=== PATIENT | male | born 1955 | race Caucasian/White ===

== ENCOUNTER 2016-05-27 03:12 | Inpatient (IN) | payer MEDICARE, MEDICAID ==
[~2016-05-27] VITALS: Ht 182.9 cm; Wt 88.3 kg
[2016-05-27] MEDS ORDERED: CEFEPIME 2GM/50 ML (PMX) 50 ML IVPB STA (03:15)
[2016-05-27] MEDS ORDERED: VANCOMYCIN 1 GM (PMX) 250 ML IVPB ONE (03:30)
--- NOTE | 2016-05-27 03:53 | RADRPT ---
PROCEDURE: Chest. CLINICAL INDICATION: Chest pain. TECHNIQUE: Single frontal view of the chest was obtained. COMPARISON: None. FINDINGS: The patient status post tracheostomy. The cardiac silhouette is magnified. The aortic arch is unre markable. There is increased paratracheal soft tissue which could be vascular. There is no focal con solidation, vascular congestion or pleural effusion. There is no pneumothorax. IMPRESSION: Increased paratracheal soft tissue could be vascular; however, follow-up is recommended. Otherwise no evidence for active cardiopulmonary disease. .Mina Wilson MD, MD Date Time Electronically viewed and signed by .Mina Wilson MD, on 05/27/2016 03:53 .T/
[2016-05-27] MEDS ORDERED: SOD CHLORIDE 0.9% IV ONE (04:00)
[2016-05-27 04:20] LABS: ALBUMIN 3.7 g/dl (3.3-4.9); CHLORIDE 100 mmol/L (97-110)
[2016-05-27 04:21] LABS: POTASSIUM 5.2 mmol/L (3.5-5.1); SODIUM 139 mmol/L (135-144)
[2016-05-27 04:23] LABS: ALANINE AMINOTRANSFERASE 27 IU/L (13-69); ALKALINE PHOSPHATASE 75 IU/L (42-121); ANION GAP 19 (8-16); ASPARTATE AMINO TRANSFERASE 33 IU/L (15-46); BILIRUBIN,INDIRECT 0.2 mg/dl (0-1.1); BILIRUBIN,TOTAL 0.2 mg/dl (0.2-1.3); BLOOD UREA NITROGEN 43 mg/dl (7-20); CARBON DIOXIDE 25 mmol/L (21-31); CREATININE 1.11 mg/dl (0.61-1.24); TOTAL PROTEIN 7.4 g/dl (6.1-8.1)
[2016-05-27 04:24] LABS: CALCIUM 8.7 mg/dl (8.4-10.2); GLUCOSE 113 mg/dl (70-220)
[2016-05-27 04:29] LABS: INR 1.17; PT RATIO 1.2
[2016-05-27 04:37] LABS: HEMATOCRIT 39.5 % (42.0-52.0); HEMOGLOBIN 12.5 g/dl (14.0-18.0); MEAN CORPUSCULAR HEMOGLOBIN 26.1 pg (29.0-33.0); MEAN CORPUSCULAR HGB CONC 31.6 g/dl (32.0-37.0); MEAN CORPUSCULAR VOLUME 82.5 fl (82.0-101.0); PLATELET COUNT 293 10^3/UL (140-440); RED BLOOD COUNT 4.79 10^6/ul (4.70-6.10); RED CELL DISTRIBUTION WIDTH 15.7 % (11.5-14.5); WHITE BLOOD COUNT 17.9 10^3/ul (4.8-10.8)
[2016-05-27 04:38] LABS: MEAN PLATELET VOLUME 10.8 fl (7.4-10.4)
[2016-05-27 04:39] LABS: BASOPHIL # 0.1 10^3/ul (0.0-0.1); BASOPHILS % 0.4 % (0.0-2.0); LYMPHOCYTES # 0.6 10^3/ul (0.8-2.9); LYMPHOCYTES % 3.4 % (15.0-51.0); MONOCYTE # 0.6 10^3/ul (0.3-0.9); MONOCYTES % 3.2 % (0.0-11.0); NEUTROPHIL # 16.6 10^3/ul (1.6-7.5); NEUTROPHILS % 92.6 % (39.0-77.0)
[2016-05-27 04:44] LABS: TROPONIN-I < 0.012 ng/ml (0.00-0.12)
--- NOTE | 2016-05-27 05:01 | ERA ---
ER Documentation Chief Complaint Date/Time DATE: 05/27/16 TIME: 04:59 Chief Complaint sent from [facility] for SOB secondary to aspiration HPI There is a 4-year-old male was on trach events. Since then for possible aspiration has became difficult to respirate. Patient is unable to provide any relevant history secondary to baseline medical status ROS All systems reviewed and are negative except as per history of present illness. Allergies Allergies: Coded Allergies: No Known Drug Allergies (Verified Allergy, Unknown, 05/27/16) PMhx/Soc Hx Neurological Disorder: Yes (CVA, seizure disorder) Hx Respiratory Disorders: Yes (respiratory failure) Hx Cardiac Disorders: Yes (htn, pvd, stent) Hx Miscellaneous Medical Probl: Yes (DM, hyperlipidemia, dysphagia, renal insuffic, ) Smoking Status: Never smoker Physical Exam Vitals Vital Signs Date Time Temp Pulse Resp B/P Pulse Ox O2 Delivery O2 Flow Rate FiO2 05/27/16 03:15 99.6 116 21 109/74 93 Physical Exam Const: [] Head: Atraumatic Eyes: Normal Conjunctiva ENT: Trach site is clean dry and intact Neck: Full range of motion..~ No meningismus. Resp: Clear to auscultation bilaterally Cardio: Regular rate and rhythm, no murmurs Abd: Soft, non tender, non distended. Normal bowel sounds Skin: No petechiae or rashes Back: No midline or flank tenderness Ext: No cyanosis, or edema Neur: Awake Psych: Deferred Result Diagram: 05/27/16 0315 05/27/16 0315 Results 24 hrs Laboratory Tests Test 05/27/16 03:15 Activated Partial Thromboplast Time 38.0Sec Alanine Aminotransferase (ALT/SGPT) 27IU/L Albumin 3.7g/dl Albumin/Globulin Ratio 1.00 Alkaline Phosphatase 75IU/L Anion Gap 19 Aspartate Amino Transf (AST/SGOT) 33IU/L Basophils # 0.110^3/ul Basophils % 0.4% Blood Urea Nitrogen 43mg/dl Calcium Level 8.7mg/dl Carbon Dioxide Level 25mmol/L Chloride Level 100mmol/L Creatinine 1.11mg/dl Direct Bilirubin 0.00mg/dl Eosinophils # 0.010^3/ul Eosinophils % 0.0% Globulin 3.70g/dl Glucose Level 113mg/dl Hematocrit 39.5% Hemoglobin 12.5g/dl INR International Normalized Ratio 1.17 Indirect Bilirubin 0.2mg/dl Lactic Acid Level 1.6mmol/L Lymphocytes # 0.610^3/ul Lymphocytes % 3.4% Mean Corpuscular Hemoglobin 26.1pg Mean Corpuscular Hemoglobin Concent 31.6g/dl Mean Corpuscular Volume 82.5fl Mean Platelet Volume 10.8fl Monocytes # 0.610^3/ul Monocytes % 3.2% Neutrophils # 16.610^3/ul Neutrophils % 92.6% Nucleated Red Blood Cells # 0.010^3/ul Nucleated Red Blood Cells % 0.0/100WBC Platelet Count 06032^3/UL Potassium Level 5.2mmol/L Prothrombin Time 15.0Sec Prothrombin Time Ratio 1.2 Red Blood Count 4.7910^6/ul Red Cell Distribution Width 15.7% Sodium Level 139mmol/L Total Bilirubin 0.2mg/dl Total Protein 7.4g/dl Troponin I < 0.012ng/ml White Blood Count 17.910^3/ul Current Medications Medications (Trade) Dose Ordered Sig/Alejandra Route PRN Reason Start Time Stop Time Status Last Admin Dose Admin Cefepime HCl 50 ml @ 100 mls/hr ONCE STAT IVPB 05/27/16 03:15 05/27/16 03:44 DC 05/27/16 03:55 Vancomycin HCl 250 ml @ 125 mls/hr ONCE ONCE IVPB 05/27/16 03:30 05/27/16 05:29 05/27/16 04:49 Sodium Chloride (NS) 2,600 ml @ 2,600 mls/hr BOLUS X1 ONCE IV 05/27/16 04:00 05/27/16 04:59 05/27/16 03:55 Procedures/MDM Chest X-ray 1V Interpreted by me: Soft Tissue: No acute abnormalities Bones: No acute abnormalities Mediastinum/Cardiac Silhouette/Lungs: [No acute abnormalities] EKG: Rate/Rhythm: [Normal Sinus Rhythm] QRS, ST, T-waves: [No changes consistent w/ acute ischemia] Impression: [No evidence of ischemia or arrhythmia] Medical decision-making: This gentleman comes in with exacerbation pneumonia. Lactic acid is negative. Blood cultures are pending. Started on broad- spectrum antibiotics. Given a fluid bolus for sepsis protocol. Patient will be admitted to hospitalist Departure Diagnosis: Primary Impression: Aspiration pneumonia Qualified Code: J69.0 - Aspiration pneumonia, unspecified aspiration pneumonia type, unspecified laterality, unspecified part of lung Condition: Serious FLORENCIO SALINAS May 27, 2016 05:01
[2016-05-27] MEDS ORDERED: ALBU2.5V3 NEB ×2 (06:50)
[2016-05-27] MEDS ORDERED: ASPI-664 GTB (06:52)
[2016-05-27] MEDS ORDERED: POLY15DR25 OP (06:52)
[2016-05-27] MEDS ORDERED: HYDR-842 GTB (06:53)
[2016-05-27] MEDS ORDERED: BEN25 GTB (06:54)
[2016-05-27] MEDS ORDERED: ATEN-51 GTB (06:54)
[2016-05-27] MEDS ORDERED: DOCU-144 GTB (06:55)
[2016-05-27] MEDS ORDERED: DULO30CA45 GTB (06:55)
[2016-05-27] MEDS ORDERED: BISA10SU55 RC (06:56)
[2016-05-27] MEDS ORDERED: NA P135E RC (06:57)
[2016-05-27] MEDS ORDERED: KEP100S GTB (06:58)
[2016-05-27] MEDS ORDERED: LEVO5TAB GTB (06:59)
[2016-05-27] MEDS ORDERED: MINE3.5O28 OP (07:00)
[2016-05-27] MEDS ORDERED: CRAN3875 GTB (07:01)
[2016-05-27] MEDS ORDERED: ACET1TAB40 GTB (07:02)
[2016-05-27] MEDS ORDERED: ACET-2047 PO (07:03)
[2016-05-27] MEDS ORDERED: ACET-2047 GTB (07:04)
[2016-05-27] MEDS ORDERED: MULTI GTB (07:04)
[2016-05-27] MEDS ORDERED: VANCOMYCIN IV PER PHARMACY XX SCH (08:00)
[2016-05-27] MEDS ORDERED: DOCUSATE SODIUM 10 MG/ML (10ML CUP) GTB PRN (08:00)
[2016-05-27] MEDS ORDERED: ACETAMINOPHEN 650MG/20.3ML CUP GTB PRN (08:00)
[2016-05-27] MEDS ORDERED: NACL 0.9% 3 ML SYG IV SCH (08:00)
[2016-05-27] MEDS ORDERED: BISACODYL 10 MG SUPP PR PRN (08:00)
[2016-05-27] MEDS: FAMOTIDINE 20 MG INJ IV SCH ×2 (09:00→21:46)
[2016-05-27] MEDS ORDERED: DULOXETINE 30 MG CAP DR GTB SCH (09:00)
[2016-05-27] MEDS: ASPIRIN 81 MG TAB GTB SCH (09:00)
[2016-05-27] MEDS: ACETAMINOPHEN/CODEINE #3 TAB GTB SCH ×2 (09:00→22:26)
[2016-05-27] MEDS: ACETAMINOPHEN 650MG/20.3ML CUP GTB PRN (09:01)
[2016-05-27] MEDS: HEPARIN 5,000 UNIT/0.5 ML SYG SC SCH ×2 (09:02→22:28)
--- NOTE | 2016-05-27 09:50 | RADRPT ---
PROCEDURE: CT Chest without contrast. CLINICAL INDICATION: Abnormal chest x-ray. Increased paratracheal soft tissue identified on 017 chest x-ray. TECHNIQUE: CT scan of the chest without contrast was performed on a multidetector high-resolution CT scanner. Coronal and sagittal reformatted images were obtained from the axial source images. The total exam CTDI equals 17.8 mGy and the total exam DLP equals 728.7 mGy-cm. One or more of the following dose reduction techniques were used: - Automated exposure control. - Adjustment of the mA and/or kV according to patient size. Use of iterative reconstruction technique. COMPARISON: Chest x-ray 05/27/2016. FINDINGS: There is extensive peribronchial cuffing in both lungs. There are faint infiltrates in the right an d left upper lobes. There is consolidative infiltrate with air bronchograms in the right lower lobe . There is a 4 mm pleural-based nodule where it pleural scarring in the posterior apical segment of the left upper lobe may be the result of a granuloma. No pleural effusion is identified. There ar e vascular calcifications at the root of the aorta and in the coronary arteries. There are vascular calcifications in the aortic arch and proximal portions of the subclavian arteries. The main pulmon lisa artery and pulmonary artery outflow tracts are normal. The heart is normal in size. No pericar dial effusion is identified. The thyroid gland is normal. There are small right paratracheal lymph nodes. There is a nonspecific 1.1 cm lymph node ventral to the right mainstem bronchus. There is a 1.2 cm enlarged left hilar lymph node. A tracheostomy tube is well-positioned there are T2-T3. The axillary regions, subpectoral regions, and supraclavicular regions are all unremarkable. The martinez rrounding chest wall is unremarkable. Imaging obtained through the upper abdomen reveals no acute a bnormality. 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 There is a 7 mm accessory splenule. The liver is enlarged measuring 17.4 cm AP. The pancreas is unremarkable. There is a gastrostomy t ube well positioned in the stomach without evidence of gastric wall thickening. The surrounding oss eous structures are remarkable for degenerative spondylosis of the spine. No osteolytic or osteobla stic lesion is detected. IMPRESSION: 1. There is a consolidated pneumonia with volume loss air bronchograms in the right lower lobe with extensive peribronchial cuffing and faint infiltrates in the right upper lobe and superior segments of the right and left lower lobes. Findings are suspicious for pneumonia. 4 mm pleural-based nodul e or pleural scarring in the posterior apical segment of the right upper lobe. Recommend TB skin te sting and follow-up in 12 months at the the patient is at risk for malignancy. 2. There present reactive enlarged lymph nodes adjacent the right mainstem bronchus in the left sukumar r area. 3. No abnormal right paratracheal mass is identified. 4. Vascular vascular disease. 5. Spondylosis of the thoracic spine. RPTAT:AAJJ Physician David Date Time Electronically viewed and signed by Michele Maria Physician on 05/27/2016 09:49 CAROL/
[2016-05-27] MEDS: hydrOXYzine HCL 25 MG TAB GTB SCH ×2 (09:56→13:00)
[2016-05-27] MEDS: LEVETIRACETAM (100 MG/ML PO SYG) GTB SCH (09:56)
[2016-05-27] MEDS: MULTIVITAMINS THERAPEUTIC TAB GTB SCH (09:56)
[2016-05-27] MEDS: ATENOLOL 25 MG TAB GTB SCH (09:57)
--- NOTE | 2016-05-27 10:57 | HP ---
DATE OF ADMISSION: 05/27/2016 CHIEF COMPLAINT: Shortness of breath and vomiting. HISTORY OF PRESENT ILLNESS: The patient is a 60-year-old female with a history of CVA, seizure, sean betes, dysphagia, status post G tube, with moderate chronic respiratory failure, status post tracheo stomy on the vent, peripheral vascular disease status post stent and hypertension who was sent from a [facility] [place] for hypoxia, respiratory distress and vomiting. At the [facility], she was noted to be hypoxic and they were not able to fully adequately oxygenate her here for evaluation. There are also reports of vomiting in the day. There was a concern for possible aspiration. The patient is trached to the vent and as such gathering information from him is difficult. When he presented to the ER, his temperature was 99.6 and a heart rate of 116, respiratory rate 21, blood pressure 109/74, oxygen saturation 93% on 50% FIO2. Chest x-ray shows increased peritracheal soft tissue which could be vascular. Otherwise, no evidence for active cardiopulmonary disease. LABORATORIES: Laboratory value shows a WBC of 18,000, hemoglobin 12.5, potassium 5.2, BUN 43, creat inine 1.1. Otherwise, the rest of the vitals are stable. The patient does get IV fluids and was started on vancomycin and cefepime. We are currently awaitin g admission REVIEW OF SYSTEMS: Unable to fully assess, but negative except as mentioned in HPI. PAST MEDICAL HISTORY: As per HPI. PAST SURGICAL HISTORY: As per HPI. SOCIAL HISTORY: No reported use of tobacco, alcohol or illicit drug use. ALLERGIES: NO KNOWN DRUG ALLERGIES. HOME MEDICATIONS: 1. Benadryl. 2. Levocetirizine. 3. Albuterol 4. Atenolol. 5. Tylenol with codeine. 6. Aspirin. 7. Cymbalta. 8. Atarax 9. Keppra. 10. Mineral oil. 11. Dulcolax. 12. Colace. 13. Multivitamin. PHYSICAL EXAMINATION: VITAL SIGNS: Blood pressure 103/70, heart rate 105, respiratory rate 17, temperature 99.7, oxygen s aturation 92% on 50% FIO2 on a mechanical vent through his trach. GENERAL: No acute distress. The patient is somewhat agitated. HEENT: No obvious head deformity. Pupils reactive to light. Extraocular muscles intact. CARDIOVAS CULAR: Bradycardic but regular rhythm. LUNGS: With decreased breath sounds anteriorly. ABDOMEN: Soft. There is a G-tube in place. There are scratch camargo on the left side of his body. EXTREMITIES: There is trace pitting edema. LABORATORY DATA: Pertinent positive results as mentioned in the HPI. IMAGING: Chest x-ray with results as mentioned in the HPI. IMPRESSION: 1. Sepsis, likely from developing pneumonia. 2. Probable aspiration pneumonia. 3. Chronic, trach ventilator-dependent respiratory failure. 4. History of cerebrovascular accident. 5. History of seizure. 6. History of diabetes. 7. History of dysphagia status post G-tube. 8. History of hypertension, blood pressure at goal. 9. Hyperkalemia. PLAN: He will be placed on broad spectrum antibiotic. We will follow up on the culture results. W e will order a urinalysis as well. Will continue trach vent support. Will place a pulmonary consul t. He will be continued on his home medication through his G tube with adjustments as needed. He w ill be on insulin for his diabetes. Will correct electrolytes as needed. On the chest x-ray, there was increased peritracheal soft tissue that was noted and for this reason, I will order CT of the c hest for further evaluation. Further workup and management per clinical course. Dictated By: FLORENCIO BAILEY/EVELINA Conf#: [id number] DID#: [id number]
[2016-05-27] MEDS: CEFEPIME 1GM/50 ML (PMX) 50 ML IVPB SCH ×2 (12:42→21:46)
--- NOTE | 2016-05-27 13:38 | QN ---
Documentation Comment The patient was seen and examined. Labs reviewed. ID consult called. Case discussed with Dr. Bustos. NILAY TURNER NP May 27, 2016 13:38
--- NOTE | 2016-05-27 13:40 | CONS ---
Date/Time of Note Date/Time of Note DATE: 05/27/16 TIME: 13:34 Assessment/Plan Assessment/Plan Additional Assessment/Plan Current ventilator settings; AC of 16, tidal volume 550, PEEP of 5, 50% FiO2. Chest x-ray was reviewed from today which is essentially unremarkable. CT scan of chest was reviewed without contrast which is showing right upper lobe consolidation. Assessment and recommendations; 1. Patient admitted with right lower lobe pneumonia with leukocytosis. 2. History of stable seizure disorder. 3. History of stable hypertension. Continue current treatment. Patient currently is on appropriate antibiotic regimen. Resume tube feeding. 5. History of CVA involving left upper extremity. 6. Chronic respiratory failure ventilator dependent. Consultation Date/Type/Reason Admit Date/Time Date of Consultation: May 27, 2016 Type of Consultation: Pulmonary/critical care Reason for Consultation 60-year-old male transferred to ER from care home with complaints of hypoxemia. Patient is unable to give any history by himself history was obtained from medical records. History of present illness; 60-year-old male transferred from care home with complaints of hypoxemia with O2 saturation of around 90-92% on supplemental oxygen via ventilator. On further evaluation a chest x-ray was done which was essentially unremarkable, however CT scan of chest was done which is showing extensive consolidation involving the right lower lobe. Patient is started on broad-spectrum antibiotic coverage. No history of any nausea or vomiting reported by the care home. N Past medical history; 1. CVA involving the left side. 2. Chronic respiratory failure, ventilator dependent. 3. Status post tracheostomy and G-tube placement. 4. History of seizures. 5. History of hypertension. Medications; were reviewed. Allergies; are none. Social history; no stony smoking alcohol or drug abuse. Family history; not available. Occupational history; not available. Review of systems; patient unable to give any meaningful review of systems. General examination; elderly male, on ventilator via tracheostomy awake and currently in no distress. Patient follows some commands. Social History Smoking Status: Never smoker Exam/Review of Systems Vital Signs Vitals Vital Signs Date Time Temp Pulse Resp B/P Pulse Ox O2 Delivery O2 Flow Rate FiO2 05/27/16 12:00 98.3 73 20 102/66 98 Room Air 05/27/16 11:00 10.0 05/27/16 05:00 50 Exam H EENT examination; supple neck. JVD difficult to see because of short neck. Tracheostomy in place with clean insertion site. Pupils are midsize bilaterally. Patient is not cooperative enough to let me examine his pharynx or any dental status. He will not open his mouth. No thyromegaly. No lymphadenopathy. Chest examination; diminished breath sounds right lower lobe otherwise clear. S1-S2 audible, no murmurs. Regular rhythm. Abdomen examination; soft, protuberant. Nontender. No organomegaly. G-tube in place. Extremity examination; no peripheral edema. Pulses 1+ bilaterally. QUARTZ CUTTER examination; patient unable to move left upper extremity but is able to move his lower as well as right upper extremities to some extent. Results Result Diagram: 05/27/1631405/27/16 031 Results 24 hrs Laboratory Tests Test 05/27/16 03:15 05/27/16 05:00 05/27/16 07:04 Activated Partial Thromboplast Time 38.0 H Alanine Aminotransferase (ALT/SGPT) 27 Albumin 3.7 Albumin/Globulin Ratio 1.00 Alkaline Phosphatase 75 Anion Gap 19 H Aspartate Amino Transf (AST/SGOT) 33 Basophils # 0.1 Basophils % 0.4 Blood Urea Nitrogen 43 H Calcium Level 8.7 Carbon Dioxide Level 25 Chloride Level 100 Creatinine 1.11 Direct Bilirubin 0.00 Eosinophils # 0.0 Eosinophils % 0.0 Globulin 3.70 H Glucose Level 113 Hematocrit 39.5 L Hemoglobin 12.5 L INR International Normalized Ratio 1.17 Indirect Bilirubin 0.2 Lactic Acid Level 1.6 1.1 1.1 Lymphocytes # 0.6 L Lymphocytes % 3.4 L Mean Corpuscular Hemoglobin 26.1 L Mean Corpuscular Hemoglobin Concent 31.6 L Mean Corpuscular Volume 82.5 Mean Platelet Volume 10.8 H Monocytes # 0.6 Monocytes % 3.2 Neutrophils # 16.6 H Neutrophils % 92.6 H Nucleated Red Blood Cells # 0.0 Nucleated Red Blood Cells % 0.0 Platelet Count 293 Potassium Level 5.2 H Prothrombin Time 15.0 H Prothrombin Time Ratio 1.2 Red Blood Count 4.79 Red Cell Distribution Width 15.7 H Sodium Level 139 Total Bilirubin 0.2 Total Protein 7.4 Troponin I < 0.012 White Blood Count 17.9 H Medications Medications Current Medications Morphine Sulfate (morphine) 2 mg Q4H PRN IV SEVERE PAIN LEVEL 7-10; Start 05/27 at 08:00 Famotidine (Pepcid Iv) 20 mg Q12 IV Last administered on 05/27/16 09:00; Admin Dose 20 MG; Start 05/27/16 at 09:00 Heparin Sodium (Porcine) (Heparin (5000 Units/0.5 ml)) 5,000 unit Q12 SC Last administered on 05/27/16 09:02; Admin Dose 5,000 UNIT; Start 05/27/16 at 09:00 Acetaminophen/ Codeine Phosphate (Tylenol No.3) 1 tab Q12 GTB ; Start 05/27/16 at 09:00 Acetaminophen (Tylenol Liquid) 650 mg Q4H PRN GTB PAIN AND OR ELEVATED TEMP Last administered on 05/27/16 09:01; Admin Dose 650 MG; Start 05/27/16 at 08:00 Albuterol (Proventil 0.083% (Neb)) 2.5 mg Q6 PRN NEB WHEEZING AND SOB; Start at 08:00 Aspirin (Aspirin) 81 mg DAILY GTB Last administered on 05/27/16 09:00; Admin Dose 81 MG; Start 05/27/16 at 09:00 Atenolol (Tenormin) 25 mg DAILY GTB Last administered on 05/27/16 09:57; Admin Dose 25 MG; Start 05/27/16 at 09:00 Bisacodyl (Dulcolax Supp) 10 mg Q24H PRN ID constipation; Start 05/27/16 at 08: 00 Diphenhydramine HCl (Benadryl) 25 mg Q6H PRN GTB ITCHING; Start 05/27/16 at 08: 00 Docusate Sodium (Colace Liquid Cup) 100 mg QHS PRN GTB CONSTIPATION; Start at 08:00 Hydroxyzine HCl (Atarax) 25 mg TID GTB Last administered on 05/27/16 09:56; Admin Dose 25 MG; Start 05/27/16 at 09:00 Levetiracetam (Keppra Liq (Ped)) 750 mg BID GTB Last administered on 05/27/16 09:56; Admin Dose 750 MG; Start 05/27/16 at 09:00 Multivitamins Therapeutic 1 tab 1 tab DAILY GTB Last administered on 05/27/16 09:56; Admin Dose 1 TAB; Start 05/27/16 at 09:00 Cefepime HCl 50 ml @ 100 mls/hr Q12 IVPB Last administered on 05/27/16 12:42 ; Admin Dose 100 MLS/HR; Start 05/27/16 at 13:00 Vancomycin HCl (Vancocin) 250 ml @ 125 mls/hr Q12H IVPB ; Start 05/27/16 at 13: 00 MAURISIO CHEUNG May 27, 2016 13:40
[2016-05-27] MEDS: VANCOMYCIN 1 GM in NS 250 ML IVPB SCH (14:47)
--- NOTE | 2016-05-27 16:12 | CONS ---
DATE OF ADMISSION: 05/27/2016 DATE OF CONSULTATION: 05/27/2016 TYPE OF CONSULTATION: Infectious Disease. REASON FOR CONSULTATION: Antibiotic management. HISTORY OF PRESENT ILLNESS: Aleksey Briseno is a 62-year-old male who comes in with shortness of breath and vomiting. His past problems include: 1. History of CVA. 2. Seizure disorder. 3. Diabetes mellitus. 4. Dysphagia. 5. Status post G-tube placement. 6. Chronic respiratory failure, status post tracheostomy, on a vent. 7. Peripheral vascular disease. 8. Status post stent placement. 9. Hypertension. Acutely, the patient was sent from a senior living facility with hypoxia, respiratory distress, na usea, and vomiting. They were unable to fully oxygenate him in the emergency room. He is trached a nd vented, and there was concern for possible aspiration. His O2 was 93, O2 sat on 50% FIO2. Chest x-ray showed increased peritracheal soft tissue, which could be vascular. Otherwise, no evidence f or acute or active cardiopulmonary disease. LABORATORY VALUES: Shows white count was 17.9, H and H of 12.5 and 39.5, platelet count 293,000 wit h 93% polys. A BUN and creatinine of 43/1.11, lactic acid was 1.6. A chest x-ray increased paratra cheal soft tissues. CT scan showed consolidated pneumonia with volume loss, air bronchograms in the right lower lobe with extensive peribronchial cuffing, and faint infiltrates in the right upper lob e and superior segment of the right lower lobe. Findings are suspicious for pneumonia. A 4-mm pleu ral based nodule, or pleural scarring, in the posterior apical segment of the right upper lobe. Rec ommend TB skin testing and follow up in 12 months if the patient is at risk for malignancy. He has reactive enlarged lymph nodes adjacent to the right main bronchus in the left hilar area, but his br onchograms are in the right lower lobe and extensive bronchial cuffing and faint infiltrates in the right upper lobe and superior segment of the right and left lower lobes. The patient clearly has pn eumonia. The patient was started on vancomycin and cefepime, and cultures were sent. PAST MEDICAL HISTORY: Operations as outlined. FAMILY HISTORY: Noncontributory. SOCIAL HISTORY: Does not smoke, drink, or abuse drugs. ALLERGIES: NONE TO PENICILLIN, SULFA, OR FOODS. MEDICATIONS: Per chart. REVIEW OF SYSTEMS: As per HPI. PHYSICAL EXAMINATION: GENERAL: The patient is a chronically ill-appearing male who is agitated, somewhat obtunded. VITAL SIGNS: As outlined and are stable. SKIN: Without generalized rash. HEENT: Within normal limits. NECK: Tracheostomy in place. Supple. LYMPH NODES: None palpable. CHEST: Decreased breath sounds at the bases. HEART: Without murmur or gallop. ABDOMEN: G-tube in place, no discharge. EXTREMITIES: Without cyanosis or clubbing. He has trace pitting edema. RECTAL AND GENITAL: Deferred. NEUROLOGIC: No focal neurological abnormalities. IMPRESSION AND PLAN: The patient has extensive pulmonary infiltrates, probably related to aspiratio n pneumonia. He is on vancomycin and cefepime. Will await the culture reports. Hopefully, respira tory cultures were ordered. I will dictate my findings to the hospitalist. Dictated By: RUTH WORLEY MD, JD/EVELINA Conf#: [id number] DID#: [id number]
[2016-05-28] MEDS: LEVETIRACETAM (100 MG/ML PO SYG) GTB SCH ×3 (00:18→21:56)
[2016-05-28] MEDS: hydrOXYzine HCL 25 MG TAB GTB SCH ×4 (00:18→21:56)
[2016-05-28] MEDS: VANCOMYCIN 1 GM in NS 250 ML IVPB SCH ×2 (01:10→13:34)
[2016-05-28] MEDS: ACETAMINOPHEN 650MG/20.3ML CUP GTB PRN (04:18)
[2016-05-28 09:03] LABS: HEMATOCRIT 36.5 % (42.0-52.0); LYMPHOCYTES # 0.7 10^3/ul (0.8-2.9); LYMPHOCYTES % 6.3 % (15.0-51.0); MEAN CORPUSCULAR HEMOGLOBIN 26.4 pg (29.0-33.0); MEAN CORPUSCULAR HGB CONC 32.8 g/dl (32.0-37.0); MEAN CORPUSCULAR VOLUME 80.5 fl (82.0-101.0); MONOCYTE # 0.6 10^3/ul (0.3-0.9); MONOCYTES % 5.4 % (0.0-11.0); NEUTROPHIL # 9.2 10^3/ul (1.6-7.5); NEUTROPHILS % 88.3 % (39.0-77.0); PLATELET COUNT 269 10^3/UL (140-440); RED BLOOD COUNT 4.53 10^6/ul (4.70-6.10); RED CELL DISTRIBUTION WIDTH 16.4 % (11.5-14.5); UNCORRECTED WBC 10.5 10^3/ul (4.8-10.8); WHITE BLOOD COUNT 10.5 10^3/ul (4.8-10.8)
[2016-05-28 09:11] LABS: ALBUMIN 3.5 g/dl (3.3-4.9)
[2016-05-28 09:12] LABS: POTASSIUM 5.5 mmol/L (3.5-5.1)
[2016-05-28 09:13] LABS: PHOSPHORUS 2.6 mg/dl (2.5-4.9)
[2016-05-28 09:14] LABS: ALBUMIN/GLOBULIN RATIO 0.87; BILIRUBIN,INDIRECT 0.2 mg/dl (0-1.1); BILIRUBIN,TOTAL 0.2 mg/dl (0.2-1.3); CONDITION 1; CREATININE 0.8 mg/dl (0.61-1.24); LH ANALYZER COMMENTS 1; MAGNESIUM 2.2 mg/dl (1.7-2.5); TOTAL PROTEIN 7.5 g/dl (6.1-8.1)
[2016-05-28 09:15] LABS: CALCIUM 8.6 mg/dl (8.4-10.2); CHOL/HDL RATIO 3.9 RATIO
[2016-05-28] MEDS: MULTIVITAMINS THERAPEUTIC TAB GTB SCH (09:56)
[2016-05-28] MEDS: ATENOLOL 25 MG TAB GTB SCH (09:56)
[2016-05-28] MEDS: ACETAMINOPHEN/CODEINE #3 TAB GTB SCH ×2 (09:57→21:56)
[2016-05-28] MEDS: CEFEPIME 1GM/50 ML (PMX) 50 ML IVPB SCH ×2 (09:57→21:55)
[2016-05-28] MEDS: FAMOTIDINE 20 MG INJ IV SCH ×2 (09:57→21:55)
[2016-05-28] MEDS: ASPIRIN 81 MG TAB GTB SCH (09:58)
[2016-05-28 11:21] LABS: THYROID STIMULATING HORMONE 1.37 MIU/L (0.465-4.680)
--- NOTE | 2016-05-28 12:37 | CONS ---
Date/Time of Note Date/Time of Note DATE: 05/28/16 TIME: 12:33 Assessment/Plan Assessment/Plan Additional Assessment/Plan Ventilator settings; assist control 16, tidal volume 550, PEEP of 5, 50% FiO2. Assessment recommendations; 1. Patient with chronic respiratory failure admitted with right lower lobe pneumonia. 2. History of CVA. 3. Improving leukocytosis. Continue current treatment. Patient awaiting transfer to ICU from ER. Consultation Date/Type/Reason Admit Date/Time Initial Consult Date 05/27/16 Type of Consultation: Pulmonary/critical care 24 HR Interval Summary Free Text/Dictation Patient's condition remains stable. Still in ER awaiting ICU bed. Patient is completely awake alert ,able to communicate well by lip movement and able to move right upper extremity. Has remained hemodynamically stable. General examination; elderly male, on ventilator via tracheostomy currently in no distress awake and alert. Exam/Review of Systems Vital Signs Vitals Vital Signs Date Time Temp Pulse Resp B/P Pulse Ox O2 Delivery O2 Flow Rate FiO2 05/28/16 10:00 83 18 127/75 100 Mechanical Ventilator 05/28/16 09:44 50 05/28/16 09:00 98.6 05/28/16 01:00 10.0 Exam H EENT examination; supple neck, no JVD. Midline trachea no thyromegaly. Tracheostomy in place with clean insertion site. Pupils are small bilaterally. No neck masses. No lymphadenopathy. No neck bruits. Chest examination; diminished breath sounds bilaterally without any added sounds. S1-S2 audible no murmurs. Regular rhythm. Abdomen examination; soft, nontender. Protuberant. No organomegaly. G-tube in place. Bowel sounds audible. Extremity examination; no peripheral edema. Pulses 1+ bilaterally. PRINTMAKER examination; patient is awake alert able to move right upper and both lower extremities. Has stable left upper extremity paralysis. Results Result Diagram: 05/28/16 0843 05/28/16 0843 Results 24 hrs Laboratory Tests Test 05/28/16 08:43 Alanine Aminotransferase (ALT/SGPT) 22 Albumin 3.5 Albumin/Globulin Ratio 0.87 Alkaline Phosphatase 70 Anion Gap 21 H Aspartate Amino Transf (AST/SGOT) 45 Basophils # 0.0 Basophils % 0.0 Blood Morphology Comment Blood Urea Nitrogen 30 #H Calcium Level 8.6 Carbon Dioxide Level 25 Chloride Level 105 Cholesterol Level 87 L Cholesterol/HDL Ratio 3.9 Creatinine 0.80 Direct Bilirubin 0.00 Eosinophils # 0.0 Eosinophils % 0.0 Globulin 4.00 H Glucose Level 96 HDL Cholesterol 22 L Hematocrit 36.5 L Hemoglobin 12.0 L Hemoglobin A1c 5.7 Indirect Bilirubin 0.2 LDL Cholesterol, Calculated 41 Lymphocytes # 0.7 L Lymphocytes % 6.3 L Magnesium Level 2.2 Mean Corpuscular Hemoglobin 26.4 L Mean Corpuscular Hemoglobin Concent 32.8 Mean Corpuscular Volume 80.5 L Mean Platelet Volume 9.0 Monocytes # 0.6 Monocytes % 5.4 Neutrophils # 9.2 H Neutrophils % 88.3 H Nucleated Red Blood Cells # 0.0 Nucleated Red Blood Cells % 0.0 Phosphorus Level 2.6 Platelet Count 269 Potassium Level 5.5 H Red Blood Count 4.53 L Red Cell Distribution Width 16.4 H Sodium Level 145 H Thyroid Stimulating Hormone (TSH) 1.370 Total Bilirubin 0.2 Total Protein 7.5 Triglycerides Level 122 White Blood Count 10.5 # Medications Medications Current Medications Morphine Sulfate (morphine) 2 mg Q4H PRN IV SEVERE PAIN LEVEL 7-10; Start 05/27 at 08:00 Famotidine (Pepcid Iv) 20 mg Q12 IV Last administered on 05/28/16 09:57; Admin Dose 20 MG; Start 05/27/16 at 09:00 Heparin Sodium (Porcine) (Heparin (5000 Units/0.5 ml)) 5,000 unit Q12 SC Last administered on 05/27/16 22:28; Admin Dose 5,000 UNIT; Start 05/27/16 at 09:00 Acetaminophen/ Codeine Phosphate (Tylenol No.3) 1 tab Q12 GTB Last administered on 05/28/16 09:57; Admin Dose 1 TAB; Start 05/27/16 at 09:00 Acetaminophen (Tylenol Liquid) 650 mg Q4H PRN GTB PAIN AND OR ELEVATED TEMP Last administered on 05/28/16 04:18; Admin Dose 650 MG; Start 05/27/16 at 08:00 Albuterol (Proventil 0.083% (Neb)) 2.5 mg Q6 PRN NEB WHEEZING AND SOB; Start at 08:00 Aspirin (Aspirin) 81 mg DAILY GTB Last administered on 05/28/16 09:58; Admin Dose 81 MG; Start 05/27/16 at 09:00 Atenolol (Tenormin) 25 mg DAILY GTB Last administered on 05/28/16 09:56; Admin Dose 25 MG; Start 05/27/16 at 09:00 Bisacodyl (Dulcolax Supp) 10 mg Q24H PRN [place] constipation; Start 05/27/16 at 08: 00 Diphenhydramine HCl (Benadryl) 25 mg Q6H PRN GTB ITCHING; Start 05/27/16 at 08: 00 Docusate Sodium (Colace Liquid Cup) 100 mg QHS PRN GTB CONSTIPATION; Start at 08:00 Hydroxyzine HCl (Atarax) 25 mg TID GTB Last administered on 05/28/16 09:55; Admin Dose 25 MG; Start 05/27/16 at 09:00 Levetiracetam (Keppra Liq (Ped)) 750 mg BID GTB Last administered on 05/28/16 09:55; Admin Dose 750 MG; Start 05/27/16 at 09:00 Multivitamins Therapeutic 1 tab 1 tab DAILY GTB Last administered on 05/28/16 09:56; Admin Dose 1 TAB; Start 05/27/16 at 09:00 Cefepime HCl 50 ml @ 100 mls/hr Q12 IVPB Last administered on 05/28/16 09:57 ; Admin Dose 100 MLS/HR; Start 05/27/16 at 13:00 Vancomycin HCl (Vancocin) 250 ml @ 125 mls/hr Q12H IVPB Last administered on 01:10; Admin Dose 125 MLS/HR; Start 05/27/16 at 13:00 MAURISIO CHEUNG May 28, 2016 12:37
[2016-05-28] MEDS: HEPARIN 5,000 UNIT/0.5 ML SYG SC SCH ×2 (13:04→21:57)
[2016-05-28] MEDS ORDERED: NA POLYST SULFON 15 GM/60 ML BTL GTB ONE (16:00)
[2016-05-28 16:09] VITALS: BP 105/81; PULSE 76; RESP 18
--- NOTE | 2016-05-28 19:22 | PN ---
DATE: 05/28/2016 SUBJECTIVE DATA: The patient is nonverbal. Vital signs have been stable. OBJECTIVE DATA: VITAL SIGNS: Temperature 98.9, pulse is 76, respiratory rate 18, blood pressure 105/81, oxygen saturation 99% on 50% oxygen via mechanical ventilator. GENERAL: This is an obese male patient, lying in bed, in no apparent distress. HEENT: Head normocephalic and atraumatic. Eyes: Anicteric sclerae. Conjunctivae clear. ENT: Nasal septum is midline. Oral mucosa is dry. NECK: Tracheostomy is in the midline. No JVD noticed. RESPIRATORY: Bilateral diminished breath sounds. A few fine rales heard. The patient has a tracheostomy connected to mechanical ventilator. On AC mode ventilation. CARDIAC: Regular rate and rhythm. S1, S2 heard. ABDOMEN: Soft, nontender. Left upper quadrant G-tube in place. Left lower quadrant colostomy. GENITOURINARY: Deferred. EXTREMITIES: No cyanosis, no clubbing, no edema. Peripheral pulses are diminished bilaterally. NEUROLOGIC: The patient is awake and alert. The patient is nonverbal. The patient nods had to yes/no questions. LABORATORY AND DIAGNOSTIC DATA: WBC 10.5, hemoglobin 12.0, hematocrit 36.5, platelet count 269. Sodium 145, potassium 5.5, chloride 105, carbon dioxide 23 , anion gap 21, BUN 30, creatinine 0.80, glucose 96, calcium 8.6, phosphorus 2.6 , magnesium 2.2. ASSESSMENT AND PLAN: 1. Sepsis secondary to underlying healthcare-associated pneumonia. No evidence of septic shock. Continue antibiotics as per Infectious Disease. 2. Acute on chronic respiratory failure. The patient is status post tracheostomy. The patient being followed by pulmonary. Continue ventilator management and inhaled bronchodilators as per pulmonary. 3. Seizure disorder. Continue anticonvulsants. 4. Chronic bedridden status. Continue supportive care. Continue turn schedule q.2 hours. 5. Hyperkalemia. Etiology unclear. Will provide the patient with a single dose of potassium exchange resin. 6. Microcytic, hypochromic anemia. Etiology unclear. Will monitor the H and H closely. Transfuse as needed. Will obtain an iron panel on this patient. 7. Essential hypertension. Continue antihypertensives. 8. Fluid, electrolytes, and nutrition. The patient will be continued on tube feedings. 9. DVT prophylaxis, subcutaneous heparin. 10. Gastrointestinal prophylaxis. Histamine 2 receptor blockers. PLAN: Continue antibiotics as per Infectious Disease. Await final cultures. Give a single dose of potassium exchange resin for underlying hyperkalemia. Case discussed with Dr. Romero. NILAY ROMERO MD, AM/EVELINA Conf#: [id number] DID#: [id number] MTDD
[2016-05-28 23:11] VITALS: TEMP 99.7
[2016-05-28 23:55] VITALS: BP 121/67; RESP 18
[2016-05-29] VITALS (23 sets, daily range): BP systolic 112–167; BP diastolic 56–75; PULSE 73–94; RESP 17–37; Ht 182.9 cm; Wt 88.3 kg
[2016-05-29] MEDS: VANCOMYCIN 1.25 GM in SOD CHLORIDE 0.9% 250 ML IVPB SCH ×2 (02:28→13:01)
[2016-05-29 07:20] LABS: PHOSPHORUS 1.6 mg/dl (2.5-4.9); POTASSIUM 3.4 mmol/L (3.5-5.1)
[2016-05-29 07:22] LABS: CREATININE 0.66 mg/dl (0.61-1.24)
[2016-05-29 07:23] LABS: CALCIUM 7.9 mg/dl (8.4-10.2)
[2016-05-29] MEDS: FAMOTIDINE 20 MG INJ IV SCH ×2 (08:00→21:41)
[2016-05-29] MEDS: ASPIRIN 81 MG TAB GTB SCH (08:00)
[2016-05-29] MEDS: ACETAMINOPHEN/CODEINE #3 TAB GTB SCH ×2 (08:00→21:41)
[2016-05-29] MEDS: MULTIVITAMINS THERAPEUTIC TAB GTB SCH (08:01)
[2016-05-29] MEDS: ATENOLOL 25 MG TAB GTB SCH (08:01)
[2016-05-29] MEDS: HEPARIN 5,000 UNIT/0.5 ML SYG SC SCH ×2 (08:07→21:44)
[2016-05-29] MEDS: hydrOXYzine HCL 25 MG TAB GTB SCH ×3 (08:12→21:40)
[2016-05-29 08:49] LABS: IRON 16 ug/dl (35-150)
[2016-05-29 08:58] LABS: TOTAL IRON BINDING CAPACITY 215 ug/dl (241-421)
[2016-05-29 09:40] LABS: BASOPHILS % 0.2 % (0.0-2.0); HEMATOCRIT 31.1 % (42.0-52.0); HEMOGLOBIN 10.3 g/dl (14.0-18.0); LYMPHOCYTES # 0.9 10^3/ul (0.8-2.9); LYMPHOCYTES % 15.3 % (15.0-51.0); MEAN CORPUSCULAR HEMOGLOBIN 26.9 pg (29.0-33.0); MEAN CORPUSCULAR HGB CONC 33.3 g/dl (32.0-37.0); MEAN CORPUSCULAR VOLUME 80.9 fl (82.0-101.0); MEAN PLATELET VOLUME 9.9 fl (7.4-10.4); MONOCYTE # 0.7 10^3/ul (0.3-0.9); MONOCYTES % 11.5 % (0.0-11.0); NEUTROPHIL # 4.5 10^3/ul (1.6-7.5); PLATELET COUNT 211 10^3/UL (140-440); RED BLOOD COUNT 3.84 10^6/ul (4.70-6.10); RED CELL DISTRIBUTION WIDTH 16.6 % (11.5-14.5); UNCORRECTED WBC 6.2 10^3/ul (4.8-10.8); WHITE BLOOD COUNT 6.2 10^3/ul (4.8-10.8)
[2016-05-29] MEDS: LEVETIRACETAM (100 MG/ML PO SYG) GTB SCH ×2 (09:40→22:51)
[2016-05-29 09:42] LABS: CONDITION 1
[2016-05-29 09:43] LABS: LH ANALYZER COMMENTS 1
[2016-05-29] MEDS: CEFEPIME 1GM/50 ML (PMX) 50 ML IVPB SCH ×2 (10:53→21:40)
--- NOTE | 2016-05-29 11:24 | PN ---
Date/Time of Note Date/Time of Note DATE: 05/29/16 TIME: 11:14 Assessment/Plan VTE Prophylaxis VTE Prophylaxis Intervention: heparin, SCD's Lines/Catheters [facility] [place] Assessment/Plan Assessment/Plan 1. Sepsis secondary to underlying healthcare-associated pneumonia. No evidence of septic shock. Continue antibiotics as per Infectious Disease. 2. Acute on chronic respiratory failure. The patient is status post tracheostomy. The patient being followed by pulmonary. Continue ventilator management and inhaled bronchodilators as per pulmonary. 3. Seizure disorder. Continue anticonvulsants. 4. Chronic bedridden status. Continue supportive care. Continue turn schedule q.2 hours. 5. Hyperkalemia. Etiology unclear. Will provide the patient with a single dose of potassium exchange resin. 6. Microcytic hypochromic anemia. Etiology unclear. Will monitor the H and H closely. Transfuse as needed. Will obtain an iron panel on this patient. 7. Fluid, electrolytes, and nutrition. The patient will be continued on tube feedings. 8. DVT prophylaxis, subcutaneous heparin. 9. Gastrointestinal prophylaxis. Histamine 2 receptor blockers. 10. Essential hypertension. Continue antihypertensives. PLAN: IV abx, PT evaluation and treament, Bp stable ID following, pulmonary following Heparin For DVT Prophylaxis on Tube feeding with Fibresource I called Sister - went into voicemail- I left a voicemail Exam/Review of Systems Vital Signs Vitals Vital Signs Date Time Temp Pulse Resp B/P Pulse Ox O2 Delivery O2 Flow Rate FiO2 05/29/16 11:14 98.1 78 18 112/56 98 05/29/16 09:51 40 05/28/16 23:55 Mechanical Ventilator 05/28/16 01:00 10.0 Intake and Output 05/28/16 05/28/16 05/29/16 15:00 23:00 07:00 Intake Total 691 ml 521 ml Balance 691 ml 521 ml Results Result Diagram: 05/29/16 0630 05/29/16 0630 Results 24 hrs Laboratory Tests Test 05/29/16 00:03 05/29/16 06:30 Vancomycin Level Trough 10.0 Anion Gap 13 # Basophils # 0.0 Basophils % 0.2 Blood Morphology Comment Blood Urea Nitrogen 23 H Calcium Level 7.9 L Carbon Dioxide Level 28 Chloride Level 107 Creatinine 0.66 Eosinophils # 0.0 Eosinophils % 0.0 Ferritin 88.9 Glucose Level 118 Hematocrit 31.1 L Hemoglobin 10.3 L Iron Level 16 L Lymphocytes # 0.9 Lymphocytes % 15.3 Magnesium Level 2.0 Mean Corpuscular Hemoglobin 26.9 L Mean Corpuscular Hemoglobin Concent 33.3 Mean Corpuscular Volume 80.9 L Mean Platelet Volume 9.9 Monocytes # 0.7 Monocytes % 11.5 H Neutrophils # 4.5 Neutrophils % 73.0 Nucleated Red Blood Cells # 0.0 Nucleated Red Blood Cells % 0.0 Percent Iron Saturation 7 L Phosphorus Level 1.6 #L Platelet Count 211 # Potassium Level 3.4 #L Red Blood Count 3.84 L Red Cell Distribution Width 16.6 H Sodium Level 145 H Total Iron Binding Capacity 215 L White Blood Count 6.2 # Medications Medications Current Medications Morphine Sulfate (morphine) 2 mg Q4H PRN IV SEVERE PAIN LEVEL 7-10; Start 05/27 at 08:00 Famotidine (Pepcid Iv) 20 mg Q12 IV Last administered on 05/29/16 08:00; Admin Dose 20 MG; Start 05/27/16 at 09:00 Heparin Sodium (Porcine) (Heparin (5000 Units/0.5 ml)) 5,000 unit Q12 SC Last administered on 05/29/16 08:07; Admin Dose 5,000 UNIT; Start 05/27/16 at 09:00 Acetaminophen/ Codeine Phosphate (Tylenol No.3) 1 tab Q12 GTB Last administered on 05/29/16 08:00; Admin Dose 1 TAB; Start 05/27/16 at 09:00 Acetaminophen (Tylenol Liquid) 650 mg Q4H PRN GTB PAIN AND OR ELEVATED TEMP Last administered on 05/28/16 04:18; Admin Dose 650 MG; Start 05/27/16 at 08:00 Albuterol (Proventil 0.083% (Neb)) 2.5 mg Q6 PRN NEB WHEEZING AND SOB; Start at 08:00 Aspirin (Aspirin) 81 mg DAILY GTB Last administered on 05/29/16 08:00; Admin Dose 81 MG; Start 05/27/16 at 09:00 Atenolol (Tenormin) 25 mg DAILY GTB Last administered on 2/22/17at 08:01; Admin Dose 25 MG; Start 05/27/16 at 09:00 Bisacodyl (Dulcolax Supp) 10 mg Q24H PRN [place] constipation; Start 05/27/16 at 08: 00 Diphenhydramine HCl (Benadryl) 25 mg Q6H PRN GTB ITCHING; Start 05/27/16 at 08: 00 Docusate Sodium (Colace Liquid Cup) 100 mg QHS PRN GTB CONSTIPATION; Start at 08:00 Hydroxyzine HCl (Atarax) 25 mg TID GTB Last administered on 05/29/16 08:12; Admin Dose 25 MG; Start 05/27/16 at 09:00 Levetiracetam (Keppra Liq (Ped)) 750 mg BID GTB Last administered on 05/29/16 09:40; Admin Dose 750 MG; Start 05/27/16 at 09:00 Multivitamins Therapeutic 1 tab 1 tab DAILY GTB Last administered on 05/29/16 08:01; Admin Dose 1 TAB; Start 05/27/16 at 09:00 Cefepime HCl 50 ml @ 100 mls/hr Q12 IVPB Last administered on 05/29/16 10:53 ; Admin Dose 100 MLS/HR; Start 05/27/16 at 13:00 Vancomycin HCl/ Sodium Chloride (Vancocin/NS) 250 ml @ 83.333 mls/ hr Q12H IVPB Last administered on 05/29/16 02:28; Admin Dose 83.333 MLS/HR; Start at 02:00 RALPH LEÓN MD May 29, 2016 11:24
--- NOTE | 2016-05-29 11:38 | CONS ---
Date/Time of Note Date/Time of Note DATE: 05/29/16 TIME: 11:36 Assessment/Plan Assessment/Plan Additional Assessment/Plan Ventilator settings; AC of 16, tidal volume of 550, PEEP of 5, 40% FiO2. Assessment and recommendations; 1. Patient with chronic respiratory failure due to CVA. 2. Admitted for right lower lobe pneumonia. 3. Stable seizure disorder. Continue current supportive care. Continue current ventilator settings, antibiotics. Consultation Date/Type/Reason Admit Date/Time May 27, 2016 at 04:18 Initial Consult Date 05/27/16 Type of Consultation: Pulmonary/critical care 24 HR Interval Summary Free Text/Dictation Patient condition is stable. Remains ventilator dependent. General examination elderly male, on ventilator via tracheostomy currently in no distress. Awake and alert. Exam/Review of Systems Vital Signs Vitals Vital Signs Date Time Temp Pulse Resp B/P Pulse Ox O2 Delivery O2 Flow Rate FiO2 05/29/16 11:26 78 19 93 40 05/29/16 11:14 98.1 112/56 05/28/16 23:55 Mechanical Ventilator 05/28/16 01:00 10.0 Intake and Output 05/28/16 05/28/16 05/29/16 15:00 23:00 07:00 Intake Total 691 ml 521 ml Balance 691 ml 521 ml Exam H EENT examination; supple neck, no JVD. No lymphadenopathy. Tracheostomy in place with clean insertion site. Pupils are midsize and reactive to light. Pharynx is clear. No neck masses. No thyromegaly. Chest examination; minimally decreased breath sounds lung bases bilaterally. Upper lobes are clear. S1-S2 audible, no murmurs. Regular rhythm. Abdomen examinations; soft, nondistended. Nontender. G-tube in place. Bowel sounds audible. No organomegaly. Extremity examination; no peripheral edema. Pulses 2+ bilaterally. CORE FITTER examination; patient has stable left upper extremity paralysis. Results Result Diagram: 05/29/16 0630 05/29/16 0630 Results 24 hrs Laboratory Tests Test 05/29/16 00:03 05/29/16 06:30 Vancomycin Level Trough 10.0 Anion Gap 13 # Basophils # 0.0 Basophils % 0.2 Blood Morphology Comment Blood Urea Nitrogen 23 H Calcium Level 7.9 L Carbon Dioxide Level 28 Chloride Level 107 Creatinine 0.66 Eosinophils # 0.0 Eosinophils % 0.0 Ferritin 88.9 Glucose Level 118 Hematocrit 31.1 L Hemoglobin 10.3 L Iron Level 16 L Lymphocytes # 0.9 Lymphocytes % 15.3 Magnesium Level 2.0 Mean Corpuscular Hemoglobin 26.9 L Mean Corpuscular Hemoglobin Concent 33.3 Mean Corpuscular Volume 80.9 L Mean Platelet Volume 9.9 Monocytes # 0.7 Monocytes % 11.5 H Neutrophils # 4.5 Neutrophils % 73.0 Nucleated Red Blood Cells # 0.0 Nucleated Red Blood Cells % 0.0 Percent Iron Saturation 7 L Phosphorus Level 1.6 #L Platelet Count 211 # Potassium Level 3.4 #L Red Blood Count 3.84 L Red Cell Distribution Width 16.6 H Sodium Level 145 H Total Iron Binding Capacity 215 L White Blood Count 6.2 # Medications Medications Current Medications Morphine Sulfate (morphine) 2 mg Q4H PRN IV SEVERE PAIN LEVEL 7-10; Start 05/27 at 08:00 Famotidine (Pepcid Iv) 20 mg Q12 IV Last administered on 05/29/16 08:00; Admin Dose 20 MG; Start 05/27/16 at 09:00 Heparin Sodium (Porcine) (Heparin (5000 Units/0.5 ml)) 5,000 unit Q12 SC Last administered on 05/29/16 08:07; Admin Dose 5,000 UNIT; Start 05/27/16 at 09:00 Acetaminophen/ Codeine Phosphate (Tylenol No.3) 1 tab Q12 GTB Last administered on 05/29/16 08:00; Admin Dose 1 TAB; Start 05/27/16 at 09:00 Acetaminophen (Tylenol Liquid) 650 mg Q4H PRN GTB PAIN AND OR ELEVATED TEMP Last administered on 05/28/16 04:18; Admin Dose 650 MG; Start 05/27/16 at 08:00 Albuterol (Proventil 0.083% (Neb)) 2.5 mg Q6 PRN NEB WHEEZING AND SOB; Start at 08:00 Aspirin (Aspirin) 81 mg DAILY GTB Last administered on 05/29/16 08:00; Admin Dose 81 MG; Start 05/27/16 at 09:00 Atenolol (Tenormin) 25 mg DAILY GTB Last administered on 05/29/16 08:01; Admin Dose 25 MG; Start 05/27/16 at 09:00 Bisacodyl (Dulcolax Supp) 10 mg Q24H PRN [place] constipation; Start 05/27/16 at 08: 00 Diphenhydramine HCl (Benadryl) 25 mg Q6H PRN GTB ITCHING; Start 05/27/16 at 08: 00 Docusate Sodium (Colace Liquid Cup) 100 mg QHS PRN GTB CONSTIPATION; Start at 08:00 Hydroxyzine HCl (Atarax) 25 mg TID GTB Last administered on 05/29/16 08:12; Admin Dose 25 MG; Start 05/27/16 at 09:00 Levetiracetam (Keppra Liq (Ped)) 750 mg BID GTB Last administered on 05/29/16 09:40; Admin Dose 750 MG; Start 05/27/16 at 09:00 Multivitamins Therapeutic 1 tab 1 tab DAILY GTB Last administered on 05/29/16 08:01; Admin Dose 1 TAB; Start 05/27/16 at 09:00 Cefepime HCl 50 ml @ 100 mls/hr Q12 IVPB Last administered on 05/29/16 10:53 ; Admin Dose 100 MLS/HR; Start 05/27/16 at 13:00 Vancomycin HCl/ Sodium Chloride (Vancocin/NS) 250 ml @ 83.333 mls/ hr Q12H IVPB Last administered on 05/29/16 02:28; Admin Dose 83.333 MLS/HR; Start at 02:00 MAURISIO CHEUNG May 29, 2016 11:38
--- NOTE | 2016-05-29 15:25 | PN ---
DATE: 05/29/2016 INFECTIOUS DISEASE PROGRESS NOTE SUBJECTIVE: Patient is lying comfortably in bed. He is awake, in no distress. No fevers. WBC 6.2 , no shift, no bands. BUN 23, creatinine 0.66. MICROBIOLOGY: Blood cultures negative. Preliminary urine culture pending. DIAGNOSTICS: CT of the chest revealed consolidated pneumonia with a 4 mm pleural based nodule in th e right upper lobe. INDWELLINGS: Trach, PEG. ANTIMICROBIALS: The patient is on: 1. IV vancomycin. 2. Cefepime. PHYSICAL EXAMINATION: GENERAL: Chronically ill-appearing, elderly man in no distress. HEENT: Head atraumatic, normocephalic. Sclerae anicteric. Buccal mucosa dry. NECK: Supple. Tracheostomy present. CHEST: Rise symmetrical. Breath sounds diminished to bases. HEART: S1, S2. ABDOMEN: Soft. Bowel tones present. ASSESSMENT: 1. Sepsis secondary to #2. 2. Healthcare-associated pneumonia. 3. Chronic respiratory failure. 4. Dysphagia. 5. Seizure disorder. 6. Diabetes. PLAN: The patient remains stable, improving on current antimicrobials. Awaiting sputum cultures. Vent support per pulmonary. Nephrology recommendations. Dictated By: STEPHEN CARRASQUILLO INTERNATIONAL REPRESENTATIVE for RUTH MCDERMOTT/EVELINA Conf#: [id number] DID#: [id number]
[2016-05-29] MEDS ORDERED: POTASSIUM CHLORIDE 20 MEQ in SOD CHLORIDE 0.9% 100 ML IVPB ONE (17:00)
[2016-05-29] MEDS ORDERED: LORAZEPAM 2 MG INJ IV ONE (22:00)
[2016-05-30] VITALS (34 sets, daily range): BP systolic 118–150; BP diastolic 58–78; PULSE 70–83; RESP 17–25
[2016-05-30] MEDS: VANCOMYCIN 1.25 GM in SOD CHLORIDE 0.9% 250 ML IVPB SCH ×2 (01:15→15:27)
[2016-05-30] MEDS: LEVETIRACETAM (100 MG/ML PO SYG) GTB SCH ×2 (09:46→21:16)
[2016-05-30] MEDS: FAMOTIDINE 20 MG INJ IV SCH ×2 (09:46→21:16)
[2016-05-30] MEDS: MULTIVITAMINS THERAPEUTIC TAB GTB SCH (09:46)
[2016-05-30] MEDS: hydrOXYzine HCL 25 MG TAB GTB SCH ×3 (09:47→21:00)
[2016-05-30] MEDS: ACETAMINOPHEN/CODEINE #3 TAB GTB SCH ×2 (09:47→21:16)
[2016-05-30] MEDS: ASPIRIN 81 MG TAB GTB SCH (09:47)
[2016-05-30] MEDS: ATENOLOL 25 MG TAB GTB SCH (09:47)
[2016-05-30] MEDS: HEPARIN 5,000 UNIT/0.5 ML SYG SC SCH ×2 (09:49→21:18)
[2016-05-30] MEDS: CEFEPIME 1GM/50 ML (PMX) 50 ML IVPB SCH ×2 (10:30→21:15)
--- NOTE | 2016-05-30 10:45 | PN ---
Date/Time of Note Date/Time of Note DATE: 05/30/16 TIME: 10:39 Assessment/Plan VTE Prophylaxis VTE Prophylaxis Intervention: heparin Lines/Catheters [facility] Peripheral IV Urinary Cath still in place: No Assessment/Plan Assessment/Plan 1. Sepsis secondary to underlying healthcare-associated pneumonia. No evidence of septic shock. Continue antibiotics as per Infectious Disease. 2. Acute on chronic respiratory failure. The patient is status post tracheostomy. The patient being followed by pulmonary. Continue ventilator management and inhaled bronchodilators as per pulmonary. 3. Seizure disorder. Continue anticonvulsants. 4. Chronic bedridden status. Continue supportive care. Continue turn schedule q.2 hours. 5. Hyperkalemia. Etiology unclear. Will provide the patient with a single dose of potassium exchange resin. 6. Microcytic hypochromic anemia. Etiology unclear. Will monitor the H and H closely. Transfuse as needed. Will obtain an iron panel on this patient. 7. Fluid, electrolytes, and nutrition. The patient will be continued on tube feedings. 8. DVT prophylaxis, subcutaneous heparin. 9. Gastrointestinal prophylaxis. Histamine 2 receptor blockers. 10. Essential hypertension. Continue antihypertensives. PLAN: IV abx, PT evaluation and treament, Bp stable ID following, pulmonary following,sputum Cx result pending Heparin For DVT Prophylaxis on Tube feeding with Fibresourjerri I talked with Sister Rajni today -updated her about plan and IV abx Subjective 24 Hr Interval Summary Free Text/Dictation no acute events, Exam/Review of Systems Vital Signs Vitals Vital Signs Date Time Temp Pulse Resp B/P Pulse Ox O2 Delivery O2 Flow Rate FiO2 05/30/16 10:00 98.2 72 18 133/67 98 Mechanical Ventilator 05/30/16 05:05 40 05/28/16 01:00 10.0 Intake and Output 05/29/16 05/29/16 05/30/16 15:00 23:00 07:00 Intake Total 900 ml 1121 ml Output Total 4 ml Balance 896 ml 1121 ml Exam GENERAL: no acute events,BP stable NECK: Tracheostomy is in the midline,site clear RESPIRATORY: Bilateral diminished breath sounds CARDIAC: Regular rate and rhythm. S1, S2 heard. ABDOMEN: Soft, nontender. Left upper quadrant G-tube in place. Left lower quadrant colostomy. EXTREMITIES: no clubbing/cyanosis Results Result Diagram: 2/22/17 0630 05/29/1630 Medications Medications Current Medications Morphine Sulfate (morphine) 2 mg Q4H PRN IV SEVERE PAIN LEVEL 7-10; Start 05/27 at 08:00 Famotidine (Pepcid Iv) 20 mg Q12 IV Last administered on 05/30/16 09:46; Admin Dose 20 MG; Start 05/27/16 at 09:00 Heparin Sodium (Porcine) (Heparin (5000 Units/0.5 ml)) 5,000 unit Q12 SC Last administered on 05/30/16 09:49; Admin Dose 5,000 UNIT; Start 05/27/16 at 09:00 Acetaminophen/ Codeine Phosphate (Tylenol No.3) 1 tab Q12 GTB Last administered on 05/30/16 09:47; Admin Dose 1 TAB; Start 05/27/16 at 09:00 Acetaminophen (Tylenol Liquid) 650 mg Q4H PRN GTB PAIN AND OR ELEVATED TEMP Last administered on 05/28/16 04:18; Admin Dose 650 MG; Start 05/27/16 at 08:00 Albuterol (Proventil 0.083% (Neb)) 2.5 mg Q6 PRN NEB WHEEZING AND SOB; Start at 08:00 Aspirin (Aspirin) 81 mg DAILY GTB Last administered on 05/30/16 09:47; Admin Dose 81 MG; Start 05/27/16 at 09:00 Atenolol (Tenormin) 25 mg DAILY GTB Last administered on 05/30/16 09:47; Admin Dose 25 MG; Start 05/27/16 at 09:00 Bisacodyl (Dulcolax Supp) 10 mg Q24H PRN [place] constipation; Start 05/27/16 at 08: 00 Diphenhydramine HCl (Benadryl) 25 mg Q6H PRN GTB ITCHING; Start 05/27/16 at 08: 00 Docusate Sodium (Colace Liquid Cup) 100 mg QHS PRN GTB CONSTIPATION; Start at 08:00 Hydroxyzine HCl (Atarax) 25 mg TID GTB Last administered on 05/30/16 09:47; Admin Dose 25 MG; Start 05/27/16 at 09:00 Levetiracetam (Keppra Liq (Ped)) 750 mg BID GTB Last administered on 05/30/16 09:46; Admin Dose 750 MG; Start 05/27/16 at 09:00 Multivitamins Therapeutic 1 tab 1 tab DAILY GTB Last administered on 05/30/16 09:46; Admin Dose 1 TAB; Start 05/27/16 at 09:00 Cefepime HCl 50 ml @ 100 mls/hr Q12 IVPB Last administered on 05/30/16 10:30 ; Admin Dose 100 MLS/HR; Start 05/27/16 at 13:00 Vancomycin HCl/ Sodium Chloride (Vancocin/NS) 250 ml @ 83.333 mls/ hr Q12H IVPB Last administered on 05/30/16 01:15; Admin Dose 83.333 MLS/HR; Start at 02:00 Miscellaneous Information (*Rx Drug Level Order Reminder*) VANCO TR LEVEL PRIOR ... ONCE ONCE XX ; Start 05/30/16 at 13:00; Stop 05/30/16 at 13:01 RALPH LEÓN MD May 30, 2016 10:45
--- NOTE | 2016-05-30 11:07 | CONS ---
Date/Time of Note Date/Time of Note DATE: 05/30/16 TIME: 11:05 Assessment/Plan Assessment/Plan Additional Assessment/Plan Ventilator settings; assist control of 16, tidal volume 550, PEEP of 5, 40% FiO2. Assessment and recommendations; 1. Patient admitted with right upper lobe pneumonia. 2. Chronic respiratory failure. Ventilator dependent. 3. History of CVA. Continue current treatment. Consultation Date/Type/Reason Admit Date/Time May 27, 2016 at 04:18 Initial Consult Date 05/27/16 Type of Consultation: Pulmonary/critical care 24 HR Interval Summary Free Text/Dictation Patient condition remains stable. Remains ventilator dependent. General examination; elderly male, on ventilator via tracheostomy. Awake and alert. Exam/Review of Systems Vital Signs Vitals Vital Signs Date Time Temp Pulse Resp B/P Pulse Ox O2 Delivery O2 Flow Rate FiO2 05/30/16 10:00 98.2 72 18 133/67 98 Mechanical Ventilator 05/30/16 05:05 40 05/28/16 01:00 10.0 Intake and Output 05/29/16 05/29/16 05/30/16 15:00 23:00 07:00 Intake Total 900 ml 1121 ml Output Total 4 ml Balance 896 ml 1121 ml Exam HEENT examination; supple neck, no JVD. No lymphadenopathy. Tracheostomy in place. Incision site is clean. Pupils are midsize and reactive to light. Chest examination; clear to auscultation. S1-S2 audible, no murmurs. Regular rhythm. Abdomen examination; soft, no organomegaly. G-tube in place. Bowel sounds audible. Nontender. Extremity examination; no peripheral edema. Pulses 2+ bilaterally. [employer] examination; patient is stable left upper extremity paralysis. Results Result Diagram: 05/29/1630 05/29/16 0630 Medications Medications Current Medications Morphine Sulfate (morphine) 2 mg Q4H PRN IV SEVERE PAIN LEVEL 7-10; Start 05/27 at 08:00 Famotidine (Pepcid Iv) 20 mg Q12 IV Last administered on 05/30/16 09:46; Admin Dose 20 MG; Start 05/27/16 at 09:00 Heparin Sodium (Porcine) (Heparin (5000 Units/0.5 ml)) 5,000 unit Q12 SC Last administered on 05/30/16 09:49; Admin Dose 5,000 UNIT; Start 05/27/16 at 09:00 Acetaminophen/ Codeine Phosphate (Tylenol No.3) 1 tab Q12 GTB Last administered on 05/30/16 09:47; Admin Dose 1 TAB; Start 05/27/16 at 09:00 Acetaminophen (Tylenol Liquid) 650 mg Q4H PRN GTB PAIN AND OR ELEVATED TEMP Last administered on 05/28/16 04:18; Admin Dose 650 MG; Start 05/27/16 at 08:00 Albuterol (Proventil 0.083% (Neb)) 2.5 mg Q6 PRN NEB WHEEZING AND SOB; Start at 08:00 Aspirin (Aspirin) 81 mg DAILY GTB Last administered on 05/30/16 09:47; Admin Dose 81 MG; Start 05/27/16 at 09:00 Atenolol (Tenormin) 25 mg DAILY GTB Last administered on 05/30/16 09:47; Admin Dose 25 MG; Start 05/27/16 at 09:00 Bisacodyl (Dulcolax Supp) 10 mg Q24H PRN [place] constipation; Start 05/27/16 at 08: 00 Diphenhydramine HCl (Benadryl) 25 mg Q6H PRN GTB ITCHING; Start 05/27/16 at 08: 00 Docusate Sodium (Colace Liquid Cup) 100 mg QHS PRN GTB CONSTIPATION; Start at 08:00 Hydroxyzine HCl (Atarax) 25 mg TID GTB Last administered on 05/30/16 09:47; Admin Dose 25 MG; Start 05/27/16 at 09:00 Levetiracetam (Keppra Liq (Ped)) 750 mg BID GTB Last administered on 05/30/16 09:46; Admin Dose 750 MG; Start 05/27/16 at 09:00 Multivitamins Therapeutic 1 tab 1 tab DAILY GTB Last administered on 05/30/16 09:46; Admin Dose 1 TAB; Start 05/27/16 at 09:00 Cefepime HCl 50 ml @ 100 mls/hr Q12 IVPB Last administered on 05/30/16 10:30 ; Admin Dose 100 MLS/HR; Start 05/27/16 at 13:00 Vancomycin HCl/ Sodium Chloride (Vancocin/NS) 250 ml @ 83.333 mls/ hr Q12H IVPB Last administered on 05/30/16t 01:15; Admin Dose 83.333 MLS/HR; Start at 02:00 Miscellaneous Information (*Rx Drug Level Order Reminder*) VANCO TR LEVEL PRIOR ... ONCE ONCE XX ; Start 05/30/16 at 13:00; Stop 05/30/16 at 13:01 MAURISIO CHEUNG May 30, 2016 11:07
--- NOTE | 2016-05-30 14:19 | PN ---
DATE: 05/30/2016 INFECTIOUS DISEASE PROGRESS NOTE SUBJECTIVE: No events overnight. No fevers. The patient is lying comfortably in bed. LABORATORY DATA: No labs today. MICROBIOLOGY: Sputum culture growing gram-negative rods. ANTIMICROBIALS: 1. Vancomycin. 2. Cefepime. INDWELLINGS: Trach, PEG. PHYSICAL EXAMINATION: GENERAL: Chronically ill-appearing, elderly man in no distress. HEENT: Head atraumatic, normocephalic. Sclerae anicteric. Buccal mucosa dry. NECK: Supple. Tracheostomy present. CHEST: Rise symmetrical. Breath sounds diminished to bases. HEART: S1, S2. ABDOMEN: Soft, bowel sounds present. EXTREMITIES: No cyanosis. ASSESSMENT: 1. Resolving sepsis. 2. Healthcare-associated pneumonia. 3. Diabetes. 4. Seizure disorder. 5. Dysphagia, status post percutaneous endoscopic gastrostomy. PLAN: The patient remains stable. Continue present care, antibiotics. Follow recommendations of [facility]. Dictated By: STEPHEN CARRASQUILLO MECHANICAL MAINTENANCE TECHNICIAN for RUTH MCDERMOTT/EVELINA Conf#: [id number] DID#: [id number]
[2016-05-30] MEDS: morphine 2 MG INJ IV PRN (15:07)
[2016-05-31] VITALS (30 sets, daily range): BP systolic 126–148; BP diastolic 58–93; PULSE 66–98; RESP 18–31
[2016-05-31] MEDS: VANCOMYCIN 1.25 GM in SOD CHLORIDE 0.9% 250 ML IVPB SCH ×2 (02:21→13:43)
[2016-05-31 06:57] LABS: CREATININE 0.65 mg/dl (0.61-1.24)
[2016-05-31] MEDS: FAMOTIDINE 20 MG INJ IV SCH (09:20)
[2016-05-31] MEDS: LEVETIRACETAM (100 MG/ML PO SYG) GTB SCH ×2 (09:20→20:45)
[2016-05-31] MEDS: ATENOLOL 25 MG TAB GTB SCH (09:21)
[2016-05-31] MEDS: hydrOXYzine HCL 25 MG TAB GTB SCH ×3 (09:21→20:46)
[2016-05-31] MEDS: MULTIVITAMINS THERAPEUTIC TAB GTB SCH (09:21)
[2016-05-31] MEDS: ASPIRIN 81 MG TAB GTB SCH (09:21)
[2016-05-31] MEDS: HEPARIN 5,000 UNIT/0.5 ML SYG SC SCH ×2 (09:22→20:47)
[2016-05-31] MEDS: morphine 2 MG INJ IV PRN (09:24)
[2016-05-31] MEDS: CEFEPIME 1GM/50 ML (PMX) 50 ML IVPB SCH ×2 (09:25→20:45)
[2016-05-31] MEDS: ACETAMINOPHEN/CODEINE #3 TAB GTB SCH ×2 (09:25→21:00)
--- NOTE | 2016-05-31 12:34 | PN ---
Date/Time of Note Date/Time of Note DATE: 05/31/16 TIME: 12:32 Assessment/Plan VTE Prophylaxis VTE Prophylaxis Intervention: heparin Lines/Catheters IV [facility]from [facility] Saline [facility] Urinary Cath still in place: No Assessment/Plan Assessment/Plan 1. Sepsis secondary to underlying healthcare-associated pneumonia. No evidence of septic shock. Continue antibiotics as per Infectious Disease. 2. Acute on chronic respiratory failure. The patient is status post tracheostomy. The patient being followed by pulmonary. Continue ventilator management and inhaled bronchodilators as per pulmonary. 3. Seizure disorder. Continue anticonvulsants. 4. Chronic bedridden status. Continue supportive care. Continue turn schedule q.2 hours. 5. Hyperkalemia. Etiology unclear. Will provide the patient with a single dose of potassium exchange resin. 6. Microcytic hypochromic anemia. Etiology unclear. Will monitor the H and H closely. Transfuse as needed. Will obtain an iron panel on this patient. 7. Fluid, electrolytes, and nutrition. The patient will be continued on tube feedings. 8. DVT prophylaxis, subcutaneous heparin. 9. Gastrointestinal prophylaxis. Histamine 2 receptor blockers. 10. Essential hypertension. Continue antihypertensives. PLAN: IV abx, PT evaluation and treament, Bp stable ID following, pulmonary following,sputum Cx result pending Heparin For DVT Prophylaxis on Tube feeding with [employer] IV iron for x 5 doses I talked with Sister Rajni today -updated her about plan and IV abx Subjective 24 Hr Interval Summary Free Text/Dictation no acute events, IV abx, iron saturation 7% Exam/Review of Systems Vital Signs Vitals Vital Signs Date Time Temp Pulse Resp B/P Pulse Ox O2 Delivery O2 Flow Rate FiO2 05/31/16 12:22 81 26 91 40 05/31/16 11:24 99.7 144/87 05/31/16 06:00 Mechanical Ventilator 05/28/16 01:00 10.0 Intake and Output 05/30/16 05/30/16 05/31/16 15:00 23:00 07:00 Intake Total 800 ml Balance 800 ml Exam GENERAL: no acute events,BP stable NECK: Tracheostomy is in the midline,site clear RESPIRATORY: Bilateral diminished breath sounds CARDIAC: Regular rate and rhythm. S1, S2 heard. ABDOMEN: Soft, nontender. Left upper quadrant G-tube in place. Left lower quadrant colostomy. EXTREMITIES: no clubbing/cyanosis Results Result Diagram: 05/29/16 0630 05/31/16 0600 Results 24 hrs Laboratory Tests Test 05/30/16 13:30 05/31/16 06:00 Vancomycin Level Trough 11.8 Blood Urea Nitrogen 19 Creatinine 0.65 Medications Medications Current Medications Morphine Sulfate (morphine) 2 mg Q4H PRN IV SEVERE PAIN LEVEL 7-10 Last administered on 05/31/16 09:24; Admin Dose 2 MG; Start 05/27/16 at 08:00 Famotidine (Pepcid Iv) 20 mg Q12 IV Last administered on 05/31/16 09:20; Admin Dose 20 MG; Start 05/27/16 at 09:00 Heparin Sodium (Porcine) (Heparin (5000 Units/0.5 ml)) 5,000 unit Q12 SC Last administered on 05/31/16 09:22; Admin Dose 5,000 UNIT; Start 05/27/16 at 09:00 Acetaminophen/ Codeine Phosphate (Tylenol No.3) 1 tab Q12 GTB Last administered on 05/31/16 09:25; Admin Dose 1 TAB; Start 05/27/16 at 09:00 Acetaminophen (Tylenol Liquid) 650 mg Q4H PRN GTB PAIN AND OR ELEVATED TEMP Last administered on 05/28/16 04:18; Admin Dose 650 MG; Start 05/27/16 at 08:00 Albuterol (Proventil 0.083% (Neb)) 2.5 mg Q6 PRN NEB WHEEZING AND SOB; Start at 08:00 Aspirin (Aspirin) 81 mg DAILY GTB Last administered on 05/31/16 09:21; Admin Dose 81 MG; Start 05/27/16 at 09:00 Atenolol (Tenormin) 25 mg DAILY GTB Last administered on 05/31/16 09:21; Admin Dose 25 MG; Start 05/27/16 at 09:00 Bisacodyl (Dulcolax Supp) 10 mg Q24H PRN [place] constipation; Start 05/27/16 at 08: 00 Diphenhydramine HCl (Benadryl) 25 mg Q6H PRN GTB ITCHING; Start 05/27/16 at 08: 00 Docusate Sodium (Colace Liquid Cup) 100 mg QHS PRN GTB CONSTIPATION; Start at 08:00 Hydroxyzine HCl (Atarax) 25 mg TID GTB Last administered on 05/31/16 09:21; Admin Dose 25 MG; Start 05/27/16 at 09:00 Levetiracetam (Keppra Liq (Ped)) 750 mg BID GTB Last administered on 05/31/16 09:20; Admin Dose 750 MG; Start 05/27/16 at 09:00 Multivitamins Therapeutic 1 tab 1 tab DAILY GTB Last administered on 05/31/16 09:21; Admin Dose 1 TAB; Start 05/27/16 at 09:00 Cefepime HCl 50 ml @ 100 mls/hr Q12 IVPB Last administered on 05/31/16 09:25 ; Admin Dose 100 MLS/HR; Start 05/27/16 at 13:00 Vancomycin HCl/ Sodium Chloride (Vancocin/NS) 250 ml @ 83.333 mls/ hr Q12H IVPB Last administered on 05/31/16 02:21; Admin Dose 83.333 MLS/HR; Start at 02:00 RALPH LEÓN MD May 31, 2016 12:34
--- NOTE | 2016-05-31 13:31 | PN ---
DATE: 05/31/2016 INFECTIOUS DISEASE PROGRESS NOTE SUBJECTIVE: No events overnight. The patient has low-grade fevers with a T-max of 100.4 this morni ng. He is lying comfortably in bed. No labs this morning. MICROBIOLOGY: Sputum culture grew multi-drug resistant Pseudomonas susceptible to Fortaz, cefepime, amikacin, resistant to Zosyn. ANTIMICROBIALS: The patient is on: 1. Vancomycin. 2. Cefepime. INDWELLINGS: Trach, PEG. PHYSICAL EXAMINATION: GENERAL: Fragile, elderly man in no distress. HEAD: Atraumatic, normocephalic. Sclera anicteric. Oral mucosa dry. NECK: Supple. Tracheostomy present. CHEST: Rise symmetrical. Breath sounds diminished. HEART: S1, S2. ABDOMEN: Soft, bowel tones present. EXTREMITIES: Without cyanosis. ASSESSMENT: 1. Sepsis with fevers and leukocytosis secondary to #2. 2. Healthcare-associated pneumonia. 3. Chronic respiratory failure. 4. Dysphagia. 5. History of seizure disorder. PLAN: The patient remains stable with low grade fevers. We are going to check his urine culture. Continue him on current antimicrobials. Continue vent management as per pulmonary recommendations. Dictated By: STEPHEN CARRASQUILLO MEDICAL LIBRARIAN for RUTH MCDERMOTT/EVELINA Conf#: [id number] DID#: [id number]
--- NOTE | 2016-05-31 13:59 | CONS ---
Date/Time of Note Date/Time of Note DATE: 05/31/16 TIME: 13:54 Assessment/Plan Assessment/Plan Additional Assessment/Plan Ventilator settings; assist control of 16, tidal volume 550, PEEP of 5, 45% FiO2. Assessment and recommendations; 1. Patient admitted with right lower lobe pneumonia with hypoxemia. 2. History of chronic respiratory failure, ventilator dependent. 3. History of CVA involving left upper extremity. Continue current treatment for now. Obtain a follow-up chest x-ray. Consultation Date/Type/Reason Admit Date/Time May 27, 2016 at 04:18 Initial Consult Date 05/27/16 Type of Consultation: Pulmonary/critical care 24 HR Interval Summary Free Text/Dictation Patient condition is stable. Remains awake alert. Remains ventilator dependent. Has remained hemodynamically stable. General examination; elderly male, on ventilator via tracheostomy currently in no distress. Exam/Review of Systems Vital Signs Vitals Vital Signs Date Time Temp Pulse Resp B/P Pulse Ox O2 Delivery O2 Flow Rate FiO2 05/31/16 12:22 81 26 91 40 05/31/16 11:24 99.7 144/87 05/31/16 06:00 Mechanical Ventilator 05/28/16 01:00 10.0 Intake and Output 05/30/16 05/30/16 05/31/16 15:00 23:00 07:00 Intake Total 800 ml Balance 800 ml Exam H EENT examination; supple neck, no JVD. No lymphadenopathy. Tracheostomy in place. Insertion site is clean. Pupils are midsize and reactive to light. Chest examination; minimally decreased breath sounds right lower lobe otherwise clear. S1-S2 audible, no murmurs. Regular rhythm. Abdomen examination; soft, G-tube in place. No organomegaly. Bowel sounds audible. Extremity examination; no peripheral edema. [employer] examination; patient is stable left upper extremity paralysis. Results Result Diagram: 05/29/16 0630 05/31/16 0600 Results 24 hrs Laboratory Tests Test 05/31/16 06:00 Blood Urea Nitrogen 19 Creatinine 0.65 Medications Medications Current Medications Morphine Sulfate (morphine) 2 mg Q4H PRN IV SEVERE PAIN LEVEL 7-10 Last administered on 05/31/16 09:24; Admin Dose 2 MG; Start 05/27/16 at 08:00 Famotidine (Pepcid Iv) 20 mg Q12 IV Last administered on 05/31/16 09:20; Admin Dose 20 MG; Start 05/27/16 at 09:00 Heparin Sodium (Porcine) (Heparin (5000 Units/0.5 ml)) 5,000 unit Q12 SC Last administered on 05/31/16 09:22; Admin Dose 5,000 UNIT; Start 05/27/16 at 09:00 Acetaminophen/ Codeine Phosphate (Tylenol No.3) 1 tab Q12 GTB Last administered on 05/31/16 09:25; Admin Dose 1 TAB; Start 05/27/16 at 09:00 Acetaminophen (Tylenol Liquid) 650 mg Q4H PRN GTB PAIN AND OR ELEVATED TEMP Last administered on 05/28/16 04:18; Admin Dose 650 MG; Start 05/27/16 at 08:00 Albuterol (Proventil 0.083% (Neb)) 2.5 mg Q6 PRN NEB WHEEZING AND SOB; Start at 08:00 Aspirin (Aspirin) 81 mg DAILY GTB Last administered on 05/31/16 09:21; Admin Dose 81 MG; Start 05/27/16 at 09:00 Atenolol (Tenormin) 25 mg DAILY GTB Last administered on 05/31/16 09:21; Admin Dose 25 MG; Start 05/27/16 at 09:00 Bisacodyl (Dulcolax Supp) 10 mg Q24H PRN [place] constipation; Start 05/27/16 at 08: 00 Diphenhydramine HCl (Benadryl) 25 mg Q6H PRN GTB ITCHING; Start 05/27/16 at 08: 00 Docusate Sodium (Colace Liquid Cup) 100 mg QHS PRN GTB CONSTIPATION; Start at 08:00 Hydroxyzine HCl (Atarax) 25 mg TID GTB Last administered on 05/31/16 13:43; Admin Dose 25 MG; Start 05/27/16 at 09:00 Levetiracetam (Keppra Liq (Ped)) 750 mg BID GTB Last administered on 05/31/16 09:20; Admin Dose 750 MG; Start 05/27/16 at 09:00 Multivitamins Therapeutic 1 tab 1 tab DAILY GTB Last administered on 05/31/16 09:21; Admin Dose 1 TAB; Start 05/27/16 at 09:00 Cefepime HCl 50 ml @ 100 mls/hr Q12 IVPB Last administered on 05/31/16 09:25 ; Admin Dose 100 MLS/HR; Start 05/27/16 at 13:00 Vancomycin HCl 1.25 gm/Sodium Chloride 250 ml @ 83.333 mls/ hr Q12H IVPB Last administered on 05/31/16 13:43; Admin Dose 83.333 MLS/HR; Start 05/29/16 at 02: 00 Ferric Sodium Gluconate Complex/ Sodium Chloride (Ferrlecit/NS) 110 ml @ 110 mls/hr Q24H IVPB ; Start 05/31/16 at 14:00; Stop 06/04/16 at 14:59 MAURISIO CHEUNG May 31, 2016 13:59
[2016-05-31] MEDS: ALBUTEROL 0.083% (NEB) 2.5 MG/3 ML AMP NEB PRN (14:04)
[2016-05-31] MEDS: SOD FERRIC GLUC COMPLX 125 MG in SOD CHLORIDE 0.9% 100 ML IVPB SCH (17:38)
[2016-05-31] MEDS: FAMOTIDINE 20 MG TAB GTB SCH (20:46)
[2016-06-01] VITALS (31 sets, daily range): BP systolic 129–190; BP diastolic 67–86; PULSE 72–92; RESP 16–34
[2016-06-01] MEDS: ACETAMINOPHEN 650MG/20.3ML CUP GTB PRN (01:16)
[2016-06-01] MEDS: VANCOMYCIN 1.25 GM in SOD CHLORIDE 0.9% 250 ML IVPB SCH ×2 (01:50→15:03)
--- NOTE | 2016-06-01 08:42 | CONS ---
Date/Time of Note Date/Time of Note DATE: 06/01/16 TIME: 08:42 Assessment/Plan Assessment/Plan Chief Complaint/Hosp Course ID PROGRESS NOTE CURRENT ABX=> Vanco IV #6 + Cefepime #6 24H INTERVAL SUMMARY * Afebrile, VSS, NAD * Noncommunicative on the Vent PHYSICAL EXAMINATION: GENERAL: VSS, NAD HEENT: Unremarkable NECK: Supple, trach-> Secure to Vent CHEST: Rise symmetrical, without dyspnea on observation HEART: Pulse RRR ABDOMEN: Soft, benign, peg EXTREMITIES: Warm ID ASSESSMENT 60 yo M w/ PMHx CVA, CAD-> Prior stent, vascular dementia, Trach, peg admit with : 1. Sepsis with fevers and leukocytosis secondary to #2 on admission => RESOLVING 2. Healthcare-associated pneumonia. * CT CHEST: Significant RLL PNA w/Right lymphadenopathy * RESPIRATORY CULTURE Final Organism 1 PSEUDOMONAS AERUGINOSA QUANTITY SCANT GROWTH 3. Chronic respiratory failure= VDRF 4. Dysphagia=> Peg 5. History of seizure disorder. (-)MRSA Nares INVASIVES: PIV, T,P,FC ABX ALLERGY: KNDA CURRENT ABX: =>Vanco IV #6 + Cefepime #6 s/p ID RECOMMENDATIONS 1. Continue current ABX = Clinical indicators have improved 2. Per Radiologist recommendations on CT THORAX=> Findings are suspicious for pneumonia. * "4 mm pleural-based nodule or pleural scarring in the posterior apical segment of the right upper lobe. Recommend TB skin testing and follow-up in 12 months at the the patient is at risk for malignancy." * PPD ordered for placement . . Problems: Consultation Date/Type/Reason Admit Date/Time May 27, 2016 at 04:18 Initial Consult Date 05/27/16 Type of Consultation: ID Exam/Review of Systems Vital Signs Vitals Vital Signs Date Time Temp Pulse Resp B/P Pulse Ox O2 Delivery O2 Flow Rate FiO2 06/01/16 07:39 45 06/01/16 07:25 84 26 96 06/01/16 06:00 99.0 140/68 Mechanical Ventilator Intake and Output 05/31/16 05/31/16 06/01/16 15:00 23:00 07:00 Intake Total 1200 ml 800 ml Balance 1200 ml 800 ml Results Result Diagram: 05/29/16 0630 05/31/16 0600 Medications Medications Current Medications Morphine Sulfate (morphine) 2 mg Q4H PRN IV SEVERE PAIN LEVEL 7-10 Last administered on 05/31/16 09:24; Admin Dose 2 MG; Start 05/27/16 at 08:00 Heparin Sodium (Porcine) (Heparin (5000 Units/0.5 ml)) 5,000 unit Q12 SC Last administered on 05/31/16 20:47; Admin Dose 5,000 UNIT; Start 05/27/16 at 09:00 Acetaminophen/ Codeine Phosphate (Tylenol No.3) 1 tab Q12 GTB Last administered on 05/31/16 09:25; Admin Dose 1 TAB; Start 05/27/16 at 09:00 Acetaminophen (Tylenol Liquid) 650 mg Q4H PRN GTB PAIN AND OR ELEVATED TEMP Last administered on 06/01/16 01:16; Admin Dose 650 MG; Start 05/27/16 at 08:00 Albuterol (Proventil 0.083% (Neb)) 2.5 mg Q6 PRN NEB WHEEZING AND SOB; Start at 08:00 Aspirin (Aspirin) 81 mg DAILY GTB Last administered on 05/31/16 09:21; Admin Dose 81 MG; Start 05/27/16 at 09:00 Atenolol (Tenormin) 25 mg DAILY GTB Last administered on 05/31/16 09:21; Admin Dose 25 MG; Start 05/27/16 at 09:00 Bisacodyl (Dulcolax Supp) 10 mg Q24H PRN [place] constipation; Start 05/27/16 at 08: 00 Diphenhydramine HCl (Benadryl) 25 mg Q6H PRN GTB ITCHING; Start 05/27/16 at 08: 00 Docusate Sodium (Colace Liquid Cup) 100 mg QHS PRN GTB CONSTIPATION; Start at 08:00 Hydroxyzine HCl (Atarax) 25 mg TID GTB Last administered on 05/31/16 20:46; Admin Dose 25 MG; Start 05/27/16 at 09:00 Levetiracetam (Keppra Liq (Ped)) 750 mg BID GTB Last administered on 05/31/16 20:45; Admin Dose 750 MG; Start 05/27/16 at 09:00 Multivitamins Therapeutic 1 tab 1 tab DAILY GTB Last administered on 05/31/16 09:21; Admin Dose 1 TAB; Start 05/27/16 at 09:00 Cefepime HCl 50 ml @ 100 mls/hr Q12 IVPB Last administered on 05/31/16 20:45 ; Admin Dose 100 MLS/HR; Start 05/27/16 at 13:00 Vancomycin HCl 1.25 gm/Sodium Chloride 250 ml @ 83.333 mls/ hr Q12H IVPB Last administered on 06/01/16 01:50; Admin Dose 83.333 MLS/HR; Start 05/29/16 at 02: 00 Ferric Sodium Gluconate Complex/ Sodium Chloride (Ferrlecit/NS) 110 ml @ 110 mls/hr Q24H IVPB Last administered on 05/31/16 17:38; Admin Dose 110 MLS/HR; Start 05/31/16 at 14:00; Stop 06/04/16 at 14:59 Famotidine (Pepcid) 20 mg BID GTB Last administered on 05/31/16 20:46; Admin Dose 20 MG; Start 05/31/16 at 21:00 RODRIGO BO NP Jun 01, 2016 08:42
--- NOTE | 2016-06-01 09:01 | RADRPT ---
PROCEDURE: XR Chest AP portable CLINICAL INDICATION: Pneumonia TECHNIQUE: An AP portable radiograph of the chest was submitted. COMPARISON: 05/27/2016 FINDINGS: Support Hardware: The tracheostomy tube is stable in positioning. Cardiovascular: The cardiovascular silhouette appears unremarkable. Lung Mera: There is again interstitial prominence within the lung mera greater on the right than the left with no alveolar infiltrate evident. Pleural Spaces: No pneumothorax or pleural effusion is identified. Osseous Structures: The osseous structures appear intact. Soft Tissues: The soft tissues appear unremarkable. IMPRESSION: 1. Mild interstitial prominence greater on the right than the left exaggerated by suboptimal inspir ation. Interstitial pneumonitis cannot be excluded. 2. The tracheostomy tube is stable in positioning. Physician Isabelle Date Time Electronically viewed and signed by Tish Casillas Physician on 06/01/2016 09:01 /
[2016-06-01] MEDS: ALBUTEROL 0.083% (NEB) 2.5 MG/3 ML AMP NEB PRN (09:13)
[2016-06-01] MEDS: hydrOXYzine HCL 25 MG TAB GTB SCH ×3 (09:35→20:37)
[2016-06-01] MEDS: ATENOLOL 25 MG TAB GTB SCH (09:35)
[2016-06-01] MEDS: ACETAMINOPHEN/CODEINE #3 TAB GTB SCH ×2 (09:35→20:40)
[2016-06-01] MEDS: MULTIVITAMINS THERAPEUTIC TAB GTB SCH (09:35)
[2016-06-01] MEDS: FAMOTIDINE 20 MG TAB GTB SCH ×2 (09:35→20:36)
[2016-06-01] MEDS: ASPIRIN 81 MG TAB GTB SCH (09:36)
[2016-06-01] MEDS: LEVETIRACETAM (100 MG/ML PO SYG) GTB SCH ×2 (09:36→20:36)
[2016-06-01] MEDS: CEFEPIME 1GM/50 ML (PMX) 50 ML IVPB SCH ×2 (09:36→20:36)
[2016-06-01] MEDS: HEPARIN 5,000 UNIT/0.5 ML SYG SC SCH ×2 (09:40→20:38)
[2016-06-01] MEDS: morphine 2 MG INJ IV PRN (09:41)
--- NOTE | 2016-06-01 12:10 | CONS ---
Date/Time of Note Date/Time of Note DATE: 06/01/16 TIME: 12:07 Assessment/Plan Assessment/Plan Additional Assessment/Plan Ventilator settings; assist control 16, tidal volume 550, PEEP of 5, 45% FiO2. Next Chest x-ray was reviewed from today which is essentially clear. Assessment recommendations; next 1. Patient admitted with right upper lobe pneumonia with marked radiological improvement. 2. History of chronic respiratory failure. 3. History of CVA. 4. History of hypertension. 5. History of seizures. Continue current treatment. Start weaning the patient from ventilator as tolerated. Also titrate down FiO2 to keep O2 sat around 92-94%. Continue current antibiotics for another 48 hours. Consultation Date/Type/Reason Admit Date/Time May 27, 2016 at 04:18 Initial Consult Date 05/27/16 Type of Consultation: Pulmonary 24 HR Interval Summary Free Text/Dictation Patient condition stable. Remains awake and alert. Has remained hemodynamically stable. General examination; elderly male, on ventilator via tracheostomy. Currently in no distress. Exam/Review of Systems Vital Signs Vitals Vital Signs Date Time Temp Pulse Resp B/P Pulse Ox O2 Delivery O2 Flow Rate FiO2 06/01/16 11:54 98.6 82 18 139/69 98 06/01/16 11:25 45 06/01/16 06:00 Mechanical Ventilator Intake and Output 05/31/16 05/31/16 06/01/16 15:00 23:00 07:00 Intake Total 1200 ml 800 ml Balance 1200 ml 800 ml Exam HEENT examination; supple neck, no JVD. No lymphadenopathy. Midline trachea. Tracheostomy in place. Incision site is clean. Pupils are midsize and reactive to light. Pharynx is clear. Chest examination; clear to auscultation bilaterally. S1-S2 audible, no murmurs. Regular rhythm. Abdomen examination; soft, nondistended. No organomegaly. G-tube in place. Bowel sounds audible. Extremity examination; no peripheral edema. Pulses 1+ bilaterally. 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 Results Result Diagram: 05/29/16 0630 05/31/16 0600 Medications Medications Current Medications Morphine Sulfate (morphine) 2 mg Q4H PRN IV SEVERE PAIN LEVEL 7-10 Last administered on 06/01/16t 09:41; Admin Dose 2 MG; Start 05/27/16 at 08:00 Heparin Sodium (Porcine) (Heparin (5000 Units/0.5 ml)) 5,000 unit Q12 SC Last administered on 06/01/16 09:40; Admin Dose 5,000 UNIT; Start 05/27/16 at 09:00 Acetaminophen/ Codeine Phosphate (Tylenol No.3) 1 tab Q12 GTB Last administered on 06/01/16 09:35; Admin Dose 1 TAB; Start 05/27/16 at 09:00 Acetaminophen (Tylenol Liquid) 650 mg Q4H PRN GTB PAIN AND OR ELEVATED TEMP Last administered on 06/01/16 01:16; Admin Dose 650 MG; Start 05/27/16 at 08:00 Albuterol (Proventil 0.083% (Neb)) 2.5 mg Q6 PRN NEB WHEEZING AND SOB; Start at 08:00 Aspirin (Aspirin) 81 mg DAILY GTB Last administered on 06/01/16 09:36; Admin Dose 81 MG; Start 05/27/16 at 09:00 Atenolol (Tenormin) 25 mg DAILY GTB Last administered on 06/01/16 09:35; Admin Dose 25 MG; Start 05/27/16 at 09:00 Bisacodyl (Dulcolax Supp) 10 mg Q24H PRN [place] constipation; Start 05/27/16 at 08: 00 Diphenhydramine HCl (Benadryl) 25 mg Q6H PRN GTB ITCHING; Start 05/27/16 at 08: 00 Docusate Sodium (Colace Liquid Cup) 100 mg QHS PRN GTB CONSTIPATION; Start at 08:00 Hydroxyzine HCl (Atarax) 25 mg TID GTB Last administered on 06/01/16 09:35; Admin Dose 25 MG; Start 05/27/16 at 09:00 Levetiracetam (Keppra Liq (Ped)) 750 mg BID GTB Last administered on 06/01/16 09:36; Admin Dose 750 MG; Start 05/27/16 at 09:00 Multivitamins Therapeutic 1 tab 1 tab DAILY GTB Last administered on 06/01/16 09:35; Admin Dose 1 TAB; Start 05/27/16 at 09:00 Cefepime HCl 50 ml @ 100 mls/hr Q12 IVPB Last administered on 06/01/16 09:36 ; Admin Dose 100 MLS/HR; Start 05/27/16 at 13:00 Vancomycin HCl 1.25 gm/Sodium Chloride 250 ml @ 83.333 mls/ hr Q12H IVPB Last administered on 06/01/16 01:50; Admin Dose 83.333 MLS/HR; Start 05/29/16 at 02: 00 Ferric Sodium Gluconate Complex/ Sodium Chloride (Ferrlecit/NS) 110 ml @ 110 mls/hr Q24H IVPB Last administered on 05/31/16 17:38; Admin Dose 110 MLS/HR; Start 05/31/16 at 14:00; Stop 06/04/16 at 14:59 Famotidine (Pepcid) 20 mg BID GTB Last administered on 06/01/16 09:35; Admin Dose 20 MG; Start 05/31/16 at 21:00 MAURISIO CHEUNG Jun 01, 2016 12:10
--- NOTE | 2016-06-01 12:17 | PN ---
Date/Time of Note Date/Time of Note DATE: 06/01/16 TIME: 12:15 Assessment/Plan VTE Prophylaxis VTE Prophylaxis Intervention: heparin Lines/Catheters IV [facility]ter [facility]from [facility] Saline Lock Urinary Cath still in place: No Assessment/Plan Assessment/Plan 1. Sepsis secondary to underlying healthcare-associated pneumonia. No evidence of septic shock. Continue antibiotics as per Infectious Disease. 2. Acute on chronic respiratory failure. The patient is status post tracheostomy. The patient being followed by pulmonary. Continue ventilator management and inhaled bronchodilators as per pulmonary. 3. Seizure disorder. Continue anticonvulsants. 4. Chronic bedridden status. Continue supportive care. Continue turn schedule q.2 hours. 5. Hyperkalemia. Etiology unclear. Will provide the patient with a single dose of potassium exchange resin. 6. Microcytic hypochromic anemia. Etiology unclear. Will monitor the H and H closely. Transfuse as needed. Will obtain an iron panel on this patient. 7. Fluid, electrolytes, and nutrition. The patient will be continued on tube feedings. 8. DVT prophylaxis, subcutaneous heparin. 9. Gastrointestinal prophylaxis. Histamine 2 receptor blockers. 10. Essential hypertension. Continue antihypertensives. 11. severe iron deficiency anemia PLAN: IV abx, PT evaluation and treament, Bp stable ID following, pulmonary following,sputum Cx result pending Heparin For DVT Prophylaxis on Tube feeding with Fibresource IV iron for x 5 doses I talked with Sister Rajni yesterday -updated her about plan and IV abx Subjective 24 Hr Interval Summary Free Text/Dictation pt on IV abx, BP table, stable vent setting, Exam/Review of Systems Vital Signs Vitals Vital Signs Date Time Temp Pulse Resp B/P Pulse Ox O2 Delivery O2 Flow Rate FiO2 06/01/16 11:54 98.6 82 18 139/69 98 06/01/16 11:25 45 06/01/16 06:00 Mechanical Ventilator Intake and Output 05/31/16 05/31/16 06/01/16 15:00 23:00 07:00 Intake Total 1200 ml 800 ml Balance 1200 ml 800 ml Exam GENERAL: no acute events,BP stable NECK: Tracheostomy is in the midline,site clear RESPIRATORY: Bilateral diminished breath sounds CARDIAC: Regular rate and rhythm. S1, S2 heard. ABDOMEN: Soft, nontender. Left upper quadrant G-tube in place. Left lower quadrant colostomy. EXTREMITIES: no clubbing/cyanosis Results Result Diagram: 05/29/16 0630 05/31/16 0600 Medications Medications Current Medications Morphine Sulfate (morphine) 2 mg Q4H PRN IV SEVERE PAIN LEVEL 7-10 Last administered on 06/01/16 09:41; Admin Dose 2 MG; Start 05/27/16 at 08:00 Heparin Sodium (Porcine) (Heparin (5000 Units/0.5 ml)) 5,000 unit Q12 SC Last administered on 06/01/16 09:40; Admin Dose 5,000 UNIT; Start 05/27/16 at 09:00 Acetaminophen/ Codeine Phosphate (Tylenol No.3) 1 tab Q12 GTB Last administered on 06/01/16 09:35; Admin Dose 1 TAB; Start 05/27/16 at 09:00 Acetaminophen (Tylenol Liquid) 650 mg Q4H PRN GTB PAIN AND OR ELEVATED TEMP Last administered on 06/01/16 01:16; Admin Dose 650 MG; Start 05/27/16 at 08:00 Albuterol (Proventil 0.083% (Neb)) 2.5 mg Q6 PRN NEB WHEEZING AND SOB; Start at 08:00 Aspirin (Aspirin) 81 mg DAILY GTB Last administered on 06/01/16 09:36; Admin Dose 81 MG; Start 05/27/16 at 09:00 Atenolol (Tenormin) 25 mg DAILY GTB Last administered on 06/01/16 09:35; Admin Dose 25 MG; Start 05/27/16 at 09:00 Bisacodyl (Dulcolax Supp) 10 mg Q24H PRN [place] constipation; Start 05/27/16 at 08: 00 Diphenhydramine HCl (Benadryl) 25 mg Q6H PRN GTB ITCHING; Start 05/27/16 at 08: 00 Docusate Sodium (Colace Liquid Cup) 100 mg QHS PRN GTB CONSTIPATION; Start at 08:00 Hydroxyzine HCl (Atarax) 25 mg TID GTB Last administered on 06/01/16 12:11; Admin Dose 25 MG; Start 05/27/16 at 09:00 Levetiracetam (Keppra Liq (Ped)) 750 mg BID GTB Last administered on 06/01/16 09:36; Admin Dose 750 MG; Start 05/27/16 at 09:00 Multivitamins Therapeutic 1 tab 1 tab DAILY GTB Last administered on 06/01/16 09:35; Admin Dose 1 TAB; Start 05/27/16 at 09:00 Cefepime HCl 50 ml @ 100 mls/hr Q12 IVPB Last administered on 06/01/16 09:36 ; Admin Dose 100 MLS/HR; Start 05/27/16 at 13:00 Vancomycin HCl 1.25 gm/Sodium Chloride 250 ml @ 83.333 mls/ hr Q12H IVPB Last administered on 06/01/16 01:50; Admin Dose 83.333 MLS/HR; Start 05/29/16 at 02: 00 Ferric Sodium Gluconate Complex/ Sodium Chloride (Ferrlecit/NS) 110 ml @ 110 mls/hr Q24H IVPB Last administered on 05/31/16 17:38; Admin Dose 110 MLS/HR; Start 05/31/16 at 14:00; Stop 06/04/16 at 14:59 Famotidine (Pepcid) 20 mg BID GTB Last administered on 06/01/16 09:35; Admin Dose 20 MG; Start 05/31/16 at 21:00 RALPH LEÓN MD Jun 01, 2016 12:17
[2016-06-01] MEDS: SOD FERRIC GLUC COMPLX 125 MG in SOD CHLORIDE 0.9% 100 ML IVPB SCH (17:30)
[2016-06-01 21:53] LABS: TIME 2145
[2016-06-02] VITALS (34 sets, daily range): BP systolic 100–142; BP diastolic 54–79; PULSE 62–90; RESP 17–40
[2016-06-02] MEDS: VANCOMYCIN 1.25 GM in SOD CHLORIDE 0.9% 250 ML IVPB SCH ×2 (03:19→13:42)
[2016-06-02] MEDS: ACETAMINOPHEN 650MG/20.3ML CUP GTB PRN (04:01)
[2016-06-02 08:01] LABS: CREATININE 0.69 mg/dl (0.61-1.24)
[2016-06-02] MEDS: FAMOTIDINE 20 MG TAB GTB SCH ×2 (09:07→20:57)
[2016-06-02] MEDS: ASPIRIN 81 MG TAB GTB SCH (09:07)
[2016-06-02] MEDS: LEVETIRACETAM (100 MG/ML PO SYG) GTB SCH ×2 (09:07→20:55)
[2016-06-02] MEDS: ACETAMINOPHEN/CODEINE #3 TAB GTB SCH ×2 (09:07→20:57)
[2016-06-02] MEDS: hydrOXYzine HCL 25 MG TAB GTB SCH ×3 (09:07→20:56)
[2016-06-02] MEDS: MULTIVITAMINS THERAPEUTIC TAB GTB SCH (09:07)
[2016-06-02] MEDS: HEPARIN 5,000 UNIT/0.5 ML SYG SC SCH ×2 (09:08→21:00)
[2016-06-02] MEDS: CEFEPIME 1GM/50 ML (PMX) 50 ML IVPB SCH ×2 (09:10→20:55)
[2016-06-02] MEDS: ATENOLOL 25 MG TAB GTB SCH (09:11)
[2016-06-02] MEDS: ALBUTEROL 0.083% (NEB) 2.5 MG/3 ML AMP NEB PRN ×2 (09:26→20:33)
--- NOTE | 2016-06-02 11:00 | PN ---
Date/Time of Note Date/Time of Note DATE: 06/02/16 TIME: 10:58 Assessment/Plan VTE Prophylaxis VTE Prophylaxis Intervention: heparin Lines/Catheters IV [facility] Saline Lock Urinary Cath still in place: No Assessment/Plan Assessment/Plan 1. Sepsis secondary to underlying healthcare-associated pneumonia. No evidence of septic shock. Continue antibiotics as per Infectious Disease. 2. Acute on chronic respiratory failure. The patient is status post tracheostomy. The patient being followed by pulmonary. Continue ventilator management and inhaled bronchodilators as per pulmonary. 3. Seizure disorder. Continue anticonvulsants. 4. Chronic bedridden status. Continue supportive care. Continue turn schedule q.2 hours. 5. Hyperkalemia. Etiology unclear. Will provide the patient with a single dose of potassium exchange resin. 6. Microcytic hypochromic anemia. Etiology unclear. Will monitor the H and H closely. Transfuse as needed. Will obtain an iron panel on this patient. 7. Fluid, electrolytes, and nutrition. The patient will be continued on tube feedings. 8. DVT prophylaxis, subcutaneous heparin. 9. Gastrointestinal prophylaxis. Histamine 2 receptor blockers. 10. Essential hypertension. Continue antihypertensives. 11. severe iron deficiency anemia PLAN: IV abx, PT evaluation and treament, Bp stable ID following, pulmonary following, had a tracheostomy leak yesterday night, pulmonary was consulted Heparin For DVT Prophylaxis on Tube feeding with Fibresource s/p IV iron 5 doses I talked with Sister Rajni -updated her about plan and IV abx Subjective 24 Hr Interval Summary Free Text/Dictation pt had a tracheostomy leak overnight , [place] catheter could not be placed,will wait Exam/Review of Systems Vital Signs Vitals Vital Signs Date Time Temp Pulse Resp B/P Pulse Ox O2 Delivery O2 Flow Rate FiO2 06/02/16 09:15 74 21 96 45 06/02/16 08:05 99.0 100/56 06/01/16 06:00 Mechanical Ventilator Intake and Output 06/01/16 06/01/16 06/02/16 15:00 23:00 07:00 Intake Total 1200 ml 850 ml Balance 1200 ml 850 ml Exam GENERAL: no acute events,BP stable NECK: Tracheostomy is in the midline,site clear RESPIRATORY: Bilateral diminished breath sounds CARDIAC: Regular rate and rhythm. S1, S2 heard. ABDOMEN: Soft, nontender. Left upper quadrant G-tube in place. Left lower quadrant colostomy. EXTREMITIES: no clubbing/cyanosis Results Result Diagram: 05/29/16 0630 06/02/16 0555 Results 24 hrs Laboratory Tests Test 06/01/16 21:45 06/02/16 05:55 TB Skin Test Administer Date 2240413 TB Skin Test Administer Time 2144 TB Skin Test Induration Pending TB Skin Test Injection Site Right Upper Forearm Blood Urea Nitrogen 17 Creatinine 0.69 Medications Medications Current Medications Morphine Sulfate (morphine) 2 mg Q4H PRN IV SEVERE PAIN LEVEL 7-10 Last administered on 06/01/16 09:41; Admin Dose 2 MG; Start 05/27/16 at 08:00 Heparin Sodium (Porcine) (Heparin (5000 Units/0.5 ml)) 5,000 unit Q12 SC Last administered on 06/02/16 09:08; Admin Dose 5,000 UNIT; Start 05/27/16 at 09:00 Acetaminophen/ Codeine Phosphate (Tylenol No.3) 1 tab Q12 GTB Last administered on 06/02/16 09:07; Admin Dose 1 TAB; Start 05/27/16 at 09:00 Acetaminophen (Tylenol Liquid) 650 mg Q4H PRN GTB PAIN AND OR ELEVATED TEMP Last administered on 06/02/16 04:01; Admin Dose 650 MG; Start 05/27/16 at 08:00 Albuterol (Proventil 0.083% (Neb)) 2.5 mg Q6 PRN NEB WHEEZING AND SOB; Start at 08:00 Aspirin (Aspirin) 81 mg DAILY GTB Last administered on 06/02/16 09:07; Admin Dose 81 MG; Start 05/27/16 at 09:00 Atenolol (Tenormin) 25 mg DAILY GTB Last administered on 06/02/16 09:11; Admin Dose 25 MG; Start 05/27/16 at 09:00 Bisacodyl (Dulcolax Supp) 10 mg Q24H PRN [place] constipation; Start 05/27/16 at 08: 00 Diphenhydramine HCl (Benadryl) 25 mg Q6H PRN GTB ITCHING; Start 05/27/16 at 08: 00 Docusate Sodium (Colace Liquid Cup) 100 mg QHS PRN GTB CONSTIPATION; Start at 08:00 Hydroxyzine HCl (Atarax) 25 mg TID GTB Last administered on 06/02/16 09:07; Admin Dose 25 MG; Start 05/27/16 at 09:00 Levetiracetam (Keppra Liq (Ped)) 750 mg BID GTB Last administered on 06/02/16 09:07; Admin Dose 750 MG; Start 05/27/16 at 09:00 Multivitamins Therapeutic 1 tab 1 tab DAILY GTB Last administered on 06/02/16 09:07; Admin Dose 1 TAB; Start 05/27/16 at 09:00 Cefepime HCl 50 ml @ 100 mls/hr Q12 IVPB Last administered on 06/02/16 09:10 ; Admin Dose 100 MLS/HR; Start 05/27/16 at 13:00 Vancomycin HCl 1.25 gm/Sodium Chloride 250 ml @ 83.333 mls/ hr Q12H IVPB Last administered on 06/02/16 03:19; Admin Dose 83.333 MLS/HR; Start 05/29/16 at 02: 00 Ferric Sodium Gluconate Complex/ Sodium Chloride (Ferrlecit/NS) 110 ml @ 110 mls/hr Q24H IVPB Last administered on 06/01/16 17:30; Admin Dose 110 MLS/HR; Start 05/31/16 at 14:00; Stop 06/04/16 at 14:59 Famotidine (Pepcid) 20 mg BID GTB Last administered on 06/02/16 09:07; Admin Dose 20 MG; Start 05/31/16 at 21:00 RALPH LÓEN MD Jun 02, 2016 11:00
[2016-06-02] MEDS: SOD FERRIC GLUC COMPLX 125 MG in SOD CHLORIDE 0.9% 100 ML IVPB SCH (13:42)
--- NOTE | 2016-06-02 14:51 | CONS ---
Date/Time of Note Date/Time of Note DATE: 06/02/16 TIME: 14:48 Assessment/Plan Assessment/Plan Additional Assessment/Plan Ventilator settings; AC of 16, tidal volume 550, PEEP of 5, 45% FiO2. Assessment and recommendations; 1. Patient with history of chronic respiratory failure ventilator dependent admitted with right upper lobe pneumonia with marked radiological improvement. 2. History of seizure disorder. 3. History of CVA. Next Continue current treatment. [facility] be [facility] With continuation of IV antibiotics for another 24 hours. Consultation Date/Type/Reason Admit Date/Time May 27, 2016 at 04:18 Initial Consult Date 05/27/16 Type of Consultation: Pulmonary 24 HR Interval Summary Free Text/Dictation Patient condition stable. Has remained hemodynamically stable. Remains awake and alert. Remains ventilator dependent. General examination; elderly male, on ventilator via tracheostomy currently in no distress. Exam/Review of Systems Vital Signs Vitals Vital Signs Date Time Temp Pulse Resp B/P Pulse Ox O2 Delivery O2 Flow Rate FiO2 06/02/16 14:21 66 18 121/62 96 06/02/16 13:05 45 06/02/16 12:08 98.8 06/01/16 06:00 Mechanical Ventilator Intake and Output 06/01/16 06/01/16 06/02/16 15:00 23:00 07:00 Intake Total 1200 ml 850 ml Balance 1200 ml 850 ml Exam HEENT examination; supple neck, no JVD. No lymphadenopathy. Midline trachea. No thyromegaly. No neck masses. Tracheostomy in place with clean insertion site. Chest examination; clear to auscultation bilaterally. S1-S2 audible, no murmurs. Regular rhythm. Abdomen examination; soft, nontender. No organomegaly. G-tube in place. Bowel sounds audible. Extremity examination; no peripheral edema. Pulses 2+ bilaterally. 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 Results Result Diagram: 05/29/16 0630 06/02/16 0555 Results 24 hrs Laboratory Tests Test 06/01/16 21:45 06/02/16 05:55 TB Skin Test Administer Date 2240413 TB Skin Test Administer Time 2144 TB Skin Test Induration Pending TB Skin Test Injection Site Right Upper Forearm Blood Urea Nitrogen 17 Creatinine 0.69 Medications Medications Current Medications Morphine Sulfate (morphine) 2 mg Q4H PRN IV SEVERE PAIN LEVEL 7-10 Last administered on 06/01/16 09:41; Admin Dose 2 MG; Start 05/27/16 at 08:00 Heparin Sodium (Porcine) (Heparin (5000 Units/0.5 ml)) 5,000 unit Q12 SC Last administered on 06/02/16 09:08; Admin Dose 5,000 UNIT; Start 05/27/16 at 09:00 Acetaminophen/ Codeine Phosphate (Tylenol No.3) 1 tab Q12 GTB Last administered on 06/02/16 09:07; Admin Dose 1 TAB; Start 05/27/16 at 09:00 Acetaminophen (Tylenol Liquid) 650 mg Q4H PRN GTB PAIN AND OR ELEVATED TEMP Last administered on 06/02/16 04:01; Admin Dose 650 MG; Start 05/27/16 at 08:00 Albuterol (Proventil 0.083% (Neb)) 2.5 mg Q6 PRN NEB WHEEZING AND SOB; Start at 08:00 Aspirin (Aspirin) 81 mg DAILY GTB Last administered on 06/02/16 09:07; Admin Dose 81 MG; Start 05/27/16 at 09:00 Atenolol (Tenormin) 25 mg DAILY GTB Last administered on 06/02/16 09:11; Admin Dose 25 MG; Start 05/27/16 at 09:00 Bisacodyl (Dulcolax Supp) 10 mg Q24H PRN [place] constipation; Start 05/27/16 at 08: 00 Diphenhydramine HCl (Benadryl) 25 mg Q6H PRN GTB ITCHING; Start 05/27/16 at 08: 00 Docusate Sodium (Colace Liquid Cup) 100 mg QHS PRN GTB CONSTIPATION; Start at 08:00 Hydroxyzine HCl (Atarax) 25 mg TID GTB Last administered on 06/02/16 13:42; Admin Dose 25 MG; Start 05/27/16 at 09:00 Levetiracetam (Keppra Liq (Ped)) 750 mg BID GTB Last administered on 06/02/16 09:07; Admin Dose 750 MG; Start 05/27/16 at 09:00 Multivitamins Therapeutic 1 tab 1 tab DAILY GTB Last administered on 06/02/16 09:07; Admin Dose 1 TAB; Start 05/27/16 at 09:00 Cefepime HCl 50 ml @ 100 mls/hr Q12 IVPB Last administered on 06/02/16 09:10 ; Admin Dose 100 MLS/HR; Start 05/27/16 at 13:00 Vancomycin HCl 1.25 gm/Sodium Chloride 250 ml @ 83.333 mls/ hr Q12H IVPB Last administered on 06/02/16 13:42; Admin Dose 83.333 MLS/HR; Start 05/29/16 at 02: 00 Ferric Sodium Gluconate Complex/ Sodium Chloride (Ferrlecit/NS) 110 ml @ 110 mls/hr Q24H IVPB Last administered on 06/02/16 13:42; Admin Dose 110 MLS/HR; Start 05/31/16 at 14:00; Stop 06/04/16 at 14:59 Famotidine (Pepcid) 20 mg BID GTB Last administered on 06/02/16 09:07; Admin Dose 20 MG; Start 05/31/16 at 21:00 MAURISIO CHEUNG Jun 02, 2016 14:51
--- NOTE | 2016-06-02 16:10 | CONS ---
Date/Time of Note Date/Time of Note DATE: 06/02/16 TIME: 16:05 Assessment/Plan Assessment/Plan Chief Complaint/Hosp Course ID PROGRESS NOTE CURRENT ABX=> Vanco IV #7 + Cefepime #7 24H INTERVAL SUMMARY * Clinically stable -- chronic encephalopathic Afebrile, VSS, NAD * Noncommunicative on the Vent * DC Planning back to SNF in process PHYSICAL EXAMINATION: GENERAL: VSS, NAD HEENT: Unremarkable NECK: Supple, trach-> Secure to Vent CHEST: Rise symmetrical, without dyspnea on observation HEART: Pulse RRR ABDOMEN: Soft, benign, peg EXTREMITIES: Warm ID ASSESSMENT 60 yo M w/ PMHx CVA w/resideual LUEXT hemiparesis/vascular dementia/dysphagia/ peg/Trach/CAD w/prior stent admit with: 1. S/P Sepsis with fevers and leukocytosis secondary to #2 on admission => RESOLVED 2. Healthcare-associated pneumonia. * CT CHEST: Significant RLL PNA w/Right lymphadenopathy * RESPIRATORY CULTURE Final Organism 1 PSEUDOMONAS AERUGINOSA QUANTITY SCANT GROWTH 3. Chronic respiratory failure= VDRF 4. Dysphagia=> Peg 5. History of seizure disorder. (-)MRSA Nares INVASIVES: PIV, T,P,FC ABX ALLERGY: KNDA CURRENT ABX: =>Vanco IV #7 + Cefepime #7 s/p ID RECOMMENDATIONS 1. Clinical indicators have improved w/radiographic improvement of HCAP = Continue current ABX x 24H 2. Concur with DC Back to SNF OFF ABX when cleared by primary . . . Problems: Consultation Date/Type/Reason Admit Date/Time May 27, 2016 at 04:18 Initial Consult Date 05/27/16 Type of Consultation: ID Exam/Review of Systems Vital Signs Vitals Vital Signs Date Time Temp Pulse Resp B/P Pulse Ox O2 Delivery O2 Flow Rate FiO2 06/02/16 15:35 72 22 100 45 06/02/16 15:28 98.0 122/60 06/01/16 06:00 Mechanical Ventilator Intake and Output 06/01/16 06/01/16 06/02/16 15:00 23:00 07:00 Intake Total 1200 ml 850 ml Balance 1200 ml 850 ml Results Result Diagram: 05/29/16 0630 06/02/16 0555 Results 24 hrs Laboratory Tests Test 06/01/16 21:45 06/02/16 05:55 TB Skin Test Administer Date 2240413 TB Skin Test Administer Time 2144 TB Skin Test Induration Pending TB Skin Test Injection Site Right Upper Forearm Blood Urea Nitrogen 17 Creatinine 0.69 Medications Medications Current Medications Morphine Sulfate (morphine) 2 mg Q4H PRN IV SEVERE PAIN LEVEL 7-10 Last administered on 06/01/16 09:41; Admin Dose 2 MG; Start 05/27/16 at 08:00 Heparin Sodium (Porcine) (Heparin (5000 Units/0.5 ml)) 5,000 unit Q12 SC Last administered on 06/02/16 09:08; Admin Dose 5,000 UNIT; Start 05/27/16 at 09:00 Acetaminophen/ Codeine Phosphate (Tylenol No.3) 1 tab Q12 GTB Last administered on 06/02/16 09:07; Admin Dose 1 TAB; Start 05/27/16 at 09:00 Acetaminophen (Tylenol Liquid) 650 mg Q4H PRN GTB PAIN AND OR ELEVATED TEMP Last administered on 06/02/16 04:01; Admin Dose 650 MG; Start 05/27/16 at 08:00 Albuterol (Proventil 0.083% (Neb)) 2.5 mg Q6 PRN NEB WHEEZING AND SOB; Start at 08:00 Aspirin (Aspirin) 81 mg DAILY GTB Last administered on 06/02/16 09:07; Admin Dose 81 MG; Start 05/27/16 at 09:00 Atenolol (Tenormin) 25 mg DAILY GTB Last administered on 06/02/16 09:11; Admin Dose 25 MG; Start 05/27/16 at 09:00 Bisacodyl (Dulcolax Supp) 10 mg Q24H PRN [place] constipation; Start 05/27/16 at 08: 00 Diphenhydramine HCl (Benadryl) 25 mg Q6H PRN GTB ITCHING; Start 05/27/16 at 08: 00 Docusate Sodium (Colace Liquid Cup) 100 mg QHS PRN GTB CONSTIPATION; Start at 08:00 Hydroxyzine HCl (Atarax) 25 mg TID GTB Last administered on 06/02/16 13:42; Admin Dose 25 MG; Start 05/27/16 at 09:00 Levetiracetam (Keppra Liq (Ped)) 750 mg BID GTB Last administered on 06/02/16 09:07; Admin Dose 750 MG; Start 05/27/16 at 09:00 Multivitamins Therapeutic 1 tab 1 tab DAILY GTB Last administered on 06/02/16 09:07; Admin Dose 1 TAB; Start 05/27/16 at 09:00 Cefepime HCl 50 ml @ 100 mls/hr Q12 IVPB Last administered on 06/02/16 09:10 ; Admin Dose 100 MLS/HR; Start 05/27/16 at 13:00 Vancomycin HCl 1.25 gm/Sodium Chloride 250 ml @ 83.333 mls/ hr Q12H IVPB Last administered on 06/02/16 13:42; Admin Dose 83.333 MLS/HR; Start 05/29/16 at 02: 00 Ferric Sodium Gluconate Complex/ Sodium Chloride (Ferrlecit/NS) 110 ml @ 110 mls/hr Q24H IVPB Last administered on 06/02/16 13:42; Admin Dose 110 MLS/HR; Start 05/31/16 at 14:00; Stop 06/04/16 at 14:59 Famotidine (Pepcid) 20 mg BID GTB Last administered on 06/02/16 09:07; Admin Dose 20 MG; Start 05/31/16 at 21:00 Miscellaneous Information (*Rx Drug Level Order Reminder*) VANCOMYCIN TROUGH AT 0100 ONCE ONCE XX ; Start 06/03/16 at 01:00; Stop 06/03/16 at 01:01 RODRIGO BO NP Jun 02, 2016 16:10
[2016-06-03] VITALS (31 sets, daily range): BP systolic 104–164; BP diastolic 54–84; PULSE 67–87; RESP 17–41
[2016-06-03] MEDS: ALBUTEROL 0.083% (NEB) 2.5 MG/3 ML AMP NEB PRN (01:43)
[2016-06-03 05:38] LABS: AADO2 Arterial 229.2 mmHg (7.0-24.0); Allen Test ACCEPTAB; Arterial Base Excess 0.8 mmol/L (-3.0-3); Arterial COHb 0.3 % (0.0-3.0); Arterial Fraction of Oxyhgb 86.7 % (93.0-99.0); Arterial HCO3 24.2 mmol/L (22.0-26.0); Arterial MetHb 0.3 % (0.0-1.5); Arterial Total Hemglobin 12.8 g/dl (12.0-18.0); MODE VENT - AC
[2016-06-03 05:59] LABS: ADD SCAN DIFF NO
[2016-06-03 06:12] LABS: BASOPHILS % 0.4 % (0.0-2.0); EOSINOPHILS # 0.3 10^3/ul (0.0-0.5); EOSINOPHILS % 4.1 % (0.0-7.0); HEMOGLOBIN 9.8 g/dl (14.0-18.0); LYMPHOCYTES % 13.6 % (15.0-51.0); MEAN CORPUSCULAR HEMOGLOBIN 25.5 pg (29.0-33.0); MEAN CORPUSCULAR HGB CONC 30.6 g/dl (32.0-37.0); MEAN CORPUSCULAR VOLUME 83.1 fl (82.0-101.0); MEAN PLATELET VOLUME 11.6 fl (7.4-10.4); MONOCYTE # 0.5 10^3/ul (0.3-0.9); MONOCYTES % 6.6 % (0.0-11.0); NEUTROPHIL # 5.7 10^3/ul (1.6-7.5); NEUTROPHILS % 74.8 % (39.0-77.0); PLATELET COUNT 322 10^3/UL (140-415); RED BLOOD COUNT 3.85 10^6/ul (4.70-6.10); RED CELL DISTRIBUTION WIDTH 15.7 % (11.5-14.5); WHITE BLOOD COUNT 7.6 10^3/ul (4.8-10.8)
[2016-06-03 06:15] LABS: INR 1.13; PROTIME 14.5 Sec (12.2-14.2); PT RATIO 1.1
[2016-06-03 06:16] LABS: PARTIAL THROMBOPLASTIN TIME 25.1 Sec (25.0-35.0)
[2016-06-03 06:23] LABS: POTASSIUM 4.1 mmol/L (3.5-5.1)
[2016-06-03 06:26] LABS: CREATININE 0.67 mg/dl (0.61-1.24)
[2016-06-03 06:27] LABS: CALCIUM 8.6 mg/dl (8.4-10.2)
[2016-06-03] MEDS: ACETAMINOPHEN 650MG/20.3ML CUP GTB PRN (08:04)
[2016-06-03] MEDS: hydrOXYzine HCL 25 MG TAB GTB SCH ×3 (08:04→21:35)
[2016-06-03] MEDS: ASPIRIN 81 MG TAB GTB SCH (08:04)
[2016-06-03] MEDS: ATENOLOL 25 MG TAB GTB SCH (08:06)
[2016-06-03] MEDS: FAMOTIDINE 20 MG TAB GTB SCH ×2 (08:06→21:36)
[2016-06-03] MEDS: CEFEPIME 1GM/50 ML (PMX) 50 ML IVPB SCH (08:19)
--- NOTE | 2016-06-03 08:47 | RADRPT ---
PROCEDURE: XR Chest. CLINICAL INDICATION: Pneumonia TECHNIQUE: Chest AP portable. COMPARISON: 06/01/2016 FINDINGS: Tracheostomy tube in place. The mediastinal structures are unremarkable. There is calcification of the thoracic aorta (consiste nt with atherosclerosis). The heart is normal in size and configuration. The pulmonary vascularity i s normal. There is right basilar subsegmental atelectasis / patchy consolidation. The pleural space s are unremarkable. There are senescent changes of the axial skeleton. IMPRESSION: Right basilar subsegmental atelectasis / patchy consolidation. RPTAT: HGDB .Bear Toth MD, Date Time Electronically viewed and signed by .Bear Toth MD, on 06/03/2016 08:46 .B/
[2016-06-03] MEDS ORDERED: VANCOMYCIN 850 MG in SOD CHLORIDE 0.9% 250 ML IVPB SCH (09:00)
[2016-06-03] MEDS: LEVETIRACETAM (100 MG/ML) 5ML CUP GTB SCH ×2 (09:02→21:35)
[2016-06-03] MEDS: MULTIVITAMINS THERAPEUTIC TAB GTB SCH (09:02)
[2016-06-03] MEDS: HEPARIN 5,000 UNIT/0.5 ML SYG SC SCH ×2 (09:06→21:38)
[2016-06-03] MEDS: ACETAMINOPHEN/CODEINE #3 TAB GTB SCH ×2 (10:31→21:39)
[2016-06-03] MEDS: SOD FERRIC GLUC COMPLX 125 MG in SOD CHLORIDE 0.9% 100 ML IVPB SCH (13:18)
--- NOTE | 2016-06-03 14:26 | CONS ---
Date/Time of Note Date/Time of Note DATE: 06/03/16 TIME: 14:24 Assessment/Plan Assessment/Plan Additional Assessment/Plan Ventilator settings; AC of 16, tidal volume 550, PEEP of 5, 55% FiO2. Assessment and recommendations; next 1. Patient admitted for right lower lobe pneumonia with significant clinical and radiological improvement. 2. History of respiratory failure, ventilator dependent. Next 3. History of CVA with left hemiplegia. 4. History of hypertension. 5. History of seizure disorder. Continue current ventilator settings. Discontinue antibiotics. Patient can be transferred to the retirement. Wean down FiO2 to keep O2 sat around 92-94%. Consultation Date/Type/Reason Admit Date/Time May 27, 2016 at 04:18 Initial Consult Date 05/27/16 Type of Consultation: Pulmonary 24 HR Interval Summary Free Text/Dictation Patient condition stable. Remains awake and alert. Has remained hemodynamically stable. General examination; elderly male, on ventilator via tracheostomy currently in no distress. Exam/Review of Systems Vital Signs Vitals Vital Signs Date Time Temp Pulse Resp B/P Pulse Ox O2 Delivery O2 Flow Rate FiO2 06/03/16 12:11 99.1 76 18 130/69 93 06/03/16 10:42 55 06/03/16 08:00 Mechanical Ventilator Intake and Output 06/02/16 06/02/16 06/03/16 15:00 23:00 07:00 Intake Total 1200 ml 900 ml Balance 1200 ml 900 ml Exam H EENT examination; supple neck, no JVD. No lymphadenopathy. Midline trachea. Pupils are midsize and reactive to light. Tracheostomy in place with clean insertion site. No thyromegaly. No lymphadenopathy. Chest examination; clear to auscultation bilaterally. S1-S2 audible, no murmurs. Regular rhythm. Abdomen examination; soft, G-tube in place. Bowel sounds audible. No organomegaly. Nontender. Extremity examination; no peripheral edema. BATCH WEIGHER examination; patient is stable left hemiplegia. Results Result Diagram: 06/03/16 0530 06/03/16 0530 Results 24 hrs Laboratory Tests Test 06/03/16 00:45 06/03/16 05:00 06/03/16 05:30 06/03/16 11:45 Vancomycin Level Trough 23.0 *H Arterial Blood HCO3 24.2 Arterial Blood Base Excess 0.8 Arterial Blood Oxygen Saturation 87.2 L Zack Test ACCEPTAB Arterial Blood Gas Puncture Site Right Radial Arterial Blood Carboxyhemoglobin 0.3 Arterial Blood Date Drawn 06/03/2016 5:20:23 AM Arterial Blood Methemoglobin 0.3 Arterial Blood pCO2 (Temp correct) 35.1 Arterial Blood pH (Temp corrected) 7.457 H Arterial Blood pO2 (Temp corrected) 51.7 *L Blood Gas A-a O2 Differential 229.2 H Blood Gas Actual Respiration Rate 25 Blood Gas Critical Value Read Back MIGUEL GASTELUM Blood Gas Low PEEP Setting 5.0 Blood Gas Modality VENT - AC Blood Gas Notified Time 06/03/2016 5:38:14 AM Blood Gas Notified Whom MA Blood Gas Respiration Rate 16.0 Blood Gas Specimen Source Blood arterial Blood Gas Temperature 37.0 Blood Gas Tidal Volume 550.0 FiO2 45.0 Oxyhemoglobin Percent 86.7 L Total Hemoglobin 12.8 Activated Partial Thromboplast Time 25.1 Anion Gap 17 H Basophils # 0.0 Basophils % 0.4 Blood Urea Nitrogen 18 Calcium Level 8.6 Carbon Dioxide Level 27 Chloride Level 105 Creatinine 0.67 Eosinophils # 0.3 Eosinophils % 4.1 Glucose Level 97 Hematocrit 32.0 L Hemoglobin 9.8 L INR International Normalized Ratio 1.13 Lymphocytes # 1.0 Lymphocytes % 13.6 L Mean Corpuscular Hemoglobin 25.5 L Mean Corpuscular Hemoglobin Concent 30.6 L Mean Corpuscular Volume 83.1 Mean Platelet Volume 11.6 H Monocytes # 0.5 Monocytes % 6.6 Neutrophils # 5.7 Neutrophils % 74.8 Nucleated Red Blood Cells # 0.0 Nucleated Red Blood Cells % 0.0 Platelet Count 322 Potassium Level 4.1 Prothrombin Time 14.5 H Prothrombin Time Ratio 1.1 Red Blood Count 3.85 L Red Cell Distribution Width 15.7 H Sodium Level 145 H White Blood Count 7.6 # Lactic Acid Level 1.1 Medications Medications Current Medications Morphine Sulfate (morphine) 2 mg Q4H PRN IV SEVERE PAIN LEVEL 7-10 Last administered on 06/01/16 09:41; Admin Dose 2 MG; Start 05/27/16 at 08:00 Heparin Sodium (Porcine) (Heparin (5000 Units/0.5 ml)) 5,000 unit Q12 SC Last administered on 06/03/16 09:06; Admin Dose 5,000 UNIT; Start 05/27/16 at 09:00 Acetaminophen/ Codeine Phosphate (Tylenol No.3) 1 tab Q12 GTB Last administered on 06/03/16 10:31; Admin Dose 1 TAB; Start 05/27/16 at 09:00 Acetaminophen (Tylenol Liquid) 650 mg Q4H PRN GTB PAIN AND OR ELEVATED TEMP Last administered on 06/03/16 08:04; Admin Dose 650 MG; Start 05/27/16 at 08:00 Albuterol (Proventil 0.083% (Neb)) 2.5 mg Q6 PRN NEB WHEEZING AND SOB Last administered on 06/03/16 01:43; Admin Dose 2.5 MG; Start 05/27/16 at 08:00 Aspirin (Aspirin) 81 mg DAILY GTB Last administered on 06/03/16 08:04; Admin Dose 81 MG; Start 05/27/16 at 09:00 Atenolol (Tenormin) 25 mg DAILY GTB Last administered on 06/03/16 08:06; Admin Dose 25 MG; Start 05/27/16 at 09:00 Bisacodyl (Dulcolax Supp) 10 mg Q24H PRN [place] constipation; Start 05/27/16 at 08: 00 Diphenhydramine HCl (Benadryl) 25 mg Q6H PRN GTB ITCHING; Start 05/27/16 at 08: 00 Docusate Sodium (Colace Liquid Cup) 100 mg QHS PRN GTB CONSTIPATION; Start at 08:00 Hydroxyzine HCl (Atarax) 25 mg TID GTB Last administered on 06/03/16 12:52; Admin Dose 25 MG; Start 05/27/16 at 09:00 Multivitamins Therapeutic 1 tab 1 tab DAILY GTB Last administered on 06/03/16 09:02; Admin Dose 1 TAB; Start 05/27/16 at 09:00 Cefepime HCl 50 ml @ 100 mls/hr Q12 IVPB Last administered on 06/03/16 08:19 ; Admin Dose 100 MLS/HR; Start 05/27/16 at 13:00 Ferric Sodium Gluconate Complex/ Sodium Chloride (Ferrlecit/NS) 110 ml @ 110 mls/hr Q24H IVPB Last administered on 06/03/16 13:18; Admin Dose 110 MLS/HR; Start 05/31/16 at 14:00; Stop 06/04/16 at 14:59 Famotidine 20 mg 20 mg BID GTB Last administered on 06/03/16 08:06; Admin Dose 20 MG; Start 05/31/16 at 21:00 Vancomycin HCl/ Sodium Chloride (Vancocin/NS) 250 ml @ 75 mls/hr Q12H IVPB Last administered on 06/03/16 10:31; Admin Dose 75 MLS/HR; Start 06/03/16 at 09 :00 Levetiracetam (Keppra Liquid) 750 mg BID GTB Last administered on 06/03/16 09: 02; Admin Dose 750 MG; Start 06/03/16 at 09:00 Metronidazole (Flagyl) 500 mg Q8 NGT ; Start 06/03/16 at 22:00; Status UNV Fluconazole (Diflucan) 100 mg DAILY PO ; Start 06/03/16 at 14:30; Status UNV MAURISIO CHEUNG Jun 03, 2016 14:26
[2016-06-03] MEDS: FLUCONAZOLE 100 MG TAB PO SCH (14:59)
--- NOTE | 2016-06-03 15:46 | PN ---
Date/Time of Note Date/Time of Note DATE: 06/03/16 TIME: 15:39 Assessment/Plan VTE Prophylaxis VTE Prophylaxis Intervention: heparin Lines/Catheters IV [facility]ter [facility] (from [facility] Urinary Cath still in place: No Assessment/Plan Chief Complaint/Hosp Course 1. Sepsis 2/ HCAP-stable - Continue antibiotics as per Infectious Disease. 2. Acute on chronic respiratory failure. The patient is status post tracheostomy and did have a leak which is now stable -Pulmonary on the case 3. Seizure disorder. Continue anticonvulsants. 4. Chronic bedridden status. Continue supportive care. Continue turn schedule q.2 hours. 5. Hyperkalemia. Etiology unclear. Will provide the patient with a single dose of potassium exchange resin. 6. Microcytic hypochromic anemia. Etiology unclear. Will monitor the H and H closely. Transfuse as needed. Will obtain an iron panel on this patient. 7. Fluid, electrolytes, and nutrition. The patient will be continued on tube feedings. 8. Anemia of chronic Dz 9. Essential hypertension. Continue antihypertensives. PPx- Heparin Problems: Subjective 24 Hr Interval Summary Subjective hx not possible: pt non-verbal Exam/Review of Systems Vital Signs Vitals Vital Signs Date Time Temp Pulse Resp B/P Pulse Ox O2 Delivery O2 Flow Rate FiO2 06/03/16 13:13 71 34 98 55 06/03/16 12:11 99.1 130/69 06/03/16 08:00 Mechanical Ventilator Intake and Output 06/02/16 06/02/16 06/03/16 15:00 23:00 07:00 Intake Total 1200 ml 900 ml Balance 1200 ml 900 ml Exam Constitutional: non-verbal Respiratory: clear to auscultation Cardiovascular: regular rate and rhythm Gastrointestinal: soft, No distended Musculoskeletal: nl extremities to inspection Results Result Diagram: 06/03/16 0530 06/03/16 0530 Results 24 hrs Laboratory Tests Test 06/03/16 00:45 06/03/16 05:00 06/03/16 05:30 06/03/16 11:45 Vancomycin Level Trough 23.0 *H Arterial Blood HCO3 24.2 Arterial Blood Base Excess 0.8 Arterial Blood Oxygen Saturation 87.2 L Zack Test ACCEPTAB Arterial Blood Gas Puncture Site Right Radial Arterial Blood Carboxyhemoglobin 0.3 Arterial Blood Date Drawn 06/03/2016 5:20:23 AM Arterial Blood Methemoglobin 0.3 Arterial Blood pCO2 (Temp correct) 35.1 Arterial Blood pH (Temp corrected) 7.457 H Arterial Blood pO2 (Temp corrected) 51.7 *L Blood Gas A-a O2 Differential 229.2 H Blood Gas Actual Respiration Rate 25 Blood Gas Critical Value Read Back MIGUEL GASTELUM Blood Gas Low PEEP Setting 5.0 Blood Gas Modality VENT - AC Blood Gas Notified Time 06/03/2016 5:38:14 AM Blood Gas Notified Whom KEYLA Blood Gas Respiration Rate 16.0 Blood Gas Specimen Source Blood arterial Blood Gas Temperature 37.0 Blood Gas Tidal Volume 550.0 FiO2 45.0 Oxyhemoglobin Percent 86.7 L Total Hemoglobin 12.8 Activated Partial Thromboplast Time 25.1 Anion Gap 17 H Basophils # 0.0 Basophils % 0.4 Blood Urea Nitrogen 18 Calcium Level 8.6 Carbon Dioxide Level 27 Chloride Level 105 Creatinine 0.67 Eosinophils # 0.3 Eosinophils % 4.1 Glucose Level 97 Hematocrit 32.0 L Hemoglobin 9.8 L INR International Normalized Ratio 1.13 Lymphocytes # 1.0 Lymphocytes % 13.6 L Mean Corpuscular Hemoglobin 25.5 L Mean Corpuscular Hemoglobin Concent 30.6 L Mean Corpuscular Volume 83.1 Mean Platelet Volume 11.6 H Monocytes # 0.5 Monocytes % 6.6 Neutrophils # 5.7 Neutrophils % 74.8 Nucleated Red Blood Cells # 0.0 Nucleated Red Blood Cells % 0.0 Platelet Count 322 Potassium Level 4.1 Prothrombin Time 14.5 H Prothrombin Time Ratio 1.1 Red Blood Count 3.85 L Red Cell Distribution Width 15.7 H Sodium Level 145 H White Blood Count 7.6 # Lactic Acid Level 1.1 Medications Medications Current Medications Morphine Sulfate (morphine) 2 mg Q4H PRN IV SEVERE PAIN LEVEL 7-10 Last administered on 06/01/16 09:41; Admin Dose 2 MG; Start 05/27/16 at 08:00 Heparin Sodium (Porcine) (Heparin (5000 Units/0.5 ml)) 5,000 unit Q12 SC Last administered on 06/03/16 09:06; Admin Dose 5,000 UNIT; Start 05/27/16 at 09:00 Acetaminophen/ Codeine Phosphate (Tylenol No.3) 1 tab Q12 GTB Last administered on 06/03/16 10:31; Admin Dose 1 TAB; Start 05/27/16 at 09:00 Acetaminophen (Tylenol Liquid) 650 mg Q4H PRN GTB PAIN AND OR ELEVATED TEMP Last administered on 06/03/16 08:04; Admin Dose 650 MG; Start 05/27/16 at 08:00 Albuterol (Proventil 0.083% (Neb)) 2.5 mg Q6 PRN NEB WHEEZING AND SOB Last administered on 06/03/16 01:43; Admin Dose 2.5 MG; Start 05/27/16 at 08:00 Aspirin (Aspirin) 81 mg DAILY GTB Last administered on 06/03/16 08:04; Admin Dose 81 MG; Start 05/27/16 at 09:00 Atenolol (Tenormin) 25 mg DAILY GTB Last administered on 06/03/16 08:06; Admin Dose 25 MG; Start 05/27/16 at 09:00 Bisacodyl (Dulcolax Supp) 10 mg Q24H PRN [place] constipation; Start 05/27/16 at 08: 00 Diphenhydramine HCl (Benadryl) 25 mg Q6H PRN GTB ITCHING; Start 05/27/16 at 08: 00 Docusate Sodium (Colace Liquid Cup) 100 mg QHS PRN GTB CONSTIPATION; Start at 08:00 Hydroxyzine HCl (Atarax) 25 mg TID GTB Last administered on 06/03/16 12:52; Admin Dose 25 MG; Start 05/27/16 at 09:00 Multivitamins Therapeutic 1 tab 1 tab DAILY GTB Last administered on 06/03/16 09:02; Admin Dose 1 TAB; Start 05/27/16 at 09:00 Ferric Sodium Gluconate Complex/ Sodium Chloride (Ferrlecit/NS) 110 ml @ 110 mls/hr Q24H IVPB Last administered on 06/03/16 13:18; Admin Dose 110 MLS/HR; Start 05/31/16 at 14:00; Stop 06/04/16 at 14:59 Famotidine (Pepcid) 20 mg BID GTB Last administered on 06/03/16 08:06; Admin Dose 20 MG; Start 05/31/16 at 21:00 Levetiracetam (Keppra Liquid) 750 mg BID GTB Last administered on 06/03/16 09: 02; Admin Dose 750 MG; Start 06/03/16 at 09:00 Metronidazole (Flagyl) 500 mg Q8 NGT ; Start 06/03/16 at 22:00 Fluconazole (Diflucan) 100 mg DAILY PO Last administered on 06/03/16 14:59; Admin Dose 100 MG; Start 06/03/16 at 14:30 EDUARDO MARTINEZ Jun 03, 2016 15:46
--- NOTE | 2016-06-03 16:57 | PN ---
DATE: 06/03/2016 SUBJECTIVE: This is an infectious disease progress note. The patient spiked a fever of 101.2. Cul tures were ordered. He is awake, lying comfortably in bed. LABORATORY DATA: WBC today 7.6, platelets 322, neutrophils 74.8, BUN 18, creatinine 0.67. MICROBIOLOGY: Blood cultures since admission have been negative. DIAGNOSTICS: Chest x-ray this morning revealed right bibasilar subsegmental atelectasis with patchy consolidation. ANTIMICROBIALS: The patient is on 1. IV vancomycin. 2. Cefepime day #7. INDWELLINGS: Trach, PEG. PHYSICAL EXAMINATION: GENERAL: This is a well-developed elderly man who is lying comfortably in bed. HEENT: Head atraumatic, normocephalic. Sclerae anicteric. Buccal mucosa dry. NECK: Supple. Tracheostomy present. CHEST: Rise symmetrical. Breath sounds diminished. HEART: S1, S2. ABDOMEN: Soft, bowel tones present. EXTREMITIES: Without cyanosis. ASSESSMENT: 1. Systemic inflammatory response syndrome with on and off fevers. 2. Healthcare-associated pneumonia. 3. Chronic respiratory failure. 4. History of cerebrovascular accident and seizure disorder. PLAN: We are going to await for repeat blood cultures. We will add empiric Flagyl as well for anae robic coverage. We will order urine culture, although said they were not able to insert [place] and p atient is incontinent. Add empiric antifungal coverage. Follow pulmonary recommendations. We will also check bladder scan to make sure she does not have residual. Dictated By: STEPHEN CARRASQUILLO BILL ADJUSTER for RUTH MCDERMOTT/EVELINA Conf#: [id number] DID#: [id number]
[2016-06-03] MEDS: metroNIDAZOLE 500 MG TAB NGT SCH (21:36)
[2016-06-04] VITALS (28 sets, daily range): BP systolic 113–187; BP diastolic 54–89; PULSE 75–101; RESP 26–44
[2016-06-04] MEDS: ACETAMINOPHEN 650MG/20.3ML CUP GTB PRN ×2 (04:34→13:58)
--- NOTE | 2016-06-04 06:56 | RADRPT ---
PROCEDURE: XR Chest. CLINICAL INDICATION: Tachypnea TECHNIQUE: A single AP view of the chest was obtained. COMPARISON: Chest x-ray dated 06/03/[address] chest dated 05/27/2016 FINDINGS: A tracheostomy tube is in place. There is right lung volume loss with consolidation of the right middle and lower lobes. No focal ai rspace opacification, pleural effusion or pneumothorax is seen. The cardiomediastinal silhouette is within normal limits for size. The osseous structures are unremarkable. IMPRESSION: 1. Right lung volume loss with right middle and lower lobe consolidation, mildly increased when com pared to the prior examination. 2. Tracheostomy tube in place. RPTAT: HH .Mel Finley MD, MD Date Time Electronically viewed and signed by .Mel Finley MD, on 06/04/2016 06:56 .G/
[2016-06-04] MEDS: metroNIDAZOLE 500 MG TAB NGT SCH ×3 (06:58→21:54)
[2016-06-04 07:00] LABS: ADD SCAN DIFF NO
[2016-06-04 07:11] LABS: BASOPHIL # 0.1 10^3/ul (0.0-0.1); BASOPHILS % 0.5 % (0.0-2.0); EOSINOPHILS # 0.4 10^3/ul (0.0-0.5); EOSINOPHILS % 3.5 % (0.0-7.0); HEMOGLOBIN 9.8 g/dl (14.0-18.0); LYMPHOCYTES # 0.9 10^3/ul (0.8-2.9); LYMPHOCYTES % 8.8 % (15.0-51.0); MEAN CORPUSCULAR HEMOGLOBIN 25.5 pg (29.0-33.0); MEAN CORPUSCULAR HGB CONC 29.7 g/dl (32.0-37.0); MEAN CORPUSCULAR VOLUME 85.7 fl (82.0-101.0); MONOCYTE # 0.4 10^3/ul (0.3-0.9); MONOCYTES % 4.1 % (0.0-11.0); NEUTROPHIL # 8.5 10^3/ul (1.6-7.5); NEUTROPHILS % 82.2 % (39.0-77.0); RED BLOOD COUNT 3.85 10^6/ul (4.70-6.10); RED CELL DISTRIBUTION WIDTH 15.8 % (11.5-14.5); WHITE BLOOD COUNT 10.4 10^3/ul (4.8-10.8)
[2016-06-04 07:13] LABS: PLATELET COUNT 188 10^3/UL (140-415)
[2016-06-04 07:15] LABS: POTASSIUM 4.4 mmol/L (3.5-5.1)
[2016-06-04 07:18] LABS: CREATININE 0.64 mg/dl (0.61-1.24)
[2016-06-04 07:19] LABS: CALCIUM 8.4 mg/dl (8.4-10.2)
[2016-06-04] MEDS: hydrOXYzine HCL 25 MG TAB GTB SCH ×3 (08:11→21:54)
[2016-06-04] MEDS: ASPIRIN 81 MG TAB GTB SCH (08:11)
[2016-06-04] MEDS: FLUCONAZOLE 100 MG TAB PO SCH (08:11)
[2016-06-04] MEDS: LEVETIRACETAM (100 MG/ML) 5ML CUP GTB SCH ×2 (08:11→21:55)
[2016-06-04] MEDS: MULTIVITAMINS THERAPEUTIC TAB GTB SCH (08:11)
[2016-06-04] MEDS: ACETAMINOPHEN/CODEINE #3 TAB GTB SCH ×2 (08:11→21:54)
[2016-06-04] MEDS: FAMOTIDINE 20 MG TAB GTB SCH ×2 (08:11→21:54)
[2016-06-04] MEDS: ATENOLOL 25 MG TAB GTB SCH (08:12)
[2016-06-04] MEDS: HEPARIN 5,000 UNIT/0.5 ML SYG SC SCH ×2 (08:14→21:53)
[2016-06-04] MEDS: LORAZEPAM 1 MG TAB PO PRN (10:02)
[2016-06-04] MEDS: morphine 2 MG INJ IV PRN ×2 (11:18→17:07)
--- NOTE | 2016-06-04 12:24 | CONS ---
Date/Time of Note Date/Time of Note DATE: 06/04/16 TIME: 12:21 Assessment/Plan Assessment/Plan Additional Assessment/Plan Chest x-ray was reviewed from today which is showing right lower lobe infiltrate /atelectasis. Ventilator settings; AC of 16, tidal volume of 550, FiO2 of 65%, PEEP of 5. Assessment recommendations; 1. Patient admitted with right upper lobe pneumonia with interval improvement but then again mild decompensation with increasing infiltrates in the right lower lobe which are most likely on the basis of some element of atelectasis likely from underlying mucous plugging. 2. History of CVA patient remains ventilator dependent. 3. History of seizure disorder without any recurrence. 4. History of hypertension. Add Mucomyst via nebulizer every 6 hours at least for 4 doses. Add Fortaz 1 g IV every 8 hours. Patient has Pseudomonas in sputum which is sensitive to Fortaz. Obtain follow-up chest x-ray in 48 hours. Consultation Date/Type/Reason Admit Date/Time May 27, 2016 at 04:18 Initial Consult Date 05/27/16 Type of Consultation: Pulmonary 24 HR Interval Summary Free Text/Dictation Patient's condition has deteriorated over the last 24 hours. Patient now requiring high FiO2 at 65% for O2 saturation maintenance. Is quite awake. And has remained hemodynamically stable. General examination; elderly male, awake, on ventilator via tracheostomy. Currently in no distress. Exam/Review of Systems Vital Signs Vitals Vital Signs Date Time Temp Pulse Resp B/P Pulse Ox O2 Delivery O2 Flow Rate FiO2 06/04/16 11:11 101.1 101 39 171/66 100 06/04/16 07:50 75 06/04/16 06:00 Mechanical Ventilator Intake and Output 06/03/16 06/03/16 06/04/16 15:00 23:00 07:00 Intake Total 410 ml 1115 ml Balance 410 ml 1115 ml Exam HEENT examination; supple neck, no JVD. No lymphadenopathy. Midline trachea. Tracheostomy in place. Insertion site is clean. Pupils are small bilaterally. Chest examination; diminished breath sounds bilaterally. S1-S2 audible no murmurs. Regular rhythm. Abdomen examination; soft, G-tube in place. Nontender. No organomegaly. Bowel sounds audible. Extremity examination; no peripheral edema. HARBOR TUG CAPTAIN examination; patient is stable left hemiplegia. Results Result Diagram: 06/04/16 0758 06/04/16 0758 Results 24 hrs Laboratory Tests Test 06/04/16 07:58 Anion Gap 15 Basophils # 0.1 Basophils % 0.5 Blood Urea Nitrogen 17 Calcium Level 8.4 Carbon Dioxide Level 24 Chloride Level 106 Creatinine 0.64 Eosinophils # 0.4 Eosinophils % 3.5 Glucose Level 124 Hematocrit 33.0 L Hemoglobin 9.8 L Lymphocytes # 0.9 Lymphocytes % 8.8 L Mean Corpuscular Hemoglobin 25.5 L Mean Corpuscular Hemoglobin Concent 29.7 L Mean Corpuscular Volume 85.7 Mean Platelet Volume 12.0 H Monocytes # 0.4 Monocytes % 4.1 Neutrophils # 8.5 H Neutrophils % 82.2 H Nucleated Red Blood Cells # 0.0 Nucleated Red Blood Cells % 0.0 Platelet Count 188 # Potassium Level 4.4 Red Blood Count 3.85 L Red Cell Distribution Width 15.8 H Sodium Level 141 White Blood Count 10.4 # Medications Medications Current Medications Morphine Sulfate (morphine) 2 mg Q4H PRN IV SEVERE PAIN LEVEL 7-10 Last administered on 06/04/16 11:18; Admin Dose 2 MG; Start 05/27/16 at 08:00 Heparin Sodium (Porcine) (Heparin (5000 Units/0.5 ml)) 5,000 unit Q12 SC Last administered on 06/04/16 08:14; Admin Dose 5,000 UNIT; Start 05/27/16 at 09:00 Acetaminophen/ Codeine Phosphate (Tylenol No.3) 1 tab Q12 GTB Last administered on 06/04/16 08:11; Admin Dose 1 TAB; Start 05/27/16 at 09:00 Acetaminophen (Tylenol Liquid) 650 mg Q4H PRN GTB PAIN AND OR ELEVATED TEMP Last administered on 06/04/16 04:34; Admin Dose 650 MG; Start 05/27/16 at 08:00 Albuterol (Proventil 0.083% (Neb)) 2.5 mg Q6 PRN NEB WHEEZING AND SOB Last administered on 06/03/16 01:43; Admin Dose 2.5 MG; Start 05/27/16 at 08:00 Aspirin (Aspirin) 81 mg DAILY GTB Last administered on 06/04/16 08:11; Admin Dose 81 MG; Start 05/27/16 at 09:00 Atenolol (Tenormin) 25 mg DAILY GTB Last administered on 06/04/16 08:12; Admin Dose 25 MG; Start 05/27/16 at 09:00 Bisacodyl (Dulcolax Supp) 10 mg Q24H PRN [place] constipation; Start 05/27/16 at 08: 00 Diphenhydramine HCl (Benadryl) 25 mg Q6H PRN GTB ITCHING; Start 05/27/16 at 08: 00 Docusate Sodium (Colace Liquid Cup) 100 mg QHS PRN GTB CONSTIPATION; Start at 08:00 Hydroxyzine HCl (Atarax) 25 mg TID GTB Last administered on 06/04/16 12:00; Admin Dose 25 MG; Start 05/27/16 at 09:00 Multivitamins Therapeutic 1 tab 1 tab DAILY GTB Last administered on 06/04/16 08:11; Admin Dose 1 TAB; Start 05/27/16 at 09:00 Ferric Sodium Gluconate Complex/ Sodium Chloride (Ferrlecit/NS) 110 ml @ 110 mls/hr Q24H IVPB Last administered on 06/03/16 13:18; Admin Dose 110 MLS/HR; Start 05/31/16 at 14:00; Stop 06/04/16 at 14:59 Famotidine (Pepcid) 20 mg BID GTB Last administered on 06/04/16 08:11; Admin Dose 20 MG; Start 05/31/16 at 21:00 Levetiracetam (Keppra Liquid) 750 mg BID GTB Last administered on 06/04/16 08: 11; Admin Dose 750 MG; Start 06/03/16 at 09:00 Metronidazole (Flagyl) 500 mg Q8 NGT Last administered on 06/04/16 06:58; Admin Dose 500 MG; Start 06/03/16 at 22:00 Fluconazole (Diflucan) 100 mg DAILY PO Last administered on 06/04/16 08:11; Admin Dose 100 MG; Start 06/03/16 at 14:30 Lorazepam (Ativan) 1 mg Q4 PRN PO ANXIETY Last administered on 06/04/16 10:02 ; Admin Dose 1 MG; Start 06/04/16 at 05:30 MAURISIO CHEUNG Jun 04, 2016 12:24
--- NOTE | 2016-06-04 13:45 | PN ---
DATE: 06/04/2016 INFECTIOUS DISEASE PROGRESS NOTE SUBJECTIVE: No events overnight. Patient continues to spike on and off fevers, currently afebrile. This morning T-max was 101.7. MICROBIOLOGY: Blood cultures from yesterday negative. Sputum culture on admission grew Pseudomonas . Urine culture not done and urinalysis is not available secondary to staph had a hard time to inse rt [place]. LABORATORY DATA: WBC today 10.4 with neutrophils 82.2, increased from yesterday, BUN 17, creatinine 0.64. ANTIMICROBIALS: The patient is on: 1. Fortaz. 2. Flagyl. 3. Fluconazole. Status post vancomycin and cefepime. INDWELLINGS: Trach, PEG, colostomy. PHYSICAL EXAMINATION: GENERAL: This is a fragile, elderly man who is lying comfortably in bed. HEENT: Head atraumatic, normocephalic. Sclerae anicteric. Buccal mucosa dry. NECK: Supple. Tracheostomy present. CHEST: Rise symmetrical. Breath sounds diminished to bases. HEART: S1, S2. ABDOMEN: Soft. Bowel tones hypoactive. EXTREMITIES: No cyanosis. ASSESSMENT: 1. Persistent fevers, possibly secondary to #2. 2. Healthcare-associated pneumonia. 3. Chronic respiratory failure. 4. History of colostomy, rule out C difficile with liquid stool. 5. Chronic encephalopathy. PLAN: The patient remains clinically unchanged. We will check his bladder scan to make sure he is not retaining urine. Await for stool for Clostridium difficile and try to obtain urine culture. If unable he may require urology evaluation. Dictated By: STEPHEN CARRASQUILLO BUTTON BREAKER for RUTH MCDERMOTT/EVELINA Conf#: [id number] DID#: [id number]
[2016-06-04] MEDS: SOD FERRIC GLUC COMPLX 125 MG in SOD CHLORIDE 0.9% 100 ML IVPB SCH (13:58)
[2016-06-04] MEDS ORDERED: PIPER-TAZO 3.375 GM IV (PMX) 100 ML IVPB SCH (14:00)
[2016-06-04] MEDS: ACETYLCYSTEINE 20% 4 ML VIAL NEB SCH ×2 (14:47→19:35)
[2016-06-04] MEDS: ALBUTEROL 0.083% (NEB) 2.5 MG/3 ML AMP NEB PRN ×2 (14:47→19:35)
--- NOTE | 2016-06-04 14:59 | PN ---
Date/Time of Note Date/Time of Note DATE: 06/04/16 TIME: 14:58 Assessment/Plan VTE Prophylaxis VTE Prophylaxis Intervention: heparin Lines/Catheters IV [facility] (from [facility]): Peripheral IV Urinary Cath still in place: No Assessment/Plan Chief Complaint/Hosp Course 1. Sepsis 2/2 HCAP-stable - Continue antibiotics as per Infectious Disease -pt tachypnic 2. Acute on chronic respiratory failure. The patient is status post tracheostomy and did have a leak which is now stable -Pulmonary on the case 3. Seizure disorder. Continue anticonvulsants. 4. Chronic bedridden status. Continue supportive care. Continue turn schedule q.2 hours. 5. Hyperkalemia. Etiology unclear. Will provide the patient with a single dose of potassium exchange resin. 6. Microcytic hypochromic anemia. Etiology unclear. Will monitor the H and H closely. Transfuse as needed. Will obtain an iron panel on this patient. 7. Fluid, electrolytes, and nutrition. The patient will be continued on tube feedings. 8. Anemia of chronic Dz 9. Essential hypertension. Continue antihypertensives. Dispo- possible DC in AM PPx- Heparin Problems: Subjective 24 Hr Interval Summary Subjective hx not possible: pt non-verbal Exam/Review of Systems Vital Signs Vitals Vital Signs Date Time Temp Pulse Resp B/P Pulse Ox O2 Delivery O2 Flow Rate FiO2 06/04/16 14:37 99.0 06/04/16 13:40 88 37 98 60 06/04/16 13:27 125/60 06/04/16 06:00 Mechanical Ventilator Intake and Output 06/03/16 06/03/16 06/04/16 15:00 23:00 07:00 Intake Total 410 ml 1115 ml Balance 410 ml 1115 ml Exam Constitutional: non-verbal Respiratory: clear to auscultation Cardiovascular: regular rate and rhythm Gastrointestinal: soft, No distended Musculoskeletal: nl extremities to inspection Results Result Diagram: 06/04/16 0758 06/04/16 0758 Results 24 hrs Laboratory Tests Test 06/04/16 07:58 Anion Gap 15 Basophils # 0.1 Basophils % 0.5 Blood Urea Nitrogen 17 Calcium Level 8.4 Carbon Dioxide Level 24 Chloride Level 106 Creatinine 0.64 Eosinophils # 0.4 Eosinophils % 3.5 Glucose Level 124 Hematocrit 33.0 L Hemoglobin 9.8 L Lymphocytes # 0.9 Lymphocytes % 8.8 L Mean Corpuscular Hemoglobin 25.5 L Mean Corpuscular Hemoglobin Concent 29.7 L Mean Corpuscular Volume 85.7 Mean Platelet Volume 12.0 H Monocytes # 0.4 Monocytes % 4.1 Neutrophils # 8.5 H Neutrophils % 82.2 H Nucleated Red Blood Cells # 0.0 Nucleated Red Blood Cells % 0.0 Platelet Count 188 # Potassium Level 4.4 Red Blood Count 3.85 L Red Cell Distribution Width 15.8 H Sodium Level 141 White Blood Count 10.4 # Medications Medications Current Medications Morphine Sulfate (morphine) 2 mg Q4H PRN IV SEVERE PAIN LEVEL 7-10 Last administered on 06/04/16 11:18; Admin Dose 2 MG; Start 05/27/16 at 08:00 Heparin Sodium (Porcine) (Heparin (5000 Units/0.5 ml)) 5,000 unit Q12 SC Last administered on 06/04/16 08:14; Admin Dose 5,000 UNIT; Start 05/27/16 at 09:00 Acetaminophen/ Codeine Phosphate (Tylenol No.3) 1 tab Q12 GTB Last administered on 06/04/16 08:11; Admin Dose 1 TAB; Start 05/27/16 at 09:00 Acetaminophen (Tylenol Liquid) 650 mg Q4H PRN GTB PAIN AND OR ELEVATED TEMP Last administered on 06/04/16 13:58; Admin Dose 650 MG; Start 05/27/16 at 08:00 Albuterol (Proventil 0.083% (Neb)) 2.5 mg Q6 PRN NEB WHEEZING AND SOB Last administered on 06/04/16 14:47; Admin Dose 2.5 MG; Start 05/27/16 at 08:00 Aspirin (Aspirin) 81 mg DAILY GTB Last administered on 06/04/16 08:11; Admin Dose 81 MG; Start 05/27/16 at 09:00 Atenolol (Tenormin) 25 mg DAILY GTB Last administered on 06/04/16 08:12; Admin Dose 25 MG; Start 05/27/16 at 09:00 Bisacodyl (Dulcolax Supp) 10 mg Q24H PRN [place] constipation; Start 05/27/16 at 08: 00 Diphenhydramine HCl (Benadryl) 25 mg Q6H PRN GTB ITCHING; Start 05/27/16 at 08: 00 Docusate Sodium (Colace Liquid Cup) 100 mg QHS PRN GTB CONSTIPATION; Start at 08:00 Hydroxyzine HCl (Atarax) 25 mg TID GTB Last administered on 06/04/16 12:00; Admin Dose 25 MG; Start 05/27/16 at 09:00 Multivitamins Therapeutic 1 tab 1 tab DAILY GTB Last administered on 06/04/16 08:11; Admin Dose 1 TAB; Start 05/27/16 at 09:00 Ferric Sodium Gluconate Complex/ Sodium Chloride (Ferrlecit/NS) 110 ml @ 110 mls/hr Q24H IVPB Last administered on 06/04/16 13:58; Admin Dose 110 MLS/HR; Start 05/31/16 at 14:00; Stop 06/04/16 at 14:59 Famotidine (Pepcid) 20 mg BID GTB Last administered on 06/04/16 08:11; Admin Dose 20 MG; Start 05/31/16 at 21:00 Levetiracetam (Keppra Liquid) 750 mg BID GTB Last administered on 06/04/16 08: 11; Admin Dose 750 MG; Start 06/03/16 at 09:00 Metronidazole (Flagyl) 500 mg Q8 NGT Last administered on 06/04/16 13:59; Admin Dose 500 MG; Start 06/03/16 at 22:00 Fluconazole (Diflucan) 100 mg DAILY PO Last administered on 06/04/16 08:11; Admin Dose 100 MG; Start 06/03/16 at 14:30 Lorazepam 1 mg 1 mg Q4 PRN PO ANXIETY Last administered on 06/04/16 10:02; Admin Dose 1 MG; Start 06/04/16 at 05:30 Ceftazidime (Fortaz 1gm/50 ml (Pmx)) 50 ml @ 100 mls/hr Q8 IVPB ; Start at 14:00 EDUARDO MARTINEZ Jun 04, 2016 14:59
[2016-06-04] MEDS: CEFTAZIDIME 1GM/50 ML (PMX) 50 ML IVPB SCH ×2 (15:28→21:54)
[2016-06-05] VITALS (31 sets, daily range): BP systolic 102–166; BP diastolic 56–80; PULSE 67–91; RESP 16–43
[2016-06-05] MEDS: ACETYLCYSTEINE 20% 4 ML VIAL NEB SCH ×4 (01:06→20:20)
[2016-06-05] MEDS: ALBUTEROL 0.083% (NEB) 2.5 MG/3 ML AMP NEB PRN ×4 (01:06→20:30)
[2016-06-05] MEDS: CEFTAZIDIME 1GM/50 ML (PMX) 50 ML IVPB SCH ×3 (06:19→21:12)
[2016-06-05] MEDS: metroNIDAZOLE 500 MG TAB NGT SCH ×3 (06:19→21:11)
[2016-06-05] MEDS: LEVETIRACETAM (100 MG/ML) 5ML CUP GTB SCH ×2 (08:57→21:11)
[2016-06-05] MEDS: ASPIRIN 81 MG TAB GTB SCH (08:58)
[2016-06-05] MEDS: hydrOXYzine HCL 25 MG TAB GTB SCH ×3 (08:58→21:11)
[2016-06-05] MEDS: FAMOTIDINE 20 MG TAB GTB SCH ×2 (08:58→21:11)
[2016-06-05] MEDS: MULTIVITAMINS THERAPEUTIC TAB GTB SCH (08:58)
[2016-06-05] MEDS: ATENOLOL 25 MG TAB GTB SCH (08:58)
[2016-06-05] MEDS: FLUCONAZOLE 100 MG TAB PO SCH (08:58)
[2016-06-05] MEDS: HEPARIN 5,000 UNIT/0.5 ML SYG SC SCH ×2 (09:04→21:19)
[2016-06-05] MEDS: ACETAMINOPHEN/CODEINE #3 TAB GTB SCH ×2 (09:09→21:10)
[2016-06-05 09:28] LABS: ADD SCAN DIFF NO
[2016-06-05 09:39] LABS: BASOPHILS % 0.2 % (0.0-2.0); EOSINOPHILS # 0.3 10^3/ul (0.0-0.5); EOSINOPHILS % 1.8 % (0.0-7.0); HEMOGLOBIN 10.1 g/dl (14.0-18.0); LYMPHOCYTES # 1.6 10^3/ul (0.8-2.9); LYMPHOCYTES % 9.7 % (15.0-51.0); MEAN CORPUSCULAR HEMOGLOBIN 25.2 pg (29.0-33.0); MEAN CORPUSCULAR HGB CONC 30.6 g/dl (32.0-37.0); MEAN CORPUSCULAR VOLUME 82.3 fl (82.0-101.0); MEAN PLATELET VOLUME 11.3 fl (7.4-10.4); MONOCYTE # 0.8 10^3/ul (0.3-0.9); MONOCYTES % 4.4 % (0.0-11.0); NEUTROPHILS % 83.1 % (39.0-77.0); PLATELET COUNT 420 10^3/UL (140-415); RED BLOOD COUNT 4.01 10^6/ul (4.70-6.10); RED CELL DISTRIBUTION WIDTH 16.1 % (11.5-14.5); WHITE BLOOD COUNT 16.9 10^3/ul (4.8-10.8)
[2016-06-05 09:40] LABS: POTASSIUM 4.4 mmol/L (3.5-5.1)
[2016-06-05 09:41] LABS: MAGNESIUM 1.9 mg/dl (1.7-2.5); PHOSPHORUS 2.7 mg/dl (2.5-4.9)
[2016-06-05 09:43] LABS: CREATININE 0.65 mg/dl (0.61-1.24)
[2016-06-05 09:44] LABS: CALCIUM 8.2 mg/dl (8.4-10.2)
--- NOTE | 2016-06-05 10:55 | PN ---
Date/Time of Note Date/Time of Note DATE: 06/05/16 TIME: 10:48 Assessment/Plan VTE Prophylaxis VTE Prophylaxis Intervention: heparin Lines/Catheters IV C[facility] Type [facility] [place] Lock Urinary Cath still in place: No Assessment/Plan Assessment/Plan 1. Sepsis 2/2 HCAP-stable - Continue antibiotics as per Infectious Disease. 2. Acute on chronic respiratory failure. The patient is status post tracheostomy and did have a leak which is now stable -Pulmonary on the case 3. Seizure disorder. Continue anticonvulsants. 4. Chronic bedridden status. Continue supportive care. Continue turn schedule q.2 hours. 5. Hyperkalemia. Etiology unclear. Will provide the patient with a single dose of potassium exchange resin. 6. Microcytic hypochromic anemia. Etiology unclear. Will monitor the H and H closely. Transfuse as needed. Will obtain an iron panel on this patient. 7. Fluid, electrolytes, and nutrition. The patient will be continued on tube feedings. 8. Anemia of chronic Dz 9. Essential hypertension. Continue antihypertensives. PPx- Heparin ENT consult placed with to evaluate for tacheostomy tube Subjective 24 Hr Interval Summary Free Text/Dictation unable to inerst pagan catheter, still having tracheostomy issues , Bp stable Exam/Review of Systems Vital Signs Vitals Vital Signs Date Time Temp Pulse Resp B/P Pulse Ox O2 Delivery O2 Flow Rate FiO2 06/05/16 10:19 55 06/05/16 09:43 99.7 81 30 115/57 94 06/05/16 08:47 Mechanical Ventilator Intake and Output 06/04/16 06/04/16 06/05/16 15:00 23:00 07:00 Intake Total 1180 ml 1140 ml Balance 1180 ml 1140 ml Exam Constitutional: non-verbal + tracheostomy on ventilator Respiratory: bilateral basilar crackles Cardiovascular: regular rate and rhythm Gastrointestinal: soft, No distended, gtube Musculoskeletal: nl extremities to inspection Results Result Diagram: 06/05/16 0903 06/05/16 0903 Results 24 hrs Laboratory Tests Test 06/05/16 09:03 Anion Gap 14 Basophils # 0.0 Basophils % 0.2 Blood Urea Nitrogen 16 Calcium Level 8.2 L Carbon Dioxide Level 26 Chloride Level 102 Creatinine 0.65 Eosinophils # 0.3 Eosinophils % 1.8 Glucose Level 126 Hematocrit 33.0 L Hemoglobin 10.1 L Lymphocytes # 1.6 Lymphocytes % 9.7 L Magnesium Level 1.9 Mean Corpuscular Hemoglobin 25.2 L Mean Corpuscular Hemoglobin Concent 30.6 L Mean Corpuscular Volume 82.3 Mean Platelet Volume 11.3 H Monocytes # 0.8 Monocytes % 4.4 Neutrophils # 14.0 H Neutrophils % 83.1 H Nucleated Red Blood Cells # 0.0 Nucleated Red Blood Cells % 0.0 Phosphorus Level 2.7 Platelet Count 420 #H Potassium Level 4.4 Red Blood Count 4.01 L Red Cell Distribution Width 16.1 H Sodium Level 138 White Blood Count 16.9 #H Medications Medications Current Medications Morphine Sulfate (morphine) 2 mg Q4H PRN IV SEVERE PAIN LEVEL 7-10 Last administered on 06/04/16 17:07; Admin Dose 2 MG; Start 05/27/16 at 08:00 Heparin Sodium (Porcine) (Heparin (5000 Units/0.5 ml)) 5,000 unit Q12 SC Last administered on 06/05/16 09:04; Admin Dose 5,000 UNIT; Start 05/27/16 at 09:00 Acetaminophen/ Codeine Phosphate (Tylenol No.3) 1 tab Q12 GTB Last administered on 06/05/16 09:09; Admin Dose 1 TAB; Start 05/27/16 at 09:00 Acetaminophen (Tylenol Liquid) 650 mg Q4H PRN GTB PAIN AND OR ELEVATED TEMP Last administered on 06/04/16 13:58; Admin Dose 650 MG; Start 05/27/16 at 08:00 Albuterol (Proventil 0.083% (Neb)) 2.5 mg Q6 PRN NEB WHEEZING AND SOB Last administered on 06/05/16 01:06; Admin Dose 2.5 MG; Start 05/27/16 at 08:00 Aspirin (Aspirin) 81 mg DAILY GTB Last administered on 06/05/16 08:58; Admin Dose 81 MG; Start 05/27/16 at 09:00 Atenolol (Tenormin) 25 mg DAILY GTB Last administered on 06/05/16 08:58; Admin Dose 25 MG; Start 05/27/16 at 09:00 Bisacodyl (Dulcolax Supp) 10 mg Q24H PRN [place] constipation; Start 05/27/16 at 08: 00 Diphenhydramine HCl (Benadryl) 25 mg Q6H PRN GTB ITCHING; Start 05/27/16 at 08: 00 Docusate Sodium (Colace Liquid Cup) 100 mg QHS PRN GTB CONSTIPATION; Start at 08:00 Hydroxyzine HCl (Atarax) 25 mg TID GTB Last administered on 06/05/16 08:58; Admin Dose 25 MG; Start 05/27/16 at 09:00 Multivitamins Therapeutic (Theragran) 1 tab DAILY GTB Last administered on 08:58; Admin Dose 1 TAB; Start 05/27/16 at 09:00 Famotidine (Pepcid) 20 mg BID GTB Last administered on 06/05/16 08:58; Admin Dose 20 MG; Start 05/31/16 at 21:00 Levetiracetam (Keppra Liquid) 750 mg BID GTB Last administered on 06/05/16 08: 57; Admin Dose 750 MG; Start 06/03/16 at 09:00 Metronidazole (Flagyl) 500 mg Q8 NGT Last administered on 06/05/16 06:19; Admin Dose 500 MG; Start 06/03/16 at 22:00 Fluconazole (Diflucan) 100 mg DAILY PO Last administered on 06/05/16 08:58; Admin Dose 100 MG; Start 06/03/16 at 14:30 Lorazepam 1 mg 1 mg Q4 PRN PO ANXIETY Last administered on 06/04/16 10:02; Admin Dose 1 MG; Start 06/04/16 at 05:30 Ceftazidime (Fortaz 1gm/50 ml (Pmx)) 50 ml @ 100 mls/hr Q8 IVPB Last administered on 06/05/16 06:19; Admin Dose 100 MLS/HR; Start 06/04/16 at 14:00 RALPH LEÓN MD Jun 05, 2016 10:55
--- NOTE | 2016-06-05 12:14 | CONS ---
Date/Time of Note Date/Time of Note DATE: 06/05/16 TIME: 12:12 Assessment/Plan Assessment/Plan Additional Assessment/Plan Ventilator settings; AC of 16, tidal volume 550, PEEP of 5, 55% FiO2. Assessment recommendations; 1. Patient admitted for right lower lobe pneumonia improved initially but then has developed increasing infiltrates again. Requiring initiation of Fortaz. 2. Pseudomonas aeruginosa pneumonia. 3. Chronic respiratory failure, ventilator dependent. 4. History of stable seizure disorder. 5. History of CVA. Continue current treatment for now obtain a follow-up chest x-ray tomorrow morning. Consultation Date/Type/Reason Admit Date/Time May 27, 2016 at 04:18 Initial Consult Date 05/27/16 Type of Consultation: Pulmonary 24 HR Interval Summary Free Text/Dictation Patient condition is stable. Awake and alert. FiO2 has been weaned down to 55% . General examination; elderly male, on ventilator via tracheostomy. Awake and alert. Currently in no distress. Exam/Review of Systems Vital Signs Vitals Vital Signs Date Time Temp Pulse Resp B/P Pulse Ox O2 Delivery O2 Flow Rate FiO2 06/05/16 11:04 99.1 74 36 106/61 95 06/05/16 10:19 55 06/05/16 08:47 Mechanical Ventilator Intake and Output 06/04/16 06/04/16 06/05/16 15:00 23:00 07:00 Intake Total 1180 ml 1140 ml Balance 1180 ml 1140 ml Exam H EENT examination; supple neck, no JVD. No lymphadenopathy. Tracheostomy in place with clean insertion site. Pupils are midsize and reactive to light. No neck masses. Chest examination; diminished breath sounds bilaterally. S1-S2 audible, no murmurs. Regular rhythm. Abdomen examination; soft, protuberant. Nontender. G-tube in place. Bowel sounds audible. Extremity examination; no peripheral edema. MATERIALS SCIENTIST examination; patient is stable left hemiplegia. Results Result Diagram: 06/05/16 0903 06/05/16 0903 Results 24 hrs Laboratory Tests Test 06/05/16 09:03 Anion Gap 14 Basophils # 0.0 Basophils % 0.2 Blood Urea Nitrogen 16 Calcium Level 8.2 L Carbon Dioxide Level 26 Chloride Level 102 Creatinine 0.65 Eosinophils # 0.3 Eosinophils % 1.8 Glucose Level 126 Hematocrit 33.0 L Hemoglobin 10.1 L Lymphocytes # 1.6 Lymphocytes % 9.7 L Magnesium Level 1.9 Mean Corpuscular Hemoglobin 25.2 L Mean Corpuscular Hemoglobin Concent 30.6 L Mean Corpuscular Volume 82.3 Mean Platelet Volume 11.3 H Monocytes # 0.8 Monocytes % 4.4 Neutrophils # 14.0 H Neutrophils % 83.1 H Nucleated Red Blood Cells # 0.0 Nucleated Red Blood Cells % 0.0 Phosphorus Level 2.7 Platelet Count 420 #H Potassium Level 4.4 Red Blood Count 4.01 L Red Cell Distribution Width 16.1 H Sodium Level 138 White Blood Count 16.9 #H Medications Medications Current Medications Morphine Sulfate (morphine) 2 mg Q4H PRN IV SEVERE PAIN LEVEL 7-10 Last administered on 06/04/16 17:07; Admin Dose 2 MG; Start 05/27/16 at 08:00 Heparin Sodium (Porcine) (Heparin (5000 Units/0.5 ml)) 5,000 unit Q12 SC Last administered on 06/05/16 09:04; Admin Dose 5,000 UNIT; Start 05/27/16 at 09:00 Acetaminophen/ Codeine Phosphate (Tylenol No.3) 1 tab Q12 GTB Last administered on 06/05/16 09:09; Admin Dose 1 TAB; Start 05/27/16 at 09:00 Acetaminophen (Tylenol Liquid) 650 mg Q4H PRN GTB PAIN AND OR ELEVATED TEMP Last administered on 06/04/16 13:58; Admin Dose 650 MG; Start 05/27/16 at 08:00 Albuterol (Proventil 0.083% (Neb)) 2.5 mg Q6 PRN NEB WHEEZING AND SOB Last administered on 06/05/16 01:06; Admin Dose 2.5 MG; Start 05/27/16 at 08:00 Aspirin (Aspirin) 81 mg DAILY GTB Last administered on 06/05/16 08:58; Admin Dose 81 MG; Start 05/27/16 at 09:00 Atenolol (Tenormin) 25 mg DAILY GTB Last administered on 06/05/16 08:58; Admin Dose 25 MG; Start 05/27/16 at 09:00 Bisacodyl (Dulcolax Supp) 10 mg Q24H PRN [place] constipation; Start 05/27/16 at 08: 00 Diphenhydramine HCl (Benadryl) 25 mg Q6H PRN GTB ITCHING; Start 05/27/16 at 08: 00 Docusate Sodium (Colace Liquid Cup) 100 mg QHS PRN GTB CONSTIPATION; Start at 08:00 Hydroxyzine HCl (Atarax) 25 mg TID GTB Last administered on 06/05/16 08:58; Admin Dose 25 MG; Start 05/27/16 at 09:00 Multivitamins Therapeutic (Theragran) 1 tab DAILY GTB Last administered on 08:58; Admin Dose 1 TAB; Start 05/27/16 at 09:00 Famotidine (Pepcid) 20 mg BID GTB Last administered on 06/05/16 08:58; Admin Dose 20 MG; Start 05/31/16 at 21:00 Levetiracetam (Keppra Liquid) 750 mg BID GTB Last administered on 06/05/16 08: 57; Admin Dose 750 MG; Start 06/03/16 at 09:00 Metronidazole (Flagyl) 500 mg Q8 NGT Last administered on 06/05/16 06:19; Admin Dose 500 MG; Start 06/03/16 at 22:00 Fluconazole (Diflucan) 100 mg DAILY PO Last administered on 06/05/16 08:58; Admin Dose 100 MG; Start 06/03/16 at 14:30 Lorazepam 1 mg 1 mg Q4 PRN PO ANXIETY Last administered on 06/04/16 10:02; Admin Dose 1 MG; Start 06/04/16 at 05:30 Ceftazidime (Fortaz 1gm/50 ml (Pmx)) 50 ml @ 100 mls/hr Q8 IVPB Last administered on 06/05/16 06:19; Admin Dose 100 MLS/HR; Start 06/04/16 at 14:00 MAURISIO CHEUNG Jun 05, 2016 12:14
--- NOTE | 2016-06-05 16:30 | CONS ---
Date/Time of Note Date/Time of Note DATE: 06/05/16 TIME: 16:27 Assessment/Plan Assessment/Plan Chief Complaint/Hosp Course SUBJECTIVE: No events overnight. Awake, continues to spike fevers, nad. ANTIMICROBIALS: The patient is on: 1. Fortaz. 2. Flagyl. 3. Fluconazole. Status post vancomycin and cefepime. INDWELLINGS: Trach, PEG, colostomy. PHYSICAL EXAMINATION: GENERAL: This is a fragile, elderly man who is lying comfortably in bed. HEENT: Head atraumatic, normocephalic. Sclerae anicteric. Buccal mucosa dry. NECK: Supple. Tracheostomy present. CHEST: Rise symmetrical. Breath sounds diminished to bases. HEART: S1, S2. ABDOMEN: Soft. Bowel tones hypoactive. EXTREMITIES: No cyanosis. ASSESSMENT: 1. Persistent fevers, possibly secondary to #2. 2. Healthcare-associated pneumonia. 3. Chronic respiratory failure. 4. History of colostomy, rule out C difficile with liquid stool. 5. Chronic encephalopathy. PLAN: The patient remains clinically unchanged. Still with fevers and leukocytosis, will order CT abd/chest/pelvis, continue abx, f/u pulmonary rec-s DW staff Problems: Consultation Date/Type/Reason Admit Date/Time May 27, 2016 at 04:18 Initial Consult Date 05/27/16 Type of Consultation: ID Exam/Review of Systems Vital Signs Vitals Vital Signs Date Time Temp Pulse Resp B/P Pulse Ox O2 Delivery O2 Flow Rate FiO2 06/05/16 15:15 98.5 73 38 107/72 94 06/05/16 10:19 55 06/05/16 08:47 Mechanical Ventilator Intake and Output 06/04/16 06/04/16 06/05/16 15:00 23:00 07:00 Intake Total 1180 ml 1140 ml Balance 1180 ml 1140 ml Results Result Diagram: 06/05/16 0903 06/05/16 0903 Results 24 hrs Laboratory Tests Test 06/05/16 09:03 Anion Gap 14 Basophils # 0.0 Basophils % 0.2 Blood Urea Nitrogen 16 Calcium Level 8.2 L Carbon Dioxide Level 26 Chloride Level 102 Creatinine 0.65 Eosinophils # 0.3 Eosinophils % 1.8 Glucose Level 126 Hematocrit 33.0 L Hemoglobin 10.1 L Lymphocytes # 1.6 Lymphocytes % 9.7 L Magnesium Level 1.9 Mean Corpuscular Hemoglobin 25.2 L Mean Corpuscular Hemoglobin Concent 30.6 L Mean Corpuscular Volume 82.3 Mean Platelet Volume 11.3 H Monocytes # 0.8 Monocytes % 4.4 Neutrophils # 14.0 H Neutrophils % 83.1 H Nucleated Red Blood Cells # 0.0 Nucleated Red Blood Cells % 0.0 Phosphorus Level 2.7 Platelet Count 420 #H Potassium Level 4.4 Red Blood Count 4.01 L Red Cell Distribution Width 16.1 H Sodium Level 138 White Blood Count 16.9 #H Medications Medications Current Medications Morphine Sulfate (morphine) 2 mg Q4H PRN IV SEVERE PAIN LEVEL 7-10 Last administered on 06/04/16 17:07; Admin Dose 2 MG; Start 05/27/16 at 08:00 Heparin Sodium (Porcine) (Heparin (5000 Units/0.5 ml)) 5,000 unit Q12 SC Last administered on 06/05/16 09:04; Admin Dose 5,000 UNIT; Start 05/27/16 at 09:00 Acetaminophen/ Codeine Phosphate (Tylenol No.3) 1 tab Q12 GTB Last administered on 06/05/16 09:09; Admin Dose 1 TAB; Start 05/27/16 at 09:00 Acetaminophen (Tylenol Liquid) 650 mg Q4H PRN GTB PAIN AND OR ELEVATED TEMP Last administered on 06/04/16 13:58; Admin Dose 650 MG; Start 05/27/16 at 08:00 Albuterol (Proventil 0.083% (Neb)) 2.5 mg Q6 PRN NEB WHEEZING AND SOB Last administered on 06/05/16 01:06; Admin Dose 2.5 MG; Start 05/27/16 at 08:00 Aspirin (Aspirin) 81 mg DAILY GTB Last administered on 06/05/16 08:58; Admin Dose 81 MG; Start 05/27/16 at 09:00 Atenolol (Tenormin) 25 mg DAILY GTB Last administered on 06/05/16 08:58; Admin Dose 25 MG; Start 05/27/16 at 09:00 Bisacodyl (Dulcolax Supp) 10 mg Q24H PRN [place] constipation; Start 05/27/16 at 08: 00 Diphenhydramine HCl (Benadryl) 25 mg Q6H PRN GTB ITCHING; Start 05/27/16 at 08: 00 Docusate Sodium (Colace Liquid Cup) 100 mg QHS PRN GTB CONSTIPATION; Start at 08:00 Hydroxyzine HCl (Atarax) 25 mg TID GTB Last administered on 06/05/16 13:06; Admin Dose 25 MG; Start 05/27/16 at 09:00 Multivitamins Therapeutic (Theragran) 1 tab DAILY GTB Last administered on 08:58; Admin Dose 1 TAB; Start 05/27/16 at 09:00 Famotidine (Pepcid) 20 mg BID GTB Last administered on 06/05/16 08:58; Admin Dose 20 MG; Start 05/31/16 at 21:00 Levetiracetam (Keppra Liquid) 750 mg BID GTB Last administered on 06/05/16 08: 57; Admin Dose 750 MG; Start 06/03/16 at 09:00 Metronidazole (Flagyl) 500 mg Q8 NGT Last administered on 06/05/16 13:06; Admin Dose 500 MG; Start 06/03/16 at 22:00 Fluconazole (Diflucan) 100 mg DAILY PO Last administered on 06/05/16 08:58; Admin Dose 100 MG; Start 06/03/16 at 14:30 Lorazepam 1 mg 1 mg Q4 PRN PO ANXIETY Last administered on 06/04/16 10:02; Admin Dose 1 MG; Start 06/04/16 at 05:30 Ceftazidime (Fortaz 1gm/50 ml (Pmx)) 50 ml @ 100 mls/hr Q8 IVPB Last administered on 06/05/16 13:06; Admin Dose 100 MLS/HR; Start 06/04/16 at 14:00 STEPHEN CARRASQUILLO NP Jun 05, 2016 16:30
[2016-06-06] VITALS (30 sets, daily range): BP systolic 104–189; BP diastolic 58–80; PULSE 73–94; RESP 15–45
[2016-06-06] MEDS: ACETYLCYSTEINE 20% 4 ML VIAL NEB SCH ×4 (01:48→19:20)
[2016-06-06] MEDS: CEFTAZIDIME 1GM/50 ML (PMX) 50 ML IVPB SCH ×3 (05:18→21:46)
[2016-06-06] MEDS: metroNIDAZOLE 500 MG TAB NGT SCH (05:18)
[2016-06-06 06:57] LABS: ADD SCAN DIFF NO
[2016-06-06 07:03] LABS: BASOPHILS % 0.3 % (0.0-2.0); EOSINOPHILS # 0.4 10^3/ul (0.0-0.5); EOSINOPHILS % 2.8 % (0.0-7.0); HEMATOCRIT 34.2 % (42.0-52.0); HEMOGLOBIN 10.7 g/dl (14.0-18.0); LYMPHOCYTES # 1.4 10^3/ul (0.8-2.9); LYMPHOCYTES % 8.9 % (15.0-51.0); MEAN CORPUSCULAR HGB CONC 31.3 g/dl (32.0-37.0); MONOCYTE # 0.7 10^3/ul (0.3-0.9); MONOCYTES % 4.6 % (0.0-11.0); NEUTROPHIL # 13.1 10^3/ul (1.6-7.5); NEUTROPHILS % 82.7 % (39.0-77.0); PLATELET COUNT 475 10^3/UL (140-415); RED BLOOD COUNT 4.12 10^6/ul (4.70-6.10); RED CELL DISTRIBUTION WIDTH 16.2 % (11.5-14.5); WHITE BLOOD COUNT 15.8 10^3/ul (4.8-10.8)
[2016-06-06 07:05] LABS: POTASSIUM 5.3 mmol/L (3.5-5.1)
[2016-06-06 07:08] LABS: CALCIUM 8.7 mg/dl (8.4-10.2); CREATININE 0.7 mg/dl (0.61-1.24)
[2016-06-06 07:12] LABS: INR 1.03; PROTIME 13.5 Sec (12.2-14.2); PT RATIO 1.1
[2016-06-06] MEDS: ACETAMINOPHEN/CODEINE #3 TAB GTB SCH ×2 (08:45→21:45)
[2016-06-06] MEDS: ATENOLOL 25 MG TAB GTB SCH (08:46)
[2016-06-06] MEDS: hydrOXYzine HCL 25 MG TAB GTB SCH ×3 (08:46→21:45)
[2016-06-06] MEDS: LEVETIRACETAM (100 MG/ML) 5ML CUP GTB SCH ×2 (08:46→21:45)
[2016-06-06] MEDS: FAMOTIDINE 20 MG TAB GTB SCH ×2 (08:46→21:45)
[2016-06-06] MEDS: ASPIRIN 81 MG TAB GTB SCH (08:46)
[2016-06-06] MEDS: MULTIVITAMINS THERAPEUTIC TAB GTB SCH (08:46)
[2016-06-06] MEDS: FLUCONAZOLE 100 MG TAB PO SCH (08:46)
[2016-06-06] MEDS: LORAZEPAM 1 MG TAB PO PRN (08:48)
[2016-06-06] MEDS: HEPARIN 5,000 UNIT/0.5 ML SYG SC SCH ×2 (08:48→21:46)
[2016-06-06] MEDS: ALBUTEROL 0.083% (NEB) 2.5 MG/3 ML AMP NEB PRN (09:45)
--- NOTE | 2016-06-06 10:13 | CONS ---
Date/Time of Note Date/Time of Note DATE: 06/06/16 TIME: 10:10 Assessment/Plan Assessment/Plan Additional Assessment/Plan Ventilator settings; AC of 16, tidal volume of 350, PEEP of 5, 55% FiO2. Assessment and recommendations; 1. Patient admitted for right lower lobe pneumonia initially improved and then had a recurrence of leukocytosis as well as increasing infiltrates in the right lower lobe now on Fortaz Flagyl and Diflucan. 2. History of respiratory failure due to CVA. 3. Stable seizure disorder. 4. Occasional fever spikes. Continue current treatment, ventilator settings, antibiotics. Patient awaiting CT abdomen and pelvis. Consultation Date/Type/Reason Admit Date/Time May 27, 2016 at 04:18 Initial Consult Date 05/27/16 Type of Consultation: Pulmonary 24 HR Interval Summary Free Text/Dictation Patient condition is stable. Remains awake and alert. Still requiring full ventilator support. Patient awaiting replacement of tracheostomy tube with an XLT tube because of significant air leak with the current tracheostomy tube. General examination; elderly male, on ventilator via tracheostomy currently in no distress. Awake. Exam/Review of Systems Vital Signs Vitals Vital Signs Date Time Temp Pulse Resp B/P Pulse Ox O2 Delivery O2 Flow Rate FiO2 06/06/16 10:02 99.7 94 28 134/75 94 Mechanical Ventilator 06/06/16 07:55 45 Intake and Output 06/05/16 06/05/16 06/06/16 15:00 23:00 07:00 Intake Total 1080 ml Balance 1080 ml Exam HEENT examination; supple neck, no JVD. No lymphadenopathy. Midline trachea. Tracheostomy in place. Insertion site is clean. Chest examination; diminished breath sounds bilaterally. No added sounds. S1- S2 audible, no murmurs. Regular rhythm. Abdomen examination; soft, nontender. No organomegaly. Bowel sounds audible. G-tube in place. Extremity examination; no peripheral edema. POLICY ISSUE CLERK examination; patient is stable left hemiparesis. Results Result Diagram: 06/06/1662406/06/16 06 Results 24 hrs Laboratory Tests Test 06/06/16 06:25 Activated Partial Thromboplast Time 37.0 H Anion Gap 17 H Basophils # 0.0 Basophils % 0.3 Blood Urea Nitrogen 19 Calcium Level 8.7 Carbon Dioxide Level 28 Chloride Level 102 Creatinine 0.70 Eosinophils # 0.4 Eosinophils % 2.8 Glucose Level 130 Hematocrit 34.2 L Hemoglobin 10.7 L INR International Normalized Ratio 1.03 Lymphocytes # 1.4 Lymphocytes % 8.9 L Mean Corpuscular Hemoglobin 26.0 L Mean Corpuscular Hemoglobin Concent 31.3 L Mean Corpuscular Volume 83.0 Mean Platelet Volume 11.0 H Monocytes # 0.7 Monocytes % 4.6 Neutrophils # 13.1 H Neutrophils % 82.7 H Nucleated Red Blood Cells # 0.0 Nucleated Red Blood Cells % 0.0 Platelet Count 475 H Potassium Level 5.3 H Prothrombin Time 13.5 Prothrombin Time Ratio 1.1 Red Blood Count 4.12 L Red Cell Distribution Width 16.2 H Sodium Level 142 White Blood Count 15.8 H Medications Medications Current Medications Morphine Sulfate (morphine) 2 mg Q4H PRN IV SEVERE PAIN LEVEL 7-10 Last administered on 06/04/16 17:07; Admin Dose 2 MG; Start 05/27/16 at 08:00 Heparin Sodium (Porcine) (Heparin (5000 Units/0.5 ml)) 5,000 unit Q12 SC Last administered on 06/06/16 08:48; Admin Dose 5,000 UNIT; Start 05/27/16 at 09:00 Acetaminophen/ Codeine Phosphate (Tylenol No.3) 1 tab Q12 GTB Last administered on 06/06/16 08:45; Admin Dose 1 TAB; Start 05/27/16 at 09:00 Acetaminophen (Tylenol Liquid) 650 mg Q4H PRN GTB PAIN AND OR ELEVATED TEMP Last administered on 06/04/16 13:58; Admin Dose 650 MG; Start 05/27/16 at 08:00 Albuterol (Proventil 0.083% (Neb)) 2.5 mg Q6 PRN NEB WHEEZING AND SOB Last administered on 06/05/16 16:50; Admin Dose 2.5 MG; Start 05/27/16 at 08:00 Aspirin (Aspirin) 81 mg DAILY GTB Last administered on 06/06/16 08:46; Admin Dose 81 MG; Start 05/27/16 at 09:00 Atenolol (Tenormin) 25 mg DAILY GTB Last administered on 06/06/16 08:46; Admin Dose 25 MG; Start 05/27/16 at 09:00 Bisacodyl (Dulcolax Supp) 10 mg Q24H PRN [place] constipation; Start 05/27/16 at 08: 00 Diphenhydramine HCl (Benadryl) 25 mg Q6H PRN GTB ITCHING; Start 05/27/16 at 08: 00 Docusate Sodium (Colace Liquid Cup) 100 mg QHS PRN GTB CONSTIPATION; Start at 08:00 Hydroxyzine HCl (Atarax) 25 mg TID GTB Last administered on 06/06/16 08:46; Admin Dose 25 MG; Start 05/27/16 at 09:00 Multivitamins Therapeutic (Theragran) 1 tab DAILY GTB Last administered on 08:46; Admin Dose 1 TAB; Start 05/27/16 at 09:00 Famotidine (Pepcid) 20 mg BID GTB Last administered on 06/06/16 08:46; Admin Dose 20 MG; Start 05/31/16 at 21:00 Levetiracetam (Keppra Liquid) 750 mg BID GTB Last administered on 06/06/16 08: 46; Admin Dose 750 MG; Start 06/03/16 at 09:00 Metronidazole (Flagyl) 500 mg Q8 NGT Last administered on 06/06/16 05:18; Admin Dose 500 MG; Start 06/03/16 at 22:00 Fluconazole (Diflucan) 100 mg DAILY PO Last administered on 06/06/16 08:46; Admin Dose 100 MG; Start 06/03/16 at 14:30 Lorazepam 1 mg 1 mg Q4 PRN PO ANXIETY Last administered on 06/06/16 08:48; Admin Dose 1 MG; Start 06/04/16 at 05:30 Ceftazidime (Fortaz 1gm/50 ml (Pmx)) 50 ml @ 100 mls/hr Q8 IVPB Last administered on 06/06/16 05:18; Admin Dose 100 MLS/HR; Start 06/04/16 at 14:00 MAURISIO CHEUNG Jun 06, 2016 10:13
[2016-06-06] MEDS ORDERED: NA POLYST SULFON 15 GM/60 ML BTL GTB ONE (10:30)
--- NOTE | 2016-06-06 10:49 | RADRPT ---
PROCEDURE: XR Chest. CLINICAL INDICATION: Shortness of breath. TECHNIQUE: Single frontal view. COMPARISON: 06/04/2016. FINDINGS: The tracheostomy tube remains in satisfactory position. There is right basilar atelectasis or pneum onia, slightly worse than seen previously. The lungs are otherwise clear. The heart size is normal. There is no pleural effusion. There is no pneumothorax. IMPRESSION: 1. Tracheostomy tube. 2. Worse appearance of the right lung base. 3. No other change from 06/04/2016. RPTAT: QQ .Samir Crockett MD, MD Date Time Electronically viewed and signed by .Samir Crockett MD, MD on 06/06/2016 10:48 .R/
--- NOTE | 2016-06-06 11:32 | PN ---
Date/Time of Note Date/Time of Note DATE: 06/06/16 TIME: 11:30 Assessment/Plan VTE Prophylaxis VTE Prophylaxis Intervention: SCD's Lines/Catheters IV Catheter Type (from [facility]): Saline Lock Urinary Cath still in place: No Assessment/Plan Chief Complaint/Hosp Course Chief Complaint/Hosp Course 1. Sepsis 2/2 HCAP-stable - Continue antibiotics as per Infectious Disease -pt tachypnic 2. Acute on chronic respiratory failure. The patient is status post tracheostomy and did have a leak which is now stable -Pulmonary on the case 3. Seizure disorder. Continue anticonvulsants. 4. Chronic bedridden status. Continue supportive care. Continue turn schedule q.2 hours. 5. Hyperkalemia. Etiology unclear. Will provide the patient with a single dose of potassium exchange resin. 6. Microcytic hypochromic anemia. Etiology unclear. Will monitor the H and H closely. Transfuse as needed. Will obtain an iron panel on this patient. 7. Fluid, electrolytes, and nutrition. The patient will be continued on tube feedings. 8. Anemia of chronic Dz 9. Essential hypertension. Continue antihypertensives. We will continue monitor patient closely for recommendation management treatment as clinical course Problems: Subjective 24 Hr Interval Summary Free Text/Dictation No acute changes Patient is stable on vent via trach Tolerating PEG tube feeding Exam/Review of Systems Vital Signs Vitals Vital Signs Date Time Temp Pulse Resp B/P Pulse Ox O2 Delivery O2 Flow Rate FiO2 06/06/16 10:18 100.0 90 19 134/75 98 06/06/16 10:02 Mechanical Ventilator 06/06/16 09:40 55 Intake and Output 06/05/16 06/05/16 06/06/16 15:00 23:00 07:00 Intake Total 1080 ml Balance 1080 ml Exam General: The patient is well-developed, Not in acute distress. HEENT: Atraumatic, normocephalic. The pupils are equal and round . Neck: Tracheostomy in place Chest: Normal expansion of the thorax during inspiration Lungs: Clear to auscultation bilaterally Heart: Normal S1-S2, Regular rhythm and rate. Abdomen: Soft , nontender, nondistended , bowel sounds are present. PEG tube in place, colostomy in place in the left lower quadrant Extremities: Deformity in bilateral feet likely secondary to severe osteoarthritis, no edema no cyanosis Neurologic: The patient is awake, alert Results Result Diagram: 06/06/16 0625 06/06/16 0625 Results 24 hrs Laboratory Tests Test 06/06/16 06:25 Activated Partial Thromboplast Time 37.0 H Anion Gap 17 H Basophils # 0.0 Basophils % 0.3 Blood Urea Nitrogen 19 Calcium Level 8.7 Carbon Dioxide Level 28 Chloride Level 102 Creatinine 0.70 Eosinophils # 0.4 Eosinophils % 2.8 Glucose Level 130 Hematocrit 34.2 L Hemoglobin 10.7 L INR International Normalized Ratio 1.03 Lymphocytes # 1.4 Lymphocytes % 8.9 L Mean Corpuscular Hemoglobin 26.0 L Mean Corpuscular Hemoglobin Concent 31.3 L Mean Corpuscular Volume 83.0 Mean Platelet Volume 11.0 H Monocytes # 0.7 Monocytes % 4.6 Neutrophils # 13.1 H Neutrophils % 82.7 H Nucleated Red Blood Cells # 0.0 Nucleated Red Blood Cells % 0.0 Platelet Count 475 H Potassium Level 5.3 H Prothrombin Time 13.5 Prothrombin Time Ratio 1.1 Red Blood Count 4.12 L Red Cell Distribution Width 16.2 H Sodium Level 142 White Blood Count 15.8 H Medications Medications Current Medications Morphine Sulfate (morphine) 2 mg Q4H PRN IV SEVERE PAIN LEVEL 7-10 Last administered on 06/04/16 17:07; Admin Dose 2 MG; Start 05/27/16 at 08:00 Heparin Sodium (Porcine) (Heparin (5000 Units/0.5 ml)) 5,000 unit Q12 SC Last administered on 06/06/16 08:48; Admin Dose 5,000 UNIT; Start 05/27/16 at 09:00 Acetaminophen/ Codeine Phosphate (Tylenol No.3) 1 tab Q12 GTB Last administered on 06/06/16 08:45; Admin Dose 1 TAB; Start 05/27/16 at 09:00 Acetaminophen (Tylenol Liquid) 650 mg Q4H PRN GTB PAIN AND OR ELEVATED TEMP Last administered on 06/04/16 13:58; Admin Dose 650 MG; Start 05/27/16 at 08:00 Albuterol (Proventil 0.083% (Neb)) 2.5 mg Q6 PRN NEB WHEEZING AND SOB Last administered on 06/05/16 16:50; Admin Dose 2.5 MG; Start 05/27/16 at 08:00 Aspirin (Aspirin) 81 mg DAILY GTB Last administered on 06/06/16 08:46; Admin Dose 81 MG; Start 05/27/16 at 09:00 Atenolol (Tenormin) 25 mg DAILY GTB Last administered on 06/06/16 08:46; Admin Dose 25 MG; Start 05/27/16 at 09:00 Bisacodyl (Dulcolax Supp) 10 mg Q24H PRN [place] constipation; Start 05/27/16 at 08: 00 Diphenhydramine HCl (Benadryl) 25 mg Q6H PRN GTB ITCHING; Start 05/27/16 at 08: 00 Docusate Sodium (Colace Liquid Cup) 100 mg QHS PRN GTB CONSTIPATION; Start at 08:00 Hydroxyzine HCl (Atarax) 25 mg TID GTB Last administered on 06/06/16 08:46; Admin Dose 25 MG; Start 05/27/16 at 09:00 Multivitamins Therapeutic (Theragran) 1 tab DAILY GTB Last administered on 08:46; Admin Dose 1 TAB; Start 05/27/16 at 09:00 Famotidine (Pepcid) 20 mg BID GTB Last administered on 06/06/16 08:46; Admin Dose 20 MG; Start 05/31/16 at 21:00 Levetiracetam (Keppra Liquid) 750 mg BID GTB Last administered on 06/06/16 08: 46; Admin Dose 750 MG; Start 06/03/16 at 09:00 Metronidazole (Flagyl) 500 mg Q8 NGT Last administered on 06/06/16 05:18; Admin Dose 500 MG; Start 06/03/16 at 22:00 Fluconazole (Diflucan) 100 mg DAILY PO Last administered on 06/06/16 08:46; Admin Dose 100 MG; Start 06/03/16 at 14:30 Lorazepam 1 mg 1 mg Q4 PRN PO ANXIETY Last administered on 06/06/16 08:48; Admin Dose 1 MG; Start 06/04/16 at 05:30 Ceftazidime (Fortaz 1gm/50 ml (Pmx)) 50 ml @ 100 mls/hr Q8 IVPB Last administered on 06/06/16 05:18; Admin Dose 100 MLS/HR; Start 06/04/16 at 14:00 JOSHUA LAIRD MD Jun 06, 2016 11:32
--- NOTE | 2016-06-06 12:28 | CONS ---
Date/Time of Note Date/Time of Note DATE: 06/06/16 TIME: 12:27 Assessment/Plan Assessment/Plan Chief Complaint/Hosp Course SUBJECTIVE: No events overnight. Awake, continues to spike fevers, nad. ANTIMICROBIALS: The patient is on: 1. Fortaz. 2. Flagyl. 3. Fluconazole. Status post vancomycin and cefepime. INDWELLINGS: Trach, PEG, colostomy. PHYSICAL EXAMINATION: GENERAL: This is a fragile, elderly man who is lying comfortably in bed. HEENT: Head atraumatic, normocephalic. Sclerae anicteric. Buccal mucosa dry. NECK: Supple. Tracheostomy present. CHEST: Rise symmetrical. Breath sounds diminished to bases. HEART: S1, S2. ABDOMEN: Soft. Bowel tones hypoactive. EXTREMITIES: No cyanosis. ASSESSMENT: 1. Persistent fevers, possibly secondary to #2. 2. Healthcare-associated pneumonia. 3. Chronic respiratory failure. 4. History of colostomy, rule out C difficile with liquid stool. 5. Chronic encephalopathy. PLAN: The patient remains clinically unchanged. Pending CT abd/chest/pelvis, continue abx, f/u pulmonary rec-s. Nghia SANCHEZ staff Problems: Consultation Date/Type/Reason Admit Date/Time May 27, 2016 at 04:18 Initial Consult Date 05/27/16 Type of Consultation: id Exam/Review of Systems Vital Signs Vitals Vital Signs Date Time Temp Pulse Resp B/P Pulse Ox O2 Delivery O2 Flow Rate FiO2 06/06/16 11:33 99.8 86 18 111/58 98 06/06/16 11:05 55 06/06/16 10:02 Mechanical Ventilator Intake and Output 06/05/16 06/05/16 06/06/16 15:00 23:00 07:00 Intake Total 1080 ml Balance 1080 ml Results Result Diagram: 06/06/16 0625 06/06/16 0625 Results 24 hrs Laboratory Tests Test 06/06/16 06:25 Activated Partial Thromboplast Time 37.0 H Anion Gap 17 H Basophils # 0.0 Basophils % 0.3 Blood Urea Nitrogen 19 Calcium Level 8.7 Carbon Dioxide Level 28 Chloride Level 102 Creatinine 0.70 Eosinophils # 0.4 Eosinophils % 2.8 Glucose Level 130 Hematocrit 34.2 L Hemoglobin 10.7 L INR International Normalized Ratio 1.03 Lymphocytes # 1.4 Lymphocytes % 8.9 L Mean Corpuscular Hemoglobin 26.0 L Mean Corpuscular Hemoglobin Concent 31.3 L Mean Corpuscular Volume 83.0 Mean Platelet Volume 11.0 H Monocytes # 0.7 Monocytes % 4.6 Neutrophils # 13.1 H Neutrophils % 82.7 H Nucleated Red Blood Cells # 0.0 Nucleated Red Blood Cells % 0.0 Platelet Count 475 H Potassium Level 5.3 H Prothrombin Time 13.5 Prothrombin Time Ratio 1.1 Red Blood Count 4.12 L Red Cell Distribution Width 16.2 H Sodium Level 142 White Blood Count 15.8 H Medications Medications Current Medications Morphine Sulfate (morphine) 2 mg Q4H PRN IV SEVERE PAIN LEVEL 7-10 Last administered on 06/04/16 17:07; Admin Dose 2 MG; Start 05/27/16 at 08:00 Heparin Sodium (Porcine) (Heparin (5000 Units/0.5 ml)) 5,000 unit Q12 SC Last administered on 06/06/16 08:48; Admin Dose 5,000 UNIT; Start 05/27/16 at 09:00 Acetaminophen/ Codeine Phosphate (Tylenol No.3) 1 tab Q12 GTB Last administered on 06/06/16 08:45; Admin Dose 1 TAB; Start 05/27/16 at 09:00 Acetaminophen (Tylenol Liquid) 650 mg Q4H PRN GTB PAIN AND OR ELEVATED TEMP Last administered on 06/04/16 13:58; Admin Dose 650 MG; Start 05/27/16 at 08:00 Albuterol (Proventil 0.083% (Neb)) 2.5 mg Q6 PRN NEB WHEEZING AND SOB Last administered on 06/05/16 16:50; Admin Dose 2.5 MG; Start 05/27/16 at 08:00 Aspirin (Aspirin) 81 mg DAILY GTB Last administered on 06/06/16 08:46; Admin Dose 81 MG; Start 05/27/16 at 09:00 Atenolol (Tenormin) 25 mg DAILY GTB Last administered on 06/06/16 08:46; Admin Dose 25 MG; Start 05/27/16 at 09:00 Bisacodyl (Dulcolax Supp) 10 mg Q24H PRN [place] constipation; Start 05/27/16 at 08: 00 Diphenhydramine HCl (Benadryl) 25 mg Q6H PRN GTB ITCHING; Start 05/27/16 at 08: 00 Docusate Sodium (Colace Liquid Cup) 100 mg QHS PRN GTB CONSTIPATION; Start at 08:00 Hydroxyzine HCl (Atarax) 25 mg TID GTB Last administered on 06/06/16 08:46; Admin Dose 25 MG; Start 05/27/16 at 09:00 Multivitamins Therapeutic (Theragran) 1 tab DAILY GTB Last administered on 08:46; Admin Dose 1 TAB; Start 05/27/16 at 09:00 Famotidine (Pepcid) 20 mg BID GTB Last administered on 06/06/16 08:46; Admin Dose 20 MG; Start 05/31/16 at 21:00 Levetiracetam (Keppra Liquid) 750 mg BID GTB Last administered on 06/06/16 08: 46; Admin Dose 750 MG; Start 06/03/16 at 09:00 Metronidazole (Flagyl) 500 mg Q8 NGT Last administered on 06/06/16 05:18; Admin Dose 500 MG; Start 06/03/16 at 22:00 Fluconazole (Diflucan) 100 mg DAILY PO Last administered on 06/06/16 08:46; Admin Dose 100 MG; Start 06/03/16 at 14:30 Lorazepam 1 mg 1 mg Q4 PRN PO ANXIETY Last administered on 06/06/16 08:48; Admin Dose 1 MG; Start 06/04/16 at 05:30 Ceftazidime (Fortaz 1gm/50 ml (Pmx)) 50 ml @ 100 mls/hr Q8 IVPB Last administered on 06/06/16 05:18; Admin Dose 100 MLS/HR; Start 06/04/16 at 14:00 STEPHEN CARRASQUILLO NP Jun 06, 2016 12:27
[2016-06-06] MEDS: morphine 2 MG INJ IV PRN (13:36)
[2016-06-06] MEDS ORDERED: IODIXANOL LOCM 100 ML BTL ONE (14:48)
[2016-06-06] MEDS ORDERED: SOD CHLORIDE 0.9% 100 ML ONE (14:48)
--- NOTE | 2016-06-06 17:15 | RADRPT ---
PROCEDURE: CT Chest, Abdomen and Pelvis. CLINICAL INDICATION: Shortness of breath and abdominal pain. TECHNIQUE: CT scan of the chest, abdomen, and pelvis with contrast was performed on the [id number] [address] scanner. The patient was scanned following the uncomplicated intravenous administra tion of 100 cc of Visipaque 320 intravenous contrast. Coronal and sagittal reformatted images were obtained from the axial source images. The images were reviewed on a high-resolution PACS workstatio n. The CTDI vol is 12.82 mGy and the DLP is 1082.87 mGy-cm. COMPARISON: CT chest from 05/27/2016 FINDINGS: CT chest: A tracheostomy tube is seen once again. Dense consolidation in the right lower lobe is once again s een with air bronchograms which has increased compared to the prior examination. Diffuse endobronch ial disease is once again seen, right greater than left which has not changed significantly. The pre viously noted suspected nodule in the right upper lobe is no longer seen and may represented consoli dation or atelectasis. No pleural effusion is seen. The mediastinum is unremarkable without evidence for mass or lymphadenopathy. Aortic and coronary va scular calcifications are seen. The vascular structures of the mediastinum are otherwise unremarkabl e in course and caliber. No abnormally enlarged lymph nodes in the mediastinum or hilum is seen. T he heart size is normal without evidence for pericardial thickening or effusion. The axillary region s, subpectoral regions, and supraclavicular regions are all unremarkable. Degenerative spondylosis of the thoracic spine is seen. CT abdomen: The liver is normal in size and density without focal mass or intrahepatic biliary dilatation. The spleen is normal in size and homogeneous in density. A gastrostomy tube is seen once again. The stom ach is otherwise grossly unremarkable. The pancreas as visualized is normal. The gallbladder and b iliary tree are unremarkable and there is no evidence for common bile duct dilatation. The adrenal glands are symmetric and normal. The kidneys are symmetrically unremarkable as well. No renal calc ulus or obstructive uropathy or mass lesion is seen. The aorta is of normal caliber. There is no ret roperitoneal lymphadenopathy. The venus hepatis region is clear. A left lower quadrant stoma contai mio descending colon is seen. A parastomal hernia containing a a segment of the sigmoid colon is s een. No evidence of obstruction is seen. The large bowel is stool-filled from the descending colon to the rectosigmoid region. The distal sigmoid colon and rectum are significantly stool-filled. The small and remainder of the large bowel and mesentery, as visualized, are otherwise unremarkable. No inflammatory changes in the periappendiceal region is seen. CT pelvis: The pelvic organs are normal. The pelvic sidewalls and inguinal regions are clear. The urinary ruddy dder is unremarkable. No mass, lymphadenopathy, or free fluid is seen. No acute inflammation is se en. Degenerative spondylosis of the lumbar spine is seen. No osteolytic or osteoblastic lesion is de tected. Fat-containing bilateral inguinal hernias is seen. IMPRESSION: 1. Increase right lower lobe consolidation. 2. Diffuse endobronchial disease again seen which has not changed significantly. 3. Left lower quadrant stoma with a peristomal hernia containing a segment of sigmoid colon without evidence of obstruction. 4. Stool filled large bowel which is most prominent in the distal sigmoid colon and rectum. RPTAT: HPNM Physician Toni Date Time Electronically viewed and signed by Physician Toni on 06/06/2016 17:15 /
[2016-06-07] VITALS (31 sets, daily range): BP systolic 101–126; BP diastolic 51–73; PULSE 70–88; RESP 14–37
[2016-06-07] MEDS: ACETYLCYSTEINE 20% 4 ML VIAL NEB SCH ×4 (01:16→20:27)
[2016-06-07] MEDS: CEFTAZIDIME 1GM/50 ML (PMX) 50 ML IVPB SCH ×3 (05:53→21:37)
[2016-06-07 08:11] LABS: ADD SCAN DIFF NO
[2016-06-07 08:20] LABS: BASOPHIL # 0.1 10^3/ul (0.0-0.1); BASOPHILS % 0.4 % (0.0-2.0); EOSINOPHILS # 0.4 10^3/ul (0.0-0.5); EOSINOPHILS % 3.8 % (0.0-7.0); HEMATOCRIT 29.6 % (42.0-52.0); HEMOGLOBIN 9.2 g/dl (14.0-18.0); LYMPHOCYTES # 1.6 10^3/ul (0.8-2.9); LYMPHOCYTES % 14.5 % (15.0-51.0); MEAN CORPUSCULAR HEMOGLOBIN 26.2 pg (29.0-33.0); MEAN CORPUSCULAR HGB CONC 31.1 g/dl (32.0-37.0); MEAN CORPUSCULAR VOLUME 84.3 fl (82.0-101.0); MEAN PLATELET VOLUME 11.2 fl (7.4-10.4); MONOCYTE # 0.9 10^3/ul (0.3-0.9); MONOCYTES % 7.9 % (0.0-11.0); NEUTROPHIL # 8.1 10^3/ul (1.6-7.5); NEUTROPHILS % 72.8 % (39.0-77.0); PLATELET COUNT 465 10^3/UL (140-415); RED BLOOD COUNT 3.51 10^6/ul (4.70-6.10); RED CELL DISTRIBUTION WIDTH 16.5 % (11.5-14.5); WHITE BLOOD COUNT 11.2 10^3/ul (4.8-10.8)
[2016-06-07] MEDS: FAMOTIDINE 20 MG TAB GTB SCH ×2 (08:22→21:34)
[2016-06-07] MEDS: LEVETIRACETAM (100 MG/ML) 5ML CUP GTB SCH ×2 (08:22→21:34)
[2016-06-07] MEDS: ASPIRIN 81 MG TAB GTB SCH (08:22)
[2016-06-07] MEDS: hydrOXYzine HCL 25 MG TAB GTB SCH ×3 (08:23→21:34)
[2016-06-07] MEDS: MULTIVITAMINS THERAPEUTIC TAB GTB SCH (08:23)
[2016-06-07] MEDS: ATENOLOL 25 MG TAB GTB SCH (08:23)
[2016-06-07] MEDS: FLUCONAZOLE 100 MG TAB PO SCH (08:23)
[2016-06-07] MEDS: ACETAMINOPHEN/CODEINE #3 TAB GTB SCH ×2 (08:23→21:35)
[2016-06-07 08:31] LABS: POTASSIUM 4.3 mmol/L (3.5-5.1)
[2016-06-07 08:33] LABS: CREATININE 0.68 mg/dl (0.61-1.24)
[2016-06-07 08:34] LABS: CALCIUM 8.3 mg/dl (8.4-10.2); MAGNESIUM 2.3 mg/dl (1.7-2.5)
[2016-06-07] MEDS: HEPARIN 5,000 UNIT/0.5 ML SYG SC SCH ×2 (08:51→21:36)
--- NOTE | 2016-06-07 11:03 | CONS ---
Date/Time of Note Date/Time of Note DATE: 06/07/16 TIME: 11:01 Assessment/Plan Assessment/Plan Additional Assessment/Plan Ventilator settings; AC of 16, tidal volume 550, PEEP of 5, 55% FiO2. CT abdomen pelvis was reviewed from yesterday which is essentially unremarkable except for dense right lower lobe consolidation. Assessment and recommendations; 1. Patient admitted for right lower lobe pneumonia currently on appropriate antibiotic regimen. 2. History of respiratory failure, ventilator dependent. 3. Stable seizure disorder. 4. Stable hypertension. Continue current supportive care. 4. Consultation Date/Type/Reason Admit Date/Time May 27, 2016 at 04:18 Initial Consult Date 05/27/16 Type of Consultation: Pulmonary 24 HR Interval Summary Free Text/Dictation Patient condition stable. Remains ventilator dependent. Awake and alert currently in no distress. Exam/Review of Systems Vital Signs Vitals Vital Signs Date Time Temp Pulse Resp B/P Pulse Ox O2 Delivery O2 Flow Rate FiO2 06/07/16 09:58 72 21 99 55 06/07/16 06:51 99.1 120/60 06/07/16 05:43 Mechanical Ventilator Trach Collar Intake and Output 06/06/16 06/06/16 06/07/16 15:00 23:00 07:00 Intake Total 655 ml 200 ml Balance 655 ml 200 ml Exam H EENT examination; supple neck, no JVD. No lymphadenopathy. Midline trachea. Tracheostomy in place. Insertion site is clean. Pupils are midsize and reactive to light. Chest examination; minimally decreased breath sounds right lower lobe otherwise clear S1-S2 audible no murmurs regular rhythm. Abdomen examination; soft, G-tube in place. Bowel sounds audible. No organomegaly. Extremity examination; no peripheral edema. [employer] examination; stable left hemiplegia. Results Result Diagram: 06/07/16 0655 06/07/16 0655 Results 24 hrs Laboratory Tests Test 06/07/16 06:55 Anion Gap 16 Basophils # 0.1 Basophils % 0.4 Blood Urea Nitrogen 21 H Calcium Level 8.3 L Carbon Dioxide Level 28 Chloride Level 101 Creatinine 0.68 Eosinophils # 0.4 Eosinophils % 3.8 Glucose Level 129 Hematocrit 29.6 L Hemoglobin 9.2 L Lymphocytes # 1.6 Lymphocytes % 14.5 L Magnesium Level 2.3 Mean Corpuscular Hemoglobin 26.2 L Mean Corpuscular Hemoglobin Concent 31.1 L Mean Corpuscular Volume 84.3 Mean Platelet Volume 11.2 H Monocytes # 0.9 Monocytes % 7.9 Neutrophils # 8.1 H Neutrophils % 72.8 Nucleated Red Blood Cells # 0.0 Nucleated Red Blood Cells % 0.0 Platelet Count 465 H Potassium Level 4.3 Red Blood Count 3.51 L Red Cell Distribution Width 16.5 H Sodium Level 141 White Blood Count 11.2 #H Medications Medications Current Medications Morphine Sulfate (morphine) 2 mg Q4H PRN IV SEVERE PAIN LEVEL 7-10 Last administered on 06/06/16 13:36; Admin Dose 2 MG; Start 05/27/16 at 08:00 Heparin Sodium (Porcine) (Heparin (5000 Units/0.5 ml)) 5,000 unit Q12 SC Last administered on 06/07/16 08:51; Admin Dose 5,000 UNIT; Start 05/27/16 at 09:00 Acetaminophen/ Codeine Phosphate (Tylenol No.3) 1 tab Q12 GTB Last administered on 06/07/16 08:23; Admin Dose 1 TAB; Start 05/27/16 at 09:00 Acetaminophen (Tylenol Liquid) 650 mg Q4H PRN GTB PAIN AND OR ELEVATED TEMP Last administered on 06/04/16 13:58; Admin Dose 650 MG; Start 05/27/16 at 08:00 Albuterol (Proventil 0.083% (Neb)) 2.5 mg Q6 PRN NEB WHEEZING AND SOB Last administered on 06/05/16 16:50; Admin Dose 2.5 MG; Start 05/27/16 at 08:00 Aspirin (Aspirin) 81 mg DAILY GTB Last administered on 06/07/16 08:22; Admin Dose 81 MG; Start 05/27/16 at 09:00 Atenolol (Tenormin) 25 mg DAILY GTB Last administered on 06/07/16 08:23; Admin Dose 25 MG; Start 05/27/16 at 09:00 Bisacodyl (Dulcolax Supp) 10 mg Q24H PRN [place] constipation; Start 05/27/16 at 08: 00 Diphenhydramine HCl (Benadryl) 25 mg Q6H PRN GTB ITCHING; Start 05/27/16 at 08: 00 Docusate Sodium (Colace Liquid Cup) 100 mg QHS PRN GTB CONSTIPATION; Start at 08:00 Hydroxyzine HCl (Atarax) 25 mg TID GTB Last administered on 06/07/16 08:23; Admin Dose 25 MG; Start 05/27/16 at 09:00 Multivitamins Therapeutic (Theragran) 1 tab DAILY GTB Last administered on 08:23; Admin Dose 1 TAB; Start 05/27/16 at 09:00 Famotidine (Pepcid) 20 mg BID GTB Last administered on 06/07/16 08:22; Admin Dose 20 MG; Start 05/31/16 at 21:00 Levetiracetam (Keppra Liquid) 750 mg BID GTB Last administered on 06/07/16 08: 22; Admin Dose 750 MG; Start 06/03/16 at 09:00 Fluconazole (Diflucan) 100 mg DAILY PO Last administered on 06/07/16 08:23; Admin Dose 100 MG; Start 06/03/16 at 14:30 Lorazepam 1 mg 1 mg Q4 PRN PO ANXIETY Last administered on 06/06/16 08:48; Admin Dose 1 MG; Start 06/04/16 at 05:30 Ceftazidime (Fortaz 1gm/50 ml (Pmx)) 50 ml @ 100 mls/hr Q8 IVPB Last administered on 06/07/16 05:53; Admin Dose 100 MLS/HR; Start 06/04/16 at 14:00 MAURISIO CHEUNG 3, 2017 11:03
--- NOTE | 2016-06-07 11:26 | CONS ---
Date/Time of Note Date/Time of Note DATE: 06/07/16 TIME: 11:25 Assessment/Plan Assessment/Plan Chief Complaint/Hosp Course SUBJECTIVE: No events overnight. Looks comfortable. ANTIMICROBIALS: The patient is on: 1. Fortaz. 2. Fluconazole. Status post vancomycin and cefepime. INDWELLINGS: Trach, PEG, colostomy. PHYSICAL EXAMINATION: GENERAL: This is a fragile, elderly man who is lying comfortably in bed. HEENT: Head atraumatic, normocephalic. Sclerae anicteric. Buccal mucosa dry. NECK: Supple. Tracheostomy present. CHEST: Rise symmetrical. Breath sounds diminished to bases. HEART: S1, S2. ABDOMEN: Soft. Bowel tones hypoactive. EXTREMITIES: No cyanosis. ASSESSMENT: 1. Persistent fevers secondary to #2. 2. Healthcare-associated pneumonia. 3. Chronic respiratory failure. 4. History of colostomy, rule out C difficile with liquid stool. 5. Chronic encephalopathy. PLAN: Clinically unchanged. CT abd/chest results noted, continue abx, pulmonary toilet, f/u pulmonary rec-s. DW staff Problems: Consultation Date/Type/Reason Admit Date/Time May 27, 2016 at 04:18 Initial Consult Date 05/27/16 Type of Consultation: id Exam/Review of Systems Vital Signs Vitals Vital Signs Date Time Temp Pulse Resp B/P Pulse Ox O2 Delivery O2 Flow Rate FiO2 06/07/16 11:12 98.5 75 28 111/56 100 06/07/16 09:58 55 06/07/16 05:43 Mechanical Ventilator Trach Collar Intake and Output 06/06/16 06/06/16 06/07/16 15:00 23:00 07:00 Intake Total 655 ml 200 ml Balance 655 ml 200 ml Results Result Diagram: 06/07/16 0655 06/07/16 0655 Results 24 hrs Laboratory Tests Test 06/07/16 06:55 Anion Gap 16 Basophils # 0.1 Basophils % 0.4 Blood Urea Nitrogen 21 H Calcium Level 8.3 L Carbon Dioxide Level 28 Chloride Level 101 Creatinine 0.68 Eosinophils # 0.4 Eosinophils % 3.8 Glucose Level 129 Hematocrit 29.6 L Hemoglobin 9.2 L Lymphocytes # 1.6 Lymphocytes % 14.5 L Magnesium Level 2.3 Mean Corpuscular Hemoglobin 26.2 L Mean Corpuscular Hemoglobin Concent 31.1 L Mean Corpuscular Volume 84.3 Mean Platelet Volume 11.2 H Monocytes # 0.9 Monocytes % 7.9 Neutrophils # 8.1 H Neutrophils % 72.8 Nucleated Red Blood Cells # 0.0 Nucleated Red Blood Cells % 0.0 Platelet Count 465 H Potassium Level 4.3 Red Blood Count 3.51 L Red Cell Distribution Width 16.5 H Sodium Level 141 White Blood Count 11.2 #H Medications Medications Current Medications Morphine Sulfate (morphine) 2 mg Q4H PRN IV SEVERE PAIN LEVEL 7-10 Last administered on 06/06/16 13:36; Admin Dose 2 MG; Start 05/27/16 at 08:00 Heparin Sodium (Porcine) (Heparin (5000 Units/0.5 ml)) 5,000 unit Q12 SC Last administered on 06/07/16 08:51; Admin Dose 5,000 UNIT; Start 05/27/16 at 09:00 Acetaminophen/ Codeine Phosphate (Tylenol No.3) 1 tab Q12 GTB Last administered on 06/07/16 08:23; Admin Dose 1 TAB; Start 05/27/16 at 09:00 Acetaminophen (Tylenol Liquid) 650 mg Q4H PRN GTB PAIN AND OR ELEVATED TEMP Last administered on 06/04/16 13:58; Admin Dose 650 MG; Start 05/27/16 at 08:00 Albuterol (Proventil 0.083% (Neb)) 2.5 mg Q6 PRN NEB WHEEZING AND SOB Last administered on 06/05/16 16:50; Admin Dose 2.5 MG; Start 05/27/16 at 08:00 Aspirin (Aspirin) 81 mg DAILY GTB Last administered on 06/07/16 08:22; Admin Dose 81 MG; Start 05/27/16 at 09:00 Atenolol (Tenormin) 25 mg DAILY GTB Last administered on 06/07/16 08:23; Admin Dose 25 MG; Start 05/27/16 at 09:00 Bisacodyl (Dulcolax Supp) 10 mg Q24H PRN [place] constipation; Start 05/27/16 at 08: 00 Diphenhydramine HCl (Benadryl) 25 mg Q6H PRN GTB ITCHING; Start 05/27/16 at 08: 00 Docusate Sodium (Colace Liquid Cup) 100 mg QHS PRN GTB CONSTIPATION; Start at 08:00 Hydroxyzine HCl (Atarax) 25 mg TID GTB Last administered on 06/07/16 08:23; Admin Dose 25 MG; Start 05/27/16 at 09:00 Multivitamins Therapeutic (Theragran) 1 tab DAILY GTB Last administered on 08:23; Admin Dose 1 TAB; Start 05/27/16 at 09:00 Famotidine (Pepcid) 20 mg BID GTB Last administered on 06/07/16 08:22; Admin Dose 20 MG; Start 05/31/16 at 21:00 Levetiracetam (Keppra Liquid) 750 mg BID GTB Last administered on 06/07/16 08: 22; Admin Dose 750 MG; Start 06/03/16 at 09:00 Fluconazole (Diflucan) 100 mg DAILY PO Last administered on 06/07/16 08:23; Admin Dose 100 MG; Start 06/03/16 at 14:30 Lorazepam 1 mg 1 mg Q4 PRN PO ANXIETY Last administered on 06/06/16 08:48; Admin Dose 1 MG; Start 06/04/16 at 05:30 Ceftazidime (Fortaz 1gm/50 ml (Pmx)) 50 ml @ 100 mls/hr Q8 IVPB Last administered on 06/07/16 05:53; Admin Dose 100 MLS/HR; Start 06/04/16 at 14:00 STEPHEN CARRASQUILLO NP Jun 07, 2016 11:26
--- NOTE | 2016-06-07 16:01 | PN ---
Date/Time of Note Date/Time of Note DATE: 06/07/16 TIME: 15:59 Assessment/Plan VTE Prophylaxis VTE Prophylaxis Intervention: heparin Lines/Catheters IV [facility] Type [facility]from [facility] [place] [facility] Urinary Cath still in place: No Assessment/Plan Assessment/Plan 1. Sepsis 2/2 HCAP-stable - Continue antibiotics as per Infectious Disease. 2. Acute on chronic respiratory failure. The patient is status post tracheostomy and did have a leak which is now stable -Pulmonary on the case 3. Seizure disorder. Continue anticonvulsants. 4. Chronic bedridden status. Continue supportive care. Continue turn schedule q.2 hours. 5. Hyperkalemia. 6. Microcytic hypochromic anemia. 7. Fluid, electrolytes, and nutrition. 8. Anemia of chronic Dz 9. Essential hypertension. Continue antihypertensives. PPx- Heparin ENT consult placed with to evaluate for tacheostomy tube Subjective 24 Hr Interval Summary Free Text/Dictation labs stable, pt required restraints Exam/Review of Systems Vital Signs Vitals Vital Signs Date Time Temp Pulse Resp B/P Pulse Ox O2 Delivery O2 Flow Rate FiO2 06/07/16 15:55 99.5 78 27 118/60 100 06/07/16 14:22 55 06/07/16 05:43 Mechanical Ventilator Trach Collar Intake and Output 06/06/16 06/06/16 06/07/16 15:00 23:00 07:00 Intake Total 655 ml 200 ml Balance 655 ml 200 ml Exam Constitutional: non-verbal + tracheostomy on ventilator Respiratory: bilateral basilar crackles Cardiovascular: regular rate and rhythm Gastrointestinal: soft, No distended, gtube Musculoskeletal: nl extremities to inspection Results Result Diagram: 06/07/16 0655 06/07/16 0655 Results 24 hrs Laboratory Tests Test 06/07/16 06:55 Anion Gap 16 Basophils # 0.1 Basophils % 0.4 Blood Urea Nitrogen 21 H Calcium Level 8.3 L Carbon Dioxide Level 28 Chloride Level 101 Creatinine 0.68 Eosinophils # 0.4 Eosinophils % 3.8 Glucose Level 129 Hematocrit 29.6 L Hemoglobin 9.2 L Lymphocytes # 1.6 Lymphocytes % 14.5 L Magnesium Level 2.3 Mean Corpuscular Hemoglobin 26.2 L Mean Corpuscular Hemoglobin Concent 31.1 L Mean Corpuscular Volume 84.3 Mean Platelet Volume 11.2 H Monocytes # 0.9 Monocytes % 7.9 Neutrophils # 8.1 H Neutrophils % 72.8 Nucleated Red Blood Cells # 0.0 Nucleated Red Blood Cells % 0.0 Platelet Count 465 H Potassium Level 4.3 Red Blood Count 3.51 L Red Cell Distribution Width 16.5 H Sodium Level 141 White Blood Count 11.2 #H Medications Medications Current Medications Morphine Sulfate (morphine) 2 mg Q4H PRN IV SEVERE PAIN LEVEL 7-10 Last administered on 06/06/16 13:36; Admin Dose 2 MG; Start 05/27/16 at 08:00 Heparin Sodium (Porcine) (Heparin (5000 Units/0.5 ml)) 5,000 unit Q12 SC Last administered on 06/07/16 08:51; Admin Dose 5,000 UNIT; Start 05/27/16 at 09:00 Acetaminophen/ Codeine Phosphate (Tylenol No.3) 1 tab Q12 GTB Last administered on 06/07/16 08:23; Admin Dose 1 TAB; Start 05/27/16 at 09:00 Acetaminophen (Tylenol Liquid) 650 mg Q4H PRN GTB PAIN AND OR ELEVATED TEMP Last administered on 06/04/16 13:58; Admin Dose 650 MG; Start 05/27/16 at 08:00 Albuterol (Proventil 0.083% (Neb)) 2.5 mg Q6 PRN NEB WHEEZING AND SOB Last administered on 06/05/16 16:50; Admin Dose 2.5 MG; Start 05/27/16 at 08:00 Aspirin (Aspirin) 81 mg DAILY GTB Last administered on 06/07/16 08:22; Admin Dose 81 MG; Start 05/27/16 at 09:00 Atenolol (Tenormin) 25 mg DAILY GTB Last administered on 06/07/16 08:23; Admin Dose 25 MG; Start 05/27/16 at 09:00 Bisacodyl (Dulcolax Supp) 10 mg Q24H PRN [place] constipation; Start 05/27/16 at 08: 00 Diphenhydramine HCl (Benadryl) 25 mg Q6H PRN GTB ITCHING; Start 05/27/16 at 08: 00 Docusate Sodium (Colace Liquid Cup) 100 mg QHS PRN GTB CONSTIPATION; Start at 08:00 Hydroxyzine HCl (Atarax) 25 mg TID GTB Last administered on 06/07/16 13:00; Admin Dose 25 MG; Start 05/27/16 at 09:00 Multivitamins Therapeutic (Theragran) 1 tab DAILY GTB Last administered on 08:23; Admin Dose 1 TAB; Start 05/27/16 at 09:00 Famotidine (Pepcid) 20 mg BID GTB Last administered on 06/07/16 08:22; Admin Dose 20 MG; Start 05/31/16 at 21:00 Levetiracetam (Keppra Liquid) 750 mg BID GTB Last administered on 06/07/16 08: 22; Admin Dose 750 MG; Start 06/03/16 at 09:00 Fluconazole (Diflucan) 100 mg DAILY PO Last administered on 06/07/16 08:23; Admin Dose 100 MG; Start 06/03/16 at 14:30 Lorazepam 1 mg 1 mg Q4 PRN PO ANXIETY Last administered on 06/06/16 08:48; Admin Dose 1 MG; Start 06/04/16 at 05:30 Ceftazidime (Fortaz 1gm/50 ml (Pmx)) 50 ml @ 100 mls/hr Q8 IVPB Last administered on 06/07/16 14:30; Admin Dose 100 MLS/HR; Start 06/04/16 at 14:00 RALPH LEÓN MD Jun 07, 2016 16:01
[2016-06-07] MEDS: ALBUTEROL 0.083% (NEB) 2.5 MG/3 ML AMP NEB PRN (20:27)
[2016-06-08] VITALS (36 sets, daily range): BP systolic 97–120; BP diastolic 52–65; PULSE 67–84; RESP 2–29
[2016-06-08] MEDS: ACETYLCYSTEINE 20% 4 ML VIAL NEB SCH ×4 (01:48→19:37)
[2016-06-08] MEDS: morphine 2 MG INJ IV PRN ×2 (03:51→20:04)
[2016-06-08] MEDS: LORAZEPAM 1 MG TAB PO PRN (04:27)
[2016-06-08] MEDS: CEFTAZIDIME 1GM/50 ML (PMX) 50 ML IVPB SCH ×3 (05:33→22:56)
[2016-06-08] MEDS: ALBUTEROL 0.083% (NEB) 2.5 MG/3 ML AMP NEB PRN ×3 (08:26→19:37)
[2016-06-08] MEDS: hydrOXYzine HCL 25 MG TAB GTB SCH ×3 (08:54→20:04)
[2016-06-08] MEDS: LEVETIRACETAM (100 MG/ML) 5ML CUP GTB SCH ×2 (08:54→20:03)
[2016-06-08] MEDS: MULTIVITAMINS THERAPEUTIC TAB GTB SCH (08:54)
[2016-06-08] MEDS: ASPIRIN 81 MG TAB GTB SCH (08:54)
[2016-06-08] MEDS: FLUCONAZOLE 100 MG TAB PO SCH (08:54)
[2016-06-08] MEDS: FAMOTIDINE 20 MG TAB GTB SCH ×2 (08:54→20:04)
[2016-06-08] MEDS: ATENOLOL 25 MG TAB GTB SCH (08:55)
[2016-06-08] MEDS: HEPARIN 5,000 UNIT/0.5 ML SYG SC SCH ×2 (08:56→20:05)
[2016-06-08] MEDS: ACETAMINOPHEN/CODEINE #3 TAB GTB SCH ×2 (08:58→20:04)
[2016-06-08 09:42] LABS: POTASSIUM 4.7 mmol/L (3.5-5.1)
[2016-06-08 09:44] LABS: CREATININE 0.66 mg/dl (0.61-1.24)
[2016-06-08 09:45] LABS: CALCIUM 8.8 mg/dl (8.4-10.2)
--- NOTE | 2016-06-08 14:06 | CONS ---
Date/Time of Note Date/Time of Note DATE: 06/08/16 TIME: 14:04 Assessment/Plan Assessment/Plan Chief Complaint/Hosp Course SUBJECTIVE: No events overnight. Looks comfortable. No fevers ANTIMICROBIALS: The patient is on: 1. Fortaz. 2. Fluconazole. Status post vancomycin and cefepime. INDWELLINGS: Trach, PEG, colostomy. PHYSICAL EXAMINATION: GENERAL: This is a fragile, elderly man who is lying comfortably in bed. HEENT: Head atraumatic, normocephalic. Sclerae anicteric. Buccal mucosa dry. NECK: Supple. Tracheostomy present. CHEST: Rise symmetrical. Breath sounds diminished to bases. HEART: S1, S2. ABDOMEN: Soft. Bowel tones hypoactive. EXTREMITIES: No cyanosis. ASSESSMENT: 1. Sepsis== resolving. 2. Healthcare-associated pneumonia. 3. Chronic respiratory failure. 4. History of colostomy, rule out C difficile with liquid stool. 5. Chronic encephalopathy. PLAN: Clinically unchanged. No fevers. Continue abx, pulmonary toilet, vent per pulmonary DW staff Problems: Consultation Date/Type/Reason Admit Date/Time May 27, 2016 at 04:18 Initial Consult Date 05/27/16 Type of Consultation: id Exam/Review of Systems Vital Signs Vitals Vital Signs Date Time Temp Pulse Resp B/P Pulse Ox O2 Delivery O2 Flow Rate FiO2 06/08/16 13:19 70 24 99 55 06/08/16 11:20 98.5 112/59 06/08/16 06:00 Mechanical Ventilator Intake and Output 06/07/16 06/07/16 06/08/16 15:00 23:00 07:00 Intake Total 1170 ml 1050 ml Balance 1170 ml 1050 ml Results Result Diagram: 06/07/16 0655 06/08/16 0921 Results 24 hrs Laboratory Tests Test 06/08/16 09:21 Anion Gap 16 Blood Urea Nitrogen 23 H Calcium Level 8.8 Carbon Dioxide Level 28 Chloride Level 102 Creatinine 0.66 Glucose Level 121 Potassium Level 4.7 Sodium Level 141 Medications Medications Current Medications Morphine Sulfate (morphine) 2 mg Q4H PRN IV SEVERE PAIN LEVEL 7-10 Last administered on 06/08/16t 03:51; Admin Dose 2 MG; Start 05/27/16 at 08:00 Heparin Sodium (Porcine) (Heparin (5000 Units/0.5 ml)) 5,000 unit Q12 SC Last administered on 06/08/16 08:56; Admin Dose 5,000 UNIT; Start 05/27/16 at 09:00 Acetaminophen/ Codeine Phosphate (Tylenol No.3) 1 tab Q12 GTB Last administered on 06/08/16 08:58; Admin Dose 1 TAB; Start 05/27/16 at 09:00 Acetaminophen (Tylenol Liquid) 650 mg Q4H PRN GTB PAIN AND OR ELEVATED TEMP Last administered on 06/04/16 13:58; Admin Dose 650 MG; Start 05/27/16 at 08:00 Albuterol (Proventil 0.083% (Neb)) 2.5 mg Q6 PRN NEB WHEEZING AND SOB Last administered on 06/08/16 13:22; Admin Dose 2.5 MG; Start 05/27/16 at 08:00 Aspirin (Aspirin) 81 mg DAILY GTB Last administered on 06/08/16 08:54; Admin Dose 81 MG; Start 05/27/16 at 09:00 Atenolol (Tenormin) 25 mg DAILY GTB Last administered on 06/08/16 08:55; Admin Dose 25 MG; Start 05/27/16 at 09:00 Bisacodyl (Dulcolax Supp) 10 mg Q24H PRN [place] constipation; Start 05/27/16 at 08: 00 Diphenhydramine HCl (Benadryl) 25 mg Q6H PRN GTB ITCHING; Start 05/27/16 at 08: 00 Docusate Sodium (Colace Liquid Cup) 100 mg QHS PRN GTB CONSTIPATION; Start at 08:00 Hydroxyzine HCl (Atarax) 25 mg TID GTB Last administered on 06/08/16 12:45; Admin Dose 25 MG; Start 05/27/16 at 09:00 Multivitamins Therapeutic (Theragran) 1 tab DAILY GTB Last administered on 08:54; Admin Dose 1 TAB; Start 05/27/16 at 09:00 Famotidine (Pepcid) 20 mg BID GTB Last administered on 06/08/16 08:54; Admin Dose 20 MG; Start 05/31/16 at 21:00 Levetiracetam (Keppra Liquid) 750 mg BID GTB Last administered on 06/08/16 08: 54; Admin Dose 750 MG; Start 06/03/16 at 09:00 Fluconazole (Diflucan) 100 mg DAILY PO Last administered on 06/08/16 08:54; Admin Dose 100 MG; Start 06/03/16 at 14:30 Lorazepam 1 mg 1 mg Q4 PRN PO ANXIETY Last administered on 06/08/16 04:27; Admin Dose 1 MG; Start 06/04/16 at 05:30 Ceftazidime (Fortaz 1gm/50 ml (Pmx)) 50 ml @ 100 mls/hr Q8 IVPB Last administered on 06/08/16 05:33; Admin Dose 100 MLS/HR; Start 06/04/16 at 14:00 STEPHEN CARRASQUILLO NP Jun 08, 2016 14:06
--- NOTE | 2016-06-08 15:02 | CONS ---
Date/Time of Note Date/Time of Note DATE: 06/08/16 TIME: 15:01 Consult Date/Type/Reason Admit Date/Time May 27, 2016 at 04:18 Initial Consult Date 05/27/16 Type of Consultation: Pulm [facility] Objective Vital Signs Date Time Temp Pulse Resp B/P Pulse Ox O2 Delivery O2 Flow Rate FiO2 06/08/16 13:19 70 24 99 55 06/08/16 11:20 98.5 112/59 06/08/16 06:00 Mechanical Ventilator Intake and Output 06/07/16 06/07/16 06/08/16 15:00 23:00 07:00 Intake Total 1170 ml 1050 ml Balance 1170 ml 1050 ml HEENT: Neck supple; no JVD; no LAD CVS: RRR, S1 and S2 CHEST: Clear ABD: Soft, NT, + BS EXT: No c/c/ + edema Results/Medications Result Diagram: 06/07/16 0655 06/08/16 0921 Results 24 hrs Laboratory Tests Test 06/08/16 09:21 Anion Gap 16 Blood Urea Nitrogen 23 H Calcium Level 8.8 Carbon Dioxide Level 28 Chloride Level 102 Creatinine 0.66 Glucose Level 121 Potassium Level 4.7 Sodium Level 141 Medications Current Medications Morphine Sulfate (morphine) 2 mg Q4H PRN IV SEVERE PAIN LEVEL 7-10 Last administered on 06/08/16 03:51; Admin Dose 2 MG; Start 05/27/16 at 08:00 Heparin Sodium (Porcine) (Heparin (5000 Units/0.5 ml)) 5,000 unit Q12 SC Last administered on 06/08/16 08:56; Admin Dose 5,000 UNIT; Start 05/27/16 at 09:00 Acetaminophen/ Codeine Phosphate (Tylenol No.3) 1 tab Q12 GTB Last administered on 06/08/16 08:58; Admin Dose 1 TAB; Start 05/27/16 at 09:00 Acetaminophen (Tylenol Liquid) 650 mg Q4H PRN GTB PAIN AND OR ELEVATED TEMP Last administered on 06/04/16 13:58; Admin Dose 650 MG; Start 05/27/16 at 08:00 Albuterol (Proventil 0.083% (Neb)) 2.5 mg Q6 PRN NEB WHEEZING AND SOB Last administered on 06/08/16 13:22; Admin Dose 2.5 MG; Start 05/27/16 at 08:00 Aspirin (Aspirin) 81 mg DAILY GTB Last administered on 06/08/16 08:54; Admin Dose 81 MG; Start 05/27/16 at 09:00 Atenolol (Tenormin) 25 mg DAILY GTB Last administered on 06/08/16 08:55; Admin Dose 25 MG; Start 05/27/16 at 09:00 Bisacodyl (Dulcolax Supp) 10 mg Q24H PRN [place] constipation; Start 05/27/16 at 08: 00 Diphenhydramine HCl (Benadryl) 25 mg Q6H PRN GTB ITCHING; Start 05/27/16 at 08: 00 Docusate Sodium (Colace Liquid Cup) 100 mg QHS PRN GTB CONSTIPATION; Start at 08:00 Hydroxyzine HCl (Atarax) 25 mg TID GTB Last administered on 06/08/16 12:45; Admin Dose 25 MG; Start 05/27/16 at 09:00 Multivitamins Therapeutic (Theragran) 1 tab DAILY GTB Last administered on 08:54; Admin Dose 1 TAB; Start 05/27/16 at 09:00 Famotidine (Pepcid) 20 mg BID GTB Last administered on 06/08/16 08:54; Admin Dose 20 MG; Start 05/31/16 at 21:00 Levetiracetam (Keppra Liquid) 750 mg BID GTB Last administered on 06/08/16 08: 54; Admin Dose 750 MG; Start 06/03/16 at 09:00 Fluconazole (Diflucan) 100 mg DAILY PO Last administered on 06/08/16 08:54; Admin Dose 100 MG; Start 06/03/16 at 14:30 Lorazepam 1 mg 1 mg Q4 PRN PO ANXIETY Last administered on 06/08/16 04:27; Admin Dose 1 MG; Start 06/04/16 at 05:30 Ceftazidime (Fortaz 1gm/50 ml (Pmx)) 50 ml @ 100 mls/hr Q8 IVPB Last administered on 06/08/16 14:21; Admin Dose 100 MLS/HR; Start 06/04/16 at 14:00 Assessment/Plan Additional Assessment/Plan IMP 1. RLL pneumonia/ATX 2. History of respiratory failure, ventilator dependent. 3. Stable seizure disorder. 4. Stable hypertension. RECS: 1. Decrease FiO2 2. CPT/suctioning 3. SHIMA Murrieta MD Jun 08, 2016 15:02
--- NOTE | 2016-06-08 16:45 | PN ---
Date/Time of Note Date/Time of Note DATE: 06/08/16 TIME: 16:44 Assessment/Plan VTE Prophylaxis VTE Prophylaxis Intervention: heparin Lines/Catheters IV C[facility]ter Type (from [facility] Saline Lock Urinary Cath still in place: No Assessment/Plan Chief Complaint/Hosp Course 1. Sepsis 2/2 HCAP-stable - Continue antibiotics as per Infectious Disease. 2. Acute on chronic respiratory failure. The patient is status post tracheostomy and did have a leak which is now stable -Pulmonary on the case 3. Seizure disorder. Continue anticonvulsants. 4. Chronic bedridden status. Continue supportive care. Continue turn schedule q.2 hours. 5. Hyperkalemia. 6. Microcytic hypochromic anemia. 7. Fluid, electrolytes, and nutrition. 8. Anemia of chronic Dz 9. Essential hypertension. Continue antihypertensives. PPx- Heparin ENT consult placed with to evaluate for tacheostomy tube Problems: Subjective 24 Hr Interval Summary Subjective hx not possible: pt non-verbal Exam/Review of Systems Vital Signs Vitals Vital Signs Date Time Temp Pulse Resp B/P Pulse Ox O2 Delivery O2 Flow Rate FiO2 06/08/16 16:17 69 06/08/16 15:52 99.0 24 114/61 100 06/08/16 13:19 55 06/08/16 12:00 Mechanical Ventilator Intake and Output 06/07/16 06/07/16 06/08/16 15:00 23:00 07:00 Intake Total 1170 ml 1050 ml Balance 1170 ml 1050 ml Exam Constitutional: non-verbal Respiratory: clear to auscultation Cardiovascular: regular rate and rhythm Gastrointestinal: soft, No distended Musculoskeletal: nl extremities to inspection Results Result Diagram: 06/07/16 0655 06/08/16 0921 Results 24 hrs Laboratory Tests Test 06/08/16 09:21 Anion Gap 16 Blood Urea Nitrogen 23 H Calcium Level 8.8 Carbon Dioxide Level 28 Chloride Level 102 Creatinine 0.66 Glucose Level 121 Potassium Level 4.7 Sodium Level 141 Medications Medications Current Medications Morphine Sulfate (morphine) 2 mg Q4H PRN IV SEVERE PAIN LEVEL 7-10 Last administered on 06/08/16t 03:51; Admin Dose 2 MG; Start 05/27/16 at 08:00 Heparin Sodium (Porcine) (Heparin (5000 Units/0.5 ml)) 5,000 unit Q12 SC Last administered on 06/08/16 08:56; Admin Dose 5,000 UNIT; Start 05/27/16 at 09:00 Acetaminophen/ Codeine Phosphate (Tylenol No.3) 1 tab Q12 GTB Last administered on 06/08/16 08:58; Admin Dose 1 TAB; Start 05/27/16 at 09:00 Acetaminophen (Tylenol Liquid) 650 mg Q4H PRN GTB PAIN AND OR ELEVATED TEMP Last administered on 06/04/16 13:58; Admin Dose 650 MG; Start 05/27/16 at 08:00 Albuterol (Proventil 0.083% (Neb)) 2.5 mg Q6 PRN NEB WHEEZING AND SOB Last administered on 06/08/16 13:22; Admin Dose 2.5 MG; Start 05/27/16 at 08:00 Aspirin (Aspirin) 81 mg DAILY GTB Last administered on 06/08/16 08:54; Admin Dose 81 MG; Start 05/27/16 at 09:00 Atenolol (Tenormin) 25 mg DAILY GTB Last administered on 06/08/16 08:55; Admin Dose 25 MG; Start 05/27/16 at 09:00 Bisacodyl (Dulcolax Supp) 10 mg Q24H PRN [place] constipation; Start 05/27/16 at 08: 00 Diphenhydramine HCl (Benadryl) 25 mg Q6H PRN GTB ITCHING; Start 05/27/16 at 08: 00 Docusate Sodium (Colace Liquid Cup) 100 mg QHS PRN GTB CONSTIPATION; Start at 08:00 Hydroxyzine HCl (Atarax) 25 mg TID GTB Last administered on 06/08/16 12:45; Admin Dose 25 MG; Start 05/27/16 at 09:00 Multivitamins Therapeutic (Theragran) 1 tab DAILY GTB Last administered on 08:54; Admin Dose 1 TAB; Start 05/27/16 at 09:00 Famotidine (Pepcid) 20 mg BID GTB Last administered on 06/08/16 08:54; Admin Dose 20 MG; Start 05/31/16 at 21:00 Levetiracetam (Keppra Liquid) 750 mg BID GTB Last administered on 06/08/16 08: 54; Admin Dose 750 MG; Start 06/03/16 at 09:00 Fluconazole (Diflucan) 100 mg DAILY PO Last administered on 06/08/16 08:54; Admin Dose 100 MG; Start 06/03/16 at 14:30 Lorazepam 1 mg 1 mg Q4 PRN PO ANXIETY Last administered on 06/08/16 04:27; Admin Dose 1 MG; Start 06/04/16 at 05:30 Ceftazidime (Fortaz 1gm/50 ml (Pmx)) 50 ml @ 100 mls/hr Q8 IVPB Last administered on 06/08/16 14:21; Admin Dose 100 MLS/HR; Start 06/04/16 at 14:00 EDUARDO MARTINEZ Jun 08, 2016 16:45
[2016-06-09] VITALS (29 sets, daily range): BP systolic 102–125; BP diastolic 56–68; PULSE 68–82; RESP 17–28
[2016-06-09] MEDS: morphine 2 MG INJ IV PRN ×2 (00:25→19:34)
[2016-06-09] MEDS: ACETYLCYSTEINE 20% 4 ML VIAL NEB SCH ×3 (01:28→13:35)
[2016-06-09] MEDS: ALBUTEROL 0.083% (NEB) 2.5 MG/3 ML AMP NEB PRN ×3 (01:28→13:35)
[2016-06-09 06:02] LABS: ADD SCAN DIFF NO
[2016-06-09] MEDS: CEFTAZIDIME 1GM/50 ML (PMX) 50 ML IVPB SCH ×3 (06:12→21:46)
[2016-06-09 06:18] LABS: BASOPHILS % 0.7 % (0.0-2.0); EOSINOPHILS % 5.1 % (0.0-7.0); HEMATOCRIT 32.7 % (42.0-52.0); LYMPHOCYTES # 1.5 10^3/ul (0.8-2.9); LYMPHOCYTES % 20.8 % (15.0-51.0); MEAN CORPUSCULAR HEMOGLOBIN 26.1 pg (29.0-33.0); MEAN CORPUSCULAR HGB CONC 30.6 g/dl (32.0-37.0); MEAN CORPUSCULAR VOLUME 85.4 fl (82.0-101.0); MONOCYTE # 0.5 10^3/ul (0.3-0.9); MONOCYTES % 7.2 % (0.0-11.0); NEUTROPHIL # 4.8 10^3/ul (1.6-7.5); NEUTROPHILS % 65.4 % (39.0-77.0); PLATELET COUNT 480 10^3/UL (140-415); RED BLOOD COUNT 3.83 10^6/ul (4.70-6.10); RED CELL DISTRIBUTION WIDTH 16.7 % (11.5-14.5); WHITE BLOOD COUNT 7.3 10^3/ul (4.8-10.8)
[2016-06-09 06:19] LABS: BASOPHIL # 0.1 10^3/ul (0.0-0.1); EOSINOPHILS # 0.4 10^3/ul (0.0-0.5)
[2016-06-09 06:59] LABS: POTASSIUM 4.9 mmol/L (3.5-5.1)
[2016-06-09 07:01] LABS: CREATININE 0.65 mg/dl (0.61-1.24)
[2016-06-09 07:03] LABS: CALCIUM 8.3 mg/dl (8.4-10.2)
[2016-06-09] MEDS: FAMOTIDINE 20 MG TAB GTB SCH ×2 (08:26→20:11)
[2016-06-09] MEDS: ASPIRIN 81 MG TAB GTB SCH (08:26)
[2016-06-09] MEDS: hydrOXYzine HCL 25 MG TAB GTB SCH ×3 (08:26→20:11)
[2016-06-09] MEDS: MULTIVITAMINS THERAPEUTIC TAB GTB SCH (08:26)
[2016-06-09] MEDS: FLUCONAZOLE 100 MG TAB PO SCH (08:26)
[2016-06-09] MEDS: ACETAMINOPHEN/CODEINE #3 TAB GTB SCH ×2 (08:26→20:12)
[2016-06-09] MEDS: LEVETIRACETAM (100 MG/ML) 5ML CUP GTB SCH ×2 (08:27→20:11)
[2016-06-09] MEDS: ATENOLOL 25 MG TAB GTB SCH (08:27)
[2016-06-09] MEDS: HEPARIN 5,000 UNIT/0.5 ML SYG SC SCH ×2 (08:31→20:11)
--- NOTE | 2016-06-09 13:33 | PN ---
Date/Time of Note Date/Time of Note DATE: 06/09/16 TIME: 13:30 Assessment/Plan VTE Prophylaxis VTE Prophylaxis Intervention: heparin Lines/Catheters IV [facility]from [facility] Saline Lock Urinary Cath still in place: No Assessment/Plan Chief Complaint/Hosp Course 1. Sepsis 2/2 HCAP-stable - Continue antibiotics as per Infectious Disease. 2. Acute on chronic respiratory failure. The patient is status post tracheostomy and did have a leak which is now stable -Pulmonary on the case -pt is still requiring High FiO2, RT to wean down as tolerated, heavy secretions reported 3. Seizure disorder. Continue anticonvulsants. 4. Chronic bedridden status. Continue supportive care. Continue turn schedule q.2 hours. 5. Hyperkalemia. 6. Microcytic hypochromic anemia. 7. Fluid, electrolytes, and nutrition. 8. Anemia of chronic Dz 9. Essential hypertension. Continue antihypertensives Dispo- pt still requiring high FiO2, wean down as tolerated, sepsis appears to now be resolving PPx- Heparin Problems: Subjective 24 Hr Interval Summary Subjective hx not possible: pt non-verbal Exam/Review of Systems Vital Signs Vitals Vital Signs Date Time Temp Pulse Resp B/P Pulse Ox O2 Delivery O2 Flow Rate FiO2 06/09/16 12:32 69 06/09/16 11:39 97.8 18 104/56 95 06/09/16 11:15 45 06/09/16 09:48 Mechanical Ventilator Intake and Output 06/08/16 06/08/16 06/09/16 15:00 23:00 07:00 Intake Total 250 ml 700 ml 715 ml Balance 250 ml 700 ml 715 ml Exam Constitutional: non-verbal ENMT: other (trached) Respiratory: clear to auscultation Cardiovascular: regular rate and rhythm Gastrointestinal: soft, No distended Musculoskeletal: nl extremities to inspection Results Result Diagram: 06/09/16 0520 06/09/16 0520 Results 24 hrs Laboratory Tests Test 06/09/16 05:20 Anion Gap 15 Basophils # 0.1 Basophils % 0.7 Blood Urea Nitrogen 19 Calcium Level 8.3 L Carbon Dioxide Level 28 Chloride Level 102 Creatinine 0.65 Eosinophils # 0.4 Eosinophils % 5.1 Glucose Level 122 Hematocrit 32.7 L Hemoglobin 10.0 L Lymphocytes # 1.5 Lymphocytes % 20.8 Mean Corpuscular Hemoglobin 26.1 L Mean Corpuscular Hemoglobin Concent 30.6 L Mean Corpuscular Volume 85.4 Mean Platelet Volume 11.0 H Monocytes # 0.5 Monocytes % 7.2 Neutrophils # 4.8 Neutrophils % 65.4 Nucleated Red Blood Cells # 0.0 Nucleated Red Blood Cells % 0.0 Platelet Count 480 H Potassium Level 4.9 Red Blood Count 3.83 L Red Cell Distribution Width 16.7 H Sodium Level 140 White Blood Count 7.3 # Medications Medications Current Medications Morphine Sulfate (morphine) 2 mg Q4H PRN IV SEVERE PAIN LEVEL 7-10 Last administered on 06/09/16 00:25; Admin Dose 2 MG; Start 05/27/16 at 08:00 Heparin Sodium (Porcine) (Heparin (5000 Units/0.5 ml)) 5,000 unit Q12 SC Last administered on 06/09/16 08:31; Admin Dose 5,000 UNIT; Start 05/27/16 at 09:00 Acetaminophen/ Codeine Phosphate (Tylenol No.3) 1 tab Q12 GTB Last administered on 06/09/16 08:26; Admin Dose 1 TAB; Start 05/27/16 at 09:00 Acetaminophen (Tylenol Liquid) 650 mg Q4H PRN GTB PAIN AND OR ELEVATED TEMP Last administered on 06/04/16 13:58; Admin Dose 650 MG; Start 05/27/16 at 08:00 Albuterol (Proventil 0.083% (Neb)) 2.5 mg Q6 PRN NEB WHEEZING AND SOB Last administered on 06/09/16 07:48; Admin Dose 2.5 MG; Start 05/27/16 at 08:00 Aspirin (Aspirin) 81 mg DAILY GTB Last administered on 06/09/16 08:26; Admin Dose 81 MG; Start 05/27/16 at 09:00 Atenolol (Tenormin) 25 mg DAILY GTB Last administered on 06/09/16 08:27; Admin Dose 25 MG; Start 05/27/16 at 09:00 Bisacodyl (Dulcolax Supp) 10 mg Q24H PRN [place] constipation; Start 05/27/16 at 08: 00 Diphenhydramine HCl (Benadryl) 25 mg Q6H PRN GTB ITCHING; Start 05/27/16 at 08: 00 Docusate Sodium (Colace Liquid Cup) 100 mg QHS PRN GTB CONSTIPATION; Start at 08:00 Hydroxyzine HCl (Atarax) 25 mg TID GTB Last administered on 06/09/16 13:07; Admin Dose 25 MG; Start 05/27/16 at 09:00 Multivitamins Therapeutic (Theragran) 1 tab DAILY GTB Last administered on 08:26; Admin Dose 1 TAB; Start 05/27/16 at 09:00 Famotidine (Pepcid) 20 mg BID GTB Last administered on 06/09/16 08:26; Admin Dose 20 MG; Start 05/31/16 at 21:00 Levetiracetam (Keppra Liquid) 750 mg BID GTB Last administered on 06/09/16 08: 27; Admin Dose 750 MG; Start 06/03/16 at 09:00 Fluconazole (Diflucan) 100 mg DAILY PO Last administered on 06/09/16 08:26; Admin Dose 100 MG; Start 06/03/16 at 14:30 Lorazepam 1 mg 1 mg Q4 PRN PO ANXIETY Last administered on 06/08/16 04:27; Admin Dose 1 MG; Start 06/04/16 at 05:30 Ceftazidime (Fortaz 1gm/50 ml (Pmx)) 50 ml @ 100 mls/hr Q8 IVPB Last administered on 06/09/16 13:07; Admin Dose 100 MLS/HR; Start 06/04/16 at 14:00 EDUARDO MARTINEZ 5, 2017 13:33
--- NOTE | 2016-06-09 15:10 | CONS ---
Date/Time of Note Date/Time of Note DATE: 06/09/16 TIME: 15:09 Assessment/Plan Assessment/Plan Chief Complaint/Hosp Course SUBJECTIVE: No events overnight. Awake, looks comfortable. No fevers ANTIMICROBIALS: The patient is on: 1. Fortaz. 2. Fluconazole. Status post vancomycin and cefepime. INDWELLINGS: Trach, PEG, colostomy. PHYSICAL EXAMINATION: GENERAL: This is a fragile, elderly man who is lying comfortably in bed. HEENT: Head atraumatic, normocephalic. Sclerae anicteric. Buccal mucosa dry. NECK: Supple. Tracheostomy present. CHEST: Rise symmetrical. Breath sounds diminished to bases. HEART: S1, S2. ABDOMEN: Soft. Bowel tones hypoactive. EXTREMITIES: No cyanosis. ASSESSMENT: 1. Sepsis== resolving. 2. Healthcare-associated pneumonia. 3. Chronic respiratory failure. 4. History of colostomy, rule out C difficile with liquid stool. 5. Chronic encephalopathy. PLAN: Clinically improved, more awake and interactive. No fevers. Continue luz elena Sexton vent per pulmonary DW staff Problems: Consultation Date/Type/Reason Admit Date/Time May 27, 2016 at 04:18 Initial Consult Date 05/27/16 Type of Consultation: id Exam/Review of Systems Vital Signs Vitals Vital Signs Date Time Temp Pulse Resp B/P Pulse Ox O2 Delivery O2 Flow Rate FiO2 06/09/16 14:04 98.8 75 23 102/57 96 Mechanical Ventilator Nasal Cannula 06/09/16 13:27 45 Intake and Output 06/08/16 06/08/16 06/09/16 15:00 23:00 07:00 Intake Total 250 ml 700 ml 715 ml Balance 250 ml 700 ml 715 ml Results Result Diagram: 06/09/16 0520 06/09/16 0520 Results 24 hrs Laboratory Tests Test 06/09/16 05:20 Anion Gap 15 Basophils # 0.1 Basophils % 0.7 Blood Urea Nitrogen 19 Calcium Level 8.3 L Carbon Dioxide Level 28 Chloride Level 102 Creatinine 0.65 Eosinophils # 0.4 Eosinophils % 5.1 Glucose Level 122 Hematocrit 32.7 L Hemoglobin 10.0 L Lymphocytes # 1.5 Lymphocytes % 20.8 Mean Corpuscular Hemoglobin 26.1 L Mean Corpuscular Hemoglobin Concent 30.6 L Mean Corpuscular Volume 85.4 Mean Platelet Volume 11.0 H Monocytes # 0.5 Monocytes % 7.2 Neutrophils # 4.8 Neutrophils % 65.4 Nucleated Red Blood Cells # 0.0 Nucleated Red Blood Cells % 0.0 Platelet Count 480 H Potassium Level 4.9 Red Blood Count 3.83 L Red Cell Distribution Width 16.7 H Sodium Level 140 White Blood Count 7.3 # Medications Medications Current Medications Morphine Sulfate (morphine) 2 mg Q4H PRN IV SEVERE PAIN LEVEL 7-10 Last administered on 06/09/16 00:25; Admin Dose 2 MG; Start 05/27/16 at 08:00 Heparin Sodium (Porcine) (Heparin (5000 Units/0.5 ml)) 5,000 unit Q12 SC Last administered on 06/09/16 08:31; Admin Dose 5,000 UNIT; Start 05/27/16 at 09:00 Acetaminophen/ Codeine Phosphate (Tylenol No.3) 1 tab Q12 GTB Last administered on 06/09/16 08:26; Admin Dose 1 TAB; Start 05/27/16 at 09:00 Acetaminophen (Tylenol Liquid) 650 mg Q4H PRN GTB PAIN AND OR ELEVATED TEMP Last administered on 06/04/16 13:58; Admin Dose 650 MG; Start 05/27/16 at 08:00 Albuterol (Proventil 0.083% (Neb)) 2.5 mg Q6 PRN NEB WHEEZING AND SOB Last administered on 06/09/16 13:35; Admin Dose 2.5 MG; Start 05/27/16 at 08:00 Aspirin (Aspirin) 81 mg DAILY GTB Last administered on 06/09/16 08:26; Admin Dose 81 MG; Start 05/27/16 at 09:00 Atenolol (Tenormin) 25 mg DAILY GTB Last administered on 06/09/16 08:27; Admin Dose 25 MG; Start 05/27/16 at 09:00 Bisacodyl (Dulcolax Supp) 10 mg Q24H PRN [place] constipation; Start 05/27/16 at 08: 00 Diphenhydramine HCl (Benadryl) 25 mg Q6H PRN GTB ITCHING; Start 05/27/16 at 08: 00 Docusate Sodium (Colace Liquid Cup) 100 mg QHS PRN GTB CONSTIPATION; Start at 08:00 Hydroxyzine HCl (Atarax) 25 mg TID GTB Last administered on 06/09/16 13:07; Admin Dose 25 MG; Start 05/27/16 at 09:00 Multivitamins Therapeutic (Theragran) 1 tab DAILY GTB Last administered on 08:26; Admin Dose 1 TAB; Start 05/27/16 at 09:00 Famotidine (Pepcid) 20 mg BID GTB Last administered on 06/09/16 08:26; Admin Dose 20 MG; Start 05/31/16 at 21:00 Levetiracetam (Keppra Liquid) 750 mg BID GTB Last administered on 06/09/16 08: 27; Admin Dose 750 MG; Start 06/03/16 at 09:00 Fluconazole (Diflucan) 100 mg DAILY PO Last administered on 06/09/16 08:26; Admin Dose 100 MG; Start 06/03/16 at 14:30 Lorazepam 1 mg 1 mg Q4 PRN PO ANXIETY Last administered on 06/08/16 04:27; Admin Dose 1 MG; Start 06/04/16 at 05:30 Ceftazidime (Fortaz 1gm/50 ml (Pmx)) 50 ml @ 100 mls/hr Q8 IVPB Last administered on 06/09/16 13:07; Admin Dose 100 MLS/HR; Start 06/04/16 at 14:00 STEPHEN CARRASQUILLO NP Jun 09, 2016 15:10
--- NOTE | 2016-06-09 16:05 | CONS ---
Date/Time of Note Date/Time of Note DATE: 06/09/16 TIME: 16:03 Consult Date/Type/Reason Admit Date/Time May 27, 2016 at 04:18 Initial Consult Date 05/27/16 Type of Consultation: Pulm Subjective No events. Comfortable on vent. Objective Vital Signs Date Time Temp Pulse Resp B/P Pulse Ox O2 Delivery O2 Flow Rate FiO2 06/09/16 15:25 97.9 78 18 123/66 96 06/09/16 14:04 Mechanical Ventilator Nasal Cannula 06/09/16 13:27 45 Intake and Output 06/08/16 06/08/16 06/09/16 15:00 23:00 07:00 Intake Total 250 ml 700 ml 715 ml Balance 250 ml 700 ml 715 ml HEENT: Neck supple; no JVD; no LAD CVS: RRR, S1 and S2 CHEST: Coarse BS ABD: Soft, NT, + BS EXT: No c/c/ + edema Results/Medications Result Diagram: 06/09/16 0520 06/09/16 0520 Results 24 hrs Laboratory Tests Test 06/09/16 05:20 Anion Gap 15 Basophils # 0.1 Basophils % 0.7 Blood Urea Nitrogen 19 Calcium Level 8.3 L Carbon Dioxide Level 28 Chloride Level 102 Creatinine 0.65 Eosinophils # 0.4 Eosinophils % 5.1 Glucose Level 122 Hematocrit 32.7 L Hemoglobin 10.0 L Lymphocytes # 1.5 Lymphocytes % 20.8 Mean Corpuscular Hemoglobin 26.1 L Mean Corpuscular Hemoglobin Concent 30.6 L Mean Corpuscular Volume 85.4 Mean Platelet Volume 11.0 H Monocytes # 0.5 Monocytes % 7.2 Neutrophils # 4.8 Neutrophils % 65.4 Nucleated Red Blood Cells # 0.0 Nucleated Red Blood Cells % 0.0 Platelet Count 480 H Potassium Level 4.9 Red Blood Count 3.83 L Red Cell Distribution Width 16.7 H Sodium Level 140 White Blood Count 7.3 # Medications Current Medications Morphine Sulfate (morphine) 2 mg Q4H PRN IV SEVERE PAIN LEVEL 7-10 Last administered on 06/09/16 00:25; Admin Dose 2 MG; Start 05/27/16 at 08:00 Heparin Sodium (Porcine) (Heparin (5000 Units/0.5 ml)) 5,000 unit Q12 SC Last administered on 06/09/16 08:31; Admin Dose 5,000 UNIT; Start 05/27/16 at 09:00 Acetaminophen/ Codeine Phosphate (Tylenol No.3) 1 tab Q12 GTB Last administered on 06/09/16 08:26; Admin Dose 1 TAB; Start 05/27/16 at 09:00 Acetaminophen (Tylenol Liquid) 650 mg Q4H PRN GTB PAIN AND OR ELEVATED TEMP Last administered on 06/04/16 13:58; Admin Dose 650 MG; Start 05/27/16 at 08:00 Albuterol (Proventil 0.083% (Neb)) 2.5 mg Q6 PRN NEB WHEEZING AND SOB Last administered on 06/09/16 13:35; Admin Dose 2.5 MG; Start 05/27/16 at 08:00 Aspirin (Aspirin) 81 mg DAILY GTB Last administered on 06/09/16 08:26; Admin Dose 81 MG; Start 05/27/16 at 09:00 Atenolol (Tenormin) 25 mg DAILY GTB Last administered on 06/09/16 08:27; Admin Dose 25 MG; Start 05/27/16 at 09:00 Bisacodyl (Dulcolax Supp) 10 mg Q24H PRN [place] constipation; Start 05/27/16 at 08: 00 Diphenhydramine HCl (Benadryl) 25 mg Q6H PRN GTB ITCHING; Start 05/27/16 at 08: 00 Docusate Sodium (Colace Liquid Cup) 100 mg QHS PRN GTB CONSTIPATION; Start at 08:00 Hydroxyzine HCl (Atarax) 25 mg TID GTB Last administered on 06/09/16 13:07; Admin Dose 25 MG; Start 05/27/16 at 09:00 Multivitamins Therapeutic (Theragran) 1 tab DAILY GTB Last administered on 08:26; Admin Dose 1 TAB; Start 05/27/16 at 09:00 Famotidine (Pepcid) 20 mg BID GTB Last administered on 06/09/16 08:26; Admin Dose 20 MG; Start 05/31/16 at 21:00 Levetiracetam (Keppra Liquid) 750 mg BID GTB Last administered on 06/09/16 08: 27; Admin Dose 750 MG; Start 06/03/16 at 09:00 Lorazepam 1 mg 1 mg Q4 PRN PO ANXIETY Last administered on 06/08/16 04:27; Admin Dose 1 MG; Start 06/04/16 at 05:30 Ceftazidime (Fortaz 1gm/50 ml (Pmx)) 50 ml @ 100 mls/hr Q8 IVPB Last administered on 06/09/16 13:07; Admin Dose 100 MLS/HR; Start 06/04/16 at 14:00 Assessment/Plan Additional Assessment/Plan IMP 1. RLL pneumonia/ATX 2. VDRF 3. Stable seizure disorder. 4. Stable hypertension. RECS: 1. Decrease FiO2 as tolerated 2. CPT/suctioning 3. Abx 4. August d/c mucomyst SHIMA KRUSE MD Jun 09, 2016 16:05
[2016-06-09] MEDS: DIPHENHYDRAMINE 25 MG CAP GTB PRN (20:11)
[2016-06-10] VITALS (30 sets, daily range): BP systolic 107–123; BP diastolic 57–76; PULSE 74–89; RESP 14–29
[2016-06-10] MEDS: morphine 2 MG INJ IV PRN ×2 (02:27→05:51)
[2016-06-10] MEDS: CEFTAZIDIME 1GM/50 ML (PMX) 50 ML IVPB SCH ×3 (05:39→22:08)
[2016-06-10 06:01] LABS: ADD SCAN DIFF NO
[2016-06-10 06:12] LABS: BASOPHIL # 0.1 10^3/ul (0.0-0.1); BASOPHILS % 0.6 % (0.0-2.0); EOSINOPHILS # 0.4 10^3/ul (0.0-0.5); EOSINOPHILS % 3.4 % (0.0-7.0); HEMATOCRIT 34.1 % (42.0-52.0); HEMOGLOBIN 10.5 g/dl (14.0-18.0); LYMPHOCYTES # 1.4 10^3/ul (0.8-2.9); LYMPHOCYTES % 12.4 % (15.0-51.0); MEAN CORPUSCULAR HEMOGLOBIN 26.1 pg (29.0-33.0); MEAN CORPUSCULAR HGB CONC 30.8 g/dl (32.0-37.0); MEAN CORPUSCULAR VOLUME 84.8 fl (82.0-101.0); MONOCYTE # 0.6 10^3/ul (0.3-0.9); NEUTROPHIL # 9.1 10^3/ul (1.6-7.5); NEUTROPHILS % 77.8 % (39.0-77.0); PLATELET COUNT 546 10^3/UL (140-415); RED BLOOD COUNT 4.02 10^6/ul (4.70-6.10); RED CELL DISTRIBUTION WIDTH 16.9 % (11.5-14.5); WHITE BLOOD COUNT 11.6 10^3/ul (4.8-10.8)
[2016-06-10 06:25] LABS: POTASSIUM 4.8 mmol/L (3.5-5.1)
[2016-06-10 06:27] LABS: CREATININE 0.66 mg/dl (0.61-1.24)
[2016-06-10 06:28] LABS: CALCIUM 8.6 mg/dl (8.4-10.2)
--- NOTE | 2016-06-10 09:04 | RADRPT ---
PROCEDURE: XR Chest. CLINICAL INDICATION: 60-year-old male ventilator. TECHNIQUE: Single frontal view of the chest was obtained COMPARISON: Chest x-ray 06/07/1999 17:10 of 07:00 a.m. FINDINGS: The soft tissues are normal. There are degenerative osteophytes in the thoracic spine. A tracheost ivelisse tube is well-positioned at T2-T3. The heart, cardiomediastinal silhouette, pulmonary vasculatur e and hilar structures are normal. There is right peribronchial cuffing. There is elevation right di aphragm with improving right lower lobe infiltrates. The costophrenic angles are normal. IMPRESSION: 1. Improving right lower lobe pneumonia with associated consolidative infiltrate in the right lower lobe. Elevated right diaphragm. 2. Satisfactory position of the tracheostomy tube at T2-3. RPTAT:AAJJ Physician David Date Time Electronically viewed and signed by Michele Maria Physician on 06/10/2016 09:04 CAROL/
[2016-06-10] MEDS: hydrOXYzine HCL 25 MG TAB GTB SCH ×3 (09:25→22:03)
[2016-06-10] MEDS: MULTIVITAMINS THERAPEUTIC TAB GTB SCH (09:25)
[2016-06-10] MEDS: ATENOLOL 25 MG TAB GTB SCH (09:25)
[2016-06-10] MEDS: ASPIRIN 81 MG TAB GTB SCH (09:25)
[2016-06-10] MEDS: LEVETIRACETAM (100 MG/ML) 5ML CUP GTB SCH ×2 (09:25→22:02)
[2016-06-10] MEDS: FAMOTIDINE 20 MG TAB GTB SCH ×2 (09:25→22:03)
[2016-06-10] MEDS: ACETAMINOPHEN/CODEINE #3 TAB GTB SCH ×2 (09:26→22:03)
[2016-06-10] MEDS: HEPARIN 5,000 UNIT/0.5 ML SYG SC SCH ×2 (09:27→22:05)
--- NOTE | 2016-06-10 11:03 | CONS ---
Date/Time of Note Date/Time of Note DATE: 06/10/16 TIME: 11:01 Assessment/Plan Assessment/Plan Additional Assessment/Plan Ventilator settings; history of 16, tidal volume 550, PEEP of 5, 45% FiO2. Chest x-ray was reviewed from today which is showing marked improvement in right lower lobe pneumonia. Assessment and recommendations; 1. Patient admitted for right lower lobe pneumonia with significant clinical and radiological improvement. 2. History of respiratory failure, patient remains ventilator dependent. 3. Stable seizure disorder. 4. Stable hypertension. Next 5. Stable dense left hemiplegia. Continue current treatment. Continue current ventilator settings, wean down FiO2 to keep O2 sat around 94%. Continue current antibiotics. Consultation Date/Type/Reason Admit Date/Time May 27, 2016 at 04:18 Initial Consult Date 05/27/16 Type of Consultation: Pulm 24 HR Interval Summary Free Text/Dictation Patient condition remains stable. Has remained hemodynamically stable. General examination; elderly male, on ventilator via tracheostomy currently in no distress, awake and alert. Exam/Review of Systems Vital Signs Vitals Vital Signs Date Time Temp Pulse Resp B/P Pulse Ox O2 Delivery O2 Flow Rate FiO2 06/10/16 09:34 79 25 97 45 06/10/16 07:42 98.2 107/69 06/10/16 04:00 Mechanical Ventilator Intake and Output 06/09/16 06/09/16 06/10/16 15:00 23:00 07:00 Intake Total 1030 ml Balance 1030 ml Exam HEENT exam; supple neck, no JVD. No lymphadenopathy. Tracheostomy in place with clean insertion site. Pupils are midsize and reactive to light. No thyromegaly. Chest examination; diminished but clear breath sounds bilaterally. S1-S2 audible, no murmurs. Regular rhythm. Abdomen examination; soft, G-tube in place. No organomegaly. Bowel sounds audible. Extremity examination; no peripheral edema. ON CALL examination; patient has stable left hemiplegia. Results Result Diagram: 06/10/16 0530 06/10/16 0530 Results 24 hrs Laboratory Tests Test 06/10/16 05:30 Anion Gap 16 Basophils # 0.1 Basophils % 0.6 Blood Urea Nitrogen 18 Calcium Level 8.6 Carbon Dioxide Level 28 Chloride Level 101 Creatinine 0.66 Eosinophils # 0.4 Eosinophils % 3.4 Glucose Level 128 Hematocrit 34.1 L Hemoglobin 10.5 L Lymphocytes # 1.4 Lymphocytes % 12.4 L Mean Corpuscular Hemoglobin 26.1 L Mean Corpuscular Hemoglobin Concent 30.8 L Mean Corpuscular Volume 84.8 Mean Platelet Volume 11.0 H Monocytes # 0.6 Monocytes % 5.0 Neutrophils # 9.1 H Neutrophils % 77.8 H Nucleated Red Blood Cells # 0.0 Nucleated Red Blood Cells % 0.0 Platelet Count 546 H Potassium Level 4.8 Red Blood Count 4.02 L Red Cell Distribution Width 16.9 H Sodium Level 140 White Blood Count 11.6 #H Medications Medications Current Medications Morphine Sulfate (morphine) 2 mg Q4H PRN IV SEVERE PAIN LEVEL 7-10 Last administered on 06/10/16 05:51; Admin Dose 2 MG; Start 05/27/16 at 08:00 Heparin Sodium (Porcine) (Heparin (5000 Units/0.5 ml)) 5,000 unit Q12 SC Last administered on 06/10/16 09:27; Admin Dose 5,000 UNIT; Start 05/27/16 at 09:00 Acetaminophen/ Codeine Phosphate (Tylenol No.3) 1 tab Q12 GTB Last administered on 06/10/16 09:26; Admin Dose 1 TAB; Start 05/27/16 at 09:00 Acetaminophen (Tylenol Liquid) 650 mg Q4H PRN GTB PAIN AND OR ELEVATED TEMP Last administered on 06/04/16 13:58; Admin Dose 650 MG; Start 05/27/16 at 08:00 Albuterol (Proventil 0.083% (Neb)) 2.5 mg Q6 PRN NEB WHEEZING AND SOB Last administered on 06/09/16 13:35; Admin Dose 2.5 MG; Start 05/27/16 at 08:00 Aspirin (Aspirin) 81 mg DAILY GTB Last administered on 06/10/16 09:25; Admin Dose 81 MG; Start 05/27/16 at 09:00 Atenolol (Tenormin) 25 mg DAILY GTB Last administered on 06/10/16 09:25; Admin Dose 25 MG; Start 05/27/16 at 09:00 Bisacodyl (Dulcolax Supp) [address] constipation; Start 05/27/16 at 08: 00 Diphenhydramine HCl (Benadryl) 25 mg Q6H PRN GTB ITCHING Last administered on 20:11; Admin Dose 25 MG; Start 05/27/16 at 08:00 Docusate Sodium (Colace Liquid Cup) 100 mg QHS PRN GTB CONSTIPATION; Start at 08:00 Hydroxyzine HCl (Atarax) 25 mg TID GTB Last administered on 06/10/16 09:25; Admin Dose 25 MG; Start 05/27/16 at 09:00 Multivitamins Therapeutic (Theragran) 1 tab DAILY GTB Last administered on 09:25; Admin Dose 1 TAB; Start 05/27/16 at 09:00 Famotidine (Pepcid) 20 mg BID GTB Last administered on 06/10/16 09:25; Admin Dose 20 MG; Start 05/31/16 at 21:00 Levetiracetam (Keppra Liquid) 750 mg BID GTB Last administered on 06/10/16 09: 25; Admin Dose 750 MG; Start 06/03/16 at 09:00 Lorazepam 1 mg 1 mg Q4 PRN PO ANXIETY Last administered on 06/08/16 04:27; Admin Dose 1 MG; Start 06/04/16 at 05:30 Ceftazidime (Fortaz 1gm/50 ml (Pmx)) 50 ml @ 100 mls/hr Q8 IVPB Last administered on 06/10/16 05:39; Admin Dose 100 MLS/HR; Start 06/04/16 at 14:00 MAURISIO CHEUNG Jun 10, 2016 11:03
--- NOTE | 2016-06-10 11:22 | PN ---
Date/Time of Note Date/Time of Note DATE: 06/10/16 TIME: 11:21 Assessment/Plan VTE Prophylaxis VTE Prophylaxis Intervention: heparin Lines/Catheters IV [facility]from [facility] Saline Lock Urinary Cath still in place: No Assessment/Plan Assessment/Plan 1. Sepsis 2/2 HCAP-stable - Continue antibiotics as per Infectious Disease. 2. Acute on chronic respiratory failure. The patient is status post tracheostomy and did have a leak which is now stable -Pulmonary on the case -pt is still requiring High FiO2, RT to wean down as tolerated, heavy secretions reported 3. Seizure disorder. Continue anticonvulsants. 4. Chronic bedridden status. Continue supportive care. Continue turn schedule q.2 hours. 5. Hyperkalemia. 6. Microcytic hypochromic anemia. 7. Fluid, electrolytes, and nutrition. 8. Anemia of chronic Dz 9. Essential hypertension. Continue antihypertensives Dispo- pt still requiring high FiO2, wean down as tolerated, sepsis appears to now be resolving PPx- Heparin Subjective 24 Hr Interval Summary Free Text/Dictation no acute events, Afebrile, On IV fortaz, clinically improving Exam/Review of Systems Vital Signs Vitals Vital Signs Date Time Temp Pulse Resp B/P Pulse Ox O2 Delivery O2 Flow Rate FiO2 06/10/16 09:34 79 25 97 45 06/10/16 07:42 98.2 107/69 06/10/16 04:00 Mechanical Ventilator Intake and Output 06/09/16 06/09/16 06/10/16 15:00 23:00 07:00 Intake Total 1030 ml Balance 1030 ml Exam GENERAL: This is a fragile, elderly man who is lying comfortably in bed. HEENT: Head atraumatic, normocephalic. Sclerae anicteric. Buccal mucosa dry. NECK: Supple. Tracheostomy present. CHEST: Rise symmetrical. Breath sounds diminished to bases. HEART: S1, S2. ABDOMEN: Soft. Bowel tones hypoactive. EXTREMITIES: No cyanosis. Results Result Diagram: 06/10/16 0530 06/10/16 0530 Results 24 hrs Laboratory Tests Test 06/10/16 05:30 Anion Gap 16 Basophils # 0.1 Basophils % 0.6 Blood Urea Nitrogen 18 Calcium Level 8.6 Carbon Dioxide Level 28 Chloride Level 101 Creatinine 0.66 Eosinophils # 0.4 Eosinophils % 3.4 Glucose Level 128 Hematocrit 34.1 L Hemoglobin 10.5 L Lymphocytes # 1.4 Lymphocytes % 12.4 L Mean Corpuscular Hemoglobin 26.1 L Mean Corpuscular Hemoglobin Concent 30.8 L Mean Corpuscular Volume 84.8 Mean Platelet Volume 11.0 H Monocytes # 0.6 Monocytes % 5.0 Neutrophils # 9.1 H Neutrophils % 77.8 H Nucleated Red Blood Cells # 0.0 Nucleated Red Blood Cells % 0.0 Platelet Count 546 H Potassium Level 4.8 Red Blood Count 4.02 L Red Cell Distribution Width 16.9 H Sodium Level 140 White Blood Count 11.6 #H Medications Medications Current Medications Morphine Sulfate (morphine) 2 mg Q4H PRN IV SEVERE PAIN LEVEL 7-10 Last administered on 06/10/16 05:51; Admin Dose 2 MG; Start 05/27/16 at 08:00 Heparin Sodium (Porcine) (Heparin (5000 Units/0.5 ml)) 5,000 unit Q12 SC Last administered on 06/10/16 09:27; Admin Dose 5,000 UNIT; Start 05/27/16 at 09:00 Acetaminophen/ Codeine Phosphate (Tylenol No.3) 1 tab Q12 GTB Last administered on 06/10/16 09:26; Admin Dose 1 TAB; Start 05/27/16 at 09:00 Acetaminophen (Tylenol Liquid) 650 mg Q4H PRN GTB PAIN AND OR ELEVATED TEMP Last administered on 06/04/16 13:58; Admin Dose 650 MG; Start 05/27/16 at 08:00 Albuterol (Proventil 0.083% (Neb)) 2.5 mg Q6 PRN NEB WHEEZING AND SOB Last administered on 06/09/16 13:35; Admin Dose 2.5 MG; Start 05/27/16 at 08:00 Aspirin (Aspirin) 81 mg DAILY GTB Last administered on 06/10/16 09:25; Admin Dose 81 MG; Start 05/27/16 at 09:00 Atenolol (Tenormin) 25 mg DAILY GTB Last administered on 06/10/16 09:25; Admin Dose 25 MG; Start 05/27/16 at 09:00 Bisacodyl (Dulcolax Supp) 10 mg Q24H PRN [place] constipation; Start 05/27/16 at 08: 00 Diphenhydramine HCl (Benadryl) 25 mg Q6H PRN GTB ITCHING Last administered on 20:11; Admin Dose 25 MG; Start 05/27/16 at 08:00 Docusate Sodium (Colace Liquid Cup) 100 mg QHS PRN GTB CONSTIPATION; Start at 08:00 Hydroxyzine HCl (Atarax) 25 mg TID GTB Last administered on 06/10/16 09:25; Admin Dose 25 MG; Start 05/27/16 at 09:00 Multivitamins Therapeutic (Theragran) 1 tab DAILY GTB Last administered on 09:25; Admin Dose 1 TAB; Start 05/27/16 at 09:00 Famotidine (Pepcid) 20 mg BID GTB Last administered on 06/10/16 09:25; Admin Dose 20 MG; Start 05/31/16 at 21:00 Levetiracetam (Keppra Liquid) 750 mg BID GTB Last administered on 06/10/16 09: 25; Admin Dose 750 MG; Start 06/03/16 at 09:00 Lorazepam 1 mg 1 mg Q4 PRN PO ANXIETY Last administered on 06/08/16 04:27; Admin Dose 1 MG; Start 06/04/16 at 05:30 Ceftazidime (Fortaz 1gm/50 ml (Pmx)) 50 ml @ 100 mls/hr Q8 IVPB Last administered on 06/10/16 05:39; Admin Dose 100 MLS/HR; Start 06/04/16 at 14:00 RALPH LEÓN MD Jun 10, 2016 11:22
--- NOTE | 2016-06-10 12:00 | CONS ---
Date/Time of Note Date/Time of Note DATE: 06/10/16 TIME: 11:59 Assessment/Plan Assessment/Plan Chief Complaint/Hosp Course SUBJECTIVE: No events overnight. No fevers ANTIMICROBIALS: Fortaz. INDWELLINGS: Trach, PEG, colostomy. PHYSICAL EXAMINATION: GENERAL: This is a fragile, elderly man who is lying comfortably in bed. HEENT: Head atraumatic, normocephalic. Sclerae anicteric. Buccal mucosa dry. NECK: Supple. Tracheostomy present. CHEST: Rise symmetrical. Breath sounds diminished to bases. HEART: S1, S2. ABDOMEN: Soft. Bowel tones hypoactive. EXTREMITIES: No cyanosis. ASSESSMENT: 1. Sepsis== resolving. 2. Healthcare-associated pneumonia. 3. Chronic respiratory failure. 4. History of colostomy, rule out C difficile with liquid stool. 5. Chronic encephalopathy. PLAN: Improving. Continue Fortaz, vent per pulmonary DW staff Problems: Consultation Date/Type/Reason Admit Date/Time May 27, 2016 at 04:18 Initial Consult Date 05/27/16 Type of Consultation: ID Exam/Review of Systems Vital Signs Vitals Vital Signs Date Time Temp Pulse Resp B/P Pulse Ox O2 Delivery O2 Flow Rate FiO2 06/10/16 09:34 79 25 97 45 06/10/16 07:42 98.2 107/69 06/10/16 04:00 Mechanical Ventilator Intake and Output 06/09/16 06/09/16 06/10/16 15:00 23:00 07:00 Intake Total 1030 ml Balance 1030 ml Results Result Diagram: 06/10/16 0530 06/10/16 0530 Results 24 hrs Laboratory Tests Test 06/10/16 05:30 Anion Gap 16 Basophils # 0.1 Basophils % 0.6 Blood Urea Nitrogen 18 Calcium Level 8.6 Carbon Dioxide Level 28 Chloride Level 101 Creatinine 0.66 Eosinophils # 0.4 Eosinophils % 3.4 Glucose Level 128 Hematocrit 34.1 L Hemoglobin 10.5 L Lymphocytes # 1.4 Lymphocytes % 12.4 L Mean Corpuscular Hemoglobin 26.1 L Mean Corpuscular Hemoglobin Concent 30.8 L Mean Corpuscular Volume 84.8 Mean Platelet Volume 11.0 H Monocytes # 0.6 Monocytes % 5.0 Neutrophils # 9.1 H Neutrophils % 77.8 H Nucleated Red Blood Cells # 0.0 Nucleated Red Blood Cells % 0.0 Platelet Count 546 H Potassium Level 4.8 Red Blood Count 4.02 L Red Cell Distribution Width 16.9 H Sodium Level 140 White Blood Count 11.6 #H Medications Medications Current Medications Morphine Sulfate (morphine) 2 mg Q4H PRN IV SEVERE PAIN LEVEL 7-10 Last administered on 06/10/16 05:51; Admin Dose 2 MG; Start 05/27/16 at 08:00 Heparin Sodium (Porcine) (Heparin (5000 Units/0.5 ml)) 5,000 unit Q12 SC Last administered on 06/10/16 09:27; Admin Dose 5,000 UNIT; Start 05/27/16 at 09:00 Acetaminophen/ Codeine Phosphate (Tylenol No.3) 1 tab Q12 GTB Last administered on 06/10/16 09:26; Admin Dose 1 TAB; Start 05/27/16 at 09:00 Acetaminophen (Tylenol Liquid) 650 mg Q4H PRN GTB PAIN AND OR ELEVATED TEMP Last administered on 06/04/16 13:58; Admin Dose 650 MG; Start 05/27/16 at 08:00 Albuterol (Proventil 0.083% (Neb)) 2.5 mg Q6 PRN NEB WHEEZING AND SOB Last administered on 06/09/16 13:35; Admin Dose 2.5 MG; Start 05/27/16 at 08:00 Aspirin (Aspirin) 81 mg DAILY GTB Last administered on 06/10/16 09:25; Admin Dose 81 MG; Start 05/27/16 at 09:00 Atenolol (Tenormin) 25 mg DAILY GTB Last administered on 06/10/16 09:25; Admin Dose 25 MG; Start 05/27/16 at 09:00 Bisacodyl (Dulcolax Supp) 10 mg Q24H PRN [place] constipation; Start 05/27/16 at 08: 00 Diphenhydramine HCl (Benadryl) 25 mg Q6H PRN GTB ITCHING Last administered on 20:11; Admin Dose 25 MG; Start 05/27/16 at 08:00 Docusate Sodium (Colace Liquid Cup) 100 mg QHS PRN GTB CONSTIPATION; Start at 08:00 Hydroxyzine HCl (Atarax) 25 mg TID GTB Last administered on 06/10/16 09:25; Admin Dose 25 MG; Start 05/27/16 at 09:00 Multivitamins Therapeutic (Theragran) 1 tab DAILY GTB Last administered on 09:25; Admin Dose 1 TAB; Start 05/27/16 at 09:00 Famotidine (Pepcid) 20 mg BID GTB Last administered on 06/10/16 09:25; Admin Dose 20 MG; Start 05/31/16 at 21:00 Levetiracetam (Keppra Liquid) 750 mg BID GTB Last administered on 06/10/16 09: 25; Admin Dose 750 MG; Start 06/03/16 at 09:00 Lorazepam 1 mg 1 mg Q4 PRN PO ANXIETY Last administered on 06/08/16 04:27; Admin Dose 1 MG; Start 06/04/16 at 05:30 Ceftazidime (Fortaz 1gm/50 ml (Pmx)) 50 ml @ 100 mls/hr Q8 IVPB Last administered on 06/10/16 05:39; Admin Dose 100 MLS/HR; Start 06/04/16 at 14:00 STEPHEN CARRASQUILLO NP Jun 10, 2016 12:00
[2016-06-11] VITALS (24 sets, daily range): BP systolic 111–148; BP diastolic 62–82; PULSE 70–81; RESP 15–36
[2016-06-11 06:23] LABS: ADD SCAN DIFF NO
[2016-06-11 06:26] LABS: AADO2 Arterial 205.7 mmHg (7.0-24.0); Allen Test ACCEPTAB; Arterial Base Excess 2.2 mmol/L (-3.0-3); Arterial COHb 0.3 % (0.0-3.0); Arterial HCO3 26.4 mmol/L (22.0-26.0); Arterial MetHb 0.3 % (0.0-1.5); Arterial Total Hemglobin 12.6 g/dl (12.0-18.0); MODE VENT - AC
[2016-06-11] MEDS: CEFTAZIDIME 1GM/50 ML (PMX) 50 ML IVPB SCH ×3 (06:31→21:06)
[2016-06-11 06:33] LABS: BASOPHIL # 0.1 10^3/ul (0.0-0.1); BASOPHILS % 0.9 % (0.0-2.0); EOSINOPHILS # 0.4 10^3/ul (0.0-0.5); EOSINOPHILS % 4.3 % (0.0-7.0); HEMATOCRIT 37.9 % (42.0-52.0); HEMOGLOBIN 11.7 g/dl (14.0-18.0); LYMPHOCYTES # 2.1 10^3/ul (0.8-2.9); LYMPHOCYTES % 24.3 % (15.0-51.0); MEAN CORPUSCULAR HEMOGLOBIN 26.2 pg (29.0-33.0); MEAN CORPUSCULAR HGB CONC 30.9 g/dl (32.0-37.0); MEAN PLATELET VOLUME 10.9 fl (7.4-10.4); MONOCYTE # 0.6 10^3/ul (0.3-0.9); MONOCYTES % 7.6 % (0.0-11.0); NEUTROPHIL # 5.3 10^3/ul (1.6-7.5); NEUTROPHILS % 62.3 % (39.0-77.0); PLATELET COUNT 597 10^3/UL (140-415); RED BLOOD COUNT 4.46 10^6/ul (4.70-6.10); RED CELL DISTRIBUTION WIDTH 17.5 % (11.5-14.5); WHITE BLOOD COUNT 8.5 10^3/ul (4.8-10.8)
[2016-06-11 06:41] LABS: INR 0.98
[2016-06-11 06:42] LABS: PARTIAL THROMBOPLASTIN TIME 21.4 Sec (25.0-35.0)
[2016-06-11 06:54] LABS: POTASSIUM 5.1 mmol/L (3.5-5.1)
[2016-06-11 06:57] LABS: CREATININE 0.72 mg/dl (0.61-1.24)
[2016-06-11 06:58] LABS: CALCIUM 9.4 mg/dl (8.4-10.2)
[2016-06-11] MEDS: ALBUTEROL 0.083% (NEB) 2.5 MG/3 ML AMP NEB PRN (08:26)
[2016-06-11] MEDS: LEVETIRACETAM (100 MG/ML) 5ML CUP GTB SCH ×2 (08:35→21:04)
[2016-06-11] MEDS: FAMOTIDINE 20 MG TAB GTB SCH ×2 (08:35→21:04)
[2016-06-11] MEDS: ATENOLOL 25 MG TAB GTB SCH (08:35)
[2016-06-11] MEDS: ASPIRIN 81 MG TAB GTB SCH (08:35)
[2016-06-11] MEDS: hydrOXYzine HCL 25 MG TAB GTB SCH ×3 (08:35→21:04)
[2016-06-11] MEDS: MULTIVITAMINS THERAPEUTIC TAB GTB SCH (08:35)
[2016-06-11] MEDS: HEPARIN 5,000 UNIT/0.5 ML SYG SC SCH ×2 (08:45→21:05)
[2016-06-11] MEDS: ACETAMINOPHEN/CODEINE #3 TAB GTB SCH ×2 (08:57→21:19)
--- NOTE | 2016-06-11 10:43 | CONS ---
Date/Time of Note Date/Time of Note DATE: 06/11/16 TIME: 10:40 Assessment/Plan Assessment/Plan Additional Assessment/Plan Ventilator settings; AC of 16, tidal volume 550, PEEP of 5, 45% FiO2. Assessment and recommendations; 1. Patient admitted with right lower lobe pneumonia with significant radiological improvement. 2. Chronic respiratory failure, patient remains ventilator dependent. 3. History of left CVA. 4. History of stable seizure disorder. Continue current treatment. Wean down FiO2 to keep O2 sat around 92-94%. Consultation Date/Type/Reason Admit Date/Time May 27, 2016 at 04:18 Initial Consult Date 05/27/16 Type of Consultation: Pulmonary 24 HR Interval Summary Free Text/Dictation Patient condition remains stable. Remains awake and alert. Remains ventilator dependent. Has remained hemodynamically stable. Next General exam; elderly male, on ventilator via tracheostomy, awake and alert. In no distress. Exam/Review of Systems Vital Signs Vitals Vital Signs Date Time Temp Pulse Resp B/P Pulse Ox O2 Delivery O2 Flow Rate FiO2 06/11/16 09:15 72 27 95 45 06/11/16 07:41 98.1 137/76 06/10/16 18:00 Mechanical Ventilator Trach Collar Intake and Output 06/10/16 06/10/16 06/11/16 15:00 23:00 07:00 Intake Total 50 ml 1180 ml 1180 ml Balance 50 ml 1180 ml 1180 ml Exam HEENT examination; supple neck, no JVD. No lymphadenopathy. Midline trachea. No thyromegaly. Tracheostomy in place with clean insertion site. Pupils are midsize and reactive to light. Chest examination; diminished but clear breath sounds bilaterally. S1-S2 audible, no murmurs. Regular rhythm. Abdomen examination; soft, G-tube in place. No organomegaly. Bowel sounds audible. Extremity examination; no peripheral edema. STAFF RESPIRATORY THERAPIST examination; patient is stable dense left hemiplegia. Results Result Diagram: 06/11/16 0550 06/11/16 0550 Results 24 hrs Laboratory Tests Test 06/11/16 05:00 06/11/16 05:50 Arterial Blood HCO3 26.4 H Arterial Blood Base Excess 2.2 Arterial Blood Oxygen Saturation 93.6 L Zack Test ACCEPTAB Arterial Blood Gas Puncture Site Left Radial Arterial Blood Carboxyhemoglobin 0.3 Arterial Blood Date Drawn 06/11/2016 6:10:00 AM Arterial Blood Methemoglobin 0.3 Arterial Blood pCO2 (Temp correct) 39.7 Arterial Blood pH (Temp corrected) 7.441 Arterial Blood pO2 (Temp corrected) 70.0 L Blood Gas A-a O2 Differential 205.7 H Blood Gas Actual Respiration Rate 16 Blood Gas Inspiratory Pressure 27.0 Blood Gas Low PEEP Setting 5.0 Blood Gas Modality VENT - AC Blood Gas Notified Time 06/11/2016 6:25:00 AM Blood Gas Notified Whom RTR Blood Gas Respiration Rate 16.0 Blood Gas Specimen Source Blood arterial Blood Gas Temperature 37.0 Blood Gas Tidal Volume 550.0 FiO2 45.0 Oxyhemoglobin Percent 93.0 Total Hemoglobin 12.6 Activated Partial Thromboplast Time 21.4 L Anion Gap 19 H Basophils # 0.1 Basophils % 0.9 Blood Urea Nitrogen 22 H Calcium Level 9.4 Carbon Dioxide Level 26 Chloride Level 102 Creatinine 0.72 Eosinophils # 0.4 Eosinophils % 4.3 Glucose Level 103 Hematocrit 37.9 L Hemoglobin 11.7 L INR International Normalized Ratio 0.98 Lymphocytes # 2.1 Lymphocytes % 24.3 Mean Corpuscular Hemoglobin 26.2 L Mean Corpuscular Hemoglobin Concent 30.9 L Mean Corpuscular Volume 85.0 Mean Platelet Volume 10.9 H Monocytes # 0.6 Monocytes % 7.6 Neutrophils # 5.3 Neutrophils % 62.3 Nucleated Red Blood Cells # 0.0 Nucleated Red Blood Cells % 0.0 Platelet Count 597 H Potassium Level 5.1 Prothrombin Time 13.0 Prothrombin Time Ratio 1.0 Red Blood Count 4.46 L Red Cell Distribution Width 17.5 H Sodium Level 142 White Blood Count 8.5 # Medications Medications Current Medications Morphine Sulfate (morphine) 2 mg Q4H PRN IV SEVERE PAIN LEVEL 7-10 Last administered on 06/10/16 05:51; Admin Dose 2 MG; Start 05/27/16 at 08:00 Heparin Sodium (Porcine) (Heparin (5000 Units/0.5 ml)) 5,000 unit Q12 SC Last administered on 06/11/16 08:45; Admin Dose 5,000 UNIT; Start 05/27/16 at 09:00 Acetaminophen/ Codeine Phosphate (Tylenol No.3) 1 tab Q12 GTB Last administered on 06/11/16 08:57; Admin Dose 1 TAB; Start 05/27/16 at 09:00 Acetaminophen (Tylenol Liquid) 650 mg Q4H PRN GTB PAIN AND OR ELEVATED TEMP Last administered on 06/04/16 13:58; Admin Dose 650 MG; Start 05/27/16 at 08:00 Albuterol (Proventil 0.083% (Neb)) 2.5 mg Q6 PRN NEB WHEEZING AND SOB Last administered on 06/09/16 13:35; Admin Dose 2.5 MG; Start 05/27/16 at 08:00 Aspirin (Aspirin) 81 mg DAILY GTB Last administered on 06/11/16 08:35; Admin Dose 81 MG; Start 05/27/16 at 09:00 Atenolol (Tenormin) 25 mg DAILY GTB Last administered on 06/11/16 08:35; Admin Dose 25 MG; Start 05/27/16 at 09:00 Bisacodyl (Dulcolax Supp) 10 mg Q24H PRN [place] constipation; Start 05/27/16 at 08: 00 Diphenhydramine HCl (Benadryl) 25 mg Q6H PRN GTB ITCHING Last administered on 20:11; Admin Dose 25 MG; Start 05/27/16 at 08:00 Docusate Sodium (Colace Liquid Cup) 100 mg QHS PRN GTB CONSTIPATION; Start at 08:00 Hydroxyzine HCl (Atarax) 25 mg TID GTB Last administered on 06/11/16 08:35; Admin Dose 25 MG; Start 05/27/16 at 09:00 Multivitamins Therapeutic (Theragran) 1 tab DAILY GTB Last administered on 08:35; Admin Dose 1 TAB; Start 05/27/16 at 09:00 Famotidine (Pepcid) 20 mg BID GTB Last administered on 06/11/16 08:35; Admin Dose 20 MG; Start 05/31/16 at 21:00 Levetiracetam (Keppra Liquid) 750 mg BID GTB Last administered on 06/11/16 08: 35; Admin Dose 750 MG; Start 06/03/16 at 09:00 Lorazepam 1 mg 1 mg Q4 PRN PO ANXIETY Last administered on 06/08/16 04:27; Admin Dose 1 MG; Start 06/04/16 at 05:30 Ceftazidime (Fortaz 1gm/50 ml (Pmx)) 50 ml @ 100 mls/hr Q8 IVPB Last administered on 06/11/16 06:31; Admin Dose 100 MLS/HR; Start 06/04/16 at 14:00 MAURISIO CHEUNG 7, 2017 10:42
--- NOTE | 2016-06-11 11:00 | PN ---
Date/Time of Note Date/Time of Note DATE: 06/11/16 TIME: 10:57 Assessment/Plan VTE Prophylaxis VTE Prophylaxis Intervention: heparin Lines/Catheters IV [facility]from [facility] Saline Lock Urinary Cath still in place: No Assessment/Plan Assessment/Plan 1. Sepsis 2/2 HCAP-stable - Continue antibiotics as per Infectious Disease. 2. Acute on chronic respiratory failure. The patient is status post tracheostomy and did have a leak which is now stable -Pulmonary on the case -pt is still requiring High FiO2, RT to wean down as tolerated, heavy secretions reported 3. Seizure disorder. Continue anticonvulsants. 4. Chronic bedridden status. Continue supportive care. Continue turn schedule q.2 hours. 5. Hyperkalemia. 6. Microcytic hypochromic anemia. 7. Fluid, electrolytes, and nutrition. 8. Anemia of chronic Dz 9. Essential hypertension. Continue antihypertensives Dispo- restraints renewed, sepsis appears to now be resolving , on restraints, will have to give some medication to calm his down PPx- Heparin Subjective 24 Hr Interval Summary Free Text/Dictation pt required restraints, Bp stable, Exam/Review of Systems Vital Signs Vitals Vital Signs Date Time Temp Pulse Resp B/P Pulse Ox O2 Delivery O2 Flow Rate FiO2 06/11/16 09:15 72 27 95 45 06/11/16 07:41 98.1 137/76 06/10/16 18:00 Mechanical Ventilator Trach Collar Intake and Output 06/10/16 06/10/16 06/11/16 15:00 23:00 07:00 Intake Total 50 ml 1180 ml 1180 ml Balance 50 ml 1180 ml 1180 ml Exam GENERAL: This is a fragile, elderly man who is lying comfortably in bed. HEENT: Head atraumatic, normocephalic. Sclerae anicteric. Buccal mucosa dry. NECK: Supple. Tracheostomy present. CHEST: Rise symmetrical. Breath sounds diminished to bases. HEART: S1, S2. ABDOMEN: Soft. Bowel tones hypoactive. EXTREMITIES: No cyanosis. Results Result Diagram: 06/11/16 0550 06/11/16 0550 Results 24 hrs Laboratory Tests Test 06/11/16 05:00 06/11/16 05:50 Arterial Blood HCO3 26.4 H Arterial Blood Base Excess 2.2 Arterial Blood Oxygen Saturation 93.6 L Zack Test ACCEPTAB Arterial Blood Gas Puncture Site Left Radial Arterial Blood Carboxyhemoglobin 0.3 Arterial Blood Date Drawn 06/11/2016 6:10:00 AM Arterial Blood Methemoglobin 0.3 Arterial Blood pCO2 (Temp correct) 39.7 Arterial Blood pH (Temp corrected) 7.441 Arterial Blood pO2 (Temp corrected) 70.0 L Blood Gas A-a O2 Differential 205.7 H Blood Gas Actual Respiration Rate 16 Blood Gas Inspiratory Pressure 27.0 Blood Gas Low PEEP Setting 5.0 Blood Gas Modality VENT - AC Blood Gas Notified Time 06/11/2016 6:25:00 AM Blood Gas Notified Whom RTR Blood Gas Respiration Rate 16.0 Blood Gas Specimen Source Blood arterial Blood Gas Temperature 37.0 Blood Gas Tidal Volume 550.0 FiO2 45.0 Oxyhemoglobin Percent 93.0 Total Hemoglobin 12.6 Activated Partial Thromboplast Time 21.4 L Anion Gap 19 H Basophils # 0.1 Basophils % 0.9 Blood Urea Nitrogen 22 H Calcium Level 9.4 Carbon Dioxide Level 26 Chloride Level 102 Creatinine 0.72 Eosinophils # 0.4 Eosinophils % 4.3 Glucose Level 103 Hematocrit 37.9 L Hemoglobin 11.7 L INR International Normalized Ratio 0.98 Lymphocytes # 2.1 Lymphocytes % 24.3 Mean Corpuscular Hemoglobin 26.2 L Mean Corpuscular Hemoglobin Concent 30.9 L Mean Corpuscular Volume 85.0 Mean Platelet Volume 10.9 H Monocytes # 0.6 Monocytes % 7.6 Neutrophils # 5.3 Neutrophils % 62.3 Nucleated Red Blood Cells # 0.0 Nucleated Red Blood Cells % 0.0 Platelet Count 597 H Potassium Level 5.1 Prothrombin Time 13.0 Prothrombin Time Ratio 1.0 Red Blood Count 4.46 L Red Cell Distribution Width 17.5 H Sodium Level 142 White Blood Count 8.5 # Medications Medications Current Medications Morphine Sulfate (morphine) 2 mg Q4H PRN IV SEVERE PAIN LEVEL 7-10 Last administered on 06/10/16 05:51; Admin Dose 2 MG; Start 05/27/16 at 08:00 Heparin Sodium (Porcine) (Heparin (5000 Units/0.5 ml)) 5,000 unit Q12 SC Last administered on 06/11/16 08:45; Admin Dose 5,000 UNIT; Start 05/27/16 at 09:00 Acetaminophen/ Codeine Phosphate (Tylenol No.3) 1 tab Q12 GTB Last administered on 06/11/16 08:57; Admin Dose 1 TAB; Start 05/27/16 at 09:00 Acetaminophen (Tylenol Liquid) 650 mg Q4H PRN GTB PAIN AND OR ELEVATED TEMP Last administered on 06/04/16 13:58; Admin Dose 650 MG; Start 05/27/16 at 08:00 Albuterol (Proventil 0.083% (Neb)) 2.5 mg Q6 PRN NEB WHEEZING AND SOB Last administered on 06/09/16 13:35; Admin Dose 2.5 MG; Start 05/27/16 at 08:00 Aspirin (Aspirin) 81 mg DAILY GTB Last administered on 06/11/16 08:35; Admin Dose 81 MG; Start 05/27/16 at 09:00 Atenolol (Tenormin) 25 mg DAILY GTB Last administered on 06/11/16 08:35; Admin Dose 25 MG; Start 05/27/16 at 09:00 Bisacodyl (Dulcolax Supp) 10 mg Q24H PRN [place] constipation; Start 05/27/16 at 08: 00 Diphenhydramine HCl (Benadryl) 25 mg Q6H PRN GTB ITCHING Last administered on 20:11; Admin Dose 25 MG; Start 05/27/16 at 08:00 Docusate Sodium (Colace Liquid Cup) 100 mg QHS PRN GTB CONSTIPATION; Start at 08:00 Hydroxyzine HCl (Atarax) 25 mg TID GTB Last administered on 06/11/16 08:35; Admin Dose 25 MG; Start 05/27/16 at 09:00 Multivitamins Therapeutic (Theragran) 1 tab DAILY GTB Last administered on 08:35; Admin Dose 1 TAB; Start 05/27/16 at 09:00 Famotidine (Pepcid) 20 mg BID GTB Last administered on 06/11/16 08:35; Admin Dose 20 MG; Start 05/31/16 at 21:00 Levetiracetam (Keppra Liquid) 750 mg BID GTB Last administered on 06/11/16 08: 35; Admin Dose 750 MG; Start 06/03/16 at 09:00 Lorazepam 1 mg 1 mg Q4 PRN PO ANXIETY Last administered on 06/08/16 04:27; Admin Dose 1 MG; Start 06/04/16 at 05:30 Ceftazidime (Fortaz 1gm/50 ml (Pmx)) 50 ml @ 100 mls/hr Q8 IVPB Last administered on 06/11/16 06:31; Admin Dose 100 MLS/HR; Start 06/04/16 at 14:00 RALPH LEÓN MD Jun 11, 2016 11:00
--- NOTE | 2016-06-11 12:52 | CONS ---
Date/Time of Note Date/Time of Note DATE: 06/11/16 TIME: 12:51 Assessment/Plan Assessment/Plan Chief Complaint/Hosp Course SUBJECTIVE: No events overnight. No fevers, looks comfortable ANTIMICROBIALS: Fortaz. INDWELLINGS: Trach, PEG, colostomy. PHYSICAL EXAMINATION: GENERAL: This is a fragile, elderly man who is lying comfortably in bed. HEENT: Head atraumatic, normocephalic. Sclerae anicteric. Buccal mucosa dry. NECK: Supple. Tracheostomy present. CHEST: Rise symmetrical. Breath sounds diminished to bases. HEART: S1, S2. ABDOMEN: Soft. Bowel tones hypoactive. EXTREMITIES: No cyanosis. ASSESSMENT: 1. Sepsis== resolving. 2. Healthcare-associated pneumonia. 3. Chronic respiratory failure. 4. History of colostomy, rule out C difficile with liquid stool. 5. Chronic encephalopathy. PLAN: Stable. Continue abx, vent per pulmonary DW staff Problems: Consultation Date/Type/Reason Admit Date/Time May 27, 2016 at 04:18 Initial Consult Date 05/27/16 Type of Consultation: ID Exam/Review of Systems Vital Signs Vitals Vital Signs Date Time Temp Pulse Resp B/P Pulse Ox O2 Delivery O2 Flow Rate FiO2 06/11/16 12:25 70 06/11/16 11:24 98.0 29 148/78 98 06/11/16 11:15 45 06/10/16 18:00 Mechanical Ventilator Trach Collar Intake and Output 06/10/16 06/10/16 06/11/16 14:59 22:59 06:59 Intake Total 50 ml 1180 ml 1180 ml Balance 50 ml 1180 ml 1180 ml Results Result Diagram: 06/11/16 0550 06/11/16 0550 Results 24 hrs Laboratory Tests Test 06/11/16 05:00 06/11/16 05:50 Arterial Blood HCO3 26.4 H Arterial Blood Base Excess 2.2 Arterial Blood Oxygen Saturation 93.6 L Zack Test ACCEPTAB Arterial Blood Gas Puncture Site Left Radial Arterial Blood Carboxyhemoglobin 0.3 Arterial Blood Date Drawn 06/11/2016 6:10:00 AM Arterial Blood Methemoglobin 0.3 Arterial Blood pCO2 (Temp correct) 39.7 Arterial Blood pH (Temp corrected) 7.441 Arterial Blood pO2 (Temp corrected) 70.0 L Blood Gas A-a O2 Differential 205.7 H Blood Gas Actual Respiration Rate 16 Blood Gas Inspiratory Pressure 27.0 Blood Gas Low PEEP Setting 5.0 Blood Gas Modality VENT - AC Blood Gas Notified Time 06/11/2016 6:25:00 AM Blood Gas Notified Whom RTR Blood Gas Respiration Rate 16.0 Blood Gas Specimen Source Blood arterial Blood Gas Temperature 37.0 Blood Gas Tidal Volume 550.0 FiO2 45.0 Oxyhemoglobin Percent 93.0 Total Hemoglobin 12.6 Activated Partial Thromboplast Time 21.4 L Anion Gap 19 H Basophils # 0.1 Basophils % 0.9 Blood Urea Nitrogen 22 H Calcium Level 9.4 Carbon Dioxide Level 26 Chloride Level 102 Creatinine 0.72 Eosinophils # 0.4 Eosinophils % 4.3 Glucose Level 103 Hematocrit 37.9 L Hemoglobin 11.7 L INR International Normalized Ratio 0.98 Lymphocytes # 2.1 Lymphocytes % 24.3 Mean Corpuscular Hemoglobin 26.2 L Mean Corpuscular Hemoglobin Concent 30.9 L Mean Corpuscular Volume 85.0 Mean Platelet Volume 10.9 H Monocytes # 0.6 Monocytes % 7.6 Neutrophils # 5.3 Neutrophils % 62.3 Nucleated Red Blood Cells # 0.0 Nucleated Red Blood Cells % 0.0 Platelet Count 597 H Potassium Level 5.1 Prothrombin Time 13.0 Prothrombin Time Ratio 1.0 Red Blood Count 4.46 L Red Cell Distribution Width 17.5 H Sodium Level 142 White Blood Count 8.5 # Medications Medications Current Medications Morphine Sulfate (morphine) 2 mg Q4H PRN IV SEVERE PAIN LEVEL 7-10 Last administered on 06/10/16 05:51; Admin Dose 2 MG; Start 05/27/16 at 08:00 Heparin Sodium (Porcine) (Heparin (5000 Units/0.5 ml)) 5,000 unit Q12 SC Last administered on 06/11/16 08:45; Admin Dose 5,000 UNIT; Start 05/27/16 at 09:00 Acetaminophen/ Codeine Phosphate (Tylenol No.3) 1 tab Q12 GTB Last administered on 06/11/16 08:57; Admin Dose 1 TAB; Start 05/27/16 at 09:00 Acetaminophen (Tylenol Liquid) 650 mg Q4H PRN GTB PAIN AND OR ELEVATED TEMP Last administered on 06/04/16 13:58; Admin Dose 650 MG; Start 05/27/16 at 08:00 Albuterol (Proventil 0.083% (Neb)) 2.5 mg Q6 PRN NEB WHEEZING AND SOB Last administered on 06/09/16 13:35; Admin Dose 2.5 MG; Start 05/27/16 at 08:00 Aspirin (Aspirin) 81 mg DAILY GTB Last administered on 06/11/16 08:35; Admin Dose 81 MG; Start 05/27/16 at 09:00 Atenolol (Tenormin) 25 mg DAILY GTB Last administered on 06/11/16 08:35; Admin Dose 25 MG; Start 05/27/16 at 09:00 Bisacodyl (Dulcolax Supp) 10 mg Q24H PRN [place] constipation; Start 05/27/16 at 08: 00 Diphenhydramine HCl (Benadryl) 25 mg Q6H PRN GTB ITCHING Last administered on 20:11; Admin Dose 25 MG; Start 05/27/16 at 08:00 Docusate Sodium (Colace Liquid Cup) 100 mg QHS PRN GTB CONSTIPATION; Start at 08:00 Hydroxyzine HCl (Atarax) 25 mg TID GTB Last administered on 06/11/16 08:35; Admin Dose 25 MG; Start 05/27/16 at 09:00 Multivitamins Therapeutic (Theragran) 1 tab DAILY GTB Last administered on 08:35; Admin Dose 1 TAB; Start 05/27/16 at 09:00 Famotidine (Pepcid) 20 mg BID GTB Last administered on 06/11/16 08:35; Admin Dose 20 MG; Start 05/31/16 at 21:00 Levetiracetam (Keppra Liquid) 750 mg BID GTB Last administered on 06/11/16 08: 35; Admin Dose 750 MG; Start 06/03/16 at 09:00 Lorazepam 1 mg 1 mg Q4 PRN PO ANXIETY Last administered on 06/08/16 04:27; Admin Dose 1 MG; Start 06/04/16 at 05:30 Ceftazidime (Fortaz 1gm/50 ml (Pmx)) 50 ml @ 100 mls/hr Q8 IVPB Last administered on 06/11/16 06:31; Admin Dose 100 MLS/HR; Start 06/04/16 at 14:00 STEPHEN CARRASQUILLO NP Jun 11, 2016 12:52
[2016-06-12] VITALS (28 sets, daily range): BP systolic 115–140; BP diastolic 58–87; PULSE 66–81; RESP 15–31
[2016-06-12] MEDS: CEFTAZIDIME 1GM/50 ML (PMX) 50 ML IVPB SCH ×3 (05:34→21:07)
[2016-06-12] MEDS: FAMOTIDINE 20 MG TAB GTB SCH ×2 (09:06→21:07)
[2016-06-12] MEDS: ATENOLOL 25 MG TAB GTB SCH (09:06)
[2016-06-12] MEDS: ASPIRIN 81 MG TAB GTB SCH (09:06)
[2016-06-12] MEDS: LEVETIRACETAM (100 MG/ML) 5ML CUP GTB SCH ×2 (09:07→21:06)
[2016-06-12] MEDS: hydrOXYzine HCL 25 MG TAB GTB SCH ×3 (09:07→21:06)
[2016-06-12] MEDS: ACETAMINOPHEN/CODEINE #3 TAB GTB SCH ×2 (09:07→21:07)
[2016-06-12] MEDS: MULTIVITAMINS THERAPEUTIC TAB GTB SCH (09:07)
[2016-06-12] MEDS: HEPARIN 5,000 UNIT/0.5 ML SYG SC SCH ×2 (09:14→21:08)
--- NOTE | 2016-06-12 10:10 | PN ---
Date/Time of Note Date/Time of Note DATE: 06/12/16 TIME: 10:07 Assessment/Plan VTE Prophylaxis VTE Prophylaxis Intervention: heparin Lines/Catheters IV Catheter Type (from Nrs): Saline Lock Urinary Cath still in place: No Assessment/Plan Assessment/Plan 1. Sepsis 2/2 HCAP-stable - Continue antibiotics as per Infectious Disease. 2. Acute on chronic respiratory failure. The patient is status post tracheostomy and did have a leak which is now stable -Pulmonary on the case -pt is still requiring High FiO2, RT to wean down as tolerated, heavy secretions reported 3. Seizure disorder. Continue anticonvulsants. 4. Chronic bedridden status. Continue supportive care. Continue turn schedule q.2 hours. 5. Hyperkalemia. 6. Microcytic hypochromic anemia. 7. Fluid, electrolytes, and nutrition. 8. Anemia of chronic Dz 9. Essential hypertension. Continue antihypertensives Dispo- restraints renewed, sepsis appears to now be resolving , on restraints, will have to give some medication to calm his down PPx- Heparin will add seroquel 12.5 mg QHS for agitation and release restraints as needed Subjective 24 Hr Interval Summary Free Text/Dictation pt still requiring restraints, he has been pulling out his lines and tubes Exam/Review of Systems Vital Signs Vitals Vital Signs Date Time Temp Pulse Resp B/P Pulse Ox O2 Delivery O2 Flow Rate FiO2 06/12/16 08:50 74 06/12/16 08:13 98.7 18 127/68 72 06/12/16 05:12 45 06/12/16 04:00 Mechanical Ventilator Intake and Output 06/11/16 06/11/16 06/12/16 15:00 23:00 07:00 Intake Total 1180 ml 1180 ml Balance 1180 ml 1180 ml Results Result Diagram: 06/11/16 0550 06/11/16 0550 Medications Medications Current Medications Morphine Sulfate (morphine) 2 mg Q4H PRN IV SEVERE PAIN LEVEL 7-10 Last administered on 06/10/16 05:51; Admin Dose 2 MG; Start 05/27/16 at 08:00 Heparin Sodium (Porcine) (Heparin (5000 Units/0.5 ml)) 5,000 unit Q12 SC Last administered on 06/12/16 09:14; Admin Dose 5,000 UNIT; Start 05/27/16 at 09:00 Acetaminophen/ Codeine Phosphate (Tylenol No.3) 1 tab Q12 GTB Last administered on 06/12/16 09:07; Admin Dose 1 TAB; Start 05/27/16 at 09:00 Acetaminophen (Tylenol Liquid) 650 mg Q4H PRN GTB PAIN AND OR ELEVATED TEMP Last administered on 06/04/16 13:58; Admin Dose 650 MG; Start 05/27/16 at 08:00 Albuterol (Proventil 0.083% (Neb)) 2.5 mg Q6 PRN NEB WHEEZING AND SOB Last administered on 06/09/16 13:35; Admin Dose 2.5 MG; Start 05/27/16 at 08:00 Aspirin (Aspirin) 81 mg DAILY GTB Last administered on 06/12/16 09:06; Admin Dose 81 MG; Start 05/27/16 at 09:00 Atenolol (Tenormin) 25 mg DAILY GTB Last administered on 06/12/16 09:06; Admin Dose 25 MG; Start 05/27/16 at 09:00 Bisacodyl (Dulcolax Supp) 10 mg Q24H PRN [place] constipation; Start 05/27/16 at 08: 00 Diphenhydramine HCl (Benadryl) 25 mg Q6H PRN GTB ITCHING Last administered on 20:11; Admin Dose 25 MG; Start 05/27/16 at 08:00 Docusate Sodium (Colace Liquid Cup) 100 mg QHS PRN GTB CONSTIPATION; Start at 08:00 Hydroxyzine HCl (Atarax) 25 mg TID GTB Last administered on 06/12/16 09:07; Admin Dose 25 MG; Start 05/27/16 at 09:00 Multivitamins Therapeutic (Theragran) 1 tab DAILY GTB Last administered on 09:07; Admin Dose 1 TAB; Start 05/27/16 at 09:00 Famotidine (Pepcid) 20 mg BID GTB Last administered on 06/12/16 09:06; Admin Dose 20 MG; Start 05/31/16 at 21:00 Levetiracetam (Keppra Liquid) 750 mg BID GTB Last administered on 06/12/16 09: 07; Admin Dose 750 MG; Start 06/03/16 at 09:00 Lorazepam 1 mg 1 mg Q4 PRN PO ANXIETY Last administered on 06/08/16 04:27; Admin Dose 1 MG; Start 06/04/16 at 05:30 Ceftazidime (Fortaz 1gm/50 ml (Pmx)) 50 ml @ 100 mls/hr Q8 IVPB Last administered on 06/12/16 05:34; Admin Dose 100 MLS/HR; Start 06/04/16 at 14:00 RALPH LEÓN MD Jun 12, 2016 10:10
--- NOTE | 2016-06-12 12:16 | CONS ---
Date/Time of Note Date/Time of Note DATE: 06/12/16 TIME: 12:15 Assessment/Plan Assessment/Plan Chief Complaint/Hosp Course SUBJECTIVE: No events overnight. No fevers, looks comfortable ANTIMICROBIALS: Fortaz. INDWELLINGS: Trach, PEG, colostomy. PHYSICAL EXAMINATION: GENERAL: This is a fragile, elderly man who is lying comfortably in bed. HEENT: Head atraumatic, normocephalic. Sclerae anicteric. Buccal mucosa dry. NECK: Supple. Tracheostomy present. CHEST: Rise symmetrical. Breath sounds diminished to bases. HEART: S1, S2. ABDOMEN: Soft. Bowel tones hypoactive. EXTREMITIES: No cyanosis. ASSESSMENT: 1. Sepsis== resolving. 2. Healthcare-associated pneumonia. 3. Chronic respiratory failure. 4. History of colostomy, rule out C difficile with liquid stool. 5. Chronic encephalopathy. PLAN: Remains stable. Completing abx DW staff Problems: Consultation Date/Type/Reason Admit Date/Time May 27, 2016 at 04:18 Initial Consult Date 05/27/16 Type of Consultation: ID Exam/Review of Systems Vital Signs Vitals Vital Signs Date Time Temp Pulse Resp B/P Pulse Ox O2 Delivery O2 Flow Rate FiO2 06/12/16 11:46 98.2 66 18 137/65 98 06/12/16 10:47 45 06/12/16 04:00 Mechanical Ventilator Intake and Output 06/11/16 06/11/16 06/12/16 15:00 23:00 07:00 Intake Total 1180 ml 1180 ml Balance 1180 ml 1180 ml Results Result Diagram: 06/11/16 0550 06/11/16 0550 Medications Medications Current Medications Morphine Sulfate (morphine) 2 mg Q4H PRN IV SEVERE PAIN LEVEL 7-10 Last administered on 06/10/16 05:51; Admin Dose 2 MG; Start 05/27/16 at 08:00 Heparin Sodium (Porcine) (Heparin (5000 Units/0.5 ml)) 5,000 unit Q12 SC Last administered on 06/12/16 09:14; Admin Dose 5,000 UNIT; Start 05/27/16 at 09:00 Acetaminophen/ Codeine Phosphate (Tylenol No.3) 1 tab Q12 GTB Last administered on 06/12/16 09:07; Admin Dose 1 TAB; Start 05/27/16 at 09:00 Acetaminophen (Tylenol Liquid) 650 mg Q4H PRN GTB PAIN AND OR ELEVATED TEMP Last administered on 06/04/16 13:58; Admin Dose 650 MG; Start 05/27/16 at 08:00 Albuterol (Proventil 0.083% (Neb)) 2.5 mg Q6 PRN NEB WHEEZING AND SOB Last administered on 06/09/16 13:35; Admin Dose 2.5 MG; Start 05/27/16 at 08:00 Aspirin (Aspirin) 81 mg DAILY GTB Last administered on 06/12/16 09:06; Admin Dose 81 MG; Start 05/27/16 at 09:00 Atenolol (Tenormin) 25 mg DAILY GTB Last administered on 06/12/16 09:06; Admin Dose 25 MG; Start 05/27/16 at 09:00 Bisacodyl (Dulcolax Supp) 10 mg Q24H PRN [place] constipation; Start 05/27/16 at 08: 00 Diphenhydramine HCl (Benadryl) 25 mg Q6H PRN GTB ITCHING Last administered on 20:11; Admin Dose 25 MG; Start 05/27/16 at 08:00 Docusate Sodium (Colace Liquid Cup) 100 mg QHS PRN GTB CONSTIPATION; Start at 08:00 Hydroxyzine HCl (Atarax) 25 mg TID GTB Last administered on 06/12/16 09:07; Admin Dose 25 MG; Start 05/27/16 at 09:00 Multivitamins Therapeutic (Theragran) 1 tab DAILY GTB Last administered on 09:07; Admin Dose 1 TAB; Start 05/27/16 at 09:00 Famotidine (Pepcid) 20 mg BID GTB Last administered on 06/12/16 09:06; Admin Dose 20 MG; Start 05/31/16 at 21:00 Levetiracetam (Keppra Liquid) 750 mg BID GTB Last administered on 06/12/16 09: 07; Admin Dose 750 MG; Start 06/03/16 at 09:00 Lorazepam 1 mg 1 mg Q4 PRN PO ANXIETY Last administered on 06/08/16 04:27; Admin Dose 1 MG; Start 06/04/16 at 05:30 Ceftazidime (Fortaz 1gm/50 ml (Pmx)) 50 ml @ 100 mls/hr Q8 IVPB Last administered on 06/12/16t 05:34; Admin Dose 100 MLS/HR; Start 06/04/16 at 14:00 Quetiapine Fumarate (Seroquel) 12.5 mg QHS PO ; Start 06/12/16 at 21:00 STEPHEN CARRASQUILLO NP Jun 12, 2016 12:16
--- NOTE | 2016-06-12 13:39 | CONS ---
Date/Time of Note Date/Time of Note DATE: 06/12/16 TIME: 13:35 Assessment/Plan Assessment/Plan Additional Assessment/Plan Ventilator settings; AC of 16, tidal volume 550, PEEP of 5, 45% FiO2. Assessment recommendations; 1. Patient admitted with right lower lobe pneumonia due to pseudomonas aeruginosa, currently on appropriate antibiotic regimen. 2. History of left-sided CVA patient remains ventilator dependent. 3. Stable seizure disorder. Continue current supportive care. Consultation Date/Type/Reason Admit Date/Time May 27, 2016 at 04:18 Initial Consult Date 05/27/16 Type of Consultation: Pulmonary 24 HR Interval Summary Free Text/Dictation Patient condition is stable. Remains awake and alert. Remained hemodynamically stable. General exam; elderly male, currently in no distress. Awake and alert. Exam/Review of Systems Vital Signs Vitals Vital Signs Date Time Temp Pulse Resp B/P Pulse Ox O2 Delivery O2 Flow Rate FiO2 06/12/16 12:37 66 06/12/16 11:46 98.2 18 137/65 98 06/12/16 10:47 45 06/12/16 04:00 Mechanical Ventilator Intake and Output 06/11/16 06/11/16 06/12/16 15:00 23:00 07:00 Intake Total 1180 ml 1180 ml Balance 1180 ml 1180 ml Exam H EENT examination; supple neck, no JVD. No lymphadenopathy. Midline trachea. No thyromegaly. Tracheostomy in place. Chest examination; diminished but clear breath sounds bilaterally. S1-S2 audible, no murmurs. Regular rhythm. Abdomen examination; soft, G-tube in place. Bowel sounds audible. Nontender. No organomegaly. Extremity examination; no peripheral edema. CASH REGISTER REPAIRER examination; patient is stable left hemiplegia. Results Result Diagram: 06/11/16 0550 06/11/16 0550 Medications Medications Current Medications Morphine Sulfate (morphine) 2 mg Q4H PRN IV SEVERE PAIN LEVEL 7-10 Last administered on 06/10/16 05:51; Admin Dose 2 MG; Start 05/27/16 at 08:00 Heparin Sodium (Porcine) (Heparin (5000 Units/0.5 ml)) 5,000 unit Q12 SC Last administered on 06/12/16 09:14; Admin Dose 5,000 UNIT; Start 05/27/16 at 09:00 Acetaminophen/ Codeine Phosphate (Tylenol No.3) 1 tab Q12 GTB Last administered on 06/12/16 09:07; Admin Dose 1 TAB; Start 05/27/16 at 09:00 Acetaminophen (Tylenol Liquid) 650 mg Q4H PRN GTB PAIN AND OR ELEVATED TEMP Last administered on 06/04/16 13:58; Admin Dose 650 MG; Start 05/27/16 at 08:00 Albuterol (Proventil 0.083% (Neb)) 2.5 mg Q6 PRN NEB WHEEZING AND SOB Last administered on 06/09/16 13:35; Admin Dose 2.5 MG; Start 05/27/16 at 08:00 Aspirin (Aspirin) 81 mg DAILY GTB Last administered on 06/12/16 09:06; Admin Dose 81 MG; Start 05/27/16 at 09:00 Atenolol (Tenormin) 25 mg DAILY GTB Last administered on 06/12/16 09:06; Admin Dose 25 MG; Start 05/27/16 at 09:00 Bisacodyl (Dulcolax Supp) 10 mg Q24H PRN [place] constipation; Start 05/27/16 at 08: 00 Diphenhydramine HCl (Benadryl) 25 mg Q6H PRN GTB ITCHING Last administered on 20:11; Admin Dose 25 MG; Start 05/27/16 at 08:00 Docusate Sodium (Colace Liquid Cup) 100 mg QHS PRN GTB CONSTIPATION; Start at 08:00 Hydroxyzine HCl (Atarax) 25 mg TID GTB Last administered on 06/12/16 13:22; Admin Dose 25 MG; Start 05/27/16 at 09:00 Multivitamins Therapeutic (Theragran) 1 tab DAILY GTB Last administered on 09:07; Admin Dose 1 TAB; Start 05/27/16 at 09:00 Famotidine (Pepcid) 20 mg BID GTB Last administered on 06/12/16 09:06; Admin Dose 20 MG; Start 05/31/16 at 21:00 Levetiracetam (Keppra Liquid) 750 mg BID GTB Last administered on 06/12/16 09: 07; Admin Dose 750 MG; Start 06/03/16 at 09:00 Lorazepam 1 mg 1 mg Q4 PRN PO ANXIETY Last administered on 06/08/16 04:27; Admin Dose 1 MG; Start 06/04/16 at 05:30 Ceftazidime (Fortaz 1gm/50 ml (Pmx)) 50 ml @ 100 mls/hr Q8 IVPB Last administered on 06/12/16 13:22; Admin Dose 100 MLS/HR; Start 06/04/16 at 14:00 Quetiapine Fumarate (Seroquel) 12.5 mg QHS PO ; Start 06/12/16 at 21:00 MAURISIO CHEUNG Jun 12, 2016 13:39
[2016-06-12] MEDS ORDERED: QUETIAPINE 25 MG TAB PO SCH (21:00)
[2016-06-13] VITALS (27 sets, daily range): BP systolic 113–134; BP diastolic 54–72; PULSE 67–82; RESP 16–21
[2016-06-13] MEDS: CEFTAZIDIME 1GM/50 ML (PMX) 50 ML IVPB SCH ×3 (06:17→21:55)
[2016-06-13] MEDS: ASPIRIN 81 MG TAB GTB SCH (09:08)
[2016-06-13] MEDS: MULTIVITAMINS THERAPEUTIC TAB GTB SCH (09:08)
[2016-06-13] MEDS: hydrOXYzine HCL 25 MG TAB GTB SCH ×3 (09:09→21:51)
[2016-06-13] MEDS: ACETAMINOPHEN/CODEINE #3 TAB GTB SCH ×2 (09:09→21:56)
[2016-06-13] MEDS: FAMOTIDINE 20 MG TAB GTB SCH ×2 (09:09→21:51)
[2016-06-13] MEDS: LEVETIRACETAM (100 MG/ML) 5ML CUP GTB SCH ×2 (09:09→21:51)
[2016-06-13] MEDS: ATENOLOL 25 MG TAB GTB SCH (09:10)
[2016-06-13] MEDS: HEPARIN 5,000 UNIT/0.5 ML SYG SC SCH ×2 (09:31→21:53)
--- NOTE | 2016-06-13 12:03 | CONS ---
Date/Time of Note Date/Time of Note DATE: 06/13/16 TIME: 11:58 Assessment/Plan Assessment/Plan Additional Assessment/Plan Ventilator settings history of 16, tidal volume 550, PEEP of 5, 45% FiO2. Assessment recommendations; 1. Patient admitted for right lower lobe pneumonia. patient initially improved clinically but then had superinfection. Currently on appropriate antibiotic regimen. 2. Chronic respiratory failure, ventilator dependent. 3. Stable seizure disorder. 4. History of CVA with dense left hemiplegia. Continue current supportive care. Continue current antibiotics, ventilator settings. Consultation Date/Type/Reason Admit Date/Time May 27, 2016 at 04:18 Initial Consult Date 05/27/16 Type of Consultation: Pulmonary 24 HR Interval Summary Free Text/Dictation Patient's condition remains stable. Has remained hemodynamically stable. General exam; elderly male, on ventilator via tracheostomy awake and alert. Exam/Review of Systems Vital Signs Vitals Vital Signs Date Time Temp Pulse Resp B/P Pulse Ox O2 Delivery O2 Flow Rate FiO2 06/13/16 11:23 68 18 97 45 06/13/16 10:50 97.8 121/63 06/13/16 06:00 Mechanical Ventilator Intake and Output 06/12/16 06/12/16 06/13/16 15:00 23:00 07:00 Intake Total 1180 ml 1180 ml Balance 1180 ml 1180 ml Exam HEENT examination; supple neck, no JVD. No lymphadenopathy. Tracheostomy in place. Insertion site is clean. Patient has fair dentition. Chest examination; diminished but clear breath sounds. S1-S2 audible, no murmurs. Regular rhythm. Abdomen examination; soft, G-tube in place. Bowel sounds audible. Nondistended abdomen. Extremity examination; no peripheral edema. SHANK RANDER examination; patient is stable left hemiplegia. Results Result Diagram: 06/11/16 0550 06/11/16 0550 Medications Medications Current Medications Morphine Sulfate (morphine) 2 mg Q4H PRN IV SEVERE PAIN LEVEL 7-10 Last administered on 06/10/16 05:51; Admin Dose 2 MG; Start 05/27/16 at 08:00 Heparin Sodium (Porcine) (Heparin (5000 Units/0.5 ml)) 5,000 unit Q12 SC Last administered on 06/13/16 09:31; Admin Dose 5,000 UNIT; Start 05/27/16 at 09:00 Acetaminophen/ Codeine Phosphate (Tylenol No.3) 1 tab Q12 GTB Last administered on 06/13/16 09:09; Admin Dose 1 TAB; Start 05/27/16 at 09:00 Acetaminophen (Tylenol Liquid) 650 mg Q4H PRN GTB PAIN AND OR ELEVATED TEMP Last administered on 06/04/16 13:58; Admin Dose 650 MG; Start 05/27/16 at 08:00 Albuterol (Proventil 0.083% (Neb)) 2.5 mg Q6 PRN NEB WHEEZING AND SOB Last administered on 06/09/16 13:35; Admin Dose 2.5 MG; Start 05/27/16 at 08:00 Aspirin (Aspirin) 81 mg DAILY GTB Last administered on 06/13/16 09:08; Admin Dose 81 MG; Start 05/27/16 at 09:00 Atenolol (Tenormin) 25 mg DAILY GTB Last administered on 06/13/16 09:10; Admin Dose 25 MG; Start 05/27/16 at 09:00 Bisacodyl (Dulcolax Supp) 10 mg Q24H PRN [place] constipation; Start 05/27/16 at 08: 00 Diphenhydramine HCl (Benadryl) 25 mg Q6H PRN GTB ITCHING Last administered on 20:11; Admin Dose 25 MG; Start 05/27/16 at 08:00 Docusate Sodium (Colace Liquid Cup) 100 mg QHS PRN GTB CONSTIPATION; Start at 08:00 Hydroxyzine HCl (Atarax) 25 mg TID GTB Last administered on 06/13/16 09:09; Admin Dose 25 MG; Start 05/27/16 at 09:00 Multivitamins Therapeutic (Theragran) 1 tab DAILY GTB Last administered on 09:08; Admin Dose 1 TAB; Start 05/27/16 at 09:00 Famotidine (Pepcid) 20 mg BID GTB Last administered on 06/13/16 09:09; Admin Dose 20 MG; Start 05/31/16 at 21:00 Levetiracetam (Keppra Liquid) 750 mg BID GTB Last administered on 06/13/16 09: 09; Admin Dose 750 MG; Start 06/03/16 at 09:00 Lorazepam 1 mg 1 mg Q4 PRN PO ANXIETY Last administered on 06/08/16 04:27; Admin Dose 1 MG; Start 06/04/16 at 05:30 Ceftazidime (Fortaz 1gm/50 ml (Pmx)) 50 ml @ 100 mls/hr Q8 IVPB Last administered on 06/13/16 06:17; Admin Dose 100 MLS/HR; Start 06/04/16 at 14:00 Quetiapine Fumarate (Seroquel) 12.5 mg QHS PO Last administered on 06/12/16 21: 06; Admin Dose 12.5 MG; Start 06/12/16 at 21:00 MAURISIO CHEUNG Jun 13, 2016 12:03
--- NOTE | 2016-06-13 13:42 | CONS ---
Date/Time of Note Date/Time of Note DATE: 06/13/16 TIME: 13:41 Assessment/Plan Assessment/Plan Chief Complaint/Hosp Course SUBJECTIVE: No events overnight. No fevers, looks comfortable ANTIMICROBIALS: Fortaz. INDWELLINGS: Trach, PEG, colostomy. PHYSICAL EXAMINATION: GENERAL: This is a fragile, elderly man who is lying comfortably in bed. HEENT: Head atraumatic, normocephalic. Sclerae anicteric. Buccal mucosa dry. NECK: Supple. Tracheostomy present. CHEST: Rise symmetrical. Breath sounds diminished to bases. HEART: S1, S2. ABDOMEN: Soft. Bowel tones hypoactive. EXTREMITIES: No cyanosis. ASSESSMENT: 1. Sepsis== resolving. 2. Healthcare-associated pneumonia. 3. Chronic respiratory failure. 4. History of colostomy, rule out C difficile with liquid stool. 5. Chronic encephalopathy. PLAN: Remains stable. Completing abx DW staff Problems: Consultation Date/Type/Reason Admit Date/Time May 27, 2016 at 04:18 Initial Consult Date 05/27/16 Type of Consultation: ID Exam/Review of Systems Vital Signs Vitals Vital Signs Date Time Temp Pulse Resp B/P Pulse Ox O2 Delivery O2 Flow Rate FiO2 06/13/16 13:21 67 21 99 45 06/13/16 12:15 97.9 117/68 06/13/16 06:00 Mechanical Ventilator Intake and Output 06/12/16 06/12/16 06/13/16 15:00 23:00 07:00 Intake Total 1180 ml 1180 ml Balance 1180 ml 1180 ml Results Result Diagram: 06/11/16 0550 06/11/16 0550 Medications Medications Current Medications Morphine Sulfate (morphine) 2 mg Q4H PRN IV SEVERE PAIN LEVEL 7-10 Last administered on 06/10/16 05:51; Admin Dose 2 MG; Start 05/27/16 at 08:00 Heparin Sodium (Porcine) (Heparin (5000 Units/0.5 ml)) 5,000 unit Q12 SC Last administered on 06/13/16 09:31; Admin Dose 5,000 UNIT; Start 05/27/16 at 09:00 Acetaminophen/ Codeine Phosphate (Tylenol No.3) 1 tab Q12 GTB Last administered on 06/13/16 09:09; Admin Dose 1 TAB; Start 05/27/16 at 09:00 Acetaminophen (Tylenol Liquid) 650 mg Q4H PRN GTB PAIN AND OR ELEVATED TEMP Last administered on 06/04/16 13:58; Admin Dose 650 MG; Start 05/27/16 at 08:00 Albuterol (Proventil 0.083% (Neb)) 2.5 mg Q6 PRN NEB WHEEZING AND SOB Last administered on 06/09/16 13:35; Admin Dose 2.5 MG; Start 05/27/16 at 08:00 Aspirin (Aspirin) 81 mg DAILY GTB Last administered on 06/13/16 09:08; Admin Dose 81 MG; Start 05/27/16 at 09:00 Atenolol (Tenormin) 25 mg DAILY GTB Last administered on 06/13/16 09:10; Admin Dose 25 MG; Start 05/27/16 at 09:00 Bisacodyl (Dulcolax Supp) 10 mg Q24H PRN [place] constipation; Start 05/27/16 at 08: 00 Diphenhydramine HCl (Benadryl) 25 mg Q6H PRN GTB ITCHING Last administered on 20:11; Admin Dose 25 MG; Start 05/27/16 at 08:00 Docusate Sodium (Colace Liquid Cup) 100 mg QHS PRN GTB CONSTIPATION; Start at 08:00 Hydroxyzine HCl (Atarax) 25 mg TID GTB Last administered on 06/13/16 09:09; Admin Dose 25 MG; Start 05/27/16 at 09:00 Multivitamins Therapeutic (Theragran) 1 tab DAILY GTB Last administered on 09:08; Admin Dose 1 TAB; Start 05/27/16 at 09:00 Famotidine (Pepcid) 20 mg BID GTB Last administered on 06/13/16 09:09; Admin Dose 20 MG; Start 05/31/16 at 21:00 Levetiracetam (Keppra Liquid) 750 mg BID GTB Last administered on 06/13/16 09: 09; Admin Dose 750 MG; Start 06/03/16 at 09:00 Lorazepam 1 mg 1 mg Q4 PRN PO ANXIETY Last administered on 06/08/16 04:27; Admin Dose 1 MG; Start 06/04/16 at 05:30 Ceftazidime (Fortaz 1gm/50 ml (Pmx)) 50 ml @ 100 mls/hr Q8 IVPB Last administered on 06/13/16t 06:17; Admin Dose 100 MLS/HR; Start 06/04/16 at 14:00 Quetiapine Fumarate (Seroquel) 12.5 mg BID PO ; Start 06/13/16 at 12:30 STEPHEN CARRASQUILLO NP Jun 13, 2016 13:42
[2016-06-13] MEDS: QUETIAPINE 25 MG TAB PO SCH ×2 (14:30→21:51)
--- NOTE | 2016-06-13 21:49 | PN ---
Date/Time of Note Date/Time of Note DATE: 06/13/16 TIME: 21:47 Assessment/Plan VTE Prophylaxis VTE Prophylaxis Intervention: heparin Lines/Catheters IV Catheter Type (from Nrs): Saline Lock Urinary Cath still in place: No Assessment/Plan Assessment/Plan 1. Sepsis 2/2 HCAP-stable 2. Acute on chronic respiratory failure. The patient is status post tracheostomy and did have a leak which is now stable- pulmonary has been following 3. Seizure disorder. Continue anticonvulsants. 4. Chronic bedridden status. Continue supportive care. Continue turn schedule q.2 hours. 5. Hyperkalemia. 6. Microcytic hypochromic anemia. 7. Fluid, electrolytes, and nutrition. 8. Anemia of chronic Dz 9. Essential hypertension. Continue antihypertensives Dispo- restraints renewed, sepsis appears to now be resolving , on restraints, will have to give some medication to calm his down PPx- Heparin increase seroquel to 12,5 mg PO BID for agitation and release restraints as needed Subjective 24 Hr Interval Summary Free Text/Dictation pt still requires restraints, difficult placement, on seroquel Exam/Review of Systems Vital Signs Vitals Vital Signs Date Time Temp Pulse Resp B/P Pulse Ox O2 Delivery O2 Flow Rate FiO2 06/13/16 20:41 73 06/13/16 19:49 98.9 21 114/61 98 06/13/16 17:20 45 06/13/16 06:00 Mechanical Ventilator Intake and Output 06/12/16 06/12/16 06/13/16 15:00 23:00 07:00 Intake Total 1180 ml 1180 ml Balance 1180 ml 1180 ml Results Result Diagram: 06/11/16 0550 06/11/16 0550 Medications Medications Current Medications Morphine Sulfate (morphine) 2 mg Q4H PRN IV SEVERE PAIN LEVEL 7-10 Last administered on 06/10/16 05:51; Admin Dose 2 MG; Start 05/27/16 at 08:00 Heparin Sodium (Porcine) (Heparin (5000 Units/0.5 ml)) 5,000 unit Q12 SC Last administered on 06/13/16 09:31; Admin Dose 5,000 UNIT; Start 05/27/16 at 09:00 Acetaminophen/ Codeine Phosphate (Tylenol No.3) 1 tab Q12 GTB Last administered on 06/13/16 09:09; Admin Dose 1 TAB; Start 05/27/16 at 09:00 Acetaminophen (Tylenol Liquid) 650 mg Q4H PRN GTB PAIN AND OR ELEVATED TEMP Last administered on 06/04/16 13:58; Admin Dose 650 MG; Start 05/27/16 at 08:00 Albuterol (Proventil 0.083% (Neb)) 2.5 mg Q6 PRN NEB WHEEZING AND SOB Last administered on 06/09/16 13:35; Admin Dose 2.5 MG; Start 05/27/16 at 08:00 Aspirin (Aspirin) 81 mg DAILY GTB Last administered on 06/13/16 09:08; Admin Dose 81 MG; Start 05/27/16 at 09:00 Atenolol (Tenormin) 25 mg DAILY GTB Last administered on 06/13/16 09:10; Admin Dose 25 MG; Start 05/27/16 at 09:00 Bisacodyl (Dulcolax Supp) 10 mg Q24H PRN [place] constipation; Start 05/27/16 at 08: 00 Diphenhydramine HCl (Benadryl) 25 mg Q6H PRN GTB ITCHING Last administered on 20:11; Admin Dose 25 MG; Start 05/27/16 at 08:00 Docusate Sodium (Colace Liquid Cup) 100 mg QHS PRN GTB CONSTIPATION; Start at 08:00 Hydroxyzine HCl (Atarax) 25 mg TID GTB Last administered on 06/13/16 14:30; Admin Dose 25 MG; Start 05/27/16 at 09:00 Multivitamins Therapeutic (Theragran) 1 tab DAILY GTB Last administered on 09:08; Admin Dose 1 TAB; Start 05/27/16 at 09:00 Famotidine (Pepcid) 20 mg BID GTB Last administered on 06/13/16 09:09; Admin Dose 20 MG; Start 05/31/16 at 21:00 Levetiracetam (Keppra Liquid) 750 mg BID GTB Last administered on 06/13/16 09: 09; Admin Dose 750 MG; Start 06/03/16 at 09:00 Lorazepam 1 mg 1 mg Q4 PRN PO ANXIETY Last administered on 06/08/16 04:27; Admin Dose 1 MG; Start 06/04/16 at 05:30 Ceftazidime (Fortaz 1gm/50 ml (Pmx)) 50 ml @ 100 mls/hr Q8 IVPB Last administered on 06/13/16 14:00; Admin Dose 100 MLS/HR; Start 06/04/16 at 14:00 Quetiapine Fumarate (Seroquel) 12.5 mg BID PO Last administered on 06/13/16 14: 30; Admin Dose 12.5 MG; Start 06/13/16 at 12:30 RALPH LEÓN MD Jun 13, 2016 21:49
[2016-06-14] VITALS (30 sets, daily range): BP systolic 106–138; BP diastolic 51–72; PULSE 70–108; RESP 14–26
[2016-06-14] MEDS: CEFTAZIDIME 1GM/50 ML (PMX) 50 ML IVPB SCH ×3 (05:14→21:10)
[2016-06-14] MEDS: MULTIVITAMINS THERAPEUTIC TAB GTB SCH (09:21)
[2016-06-14] MEDS: LEVETIRACETAM (100 MG/ML) 5ML CUP GTB SCH ×2 (09:21→20:36)
[2016-06-14] MEDS: ACETAMINOPHEN/CODEINE #3 TAB GTB SCH ×2 (09:21→20:37)
[2016-06-14] MEDS: ATENOLOL 25 MG TAB GTB SCH (09:21)
[2016-06-14] MEDS: FAMOTIDINE 20 MG TAB GTB SCH ×2 (09:21→20:37)
[2016-06-14] MEDS: QUETIAPINE 25 MG TAB PO SCH ×2 (09:22→20:36)
[2016-06-14] MEDS: hydrOXYzine HCL 25 MG TAB GTB SCH ×3 (09:22→20:37)
[2016-06-14] MEDS: ASPIRIN 81 MG TAB GTB SCH (09:22)
[2016-06-14] MEDS: HEPARIN 5,000 UNIT/0.5 ML SYG SC SCH ×2 (09:23→20:40)
--- NOTE | 2016-06-14 12:16 | PN ---
Date/Time of Note Date/Time of Note DATE: 06/14/16 TIME: 12:15 Assessment/Plan VTE Prophylaxis VTE Prophylaxis Intervention: heparin Lines/Catheters IV Catheter Type (from Nrs): Saline Lock Urinary Cath still in place: No Assessment/Plan Assessment/Plan 1. Sepsis 2/2 HCAP-stable 2. Acute on chronic respiratory failure. The patient is status post tracheostomy and did have a leak which is now stable- pulmonary has been following 3. Seizure disorder. Continue anticonvulsants. 4. Chronic bedridden status. Continue supportive care. Continue turn schedule q.2 hours. 5. Hyperkalemia. 6. Microcytic hypochromic anemia. 7. Fluid, electrolytes, and nutrition. 8. Anemia of chronic Dz 9. Essential hypertension. Continue antihypertensives Dispo- restraints renewed, sepsis appears to now be resolving , on restraints, will have to give some medication to calm his down PPx- Heparin increase seroquel to 12,5 mg PO BID for agitation and release restraints as needed Subjective 24 Hr Interval Summary Free Text/Dictation pt still requiring restraints Exam/Review of Systems Vital Signs Vitals Vital Signs Date Time Temp Pulse Resp B/P Pulse Ox O2 Delivery O2 Flow Rate FiO2 06/14/16 11:26 98.9 85 18 106/51 86 06/14/16 09:17 45 06/14/16 06:00 Mechanical Ventilator Intake and Output 06/13/16 06/13/16 06/14/16 15:00 23:00 07:00 Intake Total 825 ml 1030 ml Balance 825 ml 1030 ml Exam GENERAL: This is a fragile, elderly man who is lying comfortably in bed. HEENT: Head atraumatic, normocephalic. Sclerae anicteric. Buccal mucosa dry. NECK: Supple. Tracheostomy present. CHEST: Rise symmetrical. Breath sounds diminished to bases. HEART: S1, S2. ABDOMEN: Soft. Bowel tones hypoactive. EXTREMITIES: No cyanosis. Results Result Diagram: 06/11/16 0550 06/11/16 0550 Medications Medications Current Medications Morphine Sulfate (morphine) 2 mg Q4H PRN IV SEVERE PAIN LEVEL 7-10 Last administered on 06/10/16t 05:51; Admin Dose 2 MG; Start 05/27/16 at 08:00 Heparin Sodium (Porcine) (Heparin (5000 Units/0.5 ml)) 5,000 unit Q12 SC Last administered on 06/14/16 09:23; Admin Dose 5,000 UNIT; Start 05/27/16 at 09:00 Acetaminophen/ Codeine Phosphate (Tylenol No.3) 1 tab Q12 GTB Last administered on 06/14/16 09:21; Admin Dose 1 TAB; Start 05/27/16 at 09:00 Acetaminophen (Tylenol Liquid) 650 mg Q4H PRN GTB PAIN AND OR ELEVATED TEMP Last administered on 06/04/16 13:58; Admin Dose 650 MG; Start 05/27/16 at 08:00 Albuterol (Proventil 0.083% (Neb)) 2.5 mg Q6 PRN NEB WHEEZING AND SOB Last administered on 06/09/16 13:35; Admin Dose 2.5 MG; Start 05/27/16 at 08:00 Aspirin (Aspirin) 81 mg DAILY GTB Last administered on 06/14/16 09:22; Admin Dose 81 MG; Start 05/27/16 at 09:00 Atenolol (Tenormin) 25 mg DAILY GTB Last administered on 06/14/16 09:21; Admin Dose 25 MG; Start 05/27/16 at 09:00 Bisacodyl (Dulcolax Supp) 10 mg Q24H PRN [place] constipation; Start 05/27/16 at 08: 00 Diphenhydramine HCl (Benadryl) 25 mg Q6H PRN GTB ITCHING Last administered on 20:11; Admin Dose 25 MG; Start 05/27/16 at 08:00 Docusate Sodium (Colace Liquid Cup) 100 mg QHS PRN GTB CONSTIPATION; Start at 08:00 Hydroxyzine HCl (Atarax) 25 mg TID GTB Last administered on 06/14/16 09:22; Admin Dose 25 MG; Start 05/27/16 at 09:00 Multivitamins Therapeutic (Theragran) 1 tab DAILY GTB Last administered on 06/14 09:21; Admin Dose 1 TAB; Start 05/27/16 at 09:00 Famotidine (Pepcid) 20 mg BID GTB Last administered on 06/14/16 09:21; Admin Dose 20 MG; Start 05/31/16 at 21:00 Levetiracetam (Keppra Liquid) 750 mg BID GTB Last administered on 06/14/16 09: 21; Admin Dose 750 MG; Start 06/03/16 at 09:00 Lorazepam 1 mg 1 mg Q4 PRN PO ANXIETY Last administered on 06/08/16 04:27; Admin Dose 1 MG; Start 06/04/16 at 05:30 Ceftazidime (Fortaz 1gm/50 ml (Pmx)) 50 ml @ 100 mls/hr Q8 IVPB Last administered on 06/14/16 05:14; Admin Dose 100 MLS/HR; Start 06/04/16 at 14:00 Quetiapine Fumarate (Seroquel) 12.5 mg BID PO Last administered on 06/14/16 09 :22; Admin Dose 12.5 MG; Start 06/13/16 at 12:30 RALPH LEÓN MD Jun 14, 2016 12:16
--- NOTE | 2016-06-14 12:46 | CONS ---
Date/Time of Note Date/Time of Note DATE: 06/14/16 TIME: 12:45 Assessment/Plan Assessment/Plan Chief Complaint/Hosp Course SUBJECTIVE: No events overnight. No fevers, looks comfortable ANTIMICROBIALS: Fortaz #11. INDWELLINGS: Trach, PEG, colostomy. PHYSICAL EXAMINATION: GENERAL: This is a fragile, elderly man who is lying comfortably in bed. HEENT: Head atraumatic, normocephalic. Sclerae anicteric. Buccal mucosa dry. NECK: Supple. Tracheostomy present. CHEST: Rise symmetrical. Breath sounds diminished to bases. HEART: S1, S2. ABDOMEN: Soft. Bowel tones hypoactive. EXTREMITIES: No cyanosis. ASSESSMENT: 1. S/p sepsis 2. Healthcare-associated pneumonia. 3. Chronic respiratory failure. 4. History of colostomy, rule out C difficile with liquid stool. 5. Chronic encephalopathy. PLAN: Remains stable. Complete abx for 2 more days, pulmonary rec-s DW staff Problems: Consultation Date/Type/Reason Admit Date/Time May 27, 2016 at 04:18 Initial Consult Date 05/27/16 Type of Consultation: ID Exam/Review of Systems Vital Signs Vitals Vital Signs Date Time Temp Pulse Resp B/P Pulse Ox O2 Delivery O2 Flow Rate FiO2 06/14/16 11:35 76 26 96 45 06/14/16 11:26 98.9 106/51 06/14/16 06:00 Mechanical Ventilator Intake and Output 06/13/16 06/13/16 06/14/16 15:00 23:00 07:00 Intake Total 825 ml 1030 ml Balance 825 ml 1030 ml Results Result Diagram: 06/11/16 0550 06/11/16 0550 Medications Medications Current Medications Morphine Sulfate (morphine) 2 mg Q4H PRN IV SEVERE PAIN LEVEL 7-10 Last administered on 06/10/16 05:51; Admin Dose 2 MG; Start 05/27/16 at 08:00 Heparin Sodium (Porcine) (Heparin (5000 Units/0.5 ml)) 5,000 unit Q12 SC Last administered on 06/14/16 09:23; Admin Dose 5,000 UNIT; Start 05/27/16 at 09:00 Acetaminophen/ Codeine Phosphate (Tylenol No.3) 1 tab Q12 GTB Last administered on 06/14/16 09:21; Admin Dose 1 TAB; Start 05/27/16 at 09:00 Acetaminophen (Tylenol Liquid) 650 mg Q4H PRN GTB PAIN AND OR ELEVATED TEMP Last administered on 06/04/16 13:58; Admin Dose 650 MG; Start 05/27/16 at 08:00 Albuterol (Proventil 0.083% (Neb)) 2.5 mg Q6 PRN NEB WHEEZING AND SOB Last administered on 06/09/16 13:35; Admin Dose 2.5 MG; Start 05/27/16 at 08:00 Aspirin (Aspirin) 81 mg DAILY GTB Last administered on 06/14/16 09:22; Admin Dose 81 MG; Start 05/27/16 at 09:00 Atenolol (Tenormin) 25 mg DAILY GTB Last administered on 06/14/16 09:21; Admin Dose 25 MG; Start 05/27/16 at 09:00 Bisacodyl (Dulcolax Supp) 10 mg Q24H PRN [place] constipation; Start 05/27/16 at 08: 00 Diphenhydramine HCl (Benadryl) 25 mg Q6H PRN GTB ITCHING Last administered on 20:11; Admin Dose 25 MG; Start 05/27/16 at 08:00 Docusate Sodium (Colace Liquid Cup) 100 mg QHS PRN GTB CONSTIPATION; Start at 08:00 Hydroxyzine HCl (Atarax) 25 mg TID GTB Last administered on 06/14/16 09:22; Admin Dose 25 MG; Start 05/27/16 at 09:00 Multivitamins Therapeutic (Theragran) 1 tab DAILY GTB Last administered on 06/14 09:21; Admin Dose 1 TAB; Start 05/27/16 at 09:00 Famotidine (Pepcid) 20 mg BID GTB Last administered on 06/14/16 09:21; Admin Dose 20 MG; Start 05/31/16 at 21:00 Levetiracetam (Keppra Liquid) 750 mg BID GTB Last administered on 06/14/16 09: 21; Admin Dose 750 MG; Start 06/03/16 at 09:00 Lorazepam 1 mg 1 mg Q4 PRN PO ANXIETY Last administered on 06/08/16 04:27; Admin Dose 1 MG; Start 06/04/16 at 05:30 Ceftazidime (Fortaz 1gm/50 ml (Pmx)) 50 ml @ 100 mls/hr Q8 IVPB Last administered on 06/14/16 05:14; Admin Dose 100 MLS/HR; Start 06/04/16 at 14:00 Quetiapine Fumarate (Seroquel) 12.5 mg BID PO Last administered on 06/14/16 09 :22; Admin Dose 12.5 MG; Start 06/13/16 at 12:30 STEPHEN CARRASQUILLO NP Jun 14, 2016 12:45
--- NOTE | 2016-06-14 14:25 | CONS ---
Date/Time of Note Date/Time of Note DATE: 06/14/16 TIME: 14:23 Assessment/Plan Assessment/Plan Additional Assessment/Plan Ventilator settings; AC of 16, tidal volume 550, PEEP of 5, 45% FiO2. Assessment recommendations; 1. Patient admitted with severe right-sided pneumonia and had improved initially but then developed superinfection. Pseudomonas aeruginosa isolated from sputum. 2. 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 3. History of hypertension. 4. History of stable seizure disorder. Continue current treatment. Obtain a follow-up chest x-ray tomorrow morning. Consultation Date/Type/Reason Admit Date/Time May 27, 2016 at 04:18 Initial Consult Date 05/27/16 Type of Consultation: Pulmonary 24 HR Interval Summary Free Text/Dictation Patient condition remains stable. Has remained hemodynamically stable. General exam; elderly male, on ventilator via tracheostomy currently in no distress, awake and alert. Exam/Review of Systems Vital Signs Vitals Vital Signs Date Time Temp Pulse Resp B/P Pulse Ox O2 Delivery O2 Flow Rate FiO2 06/14/16 14:00 98.1 89 18 116/62 88 06/14/16 11:35 45 06/14/16 06:00 Mechanical Ventilator Intake and Output 06/13/16 06/13/16 06/14/16 15:00 23:00 07:00 Intake Total 825 ml 1030 ml Balance 825 ml 1030 ml Exam H EENT examination; supple neck, no JVD. No lymphadenopathy. Midline trachea. No thyromegaly. Tracheostomy in place with clean insertion site. Chest examination; diminished breath on lung bases bilaterally upper lobes are clear. S1-S2 audible, no murmurs. Regular rhythm. Abdomen examination; soft, not distended. Nontender. No organomegaly. G-tube in place. Extremity exam is; no peripheral edema. 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 Results Result Diagram: 06/11/16 0550 06/11/16 0550 Medications Medications Current Medications Morphine Sulfate (morphine) 2 mg Q4H PRN IV SEVERE PAIN LEVEL 7-10 Last administered on 06/10/16t 05:51; Admin Dose 2 MG; Start 05/27/16 at 08:00 Heparin Sodium (Porcine) (Heparin (5000 Units/0.5 ml)) 5,000 unit Q12 SC Last administered on 06/14/16 09:23; Admin Dose 5,000 UNIT; Start 05/27/16 at 09:00 Acetaminophen/ Codeine Phosphate (Tylenol No.3) 1 tab Q12 GTB Last administered on 06/14/16 09:21; Admin Dose 1 TAB; Start 05/27/16 at 09:00 Acetaminophen (Tylenol Liquid) 650 mg Q4H PRN GTB PAIN AND OR ELEVATED TEMP Last administered on 06/04/16 13:58; Admin Dose 650 MG; Start 05/27/16 at 08:00 Albuterol (Proventil 0.083% (Neb)) 2.5 mg Q6 PRN NEB WHEEZING AND SOB Last administered on 06/09/16 13:35; Admin Dose 2.5 MG; Start 05/27/16 at 08:00 Aspirin (Aspirin) 81 mg DAILY GTB Last administered on 06/14/16 09:22; Admin Dose 81 MG; Start 05/27/16 at 09:00 Atenolol (Tenormin) 25 mg DAILY GTB Last administered on 06/14/16 09:21; Admin Dose 25 MG; Start 05/27/16 at 09:00 Bisacodyl (Dulcolax Supp) 10 mg Q24H PRN [place] constipation; Start 05/27/16 at 08: 00 Diphenhydramine HCl (Benadryl) 25 mg Q6H PRN GTB ITCHING Last administered on 20:11; Admin Dose 25 MG; Start 05/27/16 at 08:00 Docusate Sodium (Colace Liquid Cup) 100 mg QHS PRN GTB CONSTIPATION; Start at 08:00 Hydroxyzine HCl (Atarax) 25 mg TID GTB Last administered on 06/14/16 12:48; Admin Dose 25 MG; Start 05/27/16 at 09:00 Multivitamins Therapeutic (Theragran) 1 tab DAILY GTB Last administered on 06/14 09:21; Admin Dose 1 TAB; Start 05/27/16 at 09:00 Famotidine (Pepcid) 20 mg BID GTB Last administered on 06/14/16 09:21; Admin Dose 20 MG; Start 05/31/16 at 21:00 Levetiracetam (Keppra Liquid) 750 mg BID GTB Last administered on 06/14/16 09: 21; Admin Dose 750 MG; Start 06/03/16 at 09:00 Lorazepam 1 mg 1 mg Q4 PRN PO ANXIETY Last administered on 06/08/16 04:27; Admin Dose 1 MG; Start 06/04/16 at 05:30 Ceftazidime (Fortaz 1gm/50 ml (Pmx)) 50 ml @ 100 mls/hr Q8 IVPB Last administered on 06/14/16 12:48; Admin Dose 100 MLS/HR; Start 06/04/16 at 14:00 Quetiapine Fumarate (Seroquel) 12.5 mg BID PO Last administered on 06/14/16 09 :22; Admin Dose 12.5 MG; Start 06/13/16 at 12:30 MAURISIO CHEUNG Jun 14, 2016 14:25
[2016-06-15] VITALS (26 sets, daily range): BP systolic 103–130; BP diastolic 62–74; PULSE 71–101; RESP 12–25
[2016-06-15] MEDS: ACETAMINOPHEN 650MG/20.3ML CUP GTB PRN (00:05)
[2016-06-15] MEDS: CEFTAZIDIME 1GM/50 ML (PMX) 50 ML IVPB SCH ×2 (05:08→15:29)
--- NOTE | 2016-06-15 09:04 | RADRPT ---
PROCEDURE: XR Chest. CLINICAL INDICATION: Shortness of breath. TECHNIQUE: Single frontal view. COMPARISON: 06/10/2016. FINDINGS: The tracheostomy tube is in satisfactory position. There is right basilar air space disease consist ent with pneumonia, worse than seen previously. The heart size is normal. There is no pleural effusion. There is no pneumothorax. IMPRESSION: 1. Worse right lower lobe pneumonia. RPTAT: QQ .Samir Crockett MD, MD Date Time Electronically viewed and signed by .Samir Crockett MD, MD on 06/15/2016 09:04 .R/
[2016-06-15] MEDS: MULTIVITAMINS THERAPEUTIC TAB GTB SCH (09:20)
[2016-06-15] MEDS: ACETAMINOPHEN/CODEINE #3 TAB GTB SCH ×2 (09:20→21:29)
[2016-06-15] MEDS: ASPIRIN 81 MG TAB GTB SCH (09:20)
[2016-06-15] MEDS: FAMOTIDINE 20 MG TAB GTB SCH ×2 (09:21→21:30)
[2016-06-15] MEDS: hydrOXYzine HCL 25 MG TAB GTB SCH ×3 (09:21→21:30)
[2016-06-15] MEDS: ATENOLOL 25 MG TAB GTB SCH (09:21)
[2016-06-15] MEDS: QUETIAPINE 25 MG TAB PO SCH (09:21)
[2016-06-15] MEDS: LEVETIRACETAM (100 MG/ML) 5ML CUP GTB SCH ×2 (09:22→21:29)
[2016-06-15] MEDS: HEPARIN 5,000 UNIT/0.5 ML SYG SC SCH ×2 (09:32→21:31)
--- NOTE | 2016-06-15 11:47 | PN ---
Date/Time of Note Date/Time of Note DATE: 06/15/16 TIME: 11:44 Assessment/Plan VTE Prophylaxis VTE Prophylaxis Intervention: heparin Lines/Catheters IV Catheter Type (from Nrs): Saline Lock Urinary Cath still in place: No Assessment/Plan Assessment/Plan 1. Sepsis 2/2 HCAP-stable 2. Acute on chronic respiratory failure. The patient is status post tracheostomy and did have a leak which is now stable- pulmonary has been following 3. Seizure disorder. Continue anticonvulsants. 4. Chronic bedridden status. Continue supportive care. Continue turn schedule q.2 hours. 5. Hyperkalemia. 6. Microcytic hypochromic anemia. 7. Fluid, electrolytes, and nutrition. 8. Anemia of chronic Dz 9. Essential hypertension. Continue antihypertensives Dispo- restraints renewed, sepsis appears to now be resolving , on restraints, will have to give some medication to calm his down PPx- Heparin increase seroquel to 25 mg PO BID for agitation and release restraints as needed Subjective 24 Hr Interval Summary Free Text/Dictation pt still required restraints Exam/Review of Systems Vital Signs Vitals Vital Signs Date Time Temp Pulse Resp B/P Pulse Ox O2 Delivery O2 Flow Rate FiO2 06/15/16 10:33 98.8 88 18 115/73 94 06/15/16 09:10 45 06/14/16 06:00 Mechanical Ventilator Intake and Output 06/14/16 06/14/16 06/15/16 15:00 23:00 07:00 Intake Total 1200 ml 950 ml Balance 1200 ml 950 ml Exam GENERAL: This is a fragile, elderly man who is lying comfortably in bed. HEENT: Head atraumatic, normocephalic. Sclerae anicteric. Buccal mucosa dry. NECK: Supple. Tracheostomy present. CHEST: Rise symmetrical. Breath sounds diminished to bases. HEART: S1, S2. ABDOMEN: Soft. Bowel tones hypoactive. EXTREMITIES: No cyanosis. Results Result Diagram: 06/11/16 0550 06/11/16 0550 Medications Medications Current Medications Morphine Sulfate (morphine) 2 mg Q4H PRN IV SEVERE PAIN LEVEL 7-10 Last administered on 06/10/16t 05:51; Admin Dose 2 MG; Start 05/27/16 at 08:00 Heparin Sodium (Porcine) (Heparin (5000 Units/0.5 ml)) 5,000 unit Q12 SC Last administered on 06/15/16 09:32; Admin Dose 5,000 UNIT; Start 05/27/16 at 09:00 Acetaminophen/ Codeine Phosphate (Tylenol No.3) 1 tab Q12 GTB Last administered on 06/15/16 09:20; Admin Dose 1 TAB; Start 05/27/16 at 09:00 Acetaminophen (Tylenol Liquid) 650 mg Q4H PRN GTB PAIN AND OR ELEVATED TEMP Last administered on 06/15/16 00:05; Admin Dose 650 MG; Start 05/27/16 at 08:00 Albuterol (Proventil 0.083% (Neb)) 2.5 mg Q6 PRN NEB WHEEZING AND SOB Last administered on 06/09/16 13:35; Admin Dose 2.5 MG; Start 05/27/16 at 08:00 Aspirin (Aspirin) 81 mg DAILY GTB Last administered on 06/15/16 09:20; Admin Dose 81 MG; Start 05/27/16 at 09:00 Atenolol (Tenormin) 25 mg DAILY GTB Last administered on 06/15/16 09:21; Admin Dose 25 MG; Start 05/27/16 at 09:00 Bisacodyl (Dulcolax Supp) 10 mg Q24H PRN [place] constipation; Start 05/27/16 at 08: 00 Diphenhydramine HCl (Benadryl) 25 mg Q6H PRN GTB ITCHING Last administered on 20:11; Admin Dose 25 MG; Start 05/27/16 at 08:00 Docusate Sodium (Colace Liquid Cup) 100 mg QHS PRN GTB CONSTIPATION; Start at 08:00 Hydroxyzine HCl (Atarax) 25 mg TID GTB Last administered on 06/15/16 09:21; Admin Dose 25 MG; Start 05/27/16 at 09:00 Multivitamins Therapeutic (Theragran) 1 tab DAILY GTB Last administered on 06/15 09:20; Admin Dose 1 TAB; Start 05/27/16 at 09:00 Famotidine (Pepcid) 20 mg BID GTB Last administered on 06/15/16 09:21; Admin Dose 20 MG; Start 05/31/16 at 21:00 Levetiracetam (Keppra Liquid) 750 mg BID GTB Last administered on 06/15/16 09: 22; Admin Dose 750 MG; Start 06/03/16 at 09:00 Lorazepam 1 mg 1 mg Q4 PRN PO ANXIETY Last administered on 06/08/16 04:27; Admin Dose 1 MG; Start 06/04/16 at 05:30 Ceftazidime (Fortaz 1gm/50 ml (Pmx)) 50 ml @ 100 mls/hr Q8 IVPB Last administered on 06/15/16 05:08; Admin Dose 100 MLS/HR; Start 06/04/16 at 14:00 Quetiapine Fumarate (Seroquel) 12.5 mg BID PO Last administered on 06/15/16 09 :21; Admin Dose 12.5 MG; Start 06/13/16 at 12:30 RALPH LEÓN MD Jun 15, 2016 11:47
[2016-06-15] MEDS ORDERED: QUETIAPINE 25 MG TAB PO ONE (12:00)
--- NOTE | 2016-06-15 12:51 | CONS ---
Date/Time of Note Date/Time of Note DATE: 06/15/16 TIME: 12:49 Assessment/Plan Assessment/Plan Additional Assessment/Plan Ventilator settings; AC of 16, tidal volume 550, PEEP of 5, 35% FiO2. Next Chest x-ray was reviewed from today which is showing persistent right lower lobe infiltrate. Assessment recommendations; 1. Patient admitted with right lower lobe pneumonia from pseudomonas aeruginosa currently on ceftazidime. 2. Chronic respiratory failure. Patient remains ventilator dependent. 3. History of stable seizure disorder. 4. History of CVA. 5. History of hypertension. Continue current treatment. Patient can be transferred to rehab facility. Consultation Date/Type/Reason Admit Date/Time May 27, 2016 at 04:18 Initial Consult Date 05/27/16 Type of Consultation: Pulmonary 24 HR Interval Summary Free Text/Dictation Patient condition remains stable. Remains awake and alert. Remains ventilator dependent. Has remained hemodynamically stable. General exam; elderly male, awake and alert. On ventilator via the colostomy. Exam/Review of Systems Vital Signs Vitals Vital Signs Date Time Temp Pulse Resp B/P Pulse Ox O2 Delivery O2 Flow Rate FiO2 06/15/16 11:05 71 20 95 45 06/15/16 10:33 98.8 115/73 06/14/16 06:00 Mechanical Ventilator Intake and Output 06/14/16 06/14/16 06/15/16 15:00 23:00 07:00 Intake Total 1200 ml 950 ml Balance 1200 ml 950 ml Exam HEENT examination; supple neck, no JVD. No lymphadenopathy. Midline trachea. No thyromegaly. Tracheostomy in place. Insertion site is clean. Pupils are midsize and reactive to light. Patient has fair dentition. Chest examination; diminished breath sounds in lung bases bilaterally. Upper lobes are clear. S1-S2 audible, no murmurs. Regular rhythm. Abdomen examination; soft, nontender, nondistended. No organomegaly. Bowel sounds audible. G-tube in place. Extremity examination; no peripheral edema. C T TECH examination; patient has stable left dense hemiplegia. Results Result Diagram: 06/11/16 0550 06/11/16 0550 Medications Medications Current Medications Morphine Sulfate (morphine) 2 mg Q4H PRN IV SEVERE PAIN LEVEL 7-10 Last administered on 06/10/16t 05:51; Admin Dose 2 MG; Start 05/27/16 at 08:00 Heparin Sodium (Porcine) (Heparin (5000 Units/0.5 ml)) 5,000 unit Q12 SC Last administered on 06/15/16 09:32; Admin Dose 5,000 UNIT; Start 05/27/16 at 09:00 Acetaminophen/ Codeine Phosphate (Tylenol No.3) 1 tab Q12 GTB Last administered on 06/15/16 09:20; Admin Dose 1 TAB; Start 05/27/16 at 09:00 Acetaminophen (Tylenol Liquid) 650 mg Q4H PRN GTB PAIN AND OR ELEVATED TEMP Last administered on 06/15/16 00:05; Admin Dose 650 MG; Start 05/27/16 at 08:00 Albuterol (Proventil 0.083% (Neb)) 2.5 mg Q6 PRN NEB WHEEZING AND SOB Last administered on 06/09/16 13:35; Admin Dose 2.5 MG; Start 05/27/16 at 08:00 Aspirin (Aspirin) 81 mg DAILY GTB Last administered on 06/15/16 09:20; Admin Dose 81 MG; Start 05/27/16 at 09:00 Atenolol (Tenormin) 25 mg DAILY GTB Last administered on 06/15/16 09:21; Admin Dose 25 MG; Start 05/27/16 at 09:00 Bisacodyl (Dulcolax Supp) 10 mg Q24H PRN [place] constipation; Start 05/27/16 at 08: 00 Diphenhydramine HCl (Benadryl) 25 mg Q6H PRN GTB ITCHING Last administered on 20:11; Admin Dose 25 MG; Start 05/27/16 at 08:00 Docusate Sodium (Colace Liquid Cup) 100 mg QHS PRN GTB CONSTIPATION; Start at 08:00 Hydroxyzine HCl (Atarax) 25 mg TID GTB Last administered on 06/15/16 09:21; Admin Dose 25 MG; Start 05/27/16 at 09:00 Multivitamins Therapeutic (Theragran) 1 tab DAILY GTB Last administered on 06/15 09:20; Admin Dose 1 TAB; Start 05/27/16 at 09:00 Famotidine (Pepcid) 20 mg BID GTB Last administered on 06/15/16 09:21; Admin Dose 20 MG; Start 05/31/16 at 21:00 Levetiracetam (Keppra Liquid) 750 mg BID GTB Last administered on 06/15/16 09: 22; Admin Dose 750 MG; Start 06/03/16 at 09:00 Lorazepam 1 mg 1 mg Q4 PRN PO ANXIETY Last administered on 06/08/16 04:27; Admin Dose 1 MG; Start 06/04/16 at 05:30 Ceftazidime (Fortaz 1gm/50 ml (Pmx)) 50 ml @ 100 mls/hr Q8 IVPB Last administered on 06/15/16 05:08; Admin Dose 100 MLS/HR; Start 06/04/16 at 14:00 Quetiapine Fumarate (Seroquel) 25 mg BID PO ; Start 06/15/16 at 21:00 MAURISIO CHEUNG 11, 2017 12:51
--- NOTE | 2016-06-15 17:13 | CONS ---
Date/Time of Note Date/Time of Note DATE: 06/15/16 TIME: 17:06 Assessment/Plan Assessment/Plan Chief Complaint/Hosp Course ID PROGRESS NOTE CURRENT ABX=> FORTAZ #12 s/p Vanco IV #8 + Cefepime #8 24H INTERVAL SUMMARY * Noncommunicative -- chronic encephalopathic Afebrile, VSS, NAD * WBC normalized * 06/15/16 CXR: IMPRESSION: 1. Worse right lower lobe pneumonia. PHYSICAL EXAMINATION: GENERAL: VSS, NAD HEENT: Unremarkable NECK: Supple, trach-> Secure to Vent CHEST: Rise symmetrical, without dyspnea on observation HEART: Pulse RRR ABDOMEN: Soft, benign, peg EXTREMITIES: Warm ID ASSESSMENT 60 yo M w/ PMHx CVA w/resideual LUEXT hemiparesis/vascular dementia/dysphagia/ peg/Trach/CAD w/prior stent admit with: 1. S/P Sepsis with fevers and leukocytosis secondary to #2 on admission => RESOLVED 2. Healthcare-associated pneumonia = Aspiration PNA * 06/15/16 CXR IMPRESSION: 1. Worse right lower lobe pneumonia. * CT CHEST: Significant RLL PNA w/Right lymphadenopathy * RESPIRATORY CULTURE Final Organism 1 PSEUDOMONAS AERUGINOSA QUANTITY SCANT GROWTH 3. Chronic respiratory failure= VDRF 4. Dysphagia=> Peg 5. History of seizure disorder. 6. Polymicrobial UTI low colony counts URINE CULTURE Final Organism 1 PROVIDENCIA STUARTII COLONY COUNT <10,000 CFU/ml Organism 2 PSEUDOMONAS AERUGINOSA COLONY COUNT 10,000 - 20,000 CFU/ml 7. Colostomy w/liquid stool (-)MRSA Nares INVASIVES: PIV, T,P,FC ABX ALLERGY: KNDA CURRENT ABX: Fortaz #12 s/p =>Vanco IV #8 + Cefepime #8 ID RECOMMENDATIONS 1. DC ABX => Has received 3 weeks IV ABX for persistent RLL infiltrate PNA 2. Concur with DC Back to SNF OFF ABX when cleared by primary . . . . Problems: Consultation Date/Type/Reason Admit Date/Time May 27, 2016 at 04:18 Initial Consult Date 05/27/16 Type of Consultation: ID Exam/Review of Systems Vital Signs Vitals Vital Signs Date Time Temp Pulse Resp B/P Pulse Ox O2 Delivery O2 Flow Rate FiO2 06/15/16 16:27 77 06/15/16 15:41 99.1 18 130/62 98 06/15/16 15:20 50 06/14/16 06:00 Mechanical Ventilator Intake and Output 06/14/16 06/14/16 06/15/16 15:00 23:00 07:00 Intake Total 1200 ml 950 ml Balance 1200 ml 950 ml Results Result Diagram: 06/11/16 0550 06/11/16 0550 Medications Medications Current Medications Morphine Sulfate (morphine) 2 mg Q4H PRN IV SEVERE PAIN LEVEL 7-10 Last administered on 06/10/16 05:51; Admin Dose 2 MG; Start 05/27/16 at 08:00 Heparin Sodium (Porcine) (Heparin (5000 Units/0.5 ml)) 5,000 unit Q12 SC Last administered on 06/15/16 09:32; Admin Dose 5,000 UNIT; Start 05/27/16 at 09:00 Acetaminophen/ Codeine Phosphate (Tylenol No.3) 1 tab Q12 GTB Last administered on 06/15/16 09:20; Admin Dose 1 TAB; Start 05/27/16 at 09:00 Acetaminophen (Tylenol Liquid) 650 mg Q4H PRN GTB PAIN AND OR ELEVATED TEMP Last administered on 06/15/16 00:05; Admin Dose 650 MG; Start 05/27/16 at 08:00 Albuterol (Proventil 0.083% (Neb)) 2.5 mg Q6 PRN NEB WHEEZING AND SOB Last administered on 06/09/16 13:35; Admin Dose 2.5 MG; Start 05/27/16 at 08:00 Aspirin (Aspirin) 81 mg DAILY GTB Last administered on 06/15/16 09:20; Admin Dose 81 MG; Start 05/27/16 at 09:00 Atenolol (Tenormin) 25 mg DAILY GTB Last administered on 06/15/16 09:21; Admin Dose 25 MG; Start 05/27/16 at 09:00 Bisacodyl (Dulcolax Supp) 10 mg Q24H PRN [place] constipation; Start 05/27/16 at 08: 00 Diphenhydramine HCl (Benadryl) 25 mg Q6H PRN GTB ITCHING Last administered on 20:11; Admin Dose 25 MG; Start 05/27/16 at 08:00 Docusate Sodium (Colace Liquid Cup) 100 mg QHS PRN GTB CONSTIPATION; Start at 08:00 Hydroxyzine HCl (Atarax) 25 mg TID GTB Last administered on 06/15/16 15:29; Admin Dose 25 MG; Start 05/27/16 at 09:00 Multivitamins Therapeutic (Theragran) 1 tab DAILY GTB Last administered on 06/15 09:20; Admin Dose 1 TAB; Start 05/27/16 at 09:00 Famotidine (Pepcid) 20 mg BID GTB Last administered on 06/15/16 09:21; Admin Dose 20 MG; Start 05/31/16 at 21:00 Levetiracetam (Keppra Liquid) 750 mg BID GTB Last administered on 06/15/16 09: 22; Admin Dose 750 MG; Start 06/03/16 at 09:00 Lorazepam 1 mg 1 mg Q4 PRN PO ANXIETY Last administered on 06/08/16 04:27; Admin Dose 1 MG; Start 06/04/16 at 05:30 Ceftazidime (Fortaz 1gm/50 ml (Pmx)) 50 ml @ 100 mls/hr Q8 IVPB Last administered on 06/15/16 15:29; Admin Dose 100 MLS/HR; Start 06/04/16 at 14:00 Quetiapine Fumarate (Seroquel) 25 mg BID PO ; Start 06/15/16 at 21:00 RODRIGO BO NP Jun 15, 2016 17:13
[2016-06-15] MEDS ORDERED: QUETIAPINE 25 MG TAB PO SCH (21:00)
[2016-06-15] MEDS: QUETIAPINE 25 MG TAB GTB SCH (21:30)
[2016-06-16] VITALS (27 sets, daily range): BP systolic 110–127; BP diastolic 56–68; PULSE 60–96; RESP 15–26
[2016-06-16] MEDS: ACETAMINOPHEN 650MG/20.3ML CUP GTB PRN (01:53)
[2016-06-16] MEDS: FAMOTIDINE 20 MG TAB GTB SCH ×2 (09:02→21:01)
[2016-06-16] MEDS: hydrOXYzine HCL 25 MG TAB GTB SCH ×3 (09:02→21:01)
[2016-06-16] MEDS: QUETIAPINE 25 MG TAB GTB SCH ×2 (09:02→21:01)
[2016-06-16] MEDS: ACETAMINOPHEN/CODEINE #3 TAB GTB SCH ×2 (09:02→21:13)
[2016-06-16] MEDS: ASPIRIN 81 MG TAB GTB SCH (09:02)
[2016-06-16] MEDS: MULTIVITAMINS THERAPEUTIC TAB GTB SCH (09:02)
[2016-06-16] MEDS: LEVETIRACETAM (100 MG/ML) 5ML CUP GTB SCH ×2 (09:03→21:01)
[2016-06-16] MEDS: HEPARIN 5,000 UNIT/0.5 ML SYG SC SCH ×2 (09:21→21:02)
[2016-06-16] MEDS: ATENOLOL 25 MG TAB GTB SCH (09:54)
--- NOTE | 2016-06-16 14:24 | CONS ---
Date/Time of Note Date/Time of Note DATE: 06/16/16 TIME: 14:22 Assessment/Plan Assessment/Plan Additional Assessment/Plan Ventilator settings; AC of 16, tidal volume 550, PEEP of 5, 50% FiO2. Next Assessment recommendations; 1. Patient admitted for right lower lobe pneumonia from pseudomonas aeruginosa , sensitive to ceftazidime. 2. Chronic respiratory failure, patient remains ventilator dependent. 3. History of seizure disorder. 4. History of CVA involving left side with dense left hemiplegia. 5. History of hypertension. Continue current treatment. Will obtain a follow-up chest x-ray in the morning. Consultation Date/Type/Reason Admit Date/Time May 27, 2016 at 04:18 Initial Consult Date 05/27/16 Type of Consultation: Pulmonary 24 HR Interval Summary Free Text/Dictation Patient condition remains stable. Has remained hemodynamically stable. General exam; elderly male, awake, alert. On ventilator via tracheostomy. Currently in no distress. Exam/Review of Systems Vital Signs Vitals Vital Signs Date Time Temp Pulse Resp B/P Pulse Ox O2 Delivery O2 Flow Rate FiO2 06/16/16 13:45 59 19 98 50 06/16/16 11:49 98.0 110/56 06/16/16 03:20 Mechanical Ventilator Intake and Output 06/15/16 06/15/16 06/16/16 15:00 23:00 07:00 Intake Total 1550 ml Balance 1550 ml Exam H EENT examination; supple neck, no JVD. No lymphadenopathy. Midline trachea. Tracheostomy in place with clean insertion site. Pupils are small bilaterally. Chest examination; diminished breath sound bilaterally. S1-S2 audible, no murmurs. Regular rhythm. Abdomen examination; soft, G-tube in place. No organomegaly. Bowel sounds audible. Extremity examination; no peripheral edema. SHIPYARD PAINTER examination; patient stable dense left hemiplegia. Medications Medications Current Medications Morphine Sulfate (morphine) 2 mg Q4H PRN IV SEVERE PAIN LEVEL 7-10 Last administered on 06/10/16 05:51; Admin Dose 2 MG; Start 05/27/16 at 08:00 Heparin Sodium (Porcine) (Heparin (5000 Units/0.5 ml)) 5,000 unit Q12 SC Last administered on 06/16/16 09:21; Admin Dose 5,000 UNIT; Start 05/27/16 at 09:00 Acetaminophen/ Codeine Phosphate (Tylenol No.3) 1 tab Q12 GTB Last administered on 06/16/16 09:02; Admin Dose 1 TAB; Start 05/27/16 at 09:00 Acetaminophen (Tylenol Liquid) 650 mg Q4H PRN GTB PAIN AND OR ELEVATED TEMP Last administered on 06/16/16 01:53; Admin Dose 650 MG; Start 05/27/16 at 08:00 Albuterol (Proventil 0.083% (Neb)) 2.5 mg Q6 PRN NEB WHEEZING AND SOB Last administered on 06/09/16 13:35; Admin Dose 2.5 MG; Start 05/27/16 at 08:00 Aspirin (Aspirin) 81 mg DAILY GTB Last administered on 06/16/16 09:02; Admin Dose 81 MG; Start 05/27/16 at 09:00 Atenolol (Tenormin) 25 mg DAILY GTB Last administered on 06/16/16 09:54; Admin Dose 25 MG; Start 05/27/16 at 09:00 Bisacodyl (Dulcolax Supp) 10 mg Q24H PRN [place] constipation; Start 05/27/16 at 08: 00 Diphenhydramine HCl (Benadryl) 25 mg Q6H PRN GTB ITCHING Last administered on 20:11; Admin Dose 25 MG; Start 05/27/16 at 08:00 Docusate Sodium (Colace Liquid Cup) 100 mg QHS PRN GTB CONSTIPATION; Start at 08:00 Hydroxyzine HCl (Atarax) 25 mg TID GTB Last administered on 06/16/16 12:49; Admin Dose 25 MG; Start 05/27/16 at 09:00 Multivitamins Therapeutic (Theragran) 1 tab DAILY GTB Last administered on 06/16 09:02; Admin Dose 1 TAB; Start 05/27/16 at 09:00 Famotidine (Pepcid) 20 mg BID GTB Last administered on 06/16/16 09:02; Admin Dose 20 MG; Start 05/31/16 at 21:00 Levetiracetam (Keppra Liquid) 750 mg BID GTB Last administered on 06/16/16 09: 03; Admin Dose 750 MG; Start 06/03/16 at 09:00 Lorazepam (Ativan) 1 mg Q4 PRN PO ANXIETY Last administered on 06/08/16 04:27; Admin Dose 1 MG; Start 06/04/16 at 05:30 Quetiapine Fumarate (Seroquel) 25 mg BID GTB Last administered on 06/16/16 09: 02; Admin Dose 25 MG; Start 06/15/16 at 21:00 MAURISIO CHEUNG 12, 2017 14:24
--- NOTE | 2016-06-16 15:11 | CONS ---
Date/Time of Note Date/Time of Note DATE: 06/16/16 TIME: 15:07 Assessment/Plan Assessment/Plan Chief Complaint/Hosp Course ID PROGRESS NOTE CURRENT ABX=> OFF ABX DAY #1 --> S/P FORTAZ #12 s/p Vanco IV #8 + Cefepime #8 24H INTERVAL SUMMARY * Clinically status quo -- stable on the Vent --chronic encephalopathic Afebrile , VSS, NAD * WBC normalized * 06/15/16 CXR: IMPRESSION: 1. Worse right lower lobe pneumonia. PHYSICAL EXAMINATION: GENERAL: VSS, NAD HEENT: Unremarkable NECK: Supple, trach-> Secure to Vent CHEST: Rise symmetrical, without dyspnea on observation HEART: Pulse RRR ABDOMEN: Soft, benign, peg EXTREMITIES: Warm ID ASSESSMENT 60 yo M w/ PMHx CVA w/resideual LUEXT hemiparesis/vascular dementia/dysphagia/ peg/Trach/CAD w/prior stent admit with: 1. S/P Sepsis with fevers and leukocytosis secondary to #2 on admission => RESOLVED 2. Healthcare-associated pneumonia = Aspiration PNA * 06/15/16 CXR IMPRESSION: 1. Worse right lower lobe pneumonia. * CT CHEST: Significant RLL PNA w/Right lymphadenopathy * RESPIRATORY CULTURE Final Organism 1 PSEUDOMONAS AERUGINOSA QUANTITY SCANT GROWTH 3. Chronic respiratory failure= VDRF 4. Dysphagia=> Peg 5. History of seizure disorder. 6. Polymicrobial UTI low colony counts URINE CULTURE Final Organism 1 PROVIDENCIA STUARTII COLONY COUNT <10,000 CFU/ml Organism 2 PSEUDOMONAS AERUGINOSA COLONY COUNT 10,000 - 20,000 CFU/ml 7. Colostomy w/liquid stool (-)MRSA Nares INVASIVES: PIV, T,P,FC ABX ALLERGY: KNDA CURRENT ABX: => OFF ABX DAY #1 --> s/p FORTAZ #12 s/p =>Vanco IV #8 + Cefepime #8 ID RECOMMENDATIONS 1. DC ABX 06/15/16 pm => Has received 3 weeks IV ABX for persistent RLL infiltrate PNA 2. Concur with DC Back to SNF OFF ABX when cleared by primary * CXR in am on order . . . . . Problems: Consultation Date/Type/Reason Admit Date/Time May 27, 2016 at 04:18 Initial Consult Date 2/20/17 Type of Consultation: ID Exam/Review of Systems Vital Signs Vitals Vital Signs Date Time Temp Pulse Resp B/P Pulse Ox O2 Delivery O2 Flow Rate FiO2 06/16/16 13:45 59 19 98 50 06/16/16 11:49 98.0 110/56 06/16/16 03:20 Mechanical Ventilator Intake and Output 06/15/16 06/15/16 06/16/16 15:00 23:00 07:00 Intake Total 1550 ml Balance 1550 ml Medications Medications Current Medications Morphine Sulfate (morphine) 2 mg Q4H PRN IV SEVERE PAIN LEVEL 7-10 Last administered on 06/10/16 05:51; Admin Dose 2 MG; Start 05/27/16 at 08:00 Heparin Sodium (Porcine) (Heparin (5000 Units/0.5 ml)) 5,000 unit Q12 SC Last administered on 06/16/16 09:21; Admin Dose 5,000 UNIT; Start 05/27/16 at 09:00 Acetaminophen/ Codeine Phosphate (Tylenol No.3) 1 tab Q12 GTB Last administered on 06/16/16 09:02; Admin Dose 1 TAB; Start 05/27/16 at 09:00 Acetaminophen (Tylenol Liquid) 650 mg Q4H PRN GTB PAIN AND OR ELEVATED TEMP Last administered on 06/16/16 01:53; Admin Dose 650 MG; Start 05/27/16 at 08:00 Albuterol (Proventil 0.083% (Neb)) 2.5 mg Q6 PRN NEB WHEEZING AND SOB Last administered on 06/09/16 13:35; Admin Dose 2.5 MG; Start 05/27/16 at 08:00 Aspirin (Aspirin) 81 mg DAILY GTB Last administered on 06/16/16 09:02; Admin Dose 81 MG; Start 05/27/16 at 09:00 Atenolol (Tenormin) 25 mg DAILY GTB Last administered on 06/16/16 09:54; Admin Dose 25 MG; Start 05/27/16 at 09:00 Bisacodyl (Dulcolax Supp) 10 mg Q24H PRN [place] constipation; Start 05/27/16 at 08: 00 Diphenhydramine HCl (Benadryl) 25 mg Q6H PRN GTB ITCHING Last administered on 20:11; Admin Dose 25 MG; Start 05/27/16 at 08:00 Docusate Sodium (Colace Liquid Cup) 100 mg QHS PRN GTB CONSTIPATION; Start at 08:00 Hydroxyzine HCl (Atarax) 25 mg TID GTB Last administered on 06/16/16 12:49; Admin Dose 25 MG; Start 05/27/16 at 09:00 Multivitamins Therapeutic (Theragran) 1 tab DAILY GTB Last administered on 06/16 09:02; Admin Dose 1 TAB; Start 05/27/16 at 09:00 Famotidine (Pepcid) 20 mg BID GTB Last administered on 06/16/16 09:02; Admin Dose 20 MG; Start 05/31/16 at 21:00 Levetiracetam (Keppra Liquid) 750 mg BID GTB Last administered on 06/16/16 09: 03; Admin Dose 750 MG; Start 06/03/16 at 09:00 Lorazepam (Ativan) 1 mg Q4 PRN PO ANXIETY Last administered on 06/08/16 04:27; Admin Dose 1 MG; Start 06/04/16 at 05:30 Quetiapine Fumarate (Seroquel) 25 mg BID GTB Last administered on 06/16/16 09: 02; Admin Dose 25 MG; Start 06/15/16 at 21:00 RODRIGO BO NP Jun 16, 2016 15:10
--- NOTE | 2016-06-16 22:36 | PN ---
Date/Time of Note Date/Time of Note DATE: 06/16/16 TIME: 22:34 Assessment/Plan VTE Prophylaxis VTE Prophylaxis Intervention: heparin Lines/Catheters IV Catheter Type (from Nrs): Saline Lock Urinary Cath still in place: No Assessment/Plan Assessment/Plan 1. Sepsis 2/2 HCAP-stable 2. Acute on chronic respiratory failure. The patient is status post tracheostomy and did have a leak which is now stable- pulmonary has been following 3. Seizure disorder. Continue anticonvulsants. 4. Chronic bedridden status. Continue supportive care. Continue turn schedule q.2 hours. 5. Hyperkalemia. 6. Microcytic hypochromic anemia. 7. Fluid, electrolytes, and nutrition. 8. Anemia of chronic Dz 9. Essential hypertension. Continue antihypertensives Dispo- restraints renewed, sepsis appears to now be resolving , on restraints, will have to give some medication to calm his down PPx- Heparin increase seroquel to 25 mg PO BID for agitation and release restraints as needed Subjective 24 Hr Interval Summary Free Text/Dictation pt remained stable Exam/Review of Systems Vital Signs Vitals Vital Signs Date Time Temp Pulse Resp B/P Pulse Ox O2 Delivery O2 Flow Rate FiO2 06/16/16 22:25 97.0 67 18 115/63 100 Mechanical Ventilator 06/16/16 21:46 60 Intake and Output 06/15/16 06/15/16 06/16/16 15:00 23:00 07:00 Intake Total 1550 ml Balance 1550 ml Exam GENERAL: This is a fragile, elderly man who is lying comfortably in bed. HEENT: Head atraumatic, normocephalic. Sclerae anicteric. Buccal mucosa dry. NECK: Supple. Tracheostomy present. CHEST: Rise symmetrical. Breath sounds diminished to bases. HEART: S1, S2. ABDOMEN: Soft. Bowel tones hypoactive. EXTREMITIES: No cyanosis. Medications Medications Current Medications Morphine Sulfate (morphine) 2 mg Q4H PRN IV SEVERE PAIN LEVEL 7-10 Last administered on 06/10/16 05:51; Admin Dose 2 MG; Start 05/27/16 at 08:00 Heparin Sodium (Porcine) (Heparin (5000 Units/0.5 ml)) 5,000 unit Q12 SC Last administered on 06/16/16 21:02; Admin Dose 5,000 UNIT; Start 05/27/16 at 09:00 Acetaminophen/ Codeine Phosphate (Tylenol No.3) 1 tab Q12 GTB Last administered on 06/16/16 21:13; Admin Dose 1 TAB; Start 05/27/16 at 09:00 Acetaminophen (Tylenol Liquid) 650 mg Q4H PRN GTB PAIN AND OR ELEVATED TEMP Last administered on 06/16/16 01:53; Admin Dose 650 MG; Start 05/27/16 at 08:00 Albuterol (Proventil 0.083% (Neb)) 2.5 mg Q6 PRN NEB WHEEZING AND SOB Last administered on 06/09/16 13:35; Admin Dose 2.5 MG; Start 05/27/16 at 08:00 Aspirin (Aspirin) 81 mg DAILY GTB Last administered on 06/16/16 09:02; Admin Dose 81 MG; Start 05/27/16 at 09:00 Atenolol (Tenormin) 25 mg DAILY GTB Last administered on 06/16/16 09:54; Admin Dose 25 MG; Start 05/27/16 at 09:00 Bisacodyl (Dulcolax Supp) 10 mg Q24H PRN [place] constipation; Start 05/27/16 at 08: 00 Diphenhydramine HCl (Benadryl) 25 mg Q6H PRN GTB ITCHING Last administered on 20:11; Admin Dose 25 MG; Start 05/27/16 at 08:00 Docusate Sodium (Colace Liquid Cup) 100 mg QHS PRN GTB CONSTIPATION; Start at 08:00 Hydroxyzine HCl (Atarax) 25 mg TID GTB Last administered on 06/16/16 21:01; Admin Dose 25 MG; Start 05/27/16 at 09:00 Multivitamins Therapeutic (Theragran) 1 tab DAILY GTB Last administered on 06/16 09:02; Admin Dose 1 TAB; Start 05/27/16 at 09:00 Famotidine (Pepcid) 20 mg BID GTB Last administered on 06/16/16 21:01; Admin Dose 20 MG; Start 05/31/16 at 21:00 Levetiracetam (Keppra Liquid) 750 mg BID GTB Last administered on 06/16/16 21: 01; Admin Dose 750 MG; Start 06/03/16 at 09:00 Lorazepam (Ativan) 1 mg Q4 PRN PO ANXIETY Last administered on 06/08/16 04:27; Admin Dose 1 MG; Start 06/04/16 at 05:30 Quetiapine Fumarate (Seroquel) 25 mg BID GTB Last administered on 06/16/16 21: 01; Admin Dose 25 MG; Start 06/15/16 at 21:00 RALPH LEÓN MD Jun 16, 2016 22:35
[2016-06-17] VITALS (32 sets, daily range): BP systolic 91–130; BP diastolic 46–78; PULSE 62–80; RESP 15–30
[2016-06-17 07:06] LABS: ADD SCAN DIFF NO
[2016-06-17 07:16] LABS: BASOPHIL # 0.1 10^3/ul (0.0-0.1); BASOPHILS % 0.6 % (0.0-2.0); EOSINOPHILS # 0.6 10^3/ul (0.0-0.5); EOSINOPHILS % 7.2 % (0.0-7.0); HEMOGLOBIN 10.8 g/dl (14.0-18.0); LYMPHOCYTES # 1.9 10^3/ul (0.8-2.9); MEAN CORPUSCULAR HEMOGLOBIN 26.5 pg (29.0-33.0); MEAN CORPUSCULAR VOLUME 88.2 fl (82.0-101.0); MEAN PLATELET VOLUME 12.1 fl (7.4-10.4); MONOCYTE # 0.5 10^3/ul (0.3-0.9); MONOCYTES % 6.7 % (0.0-11.0); NEUTROPHIL # 4.7 10^3/ul (1.6-7.5); NEUTROPHILS % 60.2 % (39.0-77.0); RED BLOOD COUNT 4.08 10^6/ul (4.70-6.10); RED CELL DISTRIBUTION WIDTH 18.3 % (11.5-14.5); WHITE BLOOD COUNT 7.7 10^3/ul (4.8-10.8)
[2016-06-17 07:20] LABS: PLATELET COUNT 282 10^3/UL (140-415)
[2016-06-17 07:26] LABS: INR 0.91; PROTIME 12.3 Sec (12.2-14.2)
[2016-06-17 07:27] LABS: PARTIAL THROMBOPLASTIN TIME 29.5 Sec (25.0-35.0)
[2016-06-17 07:37] LABS: POTASSIUM 4.7 mmol/L (3.5-5.1)
[2016-06-17 07:40] LABS: CREATININE 0.62 mg/dl (0.61-1.24)
[2016-06-17 07:41] LABS: CALCIUM 8.9 mg/dl (8.4-10.2)
--- NOTE | 2016-06-17 08:31 | RADRPT ---
PROCEDURE: XR Chest. CLINICAL INDICATION: Pneumonia. TECHNIQUE: AP Portable chest. COMPARISON: Chest x-ray 06/15/2016. FINDINGS: The cardiomediastinal silhouette is normal. The right lower lobe infiltrate has improved in the int erval. The osseous structures are unremarkable. The tracheostomy tube is well-positioned about 5 cm superior to the jacey near T3. IMPRESSION: 1. Improving right lower lobe infiltrate with intermixed sub segmental atelectasis. 2. The tracheostomy tube is well-positioned at T3. RPTAT: PP Physician David Date Time Electronically viewed and signed by Physician David on 06/17/2016 08:31 /
[2016-06-17] MEDS: hydrOXYzine HCL 25 MG TAB GTB SCH ×3 (09:12→21:16)
[2016-06-17] MEDS: ASPIRIN 81 MG TAB GTB SCH (09:12)
[2016-06-17] MEDS: ATENOLOL 25 MG TAB GTB SCH (09:13)
[2016-06-17] MEDS: FAMOTIDINE 20 MG TAB GTB SCH ×2 (09:14→21:16)
[2016-06-17] MEDS: QUETIAPINE 25 MG TAB GTB SCH ×2 (09:14→21:16)
[2016-06-17] MEDS: LEVETIRACETAM (100 MG/ML) 5ML CUP GTB SCH ×2 (09:14→21:17)
[2016-06-17] MEDS: ACETAMINOPHEN/CODEINE #3 TAB GTB SCH ×2 (09:14→21:17)
[2016-06-17] MEDS: MULTIVITAMINS THERAPEUTIC TAB GTB SCH (09:14)
[2016-06-17] MEDS: HEPARIN 5,000 UNIT/0.5 ML SYG SC SCH ×2 (09:15→21:18)
--- NOTE | 2016-06-17 12:26 | CONS ---
Date/Time of Note Date/Time of Note DATE: 06/17/16 TIME: 12:25 Assessment/Plan Assessment/Plan Chief Complaint/Hosp Course SUBJECTIVE: No events overnight. No fevers, looks comfortable ANTIMICROBIALS: none s/p Fortaz INDWELLINGS: Trach, PEG, colostomy. PHYSICAL EXAMINATION: GENERAL: This is a fragile, elderly man who is lying comfortably in bed. HEENT: Head atraumatic, normocephalic. Sclerae anicteric. Buccal mucosa dry. NECK: Supple. Tracheostomy present. CHEST: Rise symmetrical. Breath sounds diminished to bases. HEART: S1, S2. ABDOMEN: Soft. Bowel tones hypoactive. EXTREMITIES: No cyanosis. ASSESSMENT: 1. S/p sepsis 2. Healthcare-associated pneumonia==> treated. 3. Chronic respiratory failure. 4. History of colostomy, rule out C difficile with liquid stool. 5. Chronic encephalopathy. PLAN: Remains stable. Off abx , will malave cx prn, f/u pulmonary rec-s [facility] staff Problems: Consultation Date/Type/Reason Admit Date/Time May 27, 2016 at 04:18 Initial Consult Date 05/27/16 Type of Consultation: ID Exam/Review of Systems Vital Signs Vitals Vital Signs Date Time Temp Pulse Resp B/P Pulse Ox O2 Delivery O2 Flow Rate FiO2 06/17/16 11:33 65 23 96 06/17/16 10:17 98.2 99/57 Mechanical Ventilator 06/17/16 07:52 50 Intake and Output 06/16/16 06/16/16 06/17/16 15:00 23:00 07:00 Intake Total 1180 ml 1420 ml 1180 ml Balance 1180 ml 1420 ml 1180 ml Results Result Diagram: 06/17/16 0536 06/17/16 0536 Results 24 hrs Laboratory Tests Test 06/17/16 05:36 Activated Partial Thromboplast Time 29.5 Anion Gap 19 H Basophils # 0.1 Basophils % 0.6 Blood Urea Nitrogen 23 H Calcium Level 8.9 Carbon Dioxide Level 26 Chloride Level 101 Creatinine 0.62 Eosinophils # 0.6 H Eosinophils % 7.2 H Glucose Level 108 Hematocrit 36.0 L Hemoglobin 10.8 L INR International Normalized Ratio 0.91 Lymphocytes # 1.9 Lymphocytes % 25.0 Mean Corpuscular Hemoglobin 26.5 L Mean Corpuscular Hemoglobin Concent 30.0 L Mean Corpuscular Volume 88.2 Mean Platelet Volume 12.1 H Monocytes # 0.5 Monocytes % 6.7 Neutrophils # 4.7 Neutrophils % 60.2 Nucleated Red Blood Cells # 0.0 Nucleated Red Blood Cells % 0.0 Platelet Count 282 # Potassium Level 4.7 Prothrombin Time 12.3 Prothrombin Time Ratio 1.0 Red Blood Count 4.08 L Red Cell Distribution Width 18.3 H Sodium Level 141 White Blood Count 7.7 Medications Medications Current Medications Morphine Sulfate (morphine) 2 mg Q4H PRN IV SEVERE PAIN LEVEL 7-10 Last administered on 06/10/16 05:51; Admin Dose 2 MG; Start 05/27/16 at 08:00 Heparin Sodium (Porcine) (Heparin (5000 Units/0.5 ml)) 5,000 unit Q12 SC Last administered on 06/17/16 09:15; Admin Dose 5,000 UNIT; Start 05/27/16 at 09:00 Acetaminophen/ Codeine Phosphate (Tylenol No.3) 1 tab Q12 GTB Last administered on 06/17/16 09:14; Admin Dose 1 TAB; Start 05/27/16 at 09:00 Acetaminophen (Tylenol Liquid) 650 mg Q4H PRN GTB PAIN AND OR ELEVATED TEMP Last administered on 06/16/16 01:53; Admin Dose 650 MG; Start 05/27/16 at 08:00 Albuterol (Proventil 0.083% (Neb)) 2.5 mg Q6 PRN NEB WHEEZING AND SOB Last administered on 06/09/16 13:35; Admin Dose 2.5 MG; Start 05/27/16 at 08:00 Aspirin (Aspirin) 81 mg DAILY GTB Last administered on 06/17/16 09:12; Admin Dose 81 MG; Start 05/27/16 at 09:00 Atenolol (Tenormin) 25 mg DAILY GTB Last administered on 06/17/16 09:13; Admin Dose 25 MG; Start 05/27/16 at 09:00 Bisacodyl (Dulcolax Supp) 10 mg Q24H PRN [place] constipation; Start 05/27/16 at 08: 00 Diphenhydramine HCl (Benadryl) 25 mg Q6H PRN GTB ITCHING Last administered on 20:11; Admin Dose 25 MG; Start 05/27/16 at 08:00 Docusate Sodium (Colace Liquid Cup) 100 mg QHS PRN GTB CONSTIPATION; Start at 08:00 Hydroxyzine HCl (Atarax) 25 mg TID GTB Last administered on 06/17/16 09:12; Admin Dose 25 MG; Start 05/27/16 at 09:00 Multivitamins Therapeutic (Theragran) 1 tab DAILY GTB Last administered on 06/17 09:14; Admin Dose 1 TAB; Start 05/27/16 at 09:00 Famotidine (Pepcid) 20 mg BID GTB Last administered on 06/17/16 09:14; Admin Dose 20 MG; Start 05/31/16 at 21:00 Levetiracetam (Keppra Liquid) 750 mg BID GTB Last administered on 06/17/16 09: 14; Admin Dose 750 MG; Start 06/03/16 at 09:00 Lorazepam (Ativan) 1 mg Q4 PRN PO ANXIETY Last administered on 06/08/16 04:27; Admin Dose 1 MG; Start 06/04/16 at 05:30 Quetiapine Fumarate (Seroquel) 25 mg BID GTB Last administered on 06/17/16 09: 14; Admin Dose 25 MG; Start 06/15/16 at 21:00 STEPHEN CARRASQUILLO NP Jun 17, 2016 12:26
--- NOTE | 2016-06-17 14:49 | PN ---
DATE: 06/17/2016 SUBJECTIVE: Patient Finn remains stable this morning on mechanical ventilation, no evidence of res piratory distress. PHYSICAL EXAMINATION: VITAL SIGNS: Temperature 97, pulse 70, blood pressure 108/52, O2 saturation 96% on aerosol. NECK: Supple. No JVD or lymphadenopathy. CARDIAC: S1, S2, no added sounds or murmurs. CHEST: Diminished air entry bilaterally. ABDOMEN: Soft, nontender. No guarding or rebound. EXTREMITIES: No cyanosis, clubbing or edema. NEUROLOGIC: Generalized weakness. LABORATORY DATA: White count 7.7, hemoglobin 10.8. BUN 23, creatinine 0.62. Chest x-ray was revie wed shows improved right lower lobe infiltrates. IMPRESSION AND PLAN: 1. Vent dependent respiratory failure, currently stable. 2. Resolving healthcare-associated pneumonia. 3. History of seizure disorder. 4. Resolving encephalopathy. PLAN: 1. Continue antibiotics per ID. 2. Tube feeding as tolerated. 3. Discharge planning okay from pulmonary standpoint. Dictated By: PATRICK LAMA/EVELINA Conf#: [id number] DID#: [id number]
--- NOTE | 2016-06-17 15:16 | PN ---
DATE: 06/17/2016 SUBJECTIVE: The patient is stable this morning. No evidence of respiratory distress. VITAL SIGNS: Temperature 98, pulse is 70, blood pressure 108/62, O2 saturation 96%, FIO2 of 50%. NECK: Trach site clean and intact. CARDIAC: S1, S2, no added sounds or murmurs. CHEST: Diminished air entry bilaterally. ABDOMEN: Soft, nontender. No guarding or rebound. EXTREMITIES: No cyanosis, clubbing, edema. NEUROLOGIC: Generalized weakness. LABORATORY DATA: White count 7.7, hemoglobin 10.8, platelets within normal limits. Chemistry also within normal limits. IMPRESSION AND PLAN: 1. Vent dependent respiratory failure. 2. Resolving healthcare-associated pneumonia. 3. History of colostomy. 4. History of chronic encephalopathy. From pulmonary standpoint, the [facility]. Dictated By: PATRICK LAMA/EVELINA Conf#: [id number] DID#: [id number]
--- NOTE | 2016-06-17 17:22 | PN ---
Date/Time of Note Date/Time of Note DATE: 06/17/16 TIME: 17:21 Assessment/Plan VTE Prophylaxis VTE Prophylaxis Intervention: heparin Lines/Catheters IV C[facility] Type [facility]from [facility] Saline Lock Urinary Cath still in place: No Assessment/Plan Assessment/Plan 1. Sepsis 2/2 HCAP-stable 2. Acute on chronic respiratory failure. The patient is status post tracheostomy and did have a leak which is now stable- pulmonary has been following 3. Seizure disorder. Continue anticonvulsants. 4. Chronic bedridden status. Continue supportive care. Continue turn schedule q.2 hours. 5. Hyperkalemia. 6. Microcytic hypochromic anemia. 7. Fluid, electrolytes, and nutrition. 8. Anemia of chronic Dz 9. Essential hypertension. Continue antihypertensives Dispo- restraints renewed, sepsis appears to now be resolving , on restraints, will have to give some medication to calm his down PPx- Heparin increase seroquel to 25 mg PO BID for agitation and release restraints as needed Subjective 24 Hr Interval Summary Free Text/Dictation pt still requiring restraints, BP stable, Exam/Review of Systems Vital Signs Vitals Vital Signs Date Time Temp Pulse Resp B/P Pulse Ox O2 Delivery O2 Flow Rate FiO2 06/17/16 16:55 67 06/17/16 16:45 45 06/17/16 15:50 30 94 06/17/16 15:17 98.5 101/60 06/17/16 14:18 Mechanical Ventilator Trach Collar Intake and Output 06/16/16 06/16/16 06/17/16 15:00 23:00 07:00 Intake Total 1180 ml 1420 ml 1180 ml Balance 1180 ml 1420 ml 1180 ml Exam GENERAL: This is a fragile, elderly man who is lying comfortably in bed. HEENT: Head atraumatic, normocephalic. Sclerae anicteric. Buccal mucosa dry. NECK: Supple. Tracheostomy present. CHEST: Rise symmetrical. Breath sounds diminished to bases. HEART: S1, S2. ABDOMEN: Soft. Bowel tones hypoactive. EXTREMITIES: No cyanosis. Results Result Diagram: 06/17/16 0536 06/17/16 0536 Results 24 hrs Laboratory Tests Test 06/17/16 05:36 Activated Partial Thromboplast Time 29.5 Anion Gap 19 H Basophils # 0.1 Basophils % 0.6 Blood Urea Nitrogen 23 H Calcium Level 8.9 Carbon Dioxide Level 26 Chloride Level 101 Creatinine 0.62 Eosinophils # 0.6 H Eosinophils % 7.2 H Glucose Level 108 Hematocrit 36.0 L Hemoglobin 10.8 L INR International Normalized Ratio 0.91 Lymphocytes # 1.9 Lymphocytes % 25.0 Mean Corpuscular Hemoglobin 26.5 L Mean Corpuscular Hemoglobin Concent 30.0 L Mean Corpuscular Volume 88.2 Mean Platelet Volume 12.1 H Monocytes # 0.5 Monocytes % 6.7 Neutrophils # 4.7 Neutrophils % 60.2 Nucleated Red Blood Cells # 0.0 Nucleated Red Blood Cells % 0.0 Platelet Count 282 # Potassium Level 4.7 Prothrombin Time 12.3 Prothrombin Time Ratio 1.0 Red Blood Count 4.08 L Red Cell Distribution Width 18.3 H Sodium Level 141 White Blood Count 7.7 Medications Medications Current Medications Morphine Sulfate (morphine) 2 mg Q4H PRN IV SEVERE PAIN LEVEL 7-10 Last administered on 06/10/16 05:51; Admin Dose 2 MG; Start 05/27/16 at 08:00 Heparin Sodium (Porcine) (Heparin (5000 Units/0.5 ml)) 5,000 unit Q12 SC Last administered on 06/17/16 09:15; Admin Dose 5,000 UNIT; Start 05/27/16 at 09:00 Acetaminophen/ Codeine Phosphate (Tylenol No.3) 1 tab Q12 GTB Last administered on 06/17/16 09:14; Admin Dose 1 TAB; Start 05/27/16 at 09:00 Acetaminophen (Tylenol Liquid) 650 mg Q4H PRN GTB PAIN AND OR ELEVATED TEMP Last administered on 06/16/16 01:53; Admin Dose 650 MG; Start 05/27/16 at 08:00 Albuterol (Proventil 0.083% (Neb)) 2.5 mg Q6 PRN NEB WHEEZING AND SOB Last administered on 06/09/16 13:35; Admin Dose 2.5 MG; Start 05/27/16 at 08:00 Aspirin (Aspirin) 81 mg DAILY GTB Last administered on 06/17/16 09:12; Admin Dose 81 MG; Start 05/27/16 at 09:00 Atenolol (Tenormin) 25 mg DAILY GTB Last administered on 06/17/16 09:13; Admin Dose 25 MG; Start 05/27/16 at 09:00 Bisacodyl (Dulcolax Supp) 10 mg Q24H PRN [place] constipation; Start 05/27/16 at 08: 00 Diphenhydramine HCl (Benadryl) 25 mg Q6H PRN GTB ITCHING Last administered on 20:11; Admin Dose 25 MG; Start 05/27/16 at 08:00 Docusate Sodium (Colace Liquid Cup) 100 mg QHS PRN GTB CONSTIPATION; Start at 08:00 Hydroxyzine HCl (Atarax) 25 mg TID GTB Last administered on 06/17/16 14:15; Admin Dose 25 MG; Start 05/27/16 at 09:00 Multivitamins Therapeutic (Theragran) 1 tab DAILY GTB Last administered on 06/17 09:14; Admin Dose 1 TAB; Start 05/27/16 at 09:00 Famotidine (Pepcid) 20 mg BID GTB Last administered on 06/17/16 09:14; Admin Dose 20 MG; Start 05/31/16 at 21:00 Levetiracetam (Keppra Liquid) 750 mg BID GTB Last administered on 06/17/16 09: 14; Admin Dose 750 MG; Start 06/03/16 at 09:00 Lorazepam (Ativan) 1 mg Q4 PRN PO ANXIETY Last administered on 06/08/16 04:27; Admin Dose 1 MG; Start 06/04/16 at 05:30 Quetiapine Fumarate (Seroquel) 25 mg BID GTB Last administered on 06/17/16 09: 14; Admin Dose 25 MG; Start 06/15/16 at 21:00 RALPH LEÓN MD Jun 17, 2016 17:22
[2016-06-18] VITALS (33 sets, daily range): BP systolic 107–133; BP diastolic 55–72; PULSE 62–76; RESP 16–34
[2016-06-18] MEDS: QUETIAPINE 25 MG TAB GTB SCH ×2 (09:11→21:00)
[2016-06-18] MEDS: ACETAMINOPHEN/CODEINE #3 TAB GTB SCH ×2 (09:11→21:00)
[2016-06-18] MEDS: hydrOXYzine HCL 25 MG TAB GTB SCH ×3 (09:11→21:00)
[2016-06-18] MEDS: FAMOTIDINE 20 MG TAB GTB SCH ×2 (09:14→21:00)
[2016-06-18] MEDS: ASPIRIN 81 MG TAB GTB SCH (09:14)
[2016-06-18] MEDS: MULTIVITAMINS THERAPEUTIC TAB GTB SCH (09:14)
[2016-06-18] MEDS: LEVETIRACETAM (100 MG/ML) 5ML CUP GTB SCH ×2 (09:14→21:00)
[2016-06-18] MEDS: ATENOLOL 25 MG TAB GTB SCH (09:16)
[2016-06-18] MEDS: HEPARIN 5,000 UNIT/0.5 ML SYG SC SCH ×2 (09:23→21:02)
--- NOTE | 2016-06-18 15:25 | PN ---
Date/Time of Note Date/Time of Note DATE: 06/18/16 TIME: 15:24 Assessment/Plan VTE Prophylaxis VTE Prophylaxis Intervention: heparin Lines/Catheters IV Catheter Type (from Nrs): Saline Lock Urinary Cath still in place: No Assessment/Plan Assessment/Plan 1. Sepsis 2/2 HCAP-stable 2. Acute on chronic respiratory failure. The patient is status post tracheostomy and did have a leak which is now stable- pulmonary has been following 3. Seizure disorder. Continue anticonvulsants. 4. Chronic bedridden status. Continue supportive care. Continue turn schedule q.2 hours. 5. Hyperkalemia. 6. Microcytic hypochromic anemia. 7. Fluid, electrolytes, and nutrition. 8. Anemia of chronic Dz 9. Essential hypertension. Continue antihypertensives Dispo- restraints renewed, sepsis appears to now be resolving , on restraints, will have to give some medication to calm his down PPx- Heparin increased seroquel to 25 mg PO BID for agitation and release restraints as needed will add clozapine for agitation Subjective 24 Hr Interval Summary Free Text/Dictation pt still requiring restraints, BP stable Exam/Review of Systems Vital Signs Vitals Vital Signs Date Time Temp Pulse Resp B/P Pulse Ox O2 Delivery O2 Flow Rate FiO2 06/18/16 14:00 97.6 67 18 99 Mechanical Ventilator 06/18/16 12:10 50 Intake and Output 06/17/16 06/17/16 06/18/16 15:00 23:00 07:00 Intake Total 2555 ml 600 ml Balance 2555 ml 600 ml Exam GENERAL: This is a fragile, elderly man who is lying comfortably in bed. HEENT: Head atraumatic, normocephalic. Sclerae anicteric. Buccal mucosa dry. NECK: Supple. Tracheostomy present. CHEST: Rise symmetrical. Breath sounds diminished to bases. HEART: S1, S2. ABDOMEN: Soft. Bowel tones hypoactive. EXTREMITIES: No cyanosis. Results Result Diagram: 06/17/1636 06/17/1636 Medications Medications Current Medications Morphine Sulfate (morphine) 2 mg Q4H PRN IV SEVERE PAIN LEVEL 7-10 Last administered on 06/10/16t 05:51; Admin Dose 2 MG; Start 05/27/16 at 08:00 Heparin Sodium (Porcine) (Heparin (5000 Units/0.5 ml)) 5,000 unit Q12 SC Last administered on 06/18/16 09:23; Admin Dose 5,000 UNIT; Start 05/27/16 at 09:00 Acetaminophen/ Codeine Phosphate (Tylenol No.3) 1 tab Q12 GTB Last administered on 06/18/16 09:11; Admin Dose 1 TAB; Start 05/27/16 at 09:00 Acetaminophen (Tylenol Liquid) 650 mg Q4H PRN GTB PAIN AND OR ELEVATED TEMP Last administered on 06/16/16 01:53; Admin Dose 650 MG; Start 05/27/16 at 08:00 Albuterol (Proventil 0.083% (Neb)) 2.5 mg Q6 PRN NEB WHEEZING AND SOB Last administered on 06/09/16 13:35; Admin Dose 2.5 MG; Start 05/27/16 at 08:00 Aspirin (Aspirin) 81 mg DAILY GTB Last administered on 06/18/16 09:14; Admin Dose 81 MG; Start 05/27/16 at 09:00 Atenolol (Tenormin) 25 mg DAILY GTB Last administered on 06/18/16 09:16; Admin Dose 25 MG; Start 05/27/16 at 09:00 Bisacodyl (Dulcolax Supp) 10 mg Q24H PRN [place] constipation; Start 05/27/16 at 08: 00 Diphenhydramine HCl (Benadryl) 25 mg Q6H PRN GTB ITCHING Last administered on 20:11; Admin Dose 25 MG; Start 05/27/16 at 08:00 Docusate Sodium (Colace Liquid Cup) 100 mg QHS PRN GTB CONSTIPATION; Start at 08:00 Hydroxyzine HCl (Atarax) 25 mg TID GTB Last administered on 06/18/16 14:06; Admin Dose 25 MG; Start 05/27/16 at 09:00 Multivitamins Therapeutic (Theragran) 1 tab DAILY GTB Last administered on 06/18 09:14; Admin Dose 1 TAB; Start 05/27/16 at 09:00 Famotidine (Pepcid) 20 mg BID GTB Last administered on 06/18/16 09:14; Admin Dose 20 MG; Start 05/31/16 at 21:00 Levetiracetam (Keppra Liquid) 750 mg BID GTB Last administered on 06/18/16 09: 14; Admin Dose 750 MG; Start 06/03/16 at 09:00 Lorazepam (Ativan) 1 mg Q4 PRN PO ANXIETY Last administered on 06/08/16 04:27; Admin Dose 1 MG; Start 06/04/16 at 05:30 Quetiapine Fumarate (Seroquel) 25 mg BID GTB Last administered on 06/18/16 09: 11; Admin Dose 25 MG; Start 06/15/16 at 21:00 RALPH LEÓN MD Jun 18, 2016 15:25
--- NOTE | 2016-06-18 15:41 | PN ---
DATE: 06/18/2016 REASON FOR FOLLOWUP: Ventilator management. The patient was ____stable overnight. VITAL SIGNS: Temperature 98, pulse is 67, blood pressure 116/66, O2 saturation 96%, FIO2 of 50%. NECK: Trach site clean and intact. CARDIAC: S1, S2, no added sounds or murmurs. CHEST: Diminished air entry bilaterally. ABDOMEN: Soft, nontender. No guarding or rebound. EXTREMITIES: No cyanosis, clubbing, edema. NEUROLOGIC: Generalized weakness. LABORATORY DATA: No labs today, ASSESSMENT AND PLAN: 1. Vent dependent respiratory failure, currently stable. 2. History of seizure disorder. 3. History of hyperkalemia. 4. Type 2 diabetes. 5. History of agitation. PLAN: 1. Agree with increased Seroquel and anxiolytics. 2. Continue vent support. 3. Continue tube feeding. 4. Discharge planning. Dictated By: PATRICK LAMA/EVELINA Conf#: [id number] DID#: [id number]
--- NOTE | 2016-06-18 16:27 | CONS ---
Date/Time of Note Date/Time of Note DATE: 06/18/16 TIME: 16:26 Assessment/Plan Assessment/Plan Chief Complaint/Hosp Course SUBJECTIVE: No events overnight. No fevers, looks comfortable ANTIMICROBIALS: none s/p Fortaz INDWELLINGS: Trach, PEG, colostomy. PHYSICAL EXAMINATION: GENERAL: This is a fragile, elderly man who is lying comfortably in bed. HEENT: Head atraumatic, normocephalic. Sclerae anicteric. Buccal mucosa dry. NECK: Supple. Tracheostomy present. CHEST: Rise symmetrical. Breath sounds diminished to bases. HEART: S1, S2. ABDOMEN: Soft. Bowel tones hypoactive. EXTREMITIES: No cyanosis. ASSESSMENT: 1. S/p sepsis 2. Healthcare-associated pneumonia==> treated. 3. Chronic respiratory failure. 4. History of colostomy, rule out C difficile with liquid stool. 5. Chronic encephalopathy. PLAN: Remains stable off abx DW staff Problems: Consultation Date/Type/Reason Admit Date/Time May 27, 2016 at 04:18 Initial Consult Date 05/27/16 Type of Consultation: ID Exam/Review of Systems Vital Signs Vitals Vital Signs Date Time Temp Pulse Resp B/P Pulse Ox O2 Delivery O2 Flow Rate FiO2 06/18/16 16:10 98.3 72 24 121/68 98 06/18/16 14:00 Mechanical Ventilator 06/18/16 12:10 50 Intake and Output 06/17/16 06/17/16 06/18/16 15:00 23:00 07:00 Intake Total 2555 ml 600 ml Balance 2555 ml 600 ml Results Result Diagram: 06/17/16 0536 06/17/16 0536 Medications Medications Current Medications Morphine Sulfate (morphine) 2 mg Q4H PRN IV SEVERE PAIN LEVEL 7-10 Last administered on 06/10/16 05:51; Admin Dose 2 MG; Start 05/27/16 at 08:00 Heparin Sodium (Porcine) (Heparin (5000 Units/0.5 ml)) 5,000 unit Q12 SC Last administered on 06/18/16 09:23; Admin Dose 5,000 UNIT; Start 05/27/16 at 09:00 Acetaminophen/ Codeine Phosphate (Tylenol No.3) 1 tab Q12 GTB Last administered on 06/18/16 09:11; Admin Dose 1 TAB; Start 05/27/16 at 09:00 Acetaminophen (Tylenol Liquid) 650 mg Q4H PRN GTB PAIN AND OR ELEVATED TEMP Last administered on 06/16/16 01:53; Admin Dose 650 MG; Start 05/27/16 at 08:00 Albuterol (Proventil 0.083% (Neb)) 2.5 mg Q6 PRN NEB WHEEZING AND SOB Last administered on 06/09/16 13:35; Admin Dose 2.5 MG; Start 05/27/16 at 08:00 Aspirin (Aspirin) 81 mg DAILY GTB Last administered on 06/18/16 09:14; Admin Dose 81 MG; Start 05/27/16 at 09:00 Atenolol (Tenormin) 25 mg DAILY GTB Last administered on 06/18/16 09:16; Admin Dose 25 MG; Start 05/27/16 at 09:00 Bisacodyl (Dulcolax Supp) 10 mg Q24H PRN [place] constipation; Start 05/27/16 at 08: 00 Diphenhydramine HCl (Benadryl) 25 mg Q6H PRN GTB ITCHING Last administered on 20:11; Admin Dose 25 MG; Start 05/27/16 at 08:00 Docusate Sodium (Colace Liquid Cup) 100 mg QHS PRN GTB CONSTIPATION; Start at 08:00 Hydroxyzine HCl (Atarax) 25 mg TID GTB Last administered on 06/18/16 14:06; Admin Dose 25 MG; Start 05/27/16 at 09:00 Multivitamins Therapeutic (Theragran) 1 tab DAILY GTB Last administered on 06/18 09:14; Admin Dose 1 TAB; Start 05/27/16 at 09:00 Famotidine (Pepcid) 20 mg BID GTB Last administered on 06/18/16 09:14; Admin Dose 20 MG; Start 05/31/16 at 21:00 Levetiracetam (Keppra Liquid) 750 mg BID GTB Last administered on 06/18/16 09: 14; Admin Dose 750 MG; Start 06/03/16 at 09:00 Lorazepam (Ativan) 1 mg Q4 PRN PO ANXIETY Last administered on 3/4/17at 04:27; Admin Dose 1 MG; Start 06/04/16 at 05:30 Quetiapine Fumarate (Seroquel) 25 mg BID GTB Last administered on 06/18/16t 09: 11; Admin Dose 25 MG; Start 06/15/16 at 21:00 STEPHEN CARRASQUILLO NP Jun 18, 2016 16:26
[2016-06-19] VITALS (18 sets, daily range): BP systolic 95–142; BP diastolic 53–78; PULSE 66–80; RESP 16–28
[2016-06-19] MEDS: LORAZEPAM 1 MG TAB PO PRN ×2 (01:16→15:08)
[2016-06-19] MEDS: DIPHENHYDRAMINE 25 MG CAP GTB PRN (05:22)
[2016-06-19] MEDS: ATENOLOL 25 MG TAB GTB SCH (09:00)
[2016-06-19] MEDS: LEVETIRACETAM (100 MG/ML) 5ML CUP GTB SCH (09:07)
[2016-06-19] MEDS: MULTIVITAMINS THERAPEUTIC TAB GTB SCH (09:07)
[2016-06-19] MEDS: ACETAMINOPHEN/CODEINE #3 TAB GTB SCH (09:08)
[2016-06-19] MEDS: hydrOXYzine HCL 25 MG TAB GTB SCH ×2 (09:08→12:01)
[2016-06-19] MEDS: QUETIAPINE 25 MG TAB GTB SCH (09:08)
[2016-06-19] MEDS: ASPIRIN 81 MG TAB GTB SCH (09:08)
[2016-06-19] MEDS: FAMOTIDINE 20 MG TAB GTB SCH (09:08)
[2016-06-19] MEDS: HEPARIN 5,000 UNIT/0.5 ML SYG SC SCH (09:38)
--- NOTE | 2016-06-19 11:27 | PN ---
Date/Time of Note Date/Time of Note DATE: 06/19/16 TIME: 11:25 Assessment/Plan VTE Prophylaxis VTE Prophylaxis Intervention: heparin Lines/Catheters IV Catheter Type (from Nrs): Saline Lock Urinary Cath still in place: No Assessment/Plan Assessment/Plan 1. Sepsis 2/2 HCAP-stable 2. Acute on chronic respiratory failure. The patient is status post tracheostomy and did have a leak which is now stable- pulmonary has been following 3. Seizure disorder. Continue anticonvulsants. 4. Chronic bedridden status. Continue supportive care. Continue turn schedule q.2 hours. 5. Hyperkalemia. 6. Microcytic hypochromic anemia. 7. Fluid, electrolytes, and nutrition. 8. Anemia of chronic Dz 9. Essential hypertension. Continue antihypertensives Dispo- restraints renewed, sepsis appears to now be resolving , on restraints, will have to give some medication to calm his down PPx- Heparin increased seroquel to 25 mg PO BID for agitation and release restraints as needed clozapine added possible d/c to SNF today Subjective 24 Hr Interval Summary Free Text/Dictation pt is still in restraints, on seroque, SNF accepted for d/c Exam/Review of Systems Vital Signs Vitals Vital Signs Date Time Temp Pulse Resp B/P Pulse Ox O2 Delivery O2 Flow Rate FiO2 06/19/16 11:10 74 19 99 50 06/19/16 11:10 98.6 115/55 06/19/16 10:00 Mechanical Ventilator Intake and Output 06/18/16 06/18/16 06/19/16 15:00 23:00 07:00 Intake Total 1850 ml 700 ml Balance 1850 ml 700 ml Exam GENERAL: This is a fragile, elderly man who is lying comfortably in bed. HEENT: Head atraumatic, normocephalic. Sclerae anicteric. Buccal mucosa dry. NECK: Supple. Tracheostomy present. CHEST: Rise symmetrical. Breath sounds diminished to bases. HEART: S1, S2. ABDOMEN: Soft. Bowel tones hypoactive. EXTREMITIES: No cyanosis. Results Result Diagram: 06/17/1636 06/17/1636 Medications Medications Current Medications Morphine Sulfate (morphine) 2 mg Q4H PRN IV SEVERE PAIN LEVEL 7-10 Last administered on 06/10/16t 05:51; Admin Dose 2 MG; Start 05/27/16 at 08:00 Heparin Sodium (Porcine) (Heparin (5000 Units/0.5 ml)) 5,000 unit Q12 SC Last administered on 06/19/16 09:38; Admin Dose 5,000 UNIT; Start 05/27/16 at 09:00 Acetaminophen/ Codeine Phosphate (Tylenol No.3) 1 tab Q12 GTB Last administered on 06/19/16 09:08; Admin Dose 1 TAB; Start 05/27/16 at 09:00 Acetaminophen (Tylenol Liquid) 650 mg Q4H PRN GTB PAIN AND OR ELEVATED TEMP Last administered on 06/16/16 01:53; Admin Dose 650 MG; Start 05/27/16 at 08:00 Albuterol (Proventil 0.083% (Neb)) 2.5 mg Q6 PRN NEB WHEEZING AND SOB Last administered on 06/09/16 13:35; Admin Dose 2.5 MG; Start 05/27/16 at 08:00 Aspirin (Aspirin) 81 mg DAILY GTB Last administered on 06/19/16 09:08; Admin Dose 81 MG; Start 05/27/16 at 09:00 Atenolol (Tenormin) 25 mg DAILY GTB Last administered on 06/18/16 09:16; Admin Dose 25 MG; Start 05/27/16 at 09:00 Bisacodyl (Dulcolax Supp) 10 mg Q24H PRN [place] constipation; Start 05/27/16 at 08: 00 Diphenhydramine HCl (Benadryl) 25 mg Q6H PRN GTB ITCHING Last administered on 05:22; Admin Dose 25 MG; Start 05/27/16 at 08:00 Docusate Sodium (Colace Liquid Cup) 100 mg QHS PRN GTB CONSTIPATION; Start at 08:00 Hydroxyzine HCl (Atarax) 25 mg TID GTB Last administered on 06/19/16 09:08; Admin Dose 25 MG; Start 05/27/16 at 09:00 Multivitamins Therapeutic (Theragran) 1 tab DAILY GTB Last administered on 06/19 09:07; Admin Dose 1 TAB; Start 05/27/16 at 09:00 Famotidine (Pepcid) 20 mg BID GTB Last administered on 06/19/16 09:08; Admin Dose 20 MG; Start 05/31/16 at 21:00 Levetiracetam (Keppra Liquid) 750 mg BID GTB Last administered on 06/19/16 09: 07; Admin Dose 750 MG; Start 06/03/16 at 09:00 Lorazepam (Ativan) 1 mg Q4 PRN PO ANXIETY Last administered on 06/19/16 01:16 ; Admin Dose 1 MG; Start 06/04/16 at 05:30 Quetiapine Fumarate (Seroquel) 25 mg BID GTB Last administered on 06/19/16 09: 08; Admin Dose 25 MG; Start 06/15/16 at 21:00 RALPH LEÓN MD Jun 19, 2016 11:26
--- NOTE | 2016-06-19 12:57 | PDOCDIS ---
Discharge Instructions CONDITION Patient Condition: Good HOME CARE INSTRUCTIONS: Special Diet: GTUBE FEEDING ACTIVITY: Activity Restrictions: Slowly Increase Activity Rest between Activity Avoid heavy lifting Do not operate Power Tool FOLLOW UP/APPOINTMENTS Appointments follow up with physician at SNF[facility] RALPH LEÓN MD Jun 19, 2016 12:57
--- NOTE | 2016-06-19 14:09 | PN ---
DATE: 06/19/2016 SUBJECTIVE: The patient remains stable this morning. OBJECTIVE: VITAL SIGNS: Temperature 98, pulse 70, blood pressure 115/65, O2 saturation 99% on FIO2 of 50%. NECK: Trach site clean and intact. CARDIAC: S1, S2, no added sounds or murmurs. CHEST: Diminished air entry bilaterally. ABDOMEN: Soft, nontender. No guarding or rebound. EXTREMITIES: No cyanosis, clubbing, or edema. NEUROLOGIC: Generalized weakness. No new labs today. IMPRESSION AND PLAN: 1. Vent dependent respiratory failure. 2. Encephalopathy. 3. History of significant agitation psychiatric disorder. 4. History of seizure disorder. RECOMMENDATIONS: 1. Continue current anxiolytics. 2. Tube feeding. 3. Vent support. 4. Discharge planning. Dictated By: PATRICK LAMA/EVELINA Conf#: [id number] DID#: [id number]
--- NOTE | 2016-06-19 14:45 | CONS ---
Date/Time of Note Date/Time of Note DATE: 06/19/16 TIME: 14:44 Assessment/Plan Assessment/Plan Chief Complaint/Hosp Course SUBJECTIVE: No events overnight. No fevers, looks comfortable ANTIMICROBIALS: none s/p Fortaz INDWELLINGS: Trach, PEG, colostomy. PHYSICAL EXAMINATION: GENERAL: This is a fragile, elderly man who is lying comfortably in bed. HEENT: Head atraumatic, normocephalic. Sclerae anicteric. Buccal mucosa dry. NECK: Supple. Tracheostomy present. CHEST: Rise symmetrical. Breath sounds diminished to bases. HEART: S1, S2. ABDOMEN: Soft. Bowel tones hypoactive. EXTREMITIES: No cyanosis. ASSESSMENT: 1. S/p sepsis 2. Healthcare-associated pneumonia==> treated. 3. Chronic respiratory failure. 4. History of colostomy, rule out C difficile with liquid stool. 5. Chronic encephalopathy. PLAN: Remains stable will malave cx prn DW staff Problems: Consultation Date/Type/Reason Admit Date/Time May 27, 2016 at 04:18 Initial Consult Date 05/27/16 Type of Consultation: ID Exam/Review of Systems Vital Signs Vitals Vital Signs Date Time Temp Pulse Resp B/P Pulse Ox O2 Delivery O2 Flow Rate FiO2 06/19/16 14:43 98.2 70 16 123/74 98 06/19/16 13:20 50 06/19/16 10:00 Mechanical Ventilator Intake and Output 06/18/16 06/18/16 06/19/16 15:00 23:00 07:00 Intake Total 1850 ml 700 ml Balance 1850 ml 700 ml Results Result Diagram: 06/17/16 0536 06/17/16 0536 Medications Medications Current Medications Morphine Sulfate (morphine) 2 mg Q4H PRN IV SEVERE PAIN LEVEL 7-10 Last administered on 06/10/16 05:51; Admin Dose 2 MG; Start 05/27/16 at 08:00 Heparin Sodium (Porcine) (Heparin (5000 Units/0.5 ml)) 5,000 unit Q12 SC Last administered on 06/19/16 09:38; Admin Dose 5,000 UNIT; Start 05/27/16 at 09:00 Acetaminophen/ Codeine Phosphate (Tylenol No.3) 1 tab Q12 GTB Last administered on 06/19/16 09:08; Admin Dose 1 TAB; Start 05/27/16 at 09:00 Acetaminophen (Tylenol Liquid) 650 mg Q4H PRN GTB PAIN AND OR ELEVATED TEMP Last administered on 06/16/16 01:53; Admin Dose 650 MG; Start 05/27/16 at 08:00 Albuterol (Proventil 0.083% (Neb)) 2.5 mg Q6 PRN NEB WHEEZING AND SOB Last administered on 06/09/16 13:35; Admin Dose 2.5 MG; Start 05/27/16 at 08:00 Aspirin (Aspirin) 81 mg DAILY GTB Last administered on 06/19/16 09:08; Admin Dose 81 MG; Start 05/27/16 at 09:00 Atenolol (Tenormin) 25 mg DAILY GTB Last administered on 06/18/16 09:16; Admin Dose 25 MG; Start 05/27/16 at 09:00 Bisacodyl (Dulcolax Supp) 10 mg Q24H PRN SD constipation; Start 05/27/16 at 08: 00 Diphenhydramine HCl (Benadryl) 25 mg Q6H PRN GTB ITCHING Last administered on 05:22; Admin Dose 25 MG; Start 05/27/16 at 08:00 Docusate Sodium (Colace Liquid Cup) 100 mg QHS PRN GTB CONSTIPATION; Start at 08:00 Hydroxyzine HCl (Atarax) 25 mg TID GTB Last administered on 06/19/16 12:01; Admin Dose 25 MG; Start 05/27/16 at 09:00 Multivitamins Therapeutic (Theragran) 1 tab DAILY GTB Last administered on 06/19 09:07; Admin Dose 1 TAB; Start 05/27/16 at 09:00 Famotidine (Pepcid) 20 mg BID GTB Last administered on 06/19/16 09:08; Admin Dose 20 MG; Start 05/31/16 at 21:00 Levetiracetam (Keppra Liquid) 750 mg BID GTB Last administered on 06/19/16 09: 07; Admin Dose 750 MG; Start 06/03/16 at 09:00 Lorazepam (Ativan) 1 mg Q4 PRN PO ANXIETY Last administered on 06/19/16 01:16 ; Admin Dose 1 MG; Start 06/04/16 at 05:30 Quetiapine Fumarate (Seroquel) 25 mg BID GTB Last administered on 06/19/16 09: 08; Admin Dose 25 MG; Start 06/15/16 at 21:00 STEPHEN CARRASQUILLO NP Jun 19, 2016 14:45
--- NOTE | 2016-06-24 16:19 | DS ---
DATE OF ADMISSION: 05/27/2016 DATE OF DISCHARGE: 06/19/2016 FINAL DISCHARGE DIAGNOSES: 1. Sepsis secondary to healthcare-associated pneumonia. 2. Acute on chronic respiratory failure, status post tracheostomy, on ventilator. 3. History of seizure disorder. 4. Chronic bedridden status secondary to multiple comorbidities. 5. Acute kidney injury with hyperkalemia, resolved. 6. Anemia of chronic disease with microcytic hypochromic anemia. 7. Essential hypertension. CONSULTATIONS DONE DURING THIS HOSPITALIZATION: 1. Infectious disease consult, Dr. Saini. 2. Pulmonary consult, Dr. Mcelroy. PROCEDURES PERFORMED DURING THIS HOSPITALIZATION: The patient had exchange of his tracheostomy tube during this hospitalization due to leaking. 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 The patient was brought in by [facility] because of having a fever, hypotension and desaturation. He gets admitted for sepsis second lisa to healthcare-associated pneumonia. He was treated with IV antibiotics, Zosyn and vancomycin an d had infectious disease consultation done by Dr. Saini. He was followed up by pulmonary, Dr. Jenn frances for his chronic ventilator management. The patient stayed in the hospital because of his persis tent agitation. He went into delirium and was requiring a sitter and also 4+ restraints. The patie nt was given multiple CDT medications including Risperidone and Seroquel. He remained hemodynamical ly stable after getting stable vital signs, and continues need of restraints. The patient was evalu ated by a long-term acute care facility and he was transferred to the long-term acute care facility. DISPOSITION: To long-term acute care facility. DISCHARGE CONDITION: Stable. DISCHARGE MEDICATIONS: As per medical reconciliation. DISCHARGE FOLLOWUP AND INSTRUCTIONS: The patient will be followed up by a physician, infectious dis ease service and also the pulmonary service at the long-term acute care facility. Dictated By: RALPH LEÓN MD, KP/EVELINA Conf#: [id number] DID#: [id number]
== END 2016-06-19 15:35 | DRG 870 ==
LOC: E/R 03:12 → TEL 04:18
PROVIDERS: ADMIT Internal Medicine; ATTEND Internal Medicine
PROC: 5A1955Z Respiratory Ventilation, Greater than 96 Consecutive Hours (ICD-10-PCS; principal; 2016-05-27)
DX: A41.9 Sepsis, unspecified organism (principal); J96.21 Acute and chronic respiratory failure with hypoxia; J15.1 Pneumonia due to Pseudomonas; Z93.0 Tracheostomy status; I69.954 Hemiplegia and hemiparesis following unspecified cerebrovascular disease affecting left non-dominant side; D50.9 Iron deficiency anemia, unspecified; E11.9 Type 2 diabetes mellitus without complications; I10 Essential (primary) hypertension; G40.909 Epilepsy, unspecified, not intractable, without status epilepticus; E87.5 Hyperkalemia; Z93.1 Gastrostomy status; Z74.01 Bed confinement status; Z93.3 Colostomy status; Y95 Nosocomial condition
CPT/HCPCS: 36415; 36600; 71010; 71250; 71260; 74177; 80048; 80053; 80061; 80202; 82565; 82728; 82803; 83036; 83540; 83605; 83735; 84100; 84443; 84484; 84520; 85025; 85610; 85730; 86580; 87040; 87070; 87075; 87081; 87086; 89220; 93005; 94002; 94003; 94640; 96372; 96374; 96375; 96376; A4310; J0692; J2060; J2270; J2916; J3370; J3480; J7030; J7050; Q9967